=== PATIENT | male | born 1980 | race Caucasian/White ===

== ENCOUNTER 2022-10-26 16:12 | Emergency (ER) | payer OTHER, SELFPAY ==
[2022-10-26 17:49] VITALS: BP 190/107; PULSE 95; RESP 16; TEMP 36.4; O2SAT 94; BMI 23.1
--- NOTE | 2022-10-26 17:49 | ED.GENADULT ---
HPI - General Adult General Chief complaint: Skin/Abscess/Foreign Body Stated complaint: abdominal abscess infection spreading Time Seen by Provider: 10/27/22 00:51 Source: patient Mode of arrival: ambulatory Limitations: no limitations History of Present Illness HPI narrative: over the past few day patient developed an abscess in the right lower abdomen. It ruptured on its own and patient expressed the pus out but now has noticed redness to his abdomen. No fever no shaking chills Onset (ago): day(s) Location: abdomen Severity: mild Related Data Previous Rx's Medication Instructions Recorded cephalexin 500 mg capsule 500 mg PO Q6H 7 days #28 caps 10/27/22 Allergies Allergy/AdvReac Type Severity Reaction Status Date / Time No Known Allergies Allergy Unverified 10/26/22 17:49 [No Known Allergies*] Review of Systems Review of Systems: Yes all other systems are reviewed and are negative [facility] Social History Social History Advance Directives: No Advance Directives Information Provided: Yes Physical Exam ED Vital Signs: Vital Signs - 24 hr 10/26/22 17:49 10/26/22 21:35 Temperature 97.5 F 98.2 F Pulse Rate 95 74 Respiratory Rate 16 16 Blood Pressure 190/107 H 156/88 H Pulse Oximetry 94 98 Oxygen Delivery Method Room Air Room Air BMI result Body Mass Index 23.1 Const Other: morbidly obese no acute distress Nutritional Appearance: obese Orientation/consciousness: oriented to person and patient oriented x3 Limitations: no limitations HENMT Head: Yes normal to inspection Ears: external ears normal General nose exam: Normal external nose present Mouth: Normal oral and palatal mucosa present and oropharynx normal Throat: Yes posterior oropharynx normal Eyes General: appearance normal, both eyes and all related structures Neck Neck: Yes normal visual inspection Chest Chest palpation & inspection: normal inspection of the chest Resp Auscultation: clear to auscultation bilaterally Cardio Jugular venous distension: no JVD Rate: regular rate Rhythm: regular rhythm Heart sounds: S1 normal heart sound present and S2 normal heart sound present GI Inspection: Yes normal to inspection Palpation (GI): Soft to palpation, nontender and No hepatosplenomegaly present Auscultation: normal bowel sounds General: Yes no CVA tenderness Back/Spine/Pelvis Back: no CVA tenderness Skin Other: erythema around area of draining abscess, no pus coming out Neuro General: oriented to person and patient oriented x3 Cranial nerves: Yes CN's II-XII intact bilaterally Motor exam (neuro): 5/5 motor strength present throughout Extrem General: Yes normal to inspection Psych Appearance: grossly normal Course Course Course Narrative: This is an RME: Additional HPI, ROS, PE not included below will be deferred to primary provider. This is a [id number]-male, with a history of previous abd skin infections, here with abscess on abdomen x 5 days. Reports that he noticed it on , October 22, and the area burst on wednesday and got bigger yesterday. Right abdomen with extensive erythema and warmth to the right abdominal with central ulceration noted, active drainage noted. No fevers or chills. Plan: Labs ordered Reevaluation(s) Reevaluation #1: abscess was packed, keflex was started Time: 01:25 Medications Administered Discontinued Medications Generic Name Dose Route Start Last Admin Trade Name Freq PRN Reason Stop Dose Admin Cephalexin HCl 500 mg 10/27/22 01:02 10/27/22 01:10 Cephalexin 500 Mg Capsule PO 10/27/22 01:03 500 mg ONCE ONE Administration Lidocaine/Epinephrine 10 ml 10/27/22 01:02 10/27/22 01:13 Lidocaine Hcl 1%/Epi 1:100,000 10 Ml Vial SUBCUT 10/27/22 01:03 10 ml ONCE ONE Administration Procedures Procedure Narrative Procedure Narrative: Patient prepped and draped in sterile fashion. !% epi with lidocaine used for anesthesia. Curved hemostat used to open up the existing pocket and packing placed. Patient tolerated procedure well Medical Decision Making Differential Diagnosis Differential Diagnoses: The differential diagnosis associated with the presentation includes (abscess, cellulitis, paniculitis were all considered) Admission/Observation Consideration of admission/observation: Escalation of care including admission/observation considered (in this obese male with draining abscess and cellulitis admission was considered) Lab Data MDM Lab Attestation statement: I reviewed the patient's lab results. (no elevated WBC, no elevated glucose, bicarbonate normal) 10/26/22 18:51 10/26/22 18:51 Labs: Lab Results 10/26/22 10/26/22 10/26/22 Range/Units 18:51 18:51 18:51 WBC 9.5 (4.8-10.8) X10*3/uL RBC 4.44 L (4.60-5.80) X10*6/uL Hgb 14.2 (14.0-18.0) g/dl Hct 42.1 (42.0-52.0) % MCV 94.8 (80.0-98.0) fL MCH 32.0 (27.0-33.0) pg MCHC 33.7 (31.0-36.0) g/dl RDW 12.3 (11.0-16.0) % Plt Count 288 (160-400) X10*3/uL MPV 10.4 (9.4-12.4) fL Immature Gran % (Auto) 1.2 H (0.0-0.4) % Neut % (Auto) 55.1 (45-73) % Lymph % (Auto) 33.4 (20-40) % [place] % (Auto) 7.7 (2-11) % Eos % (Auto) 2.0 (0-4) % Baso % (Auto) 0.6 (0-2) % Lymph # (Auto) 3.2 (1.2-4.9) X10*3/uL [place] # (Auto) 0.7 (0.1-1.2) X10*3/uL Eos # (Auto) 0.2 (0.0-0.4) X10*3/uL Baso # (Auto) 0.1 (0.0-0.2) X10*3/uL Abs Immat Gran (auto) 0.11 H (0.00-0.03) X10*3/uL Absolute Neuts (auto) 5.2 (2.0-8.3) x10*3/uL Absolute Nucleated RBC 0.000 (0.0-0.012) X10*3/uL Nucleated RBC % (auto) 0.0 (0.0-0.2) /100WBC Sodium 140 (135-145) mmol/L Potassium 3.5 (3.3-5.1) mmol/L Chloride 103 (96-108) mmol/L Carbon Dioxide 27 (22-29) mmol/L Anion Gap 14 (12-20) BUN 13 (9-16) mg/dL Creatinine 0.80 (0.5-1.4) mg/dL Estim Creat Clear Calc 128.5 Estimated GFR > 60 Random Glucose 104 (60-115) mg/dL Lactic Acid 2.1 H* (0.5-2.0) mmol/L Lactic Acid F/U @ 2Hr (0.5-2.0) mmol/L Lactic Acid F/U @ 4Hr (0.5-2.0) mmol/L Calcium 9.3 (8.4-10.2) mg/dL Total Bilirubin 0.4 (0.0-1.0) mg/dL Direct Bilirubin 0.1 (0.0-0.5) mg/dL AST 20 (5-37) U/L ALT 37 (0-40) U/L Alkaline Phosphatase 97 (39-117) U/L Total Protein 7.4 (6.5-8.0) g/dL Albumin 3.9 (3.5-5.0) g/dL 10/26/22 10/27/22 Range/Units 21:56 00:27 WBC (4.8-10.8) X10*3/uL RBC (4.60-5.80) X10*6/uL Hgb (14.0-18.0) g/dl Hct (42.0-52.0) % MCV (80.0-98.0) fL MCH (27.0-33.0) pg MCHC (31.0-36.0) g/dl RDW (11.0-16.0) % Plt Count (160-400) X10*3/uL MPV (9.4-12.4) fL Immature Gran % (Auto) (0.0-0.4) % Neut % (Auto) (45-73) % Lymph % (Auto) (20-40) % [place] % (Auto) (2-11) % Eos % (Auto) (0-4) % Baso % (Auto) (0-2) % Lymph # (Auto) (1.2-4.9) X10*3/uL [place] # (Auto) (0.1-1.2) X10*3/uL Eos # (Auto) (0.0-0.4) X10*3/uL Baso # (Auto) (0.0-0.2) X10*3/uL Abs Immat Gran (auto) (0.00-0.03) X10*3/uL Absolute Neuts (auto) (2.0-8.3) x10*3/uL Absolute Nucleated RBC (0.0-0.012) X10*3/uL Nucleated RBC % (auto) (0.0-0.2) /100WBC Sodium (135-145) mmol/L Potassium (3.3-5.1) mmol/L Chloride (96-108) mmol/L Carbon Dioxide (22-29) mmol/L Anion Gap (12-20) BUN (9-16) mg/dL Creatinine (0.5-1.4) mg/dL Estim Creat Clear Calc Estimated GFR Random Glucose (60-115) mg/dL Lactic Acid (0.5-2.0) mmol/L Lactic Acid F/U @ 2Hr 2.2 H* (0.5-2.0) mmol/L Lactic Acid F/U @ 4Hr 2.0 (0.5-2.0) mmol/L Calcium (8.4-10.2) mg/dL Total Bilirubin (0.0-1.0) mg/dL Direct Bilirubin (0.0-0.5) mg/dL AST (5-37) U/L ALT (0-40) U/L Alkaline Phosphatase (39-117) U/L Total Protein (6.5-8.0) g/dL Albumin (3.5-5.0) g/dL Independent Interpretation I performed an independent interpretation of an: Ultrasound (bedside ultrasounds showed a small pocket of fluid) Tests considered The following testing was considered but not selected: I considered a CT of the abdomen but patient well appearing, no acute distress, normal labs Prescription Management I considered prescription management with: Pain Medication (narcotic pain medication was considered) Chronic Conditions Patient?s care impacted by: Other (obesity) Discharge Plan Discharge Clinical Impression: Cellulitis, Abscess of skin or subcutaneous tissue Patient Disposition: Home, Self-Care Instructions: Cellulitis (ED), Abscess (ED) Additional Instructions: packing removed in 48 hours Prescriptions: New cephalexin 500 mg capsule 500 mg PO Q6H 7 Days Qty: 28 0RF Referrals: Luis Garcias MD [Primary Care Provider] - 5 days
[2022-10-26 18:58] LABS: MANUAL DIFF FLAG NO
[2022-10-26 19:13] LABS: Alanine Aminotransferase 37 U/L (0-40); Albumin Level 3.9 g/dL (3.5-5.0); Alkaline Phosphatase 97 U/L (39-117); Anion Gap 14 (12-20); Aspartate Amino Transferase 20 U/L (5-37); Bilirubin Direct 0.1 mg/dL (0.0-0.5); Bilirubin Total 0.4 mg/dL (0.0-1.0); Blood Urea Nitrogen 13 mg/dL (9-16); Calcium 9.3 mg/dL (8.4-10.2); Carbon Dioxide 27 mmol/L (22-29); Chloride 103 mmol/L (96-108); Creatinine Clr Calc Pharmacy 128.5; Estimated Glomerular Filt Rate > 60; Glucose Random 104 mg/dL (60-115); Potassium 3.5 mmol/L (3.3-5.1); Sodium 140 mmol/L (135-145); Total Protein 7.4 g/dL (6.5-8.0)
[2022-10-26 19:14] LABS: Lactic Acid 2.1 mmol/L (0.5-2.0)
[2022-10-26 19:37] LABS: Basophils Absolute Auto 0.1 X10*3/uL (0.0-0.2); Basophils Percent Auto 0.6 % (0-2); Eosinophils Absolute Auto 0.2 X10*3/uL (0.0-0.4); Hematocrit 42.1 % (42.0-52.0); Hemoglobin 14.2 g/dl (14.0-18.0); Imm Gran Abs Auto 0.11 X10*3/uL (0.00-0.03); Imm Gran Pct Auto 1.2 % (0.0-0.4); Lymphocytes Absolute Auto 3.2 X10*3/uL (1.2-4.9); Lymphocytes Percent Auto 33.4 % (20-40); Mean Corpuscular HGB Conc 33.7 g/dl (31.0-36.0); Mean Corpuscular Volume 94.8 fL (80.0-98.0); Mean Platelet Volume 10.4 fL (9.4-12.4); Monocytes Absolute Auto 0.7 X10*3/uL (0.1-1.2); Monocytes Percent Auto 7.7 % (2-11); Neutrophils Absolute Auto 5.2 x10*3/uL (2.0-8.3); Neutrophils Percent Auto 55.1 % (45-73); Platelet Count 288 X10*3/uL (160-400); Red Blood Count 4.44 X10*6/uL (4.60-5.80); Red Cell Distribution Width 12.3 % (11.0-16.0); White Blood Count 9.5 X10*3/uL (4.8-10.8)
[2022-10-26 20:56] LABS: Reflex Lactate? Lactic Acid Added
[2022-10-26 21:35] VITALS: BP 156/88; PULSE 74; RESP 16; TEMP 36.8; O2SAT 98
--- NOTE | 2022-10-26 21:58 | MHC.EDTECH ---
PATIENT 2ND SET OF BLOOD CULTURE AND LACTIC ACID DRAWN AND SENT TO LAB ,VITALS SIGN TAKEN .
[2022-10-26 22:19] LABS: ~Lactic Acid-LAB USE ONLY 2.2 mmol/L (0.5-2.0)
[2022-10-27 00:05] LABS: Reflex Lactate? 2 Y
[2022-10-27] MEDS: cephALEXin 500 MG CAPSULE PO (01:10)
[2022-10-27] MEDS: Lidocaine HCl 1%/Epi 1:100,000 10 ML VIAL SUBCUT (01:13)
== END 2022-10-27 01:46 | disposition home or self-care (01) ==
PROVIDERS: Physician Assistant Medical; Emergency Provider Emergency Medicine; PCP Internal Medicine
DX: L02.211 Cutaneous abscess of abdominal wall (principal); L03.311 Cellulitis of abdominal wall
CPT/HCPCS: 10060; 36415; 80048; 80076; 83605; 85025; 87040; 99282; 99284

== ENCOUNTER 2022-12-17 11:12 | Outpatient (REF) | payer OTHER, SELFPAY ==
[2022-12-17 11:22] LABS: MANUAL DIFF FLAG NO
[2022-12-17 11:30] LABS: Basophils Absolute Auto 0.1 X10*3/uL (0.0-0.2); Basophils Percent Auto 0.9 % (0-2); Eosinophils Absolute Auto 0.2 X10*3/uL (0.0-0.4); Eosinophils Percent Auto 1.8 % (0-4); Hematocrit 42.7 % (42.0-52.0); Imm Gran Abs Auto 0.07 X10*3/uL (0.00-0.03); Imm Gran Pct Auto 0.7 % (0.0-0.4); Lymphocytes Absolute Auto 3.2 X10*3/uL (1.2-4.9); Lymphocytes Percent Auto 31.3 % (20-40); Mean Corpuscular HGB Conc 32.8 g/dl (31.0-36.0); Mean Corpuscular Hemoglobin 31.8 pg (27.0-33.0); Mean Platelet Volume 10.6 fL (9.4-12.4); Monocytes Absolute Auto 0.7 X10*3/uL (0.1-1.2); Monocytes Percent Auto 6.6 % (2-11); Neutrophils Absolute Auto 5.9 x10*3/uL (2.0-8.3); Neutrophils Percent Auto 58.7 % (45-73); Platelet Count 328 X10*3/uL (160-400); Red Cell Distribution Width 12.1 % (11.0-16.0); White Blood Count 10.1 X10*3/uL (4.8-10.8)
[2022-12-17 11:42] LABS: Alanine Aminotransferase 38 U/L (0-40); Albumin Level 4.1 g/dL (3.5-5.0); Alkaline Phosphatase 82 U/L (39-117); Anion Gap 14 (12-20); Aspartate Amino Transferase 23 U/L (5-37); Bilirubin Total 0.5 mg/dL (0.0-1.0); Blood Urea Nitrogen 17 mg/dL (9-16); Calcium 9.9 mg/dL (8.4-10.2); Carbon Dioxide 25 mmol/L (22-29); Chloride 104 mmol/L (96-108); Cholesterol 220 mg/dL (<200); Estimated Glomerular Filt Rate > 60; Glucose Fasting 140 mg/dL (60-99); HDL Cholesterol 48 mg/dL (>40); LDL Cholesterol Calculated 126 mg/dL (<100); Sodium 139 mmol/L (135-145); Total Protein 7.4 g/dL (6.5-8.0); Triglycerides 231 mg/dL (<150)
[2022-12-17 11:58] LABS: Estimated Average Glucose 126 mg/dL
[2022-12-17 12:02] LABS: Prostate Specific Antigen 0.69 ng/mL (<0.05-4.0)
== END 2022-12-17 11:13 | disposition home or self-care (01) ==
LOC: HO.LNP 11:12
PROVIDERS: Visit Provider Internal Medicine
DX: Z00.00 Encounter for general adult medical examination without abnormal findings (principal); D72.829 Elevated white blood cell count, unspecified; R73.03 Prediabetes; I10 Essential (primary) hypertension; Z12.5 Encounter for screening for malignant neoplasm of prostate
CPT/HCPCS: 80053; 80061; 83036; 84153; 85025

== ENCOUNTER 2022-12-25 13:39 | Outpatient (REF) | payer OTHER, SELFPAY ==
[2022-12-25 13:51] LABS: Appearance Urine Clear; Color Urine Yellow; Glucose Urine UA Negative (Negative); Leukocyte Esterase Urine Negative (Negative); Nitrite Urine Negative (Negative); PH 5.5 (5.0-9.0); Specific Gravity - Urine 1.015 (1.005-1.025); Urine Blood Negative (Negative); Urine Ketones Negative (Negative); Urine Protein Negative (Neg-Trace)
[2022-12-25 13:55] LABS: Bacteria Urine None Seen (None Seen); Hyaline Casts Urine 0-2 /LPF (0-2); RBC Urine 0-2 /HPF (0-2); Squamous Epithelial Cell Urine 0-2 /HPF (0-2); WBC Urine 0-5 /HPF (0-5)
== END 2022-12-25 13:40 | disposition home or self-care (01) ==
LOC: HO.LNP 13:39
PROVIDERS: Visit Provider Internal Medicine
DX: Z00.00 Encounter for general adult medical examination without abnormal findings (principal); R73.03 Prediabetes; I10 Essential (primary) hypertension
CPT/HCPCS: 81001

== ENCOUNTER 2023-07-23 08:58 | Day surgery (SDC) | payer OTHER, SELFPAY ==
[2023-07-21 10:21] VITALS: BMI 52.9
[2023-07-23 10:05] VITALS: BMI 51.8
[2023-07-23 10:32] VITALS: BP 148/89; PULSE 83; RESP 16; TEMP 36; O2SAT 96
[2023-07-23] MEDS: Lactated Ringers 1,000 ML 80 ML IVCONT (10:35)
--- NOTE | 2023-07-23 10:44 | HO.ANESPROP2 ---
HPI - Anesthesia Eval Consult details Narrative: 43yo male patient for Colonoscopy PMFSH Active Problems Active Problems: Morbid Obesity BMI 51.8 HTN Denies FELICITY Past Medical History Medical History HTN (hypertension) Family History Family history of problems with anesthesia: No Surgical History Surgical History Hx of excision of mass Hx of wisdom tooth extraction H/O colonoscopy History of Problems with Anesthesia: No Social History Social History Patient Tobacco Use Status: Never used Tobacco Use of substances other than those prescribed or required for medical reasons: No Are you DNR?: No Advance Directives: No Advance Directives Information Provided: Yes Meds Allergies Allergy/AdvReac Type Severity Reaction Status Date / Time No Known Allergies Allergy Verified 07/23/23 10:21 [No Known Allergies*] Active Medications: Current Medications Lactated Ringer's (Lr) 1,000 mls @ 80 mls/hr IVCONT .[id number] Last Admin: 07/23/23 10:35 Dose: 80 mls/hr Sodium Biphosphate/Sodium Phosphate (Sodium Phosphate,[place]-Dibasic 133 Ml Enema) 133 ml IA ONCE PRN PRN Reason: Poor Colonoscopy Prep Results Home Medications ?Medication ?Instructions ?Recorded ?Confirmed ?Last Taken ?Type amlodipine 10 mg tablet 10 mg PO DAILY 07/21/23 07/23/23 07/22/23 History lisinopril 20 1 tab PO DAILY 07/21/23 07/23/23 07/22/23 History mg-hydrochlorothiazide 12.5 mg tablet Exam Height,Weight and Vital Signs: Height 6 ft Weight 173.272 kg Last Vital Signs Temp 96.8 F 07/23/23 10:32 Pulse 83 07/23/23 10:32 Resp 16 07/23/23 10:32 BP 148/89 H 07/23/23 10:32 Pulse Ox 96 07/23/23 10:32 O2 Del Method Room Air 07/23/23 10:32 Airway Mallampati Class: III TM Dist: >3cm Neck ROM: Full Loose/Missing/Broken Teeth: No (Denies loose teeth. Broken tooth top right, missing tooth top right) Heart: RRR Lungs: CTAB Assessment and Plan Assessment Anesthesia Assessment: Anesthesia Plan Discussed and Chart Reviewed Final Anesthetic Review Family History of Problems with Anesthesia: No History of Problems with Anesthesia: No NPO: Yes ASA Class: III Final Preanesthetic Review: No Changes in Pt Med Stat, Meds/Allgs Chart Reviewed, Consent Obtained/Reviewed and Anes Risks/Benef Reviewed Patient Risk: Intermediate Procedure Risk: Low Assessment/Block/Sedation in SS: Assess/Block/Sedation-SS Anesthetic Plan Anesthetic Plan: MAC: and TIVA Disposition: Standard PACU
[2023-07-23 12:21] VITALS: BP 129/72; PULSE 88; RESP 16; TEMP 36.7; O2SAT 95
--- NOTE | 2023-07-23 12:23 | P.BOP_ITS ---
Brief Operative Note Date of Service: 07/23/23 Pre-op diagnosis: Screening Post-op diagnosis: other (Colon lesion) Procedure: Colonoscopy to the cecum with biopsies of appendiceal orifice, and hot snare polypectomy and biopsies of portions of colon lesion near hepatic flexure with submucosal ink marking Surgeon: Ramirez Pena MD Anesthesia: MAC Was an Inspector Poising used for this Procedure?: No Estimated blood loss (mL): 2.0 Pathology: other (A. Appendiceal orifice B. Lesion near hepatic flexure) Condition: stable Disposition: PACU
[2023-07-23 12:44] VITALS: BP 153/93; PULSE 81; RESP 18; TEMP 36.7; O2SAT 96
--- NOTE | 2023-07-24 04:10 | OP_ITS ---
DATE OF SERVICE: 07/23/2023 SURGEON: Ramirez Pena MD INDICATIONS: The patient presents for followup of personal history of colon polyps, family history of colon cancer, and colorectal cancer screening. Full consent was obtained from him for this, including risks of bleeding and perforation. PREOPERATIVE DIAGNOSIS: POSTOPERATIVE DIAGNOSIS: PROCEDURE PERFORMED: Colonoscopy to the cecum with biopsies, hot snare polypectomy, and placement of submucosal ink marking. ESTIMATED BLOOD LOSS: COMPLICATIONS: ANESTHESIA: Monitored anesthesia care. ASSISTANTS: SPECIMENS: PREOPERATIVE DIAGNOSES: Personal history of colon polyps, family history of colon cancer, colorectal cancer screening. POSTOPERATIVE DIAGNOSES: Personal history of colon polyps, family history of colon cancer, colorectal cancer screening, suspicious lesion noted in proximal transverse colon, rule out polyp in region of the appendiceal orifice, internal hemorrhoids. DESCRIPTION OF PROCEDURE: The patient was placed in the left lateral decubitus position. The digital rectal exam revealed no abnormalities. The Olympus video-pediatric colonoscope was entered into the rectum and advanced easily to the cecum. Once in the cecum, I did identify cecal pouch with appendiceal orifice and a normal-appearing ileocecal valve. The entire cecum was well visualized. The region immediately around the appendiceal orifice appeared to be somewhat erythematous, edematous, friable, and firm. There was no definitive associated mass. Biopsies were obtained from the tissue around the appendiceal orifice. The remainder of the cecum appeared normal. The scope was then slowly withdrawn assessing all mucosal surfaces carefully. Preparation was excellent. In the region of what appeared to be the proximal transverse colon, was a fairly large, somewhat ulcerated, and friable lesion. This was at least 3 cm x 1 cm. It was on a broad base. I initially removed portions of it with hot snare polypectomy and these were recovered by suction. The lesion itself was quite firm. At that point, I felt there was a high likelihood that this was a malignancy. Therefore, I opted to not remove any further large pieces and simply obtain biopsies. These were all placed in the same container. Given its suspicious appearance, I did place submucosal ink walters immediately proximal and immediately distal to the lesion. Again, the lesion was not removed in its entirety. I did not visualize any other polyps, colitis, nor angiodysplasia. The previously placed submucosal ink walters were noted in the sigmoid colon without any sign of residual polyp tissue in that area. In the rectum, the scope was retroflexed visualizing some small internal hemorrhoids, but no other pathology. The rectal mucosa appeared normal. The scope was straightened and withdrawn from the patient. He tolerated the procedure well and was returned to the recovery area in stable condition. IMPRESSION: 1. Suspicious colon lesion in region of proximal transverse colon. 2. Somewhat suspicious changes around the appendiceal orifice, status post biopsy. 3. Internal hemorrhoids. PLAN: The results of the pathology will be checked. He was advised not to use any aspirin or NSAIDs on a long-term basis for the time being. I advised him that I would be in touch with him by some time next week once I have the biopsy results and then make further plans accordingly. If indeed there is any malignancy he would need surgical referral. Future colonoscopy plans will be made depending upon the results of the biopsies. He was advised to contact me prior to that if he has any bleeding or other problems. This has been discussed with his brother. MD SERENA Salmeron/MOISES / [phone] MTDD
== END 2023-07-23 13:00 | disposition home or self-care (01) ==
PROVIDERS: PCP Internal Medicine; Visit Provider Internal Medicine
PROC: 0DJD8ZZ Inspection of Lower Intestinal Tract, Via Natural or Artificial Opening Endoscopic (ICD-10-PCS; CPT 45378; principal; 2023-07-23 10:30)
DX: Z12.11 Encounter for screening for malignant neoplasm of colon (principal); Z86.010 Personal history of colon polyps; Z80.0 Family history of malignant neoplasm of digestive organs; D12.3 Benign neoplasm of transverse colon; K63.9 Disease of intestine, unspecified; K64.8 Other hemorrhoids; K52.9 Noninfective gastroenteritis and colitis, unspecified; I10 Essential (primary) hypertension; Z79.899 Other long term (current) drug therapy; Z98.890 Other specified postprocedural states
CPT/HCPCS: 45385; 45380; 45381; 88304; 88305; J1596; J2250; J2704

== ENCOUNTER 2023-12-21 11:58 | Outpatient (REF) | payer OTHER, SELFPAY ==
[2023-12-21 12:08] LABS: MANUAL DIFF FLAG NO
[2023-12-21 12:25] LABS: Basophils Absolute Auto 0.1 X10*3/uL (0.0-0.2); Basophils Percent Auto 0.7 % (0-2); Eosinophils Absolute Auto 0.3 X10*3/uL (0.0-0.4); Eosinophils Percent Auto 2.2 % (0-4); Hematocrit 42.4 % (42.0-52.0); Hemoglobin 13.8 g/dl (14.0-18.0); Imm Gran Abs Auto 0.12 X10*3/uL (0.00-0.03); Imm Gran Pct Auto 1.1 % (0.0-0.4); Lymphocytes Absolute Auto 3.4 X10*3/uL (1.2-4.9); Lymphocytes Percent Auto 30.8 % (20-40); Mean Corpuscular HGB Conc 32.5 g/dl (31.0-36.0); Mean Corpuscular Hemoglobin 31.7 pg (27.0-33.0); Mean Corpuscular Volume 97.5 fL (80.0-98.0); Mean Platelet Volume 10.2 fL (9.4-12.4); Monocytes Absolute Auto 0.7 X10*3/uL (0.1-1.2); Monocytes Percent Auto 6.4 % (2-11); Neutrophils Absolute Auto 6.6 x10*3/uL (2.0-8.3); Neutrophils Percent Auto 58.8 % (45-73); Platelet Count 336 X10*3/uL (160-400); Red Blood Count 4.35 X10*6/uL (4.60-5.80); Red Cell Distribution Width 12.6 % (11.0-16.0); White Blood Count 11.2 X10*3/uL (4.8-10.8)
[2023-12-21 12:27] LABS: Appearance Urine Clear; Color Urine Yellow; Glucose Urine UA Negative (Negative); Leukocyte Esterase Urine Negative (Negative); Nitrite Urine Negative (Negative); PH 5.5 (5.0-9.0); Urine Blood Negative (Negative); Urine Ketones Negative (Negative); Urine Protein Negative (Neg-Trace)
[2023-12-21 12:37] LABS: Estimated Average Glucose 140 mg/dL; Hemoglobin A1c % 6.5 % (<6.0)
[2023-12-21 12:50] LABS: Alanine Aminotransferase 45 U/L (0-40); Albumin Level 4.1 g/dL (3.5-5.0); Alkaline Phosphatase 82 U/L (39-117); Anion Gap 15 (12-20); Aspartate Amino Transferase 25 U/L (5-37); Bilirubin Total 0.6 mg/dL (0.0-1.0); Blood Urea Nitrogen 15 mg/dL (9-16); Calcium 10.4 mg/dL (8.4-10.2); Carbon Dioxide 29 mmol/L (22-29); Chloride 101 mmol/L (96-108); Cholesterol 210 mg/dL (<200); Estimated Glomerular Filt Rate > 60; Glucose Fasting 129 mg/dL (60-99); HDL Cholesterol 41 mg/dL (>40); LDL Cholesterol Calculated 116 mg/dL (<100); Potassium 4.6 mmol/L (3.3-5.1); Sodium 140 mmol/L (135-145); Total Protein 7.6 g/dL (6.5-8.0); Triglycerides 265 mg/dL (<150)
[2023-12-21 13:11] LABS: Creatinine Urine 143.66 mg/dL; Microalbum/Creatinine Ratio Ur 5.5 ug/mg cr (<30)
== END 2023-12-21 11:59 | disposition home or self-care (01) ==
LOC: HO.LNP 11:58
PROVIDERS: Visit Provider Internal Medicine
DX: Z00.00 Encounter for general adult medical examination without abnormal findings (principal); I10 Essential (primary) hypertension; R73.03 Prediabetes; D72.829 Elevated white blood cell count, unspecified; Z12.5 Encounter for screening for malignant neoplasm of prostate
CPT/HCPCS: 80053; 80061; 81003; 82043; 82570; 83036; 84153; 85025

== ENCOUNTER 2023-12-30 09:23 | Outpatient (AMB) | payer OTHER, SELFPAY ==
--- NOTE | 2023-12-30 09:25 | MHC.OFFVIS ---
Vital Signs 12/30/23 09:30 Height 6 ft Weight 382 lb BMI 51.8 Intake Visit Reasons: Abscess of the groin Intake Note: This patient presents for abscess of groin, possible I&D. Pt c/o; reports recurrent abscess, reports it had burst but has recurred, reports no antibiotics. Solutions Architect Required: No Accompanied by: Self / Same As Patient Allergies No Known Allergies [No Known Allergies*] Allergy (Verified 12/30/23 09:29) Medication List - Last Reconciled 12/30/23 by Sacha Heaton MD amlodipine 10 mg PO DAILY lisinopril-hydrochlorothiazide 20-12.5 mg 1 tab PO DAILY HPI HPI Abscess of the groin: Details: 43-year-old male referred for recurrent area of swelling and drainage near the anus. He says that he has had this on and off for about over a month now. He describes some swelling on the area and spontaneous drainage. He describes tenderness when this happens. He was seen by his primary care physician yesterday and he was referred to me He says that he was just diagnosed to have diabetes yesterday as well and will be started on Ozempic He is morbidly obese. [facility] Medical History (Updated 12/30/23 @ 09:47 by Sacha Heaton MD) Perianal abscess Diabetes mellitus Morbid obesity HTN (hypertension) Surgical History Hx of excision of mass Hx of wisdom tooth extraction H/O colonoscopy Social History Patient Tobacco Use Status: Never used Tobacco Review of Systems Const Denies chills and Denies fever(s) Card Denies chest pain, Denies dyspnea and Reports dyspnea on exertion Resp Denies cough, Denies dyspnea and Reports dyspnea on exertion GI Denies hematochezia and Denies change in bowel habits Denies hematuria and Denies difficulty urinating Musc Denies back pain and Denies limited range of motion Neuro Denies focal weakness and Denies convulsions Psych Denies depression and Denies mood swings Physical Exam Vital Signs: BMI result Body Mass Index 51.8 Const Other: Morbidly obese General: comfortable and no acute distress Orientation/consciousness: patient oriented x3 Neck Neck: Yes no lymphadenopathy Resp Auscultation: clear to auscultation bilaterally Cardio Rhythm: regular rhythm GI Other: Perianal area anteriorly and towards the left about 5 cm from the verge - small induration with superficial fluctuance, about 2.5 cm with scanty drainage Palpation (GI): Soft to palpation, nontender and no guarding Neuro General: patient oriented x3 Office Procedures I&D Drain Details: He was in prone position. The area of the fluctuance the perineum was prepped and draped. Lidocaine 1% was used for local anesthesia. I used a blade 15 to incise the skin overlying this fluctuance. Small amounts of pus was drained. I bluntly debrided the cavity with Q-tip multiple times. Procedure was then completed. He tolerated procedure well. There were no immediate complications. He was advised on good wound care. 99188-Cwnabxbh of Skin Abscess, complex All charges added?: Procedure code (CPT) selection complete Assessment & Plan Assessment & Plan (1) Perianal abscess: Code(s): K61.0 - Anal abscess Category: Medical Plan: He has this area of induration with fluctuance consistent with an abscess. This appears to be superficial. There is no obvious fistulous tract leading into the anus. I explained to him it may be best to proceed with the I&D. He understood the technique of the planned procedure as well as the risks, benefits, and alternatives I and D and debridement of the cavity was done as described in the procedure note. He tolerated procedure well. I emphasized to him the need for good perianal care. I also advised him to come back to the office if he has persistent issues down the line I had a long discussion with the about the benefits of weight loss in view of his morbid obesity. Coding Level of Care Code New Pt Level 3 (53503) Diagnoses Perianal abscess K61.0 CPT Codes I&D Drain - Drain 2: 13199-Fmkpyaxg of Skin Abscess, complex ([id number])
[2023-12-30 09:30] VITALS: BMI 51.8
== END 2023-12-30 09:45 | disposition home or self-care (01) ==
PROVIDERS: PCP Internal Medicine; Visit Provider Surgery
DX: K61.0 Anal abscess (principal)
CPT/HCPCS: 46050; 99203

== ENCOUNTER → 2023-12-30 09:23 | Outpatient (BNVA) | payer OTHER, SELFPAY | PROVIDERS: PCP Internal Medicine; Visit Provider Surgery | DX: K61.0 Anal abscess (principal) | CPT/HCPCS: 46050 ==

== ENCOUNTER 2023-12-31 11:57 | Day surgery (SDC) | payer OTHER, SELFPAY ==
[2023-12-29 14:11] VITALS: BMI 51.4
[2023-12-31 12:12] VITALS: BMI 52.1
[2023-12-31 12:25] VITALS: BP 144/90; PULSE 65; RESP 18; TEMP 37; O2SAT 95
[2023-12-31] MEDS: Lactated Ringers 1,000 ML 80 ML IVCONT (12:28)
[2023-12-31 14:50] VITALS: BP 114/55; PULSE 103; RESP 16; TEMP 36.6; O2SAT 92
--- NOTE | 2023-12-31 14:52 | PM.OP ---
Brief Operative Note Date of Service: 12/31/23 Pre-op diagnosis: Personal history of polyps and Family history of colon cancer Post-op diagnosis: other (Polypoid lesion at Hepatic flexure) Procedure: Colonoscopy to the ascending colon with piecemeal hot snare polypectomy at the Hepatic Flexure Surgeon: Ramirez Pena MD Anesthesia: MAC Was an Oil Heat Technician used for this Procedure?: No Estimated blood loss (mL): 2.0 Pathology: other (A. Hepatic flexure polypoid lesion) Condition: stable Disposition: PACU
[2023-12-31 15:05] VITALS: BP 138/81; PULSE 92; RESP 16; O2SAT 95
[2023-12-31 15:19] VITALS: BP 134/80; PULSE 87; RESP 16; TEMP 36.4; O2SAT 97
--- NOTE | 2023-12-31 21:27 | OP_ITS ---
DATE OF SERVICE: 12/31/2023 SURGEON: Ramirez Pena MD INDICATIONS: The patient presents for evaluation of a known personal history of colon polyps and family history of colon cancer. Full consent has been obtained from him for this, including risks of bleeding and perforation. PREOPERATIVE DIAGNOSIS: POSTOPERATIVE DIAGNOSIS: PROCEDURE PERFORMED: Colonoscopy to the ascending colon with hot snare polypectomy. ESTIMATED BLOOD LOSS: COMPLICATIONS: ANESTHESIA: Monitored anesthesia care. ASSISTANTS: SPECIMENS: PREOPERATIVE DIAGNOSES: Personal history of colon polyps and family history of colon cancer. POSTOPERATIVE DIAGNOSES: Personal history of colon polyps and family history of colon cancer, polypoid lesion at area of hepatic flexure. DESCRIPTION OF PROCEDURE: The patient was placed in the left lateral decubitus position. The digital rectal exam revealed no abnormalities other than a small healing incision from his perianal I & D earlier this week with Dr. Heaton. There was no sign of any drainage nor fluctuance. The [employer] video pediatric colonoscope was entered into the rectum and advanced to the level of the distal ascending colon. The colon proximal to this and distal to this had a relatively poor prep with a lot of solid stool. I therefore did not attempt to reach the cecum as his colonoscopy in July visualized that when there was a much better prep, I did not visualize any significant pathology in the cecum or ascending colon at that time. The scope was slowly withdrawn to the region of the hepatic flexure. At this level was the previously seen polypoid lesion. I also visualized the 2 previously placed submucosal ink walters. Between the ink walters was the relatively large and somewhat ulcerated, friable lesion. This was at least 3 cm x 1 cm. It appeared to be flat but somewhat polypoid as well. Multiple portions were removed by hot snare polypectomy with pieces recovered either by suction or with the retrieval net twice and having to pull the scope out of the patient each time. The scope was advanced back to the polypectomy site after the final retrieval net removal. There was still some residual polypoid tissue remaining. There was no bleeding. At that point, even though the pathology from July did not show any carcinoma, I was still concerned that this may be something harboring a neoplasm given its gross appearance and his family history. As such, I opted not to remove any further tissue. The area was further irrigated, and there was no sign of bleeding. At that point, the scope was withdrawn from the patient. Visualization was quite limited throughout the remainder of the colon due to the poor prep. The patient tolerated the procedure well and was returned to the recovery area in stable condition. IMPRESSION: Polypoid lesion area of hepatic flexure, status post partial piecemeal hot snare polypectomy. PLAN: The results of the pathology will be checked. As I advised him and his brother today, I do feel this will need surgical resection at this point given its gross appearance and family history, as well as what appears to be a relatively difficult process in removing it. I feel that all those factors plus his young age would favor a surgical resection. I told him I would await the results of the pathology, but even if there is not carcinoma I would still recommend surgical resection for definitive removal of this lesion and prevention of colon cancer. He was advised not to use any aspirin and NSAIDs for at least 2 weeks. I did advise him to certainly call me or go to the ER if he develops any significant rectal bleeding between now and when I call him next week with the biopsy results. This has been discussed with the patient and his brother in detail. MD SERENA Salmeron/MOISES / [phone] MTDD
== END 2023-12-31 15:28 | disposition home or self-care (01) ==
PROVIDERS: PCP Internal Medicine; Visit Provider Internal Medicine
PROC: 0DJD8ZZ Inspection of Lower Intestinal Tract, Via Natural or Artificial Opening Endoscopic (ICD-10-PCS; CPT 45378; principal; 2023-12-31 13:10)
DX: Z12.11 Encounter for screening for malignant neoplasm of colon (principal); Z80.0 Family history of malignant neoplasm of digestive organs; Z86.010 Personal history of colon polyps; D12.3 Benign neoplasm of transverse colon; I10 Essential (primary) hypertension; Z79.899 Other long term (current) drug therapy; Z98.890 Other specified postprocedural states
CPT/HCPCS: 45385; 88305; J2704

== ENCOUNTER 2024-01-27 08:53 | Outpatient (AMB) | payer OTHER, SELFPAY ==
--- NOTE | 2024-01-27 08:56 | MHC.OFFVIS ---
Vital Signs 01/27/24 09:04 Height 6 ft Weight 378 lb BMI 51.3 Intake Visit Reasons: Colonic Mass Intake Note: This patient was referred by Dr. Pena for colonic mass. Pt c/o; reports no rectal bleeding, pain or pressure. 12/31/2023: Colonoscopy (Dr. Pena). Machinist Instructor Required: No Accompanied by: Self / Same As Patient Allergies No Known Allergies [No Known Allergies*] Allergy (Verified 03/08/24 09:56) HPI HPI Colonic Mass: Details: 44-year-old male referred for a colon. He has a known personal history of a large colon polyp at the area of the hepatic flexure in the transverse colon, and had colonoscopy last April, to remove this. This showed a tubulovillous adenoma. This was repeated last December, and again, a large ulcerating mass was noted at the same area. Multiple biopsies of this showed a tubulovillous adenoma. He was therefore referred to me. He does have a family history of colon cancer. He says his father of colon cancer at age of 46. He says that he has 2 other paternal uncles with history of colon cancer. He otherwise denies GI complaints. He denies any rectal bleeding. He has good bowel movements. He is morbidly obese with a BMI of 51. He has been recently started on Ozempic. [facility] Medical History Family history of colon cancer Tubulovillous adenoma Perianal abscess Diabetes mellitus Morbid obesity HTN (hypertension) Surgical History Hx of excision of mass Hx of wisdom tooth extraction H/O colonoscopy Family History Father Colon cancer, Onset Age: 46 Brother Colon polyps Social History Household Members Other:: mother lives with him Are you a primary animal care supervisor to a significant other at home: Yes Do you presently have visiting nurse or other home services: No Patient Tobacco Use Status: Never used Tobacco Review of Systems Const Denies chills and Denies fever(s) Card Denies chest pain, Denies dyspnea and Reports dyspnea on exertion Resp Denies cough, Denies dyspnea and Reports dyspnea on exertion GI Denies hematochezia and Denies change in bowel habits Denies hematuria and Denies difficulty urinating Musc Denies back pain and Denies limited range of motion Neuro Denies focal weakness and Denies convulsions Psych Denies depression and Denies mood swings Physical Exam Vital Signs: BMI result Body Mass Index 51.3 Const Other: Morbidly obese General: comfortable and no acute distress Orientation/consciousness: patient oriented x3 Neck Neck: Yes no lymphadenopathy Resp Auscultation: clear to auscultation bilaterally Cardio Rhythm: regular rhythm GI Palpation (GI): Soft to palpation, nontender and no guarding Neuro General: patient oriented x3 Assessment & Plan Assessment & Plan (1) Tubulovillous adenoma: Code(s): D36.9 - Benign neoplasm, unspecified site Category: Medical Plan: He has a large polyp in the proximal transverse colon near the hepatic flexure could not be safely endoscopically removed. I explained to him the technique of hand assisted laparoscopic right colon resection with possible conversion to open. I reviewed the risks including but not limited to bleeding, infections, staple line leak, injury to other organs, blood clots, pneumonia, postop ileus, as well as the benefits and alternatives. I also explained to him what to expect postoperatively. I am going to also order for a CAT scan of the abdomen and pelvis to rule out any suggestion of metastatic disease or other intra-abdominal pathology. He is super morbidly obese with a BMI of 51. He understands that he presents with significant perioperative risks because of this. Going to discuss his case with the anesthesiologist as well. I will see him in the office after his CAT scan. (2) Family history of colon cancer: Code(s): Z80.0 - Family history of malignant neoplasm of digestive organs Category: Medical Plan: He states that his father of colon cancer at age of 46. He says multiple paternal uncles also have colon cancer. I explained to him the option of proceeding with genetic counseling and genetic testing. He says he is interested in this. He understands the implications of this test. Orders: Orders CT abdomen pelvis w IV con 01/27/24 D36.9 - Benign neoplasm, unspecified site Blood Urea Nitrogen 01/27/24 D36.9 - Benign neoplasm, unspecified site Creatinine 01/27/24 D36.9 - Benign neoplasm, unspecified site Coding Level of Care Code Est Pt Level 4 (42613) Diagnoses Tubulovillous adenoma D36.9 Family history of colon cancer Z80.0
[2024-01-27 09:04] VITALS: BMI 51.3
== END 2024-01-27 09:37 | disposition home or self-care (01) ==
PROVIDERS: PCP Internal Medicine; Visit Provider Surgery
DX: D36.9 Benign neoplasm, unspecified site (principal); Z80.0 Family history of malignant neoplasm of digestive organs
CPT/HCPCS: 99214

== ENCOUNTER → 2024-01-27 08:53 | Outpatient (BNVA) | payer OTHER, SELFPAY | PROVIDERS: PCP Internal Medicine; Visit Provider Surgery ==

== ENCOUNTER 2024-02-28 13:49 | Outpatient (REF) | payer OTHER, SELFPAY ==
--- NOTE | ~2024-02-28 | CT_ITS ---
EXAMINATION: CT ABDOMEN AND PELVIS WITH CONTRAST CLINICAL INFORMATION: History of colon cancer COMPARISON: None available. TECHNIQUE: Multidetector volumetric images were obtained from the superior aspect of the liver through the pubic symphysis following administration 85 mL of Omnipaque 350 intravenous contrast. Sagittal and coronal reformatted images were obtained on the technologist's workstation. Oral contrast: Yes This CT examination was performed using dose optimization techniques as appropriate, variously including the following: *Automated exposure control *Adjustment of mA and/or kV according to patient size (this includes techniques or standardized protocols for targeted exams where dose is matched to indication/reason for exam; i.e. extremities or head) *Use of iterative reconstruction technique DLP: 1261 mGy-cm FINDINGS: LUNG BASES: The visualized lung bases are unremarkable. LIVER, GALLBLADDER, AND BILIARY TREE: The liver is normal in size, shape, and attenuation. No focal hepatic lesion or biliary ductal dilatation is present. The gallbladder is unremarkable with no evidence of radiopaque gallstones, gallbladder wall thickening, or obvious pericholecystic inflammatory changes. PANCREAS: Unremarkable. SPLEEN: Unremarkable. ADRENAL GLANDS: Unremarkable. KIDNEYS AND URETERS: The kidneys are normal in size, shape, and attenuation. No hydronephrosis, hydroureter, or calculi seen. No perinephric stranding. BLADDER: Unremarkable. GASTROINTESTINAL TRACT: The small and large bowel are unremarkable. The appendix is unremarkable. ABDOMINAL WALL: Small fat-containing umbilical hernia. LYMPH NODES: Normal. VASCULAR: Unremarkable. PELVIC VISCERA: Unremarkable. OSSEOUS STRUCTURES: Degenerative spondylosis spine. CT/CT abdomen pelvis w IV con IMPRESSION: No acute abnormality CT scan abdomen pelvis. Fleischner guidelines were followed. Electronically signed by: Harrison Redmond MD 03/14/2024 03:31 PM EST
[2024-02-28] MEDS: iohexoL 350 MG/ML 75 ML INFUS..BTL 100 ML IV (16:27)
[2024-02-28] MEDS: Barium Sulfate Oral (Mocha) 450 ML ORAL.SUSP 900 ML PO (16:28)
== END 2024-02-28 13:50 | disposition home or self-care (01) ==
LOC: HO.CT 13:49
PROVIDERS: Absent Provider Surgery; PCP Internal Medicine; Visit Provider Internal Medicine
DX: D36.9 Benign neoplasm, unspecified site (principal); K63.9 Disease of intestine, unspecified; Z80.0 Family history of malignant neoplasm of digestive organs
CPT/HCPCS: 74177; Q9967

== ENCOUNTER 2024-03-08 09:49 | Outpatient (AMB) | payer OTHER, SELFPAY ==
--- NOTE | 2024-03-08 09:53 | A.OFFVIS_ITS ---
Vital Signs 03/08/24 09:56 Height 6 ft Weight 378 lb 0.003 oz BMI 51.3 Intake Visit Reasons: genetic test results Intake Note: This patient presents for genetic test results. Pt c/o; reports no complaints. Wound Care Technician Required: No Accompanied by: Self / Same As Patient Allergies No Known Allergies [No Known Allergies*] Allergy (Verified 03/08/24 09:56) HPI HPI genetic test results: Details: 44-year-old male referred for a colon. He has a known personal history of a large colon polyp at the area of the hepatic flexure in the transverse colon, and had colonoscopy last April, to remove this. This showed a tubulovillous adenoma. This was repeated last December, and again, a large ulcerating mass was noted at the same area. Multiple biopsies of this showed a tubulovillous adenoma. He was therefore referred to me. He does have a family history of colon cancer. He says his father of colon cancer at age of 46. He says that he has 2 other paternal uncles with history of colon cancer. He otherwise denies GI complaints. He denies any rectal bleeding. He has good bowel movements. He is morbidly obese with a BMI of 51. He has been recently started on Ozempic. In view of family history, I had sent him for genetic testing with [employer] and he is here to discuss this. [facility] Medical History Hinson syndrome Family history of colon cancer Tubulovillous adenoma Perianal abscess Diabetes mellitus Morbid obesity HTN (hypertension) Surgical History Hx of excision of mass Hx of wisdom tooth extraction H/O colonoscopy Family History Father Colon cancer, Onset Age: 46 Brother Colon polyps Social History Household Members Other:: mother lives with him Are you a primary behavioral health care coordinator to a significant other at home: Yes Do you presently have visiting nurse or other home services: No Patient Tobacco Use Status: Never used Tobacco Review of Systems Const Denies chills and Denies fever(s) Card Denies chest pain, Denies dyspnea and Denies dyspnea on exertion Resp Denies cough, Denies dyspnea and Denies dyspnea on exertion GI Denies hematochezia and Denies change in bowel habits Denies hematuria and Denies difficulty urinating Musc Denies back pain and Denies limited range of motion Neuro Denies focal weakness and Denies convulsions Psych Denies depression and Denies mood swings Physical Exam Vital Signs: BMI result Body Mass Index 51.3 Const Other: Super morbidly obese General: comfortable and no acute distress Orientation/consciousness: patient oriented x3 Neck Neck: Yes no lymphadenopathy Resp Auscultation: clear to auscultation bilaterally Cardio Rhythm: regular rhythm GI Palpation (GI): Soft to palpation, nontender and no guarding Neuro General: patient oriented x3 Assessment & Plan Assessment & Plan (1) Tubulovillous adenoma: Code(s): D36.9 - Benign neoplasm, unspecified site Category: Medical Plan: He has a large polyp in the proximal transverse colon near the hepatic flexure could not be safely endoscopically removed. This was a tubulovillous adenoma on biopsy. I explained to him the technique of hand assisted laparoscopic right colon resection with possible conversion to open. I reviewed the risks including but not limited to bleeding, infections, staple line leak, injury to other organs, blood clots, pneumonia, postop ileus, as well as the benefits and alternatives. I also explained to him what to expect postoperatively. 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 He is therefore at elevated risk for metachronous cancer in the rest of the colon. I therefore explained to him the option of proceeding with total colectomy with an ileorectal anastomosis. I explained to him the technique of this procedure. He understands this is a much bigger procedure compared to a right colon resection. He states that he would like to stay with just a right colon resection for now. He understands that he will require yearly colonoscopies for his the rest of his colon was of the risk of metachronous cancers. He says he understands this I also explained to him that he is at elevated risk for small bowel cancer and gastric cancer. He understands that he will need to have her GI endoscopy every 2-4 years. He should also have MRI of the abdomen every year because of the risk of pancreatic cancer. I had a long discussion with him about the importance of weight loss as part of risk management for his elevated cancer risks. I told him that his gene mutation affects his family members as well so he needs to have the rest of his family members tested. He said his brother had been tested already in the past. I will send him for a preadmission testing because of his morbid obesity. I have reviewed his CAT scan and there is no obvious mass in the area of the hepatic flexure. There were no liver lesions seen. (2) Hinson syndrome: Code(s): Z15.09 - Genetic susceptibility to other malignant neoplasm Category: Medical Plan: He tested positive for MSH2 genetic mutation. This is consistent with a little syndrome. He understands his elevated risk for multiple other cancers including metachronous cancers the rest of the colon. He understands the option of proceeding with total colectomy because of this elevated risk. He said he wants to proceed with only a right colon resection for now. He will need to undergo yearly colonoscopies for the rest of his colon. Coding Level of Care Code Est Pt Level 4 (60586) Diagnoses Tubulovillous adenoma D36.9 Hinson syndrome Z15.09
[2024-03-08 09:56] VITALS: BMI 51.3
== END 2024-03-08 10:05 | disposition home or self-care (01) ==
PROVIDERS: PCP Internal Medicine; Visit Provider Surgery
DX: D36.9 Benign neoplasm, unspecified site (principal); Z15.09 Genetic susceptibility to other malignant neoplasm
CPT/HCPCS: 99214

== ENCOUNTER → 2024-04-06 13:15 | Outpatient (BNV) | payer OTHER, SELFPAY | PROVIDERS: Admitting Provider Surgery; PCP Internal Medicine; Visit Provider Internal Medicine Cardiovascular Disease | DX: Z01.810 Encounter for preprocedural cardiovascular examination (principal); D36.9 Benign neoplasm, unspecified site | CPT/HCPCS: 93010 ==

== ENCOUNTER 2024-04-18 07:16 | Inpatient (IN) | payer OTHER, SELFPAY ==
--- NOTE | 2024-04-06 | ECG_ITS ---
Test Reason : PREOP Blood Pressure : / mmHG Vent. Rate : 084 BPM Atrial Rate : 084 BPM P-R Int : 180 ms QRS Dur : 102 ms QT Int : 392 ms P-R-T Axes : 019 -07 014 degrees QTc Int : 463 ms Normal sinus rhythm Normal ECG No previous ECGs available Referred By: Pamella Cerrato Electronically Signed By:NOREEN MERCHANT MD
[2024-04-06 12:17] VITALS: BP 137/70; PULSE 85; RESP 18; O2SAT 97; BMI 49.1
--- NOTE | 2024-04-06 12:26 | HO.ANESPROP2 ---
Documented by User: Pamella Cerrato NP 04/11/24 10:54 HPI - Anesthesia Eval Consult details Narrative: 44yo M for Right Colon Resection Laparoscopic Assist, poss open, 04/18/24 No recent illness No CP/SOB with twice daily flat walks BMI 49 + Hinson syndrome by genetic testing: large colon polyp at the area of the hepatic flexure in the transverse colon, and had colonoscopy last April, to remove this. This showed a tubulovillous adenoma. This was repeated last December, and again, a large ulcerating mass was noted at the same area. Multiple biopsies of this showed a tubulovillous adenoma. DM2: Diet control, was taking brothers ozempic. Does not check home POC PMFSH Active Problems Active Problems: All Active Problems Hinson syndrome (Acute) Family history of colon cancer (Acute) Tubulovillous adenoma (Acute) Perianal abscess (Acute) Diabetes mellitus (Acute) Morbid obesity (Acute) Past Medical History Medical History Staph infection Muscle spasm of back Hinson syndrome Family history of colon cancer Tubulovillous adenoma Perianal abscess Diabetes mellitus Morbid obesity HTN (hypertension) Family History Family History Father Colon cancer, Onset Age: 46 Brother Colon polyps Family history of problems with anesthesia: No Surgical History Surgical History Hx of excision of mass Hx of wisdom tooth extraction H/O colonoscopy History of Problems with Anesthesia: No Social History Social History Household Members Other:: mother & roomate live w/patient Are you a primary home health care worker to a significant other at home: No Do you presently have visiting nurse or other home services: No Patient Tobacco Use Status: Never used Tobacco Use of substances other than those prescribed or required for medical reasons: No Have you been hit, kicked, punched, or otherwise hurt by someone within the past year? If so, by whom?: No Spiritual Healthcare Practices: none Pentecostal Healthcare Practices: Anabaptism Cultural Healthcare Practices: none Are you DNR?: No Advance Directives: No (brother is primary contact) Advance Directives Information Provided: Yes (brochure given) Advance Directives on File: No Recently lost weight without trying: No Eating poorly because of decreased appetite: No Nutrition Risks: No Nutritional Risk Poor oral hygiene: No (some extracted teeth) Meds Allergies Allergy/AdvReac Type Severity Reaction Status Date / Time No Known Allergies Allergy Verified 03/08/24 09:56 [No Known Allergies*] Home Medications ?Medication ?Instructions ?Recorded ?Confirmed ?Last Taken ?Type amlodipine 10 mg tablet 10 mg PO QAM 07/21/23 04/18/24 04/17/24 History lisinopril 20 1 tab PO QAM 07/21/23 04/18/24 04/17/24 History mg-hydrochlorothiazide 12.5 mg tablet multivitamin 1 tab PO QAM 04/06/24 04/18/24 04/17/24 History omega 7-tqk-ccg-fish oil 300 1 cap PO QAM 04/06/24 04/18/24 04/17/24 History mg-1,000 mg capsule (Fish Oil) vitamin D3 125 mcg (5,000 1 cap PO DAILY 04/06/24 04/18/24 04/17/24 History unit)-vitamin K2 100 mcg capsule Exam Height,Weight and Vital Signs: Height 6 ft Weight 164.2 kg Last Vital Signs Pulse 85 04/06/24 12:17 Resp 18 04/06/24 12:17 BP 137/70 04/06/24 12:17 Pulse Ox 97 04/06/24 12:17 O2 Del Method Room Air 04/06/24 12:17 Pertinent Lab Results Pertinent Lab Results: Lab Results 04/06/24 04/06/24 Range/Units 13:05 13:09 WBC 10.0 (4.8-10.8) X10*3/uL RBC 4.54 L (4.60-5.80) X10*6/uL Hgb 14.2 (14.0-18.0) g/dl Hct 42.1 (42.0-52.0) % MCV 92.7 (80.0-98.0) fL MCH 31.3 (27.0-33.0) pg MCHC 33.7 (31.0-36.0) g/dl RDW 12.6 (11.0-16.0) % Plt Count 360 (160-400) X10*3/uL MPV 10.1 (9.4-12.4) fL Absolute Nucleated RBC 0.000 (0.0-0.012) X10*3/uL Nucleated RBC % (auto) 0.0 (0.0-0.2) /100WBC Sodium 138 (135-145) mmol/L Potassium 3.9 (3.3-5.1) mmol/L Chloride 101 (96-108) mmol/L Carbon Dioxide 30 H (22-29) mmol/L Anion Gap 11 L (12-20) BUN 16 (9-16) mg/dL Creatinine 0.82 (0.5-1.4) mg/dL Estim Creat Clear Calc 178.7 Estimated GFR > 60 Random Glucose 103 (60-115) mg/dL Estimat Average Glucose 123 mg/dL Hemoglobin A1c % 5.9 (<6.0) % Calcium 9.7 D (8.4-10.2) mg/dL Blood Type O Positive Antibody Screen NEGATIVE Narrative Narrative: EKG 03/2024 Vent. Rate : 084 BPM Atrial Rate : 084 BPM P-R Int : 180 ms QRS Dur : 102 ms QT Int : 392 ms P-R-T Axes : 019 -07 014 degrees QTc Int : 463 ms Normal sinus rhythm Normal ECG No previous ECGs available Airway Mallampati Class: III TM Dist: >3cm Neck ROM: Full Loose/Missing/Broken Teeth: Yes (right molar extracted) Heart: RRR Lungs: CTAB Assessment and Plan Assessment Anesthesia Assessment: Anesthesia Plan Discussed and PAT Visit Final Anesthetic Review Family History of Problems with Anesthesia: No History of Problems with Anesthesia: No Documented by User: Uriel Roy MD 04/18/24 10:55 HPI - Anesthesia Eval Anesthesia Pre-Procedure Meds Is the patient on any of the following meds?: GLP1/DPP4 (Last dose mid-Mar) [facility] Past Medical History Medical History Staph infection Muscle spasm of back Hinson syndrome Family history of colon cancer Tubulovillous adenoma Perianal abscess Diabetes mellitus Morbid obesity HTN (hypertension) Family History Family History Father Colon cancer, Onset Age: 46 Brother Colon polyps Surgical History Surgical History Hx of excision of mass Hx of wisdom tooth extraction H/O colonoscopy Social History Social History Household Members Other:: mother & roomate live w/patient Are you a primary home health care worker to a significant other at home: No Do you presently have visiting nurse or other home services: No Patient Tobacco Use Status: Never used Tobacco Use of substances other than those prescribed or required for medical reasons: No Have you been hit, kicked, punched, or otherwise hurt by someone within the past year? If so, by whom?: No Spiritual Healthcare Practices: none Pentecostal Healthcare Practices: Anabaptism Cultural Healthcare Practices: none Are you DNR?: No Advance Directives: No (brother is primary contact) Advance Directives Information Provided: Yes (brochure given) Advance Directives on File: No Recently lost weight without trying: No Eating poorly because of decreased appetite: No Nutrition Risks: No Nutritional Risk Poor oral hygiene: No (some extracted teeth) Meds Allergies Allergy/AdvReac Type Severity Reaction Status Date / Time No Known Allergies Allergy Verified 03/08/24 09:56 [No Known Allergies*] Home Medications ?Medication ?Instructions ?Recorded ?Confirmed ?Last Taken ?Type amlodipine 10 mg tablet 10 mg PO QAM 07/21/23 04/18/24 04/17/24 History lisinopril 20 1 tab PO QAM 07/21/23 04/18/24 04/17/24 History mg-hydrochlorothiazide 12.5 mg tablet multivitamin 1 tab PO QAM 04/06/24 04/18/24 04/17/24 History omega 3-ovq-jir-fish oil 300 1 cap PO QAM 04/06/24 04/18/24 04/17/24 History mg-1,000 mg capsule (Fish Oil) vitamin D3 125 mcg (5,000 1 cap PO DAILY 04/06/24 04/18/24 04/17/24 History unit)-vitamin K2 100 mcg capsule Assessment and Plan Final Anesthetic Review NPO: Yes ASA Class: III Final Preanesthetic Review: No Changes in Pt Med Stat, Meds/Allgs Chart Reviewed, Consent Obtained/Reviewed and Anes Risks/Benef Reviewed Patient Risk: High Procedure Risk: Intermediate Anesthetic Plan Anesthetic Plan: GA and Regional Block Disposition: Standard PACU
[2024-04-06 13:49] LABS: Hematocrit 42.1 % (42.0-52.0); Hemoglobin 14.2 g/dl (14.0-18.0); Mean Corpuscular HGB Conc 33.7 g/dl (31.0-36.0); Mean Corpuscular Hemoglobin 31.3 pg (27.0-33.0); Mean Corpuscular Volume 92.7 fL (80.0-98.0); Mean Platelet Volume 10.1 fL (9.4-12.4); Platelet Count 360 X10*3/uL (160-400); Red Blood Count 4.54 X10*6/uL (4.60-5.80); Red Cell Distribution Width 12.6 % (11.0-16.0)
[2024-04-06 14:09] LABS: Anion Gap 11 (12-20); Blood Urea Nitrogen 16 mg/dL (9-16); Calcium 9.7 mg/dL (8.4-10.2); Carbon Dioxide 30 mmol/L (22-29); Chloride 101 mmol/L (96-108); Creatinine Clr Calc Pharmacy 178.7; Estimated Glomerular Filt Rate > 60; Glucose Random 103 mg/dL (60-115); Potassium 3.9 mmol/L (3.3-5.1); Sodium 138 mmol/L (135-145)
[2024-04-06 14:15] LABS: Estimated Average Glucose 123 mg/dL; Hemoglobin A1C 152.1528 umol/L; Hemoglobin A1c % 5.9 % (<6.0); Total Hemoglobin (HGBA1C) 3672.5508 umol/L
[2024-04-18] VITALS (20 sets, daily range): BP systolic 113–149; BP diastolic 58–81; PULSE 66–89; RESP 16–22; TEMP 36.1–37; O2SAT 92–100
--- NOTE | ~2024-04-18 | XR_ITS ---
EXAMINATION: XR CHEST CLINICAL INFORMATION: F U Hypoxia COMPARISON: X-ray dated August 03, 2012 TECHNIQUE: Frontal view of the chest was obtained. FINDINGS: Poor inspiratory film. Prominent and indistinct margins in the perihilar region. No gross pneumothorax. Cardia mediastinal silhouette overlaps the left lower hemithorax. Inadequate evaluation of the axial skeleton due to patient's body habitus and underpenetrated technique. XR/XR chest 1V IMPRESSION: Poor inspiration suggesting mild interstitial lung edema versus acute inflammatory or an or infectious small airway disease. Electronically signed by: Teo Mckeon MD 04/19/2024 03:34 PM [place]
[2024-04-18] MEDS: Lactated Ringers 1,000 ML 100 ML IVCONT (06:38)
--- NOTE | 2024-04-18 07:19 | MHC.SHP ---
Pre-Procedural Eval Section A - 24 Hr Update-Section A only Date of Service: 04/18/24 Section B - Complete if H&P > 30 days Chief Complaint: right colon polyp Details of Present Illness: colonoscopy inSept 2023 showed a large polyp in the hepatic flexure, could not be completely removed; also has MSH2 mutation Relevant Family History (Specify if Yes): Yes Relevant Social History: None Present Medications: see Short Stay Collaborative assessment Medical History: Significant History (morbid obesity, DM, FH of colon cancer) Allergies: Allergies Allergy/AdvReac Type Severity Reaction Status Date / Time No Known Allergies Allergy Verified 03/08/24 09:56 [No Known Allergies*] Review of Systems Sugical H&P ROS: Negative: Constitution, Respiratory, Gastrointestinal and Genitourinary Exam Surgical H&P Exam: Normal: Heart, Normal: Lungs and Normal: Abdomen Plan Diagnosis/Plan: Unchanged I have reviewed the history and physical and performed a pertinent physical examination on my patient. No changes have occurred unless specified. Time Spent With Patient Time: Total time managing care of this patient today ____ minutes.
--- OUTSIDE RECORDS SUMMARY | 2024-04-18 07:21 | XMS_ITS ---
Author Organization [facility] Address [address] [place] [address] Care Team Providers Care Tying In Machine Operator Name Role Phone Katerine CHUNG, Luis Primary Care Provider Ramirez Allen Unavailable [phone] REASON FOR VISIT screening, hx polyps, fam hx colon ca Encounters Encounter Location Date Provider Diagnosis [facility] Outpatient [address] [place] [phone] 12/31/2023 Ramirez Pena Colon cancer scree daryl Z12.11 ; Colon polyps K63.5 and Family history of colon cancer Z80.0 ASSESSMENTS Encounter Date Diagnosis Assessment Notes Treatment Notes Treatment Clinical Notes 12/31/2023 Colon cancer screening (ICD-10 - Z12.11) 12/31/2023 Colon polyps (ICD-10 - K63.5) 12/31/2023 Family history of colon cancer (ICD-10 - Z80.0) PLAN OF TREATMENT No Information
--- OUTSIDE RECORDS SUMMARY | 2024-04-18 07:21 | XMS_ITS ---
Author Organization [facility] Address [address] [place] [phone] Care Team Providers Care Single Wire Saw Operator Name Role Phone Katerine CHUNG, Luis Primary Care Provider Ramirez Allen [phone] REASON FOR VISIT Needs CT scan and labs, and appt with Dr. Heaton PROBLEMS Problem Type ICD Code Onset Dates Problem Status W/U Status Risk SNOMED Code Notes Problem 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 Mass of hepatic flexure of colon (230529559189 107) Encounters Encounter Location Date Provider Diagnosis [facility] [address] [place] [phone] 01/06/2024 Ramirez Pena Mass of hepatic flexure of colon K63.9 and Family history of colon cancer Z80.0 ASSESSMENTS Encounter Date Diagnosis Assessment Notes Treatment Notes Treatment Clinical Notes 01/06/2024 Mass of hepatic flexure of colon (ICD-10 - K63.9) 01/06/2024 Family history of colon cancer (ICD-10 - Z80.0) PLAN OF TREATMENT Pending Test Test Name Order Date CHEM 7 PROFILE 01/06/2024 LIVER PROFILE 01/06/2024 CEA 01/06/2024 CBC w DIFF 01/06/2024 CT ABD & PELVIS WITH CONTRAST 01/06/2024
--- OUTSIDE RECORDS SUMMARY | 2024-04-18 07:22 | XMS_ITS ---
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 Role Phone Luis Garcias Primary Care Provider [phone] ALLERGIES No Known Allergies RESULTS Component Value Reference Range Notes Glucose, finger stick Reviewed date:02/11/2024 10:00:54 AM Interpretation: Performing Lab: Notes/Report: Value 111 REASON FOR VISIT high blood pressure MEDICATIONS Medication SIG (Take, Route, Frequency, Duration) Notes [...] a day for 30 day(s) 04/29/2018 Not-Taking VITAL SIGNS BMI 50.88 kg/m2 02/11/2024 Blood pressure systolic 136 mm Hg 02/11/20 24 Blood pressure diastolic 90 mm Hg 024 Height 71.5 in 02/11/2024 Weight 370 lbs 02/11/2024 weight is down 10 pounds sin ce 9-17-24 Encounters Encounter Location Date Provider Diagnosis Luis Garcias MD [address] [place] [address] [address] [place], [place] [phone] 02/11/2024 Luis Garcias Prediabetes R73.03 ; Essential hypertension with goal blood pressure less than 140\/90 I10 and Morbid obesity due to excess calories E66.01 ASSESSMENTS Encounter Date Diagnosis Assessment Notes Treatment Notes Treatment Clinical Notes 02/11/2024 Prediabetes (ICD-10 - R73.03) sugar is better, will continue to monitor 02/11/2024 Essential hypertension with goal blood pressure less than 140\/90 (ICD-10 - I10) doing well on meds, will colanceue current regiment andwiama continue to monitor 02/11/2024 Morbid obesity due to excess calories (ICD-10 - E66.01) is doing intermittant fasting. also taking his brother's ozempic PLAN OF TREATMENT Medication Medication Name Sig Start Date Stop [...] than 140\/90 doing well on meds, will collin goodee nt regimenvinayak andlinda continue to monitor Morbid obesity due to excess calories is doing intermittant fasting. also taking his brother's ozempic Next Appt Details Follow Up: 3 Months, Reason: Provider Name:Luis zaragoza, 05/15/2024 10:00:00 AM, [address] [place] [address], [address] [place] [address], [phone], Provider Name:Luis zaragoza, 12/22/2024 07:15:00 AM, [address] [place] [address], Suite [facility], [place], [place], [phone], Provider Name:Luis zaragoza, 12/29/2024 09:30:00 AM, [address] [place] [address], [place] [address], [place], [place], [phone], Progress Notes * Examination Category Sub-Category Detail Notes General Examination GENERAL APPEARANCE: well dev eloped, well nourished obese male HEAD: normocephalic HEART: no murmurs, rubs, ga llops , regular rate and rhythm LUNGS: no wheezes, rales, r honchi , good air movement , clear to auscultation bilaterally SKIN: good turgor
--- OUTSIDE RECORDS SUMMARY | 2024-04-18 07:22 | XMS_ITS | Patient Health Record ---
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 Role Phone Luis Garcias MD Primary Care Provider Ramirez Allen [phone] ALLERGIES No Known Allergies RESULTS Component Value Reference Range Notes Pathology Reviewed date:07/30/2023 06:24:29 PM Interpretation: Performing Lab:[facility], [address] [place] [phone] Notes/Report: Pathology Reviewed date:03/18/2024 11:02:29 AM Interpretation: Performing Lab:[facility], [address] [place] [phone] Notes/Report: REASON FOR REFERRAL No Information MEDICATIONS Medication SIG (Take, Route, Frequency, Duration) Notes Start Date End Date Status amLODIPine Besylate 10 MG TAKE 1 TABLET BY MOUTH EVERY DAY Oral for 90 Active Lisinopril-hydroCHLOROthia zide 20-12.5 MG 1 tablet Orally Once a day Active IMMUNIZATIONS Vaccine Route Administration Date Status Comme nts Influenza Unknown 04/21/2023 Refused SOCIAL HISTORY Sex Assigned At : Social History Observation Description Sex Assigned At Unknown PROBLEMS Problem Type ICD Code Onset Dates Problem Status W/U Status Risk SNOMED Code Notes Problem Encounter for screening for malignant neoplasm of colon (Z12.11) Active confirmed 763994216 Problem History of adenomatous polyp of colon (Z86.010) Active confirmed 386171279 Problem Encounter for screening for malignant neoplasm of rectum (Z12.12) Active confirmed Screening for malignant neoplasm of rectum (133504378) Problem Preprocedural examination (Z01.818) Active confirmed 50054836 Problem Family history of colon cancer (Z80.0) Active confirmed 207312785 Problem 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 Mass of hepatic flexure of colon (875178391828 107) VITAL SIGNS Temperature 98.7 degrees Fahrenheit 04/21/2023 Blood pressure diastolic 00 mm Hg 10/21/2023 Height 71.5 in 10/21/2023 Blood pressure systolic 00 mm Hg 10/21/2023 Weight 374 lbs 10/21/2023 BMI 51.43 kg/m2 10/21/2023 Encounters Encounter Location Date Provider Diagnosis [facility] [place] [address] [place] [phone] 07/23/2023 Ramirez Pena Encounter for screening colonoscopy Z12.11 ; Colon polyps K63.5 ; Family history of colon cancer Z80.0 ; Other specified diseases of intestine K63.89 and Other hemorrhoids K64.8 [facility] Out[facility] [address] [place] [phone] 12/31/2023 Ramirez Pena Colon cancer screeni ng Z12.11 ; Colon polyps K63.5 and Family history of colon cancer Z80.0 [facility] [address] [place] [phone] 04/21/2023 Ramirez Pena Encounter for screening for malignant neoplasm of colon Z12.11 ; Preprocedural examination Z01.818 ; History of adenomatous polyp of colon Z86.010 and Family history of colon cancer Z80.0 [facility] [address] [place] [phone] 10/21/2023 Ramirez Pena Encounter for screening for malignant neoplasm of colon Z12.11 ; Preprocedural examination Z01.818 ; History of adenomatous polyp of colon Z86.010 and Family history of colon cancer Z80.0 [facility] [address] [place] [phone] 07/29/2023 Ramirez Pena [facility] [address] [place] [phone] 01/06/2024 Ramirez Pena Mass of hepatic flexure of colon K63.9 and Family history of colon cancer Z80.0 [facility] [address] [place] [address] 03/10/2024 Ramirez Pena ASSESSMENTS Encounter Date Diagnosis Assessment Notes Treatment Notes Treatment Clinical Notes 07/23/2023 Encounter for screening colonoscopy (ICD-10 - Z12.11) 07/23/2023 Colon polyps (ICD-10 - K63.5) 12/31/2023 Colon cancer screening (ICD-10 - Z12.11) 12/31/2023 Colon polyps (ICD-10 - K63.5) 04/21/2023 Encounter for screening for malignant neoplasm of colon (ICD-10 - Z12.11) 04/21/2023 Preprocedural examination (ICD-10 - Z01.818) 10/21/2023 Encounter for screening for malignant neoplasm of colon (ICD-10 - Z12.11) 10/21/2023 Preprocedural examination (ICD-10 - Z01.818) 01/06/2024 Family history of colon cancer (ICD-10 - Z80.0) 01/06/2024 Mass of hepatic flexure of colon (ICD-10 - K63.9) 07/23/2023 Family history of colon cancer (ICD-10 - Z80.0) 12/31/2023 Family history of colon cancer (ICD-10 - Z80.0) 04/21/2023 History of adenomatous polyp of colon (ICD-10 - Z86.010) 10/21/2023 History of adenomatous polyp of colon (ICD-10 - Z86.010) 07/23/2023 Other specified diseases of intestine (ICD-10 - K63.89) 04/21/2023 Family history of colon cancer (ICD-10 - Z80.0) 10/21/2023 Family history of colon cancer (ICD-10 - Z80.0) 07/23/2023 Other hemorrhoids (ICD-10 - K64.8) PLAN OF TREATMENT Pending Test Test Name Order Date CHEM 7 PROFILE 01/06/2024 LIVER PROFILE 01/06/2024 CEA 01/06/2024 CBC w DIFF 01/06/2024 CT ABD & PELVIS WITH CONTRAST 01/06/2024 Future Test Test Name Order Date COLONOSCOPY 12/19/2015 COLONOSCOPY 04/21/2023 COLONOSCOPY 10/21/2023 Insurance Providers Payer Name Payer Address Payer Phone Subscriber Number Group Number Insured Name Patient Relationship to Insured Coverage Start Date Coverage End Date [facility] [address] [place] [phone] [id number] ANTHONYEDIN MARYSE Self - patient is the insured MEDICAL (GENERAL) HISTORY Medical History History ICD Code Denies VA,DM,CVA,Lung disease,renal dise ase HTN Colonoscopy 04/2006 - hyperplastic polyp removed Colonoscopy in 04/2013--tubul ar adenomas removed--1 was flat and > 1cm at the rectosigmoid area and the site was marked with submucosal ink Colonoscopy 02/2016 was negative Colonoscopy 07/2023 was notab le for a sizable flat polypoid lesion in the area of the proximal transverse colon. Portions of it were removed. I did not remove the entire lesion as I was suspicious that there might be a malignancy within it, the pathology came back as just adenomatous tissue and without any dysplasia or carcinoma. The site was marked with submucosal ink. The site of his previous polypectomy in 2013 was free of any residual polyp tissue. There was some inflammation in the cecum near the appendiceal orifice but those biopsies just came back as some nonspecific inflammation. Surgical History Surgery Date(Month/Year) [place] teeth extraction Fatty tumor removed from scalp 2016
--- OUTSIDE RECORDS SUMMARY | 2024-04-18 07:22 | XMS_ITS ---
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 Name Role Phone Luis Garcias Primary Care Provider REASON FOR VISIT High BP Encounters Encounter Location Date Provider Diagnosis Luis Garcias MD [address] [facility] [address] [place] [phone] 01/18/2024 Luis Garcias PLAN OF TREATMENT Next Appt Details Provider Name:Luis zaragoza, 05/15/2024 10:00:00 AM, [address] [place] [address], Suite [facility], [place], [place], [phone], Provider Name:Luis zaragoza, 12/22/2024 07:15:00 AM, [address] [place] [address], [address], [phone], Provider Name:Luis zaragoza, 12/29/2024 09:30:00 AM, [address] [place] [address], [address], [phone],
--- OUTSIDE RECORDS SUMMARY | 2024-04-18 07:22 | XMS_ITS ---
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 Name Role Phone Luis Garcias Primary Care Provider [phone] Encounters Encounter Location Date Provider Diagnosis Luis Garcias MD [address] [place] [address] [place] [phone] 03/13/2024 Luis Garcias PLAN OF TREATMENT Next Appt Details Provider Name:Luis zaragoza, 05/15/2024 10:00:00 AM, [address] [place] [address], Suite [facility], [place], [place], [phone], Provider Name:Luis zaragoza, 12/22/2024 07:15:00 AM, [address] [place] [address], [address], [phone], Provider Name:Luis zaragoza, 12/29/2024 09:30:00 AM, [address] [place] [address], [address] [place] [address], [phone],
--- OUTSIDE RECORDS SUMMARY | 2024-04-18 07:22 | XMS_ITS | Patient Health Record ---
Author Organization Luis Garcias MD Address [address] [place], [place] [id number] Care Team Providers Care Manager Bank Name Role Phone Luis Garcias Primary Care Provider ALLERGIES No Known Allergies RESULTS Component Value Reference Range Notes Hemoglobin A1c Reviewed date:10/01/2023 03:07:41 PM Interpretation: Performing Lab: Notes/Report: Value Hemoglobin A1c 6.4 Pathology Reviewed date:07/29/2023 12:59:36 PM Interpretation: Performing Lab:[facility], [address] [place] [phone] Notes/Report: Glucose, finger stick Reviewed date:10/01/2023 03:06:18 PM Interpretation: Performing Lab: Notes/Report: Value 142 UA CC w/rflx Micro + Cult Reviewed date:12/22/2023 08:46:10 AM Interpretation: Performing Lab:[facility], [address] [place] [phone] Notes/Report: Urine, Clean Catch Color Urine Yellow Appearance Urine Clear PH 5.5 5.0-9.0 Glucose Urine UA Negative Negative mg/dL Urine Blood Negative Negative Specific [place] - Urine 1.020 1.005-1.025 Urine Protein Negative Neg-Trace mg/dL Urine Ketones Negative Negative mg/dL Nitrite Urine Negative Negative Leukocyte Esterase Urine Negative Negative Complete Blood Count Auto Di ff Reviewed date:12/22/2023 08:45:53 AM Interpretation: Performing Lab:[facility], [address] [place] [phone] Notes/Report: White Blood Count 11.2 4.8-10.8 X10*3/uL Red Blood Count 4.35 4.60-5.80 X10*6/uL Hemoglobin 13.8 14.0-18.0 g/dl Hematocrit 42.4 42.0-52.0 % Mean Corpuscular Volume 97.5 80.0-98.0 fL Mean Corpuscular Hemoglobin 31.7 27.0-33.0 pg Mean Corpuscular HGB Conc 32.5 31.0-36.0 g/dl Red Cell Distribution Width 12.6 11.0-16.0 % Platelet Count 336 160-400 X10*3/uL Mean Platelet Volume 10.2 9.4-12.4 fL Neutrophils Percent Auto 58.8 45-73 % Imm Gran Pct Auto 1.1 0.0-0.4 % Lymphocytes Percent Auto 30.8 20-40 % Monocytes Percent Auto 6.4 2-11 % Eosinophils Percent Auto 2.2 0-4 % Basophils Percent Auto 0.7 0-2 % NRBC Pct Auto 0.0 0.0-0.2 /100WBC Neutrophils Absolute Auto 6.6 2.0-8.3 x10*3/u L Imm Gran Abs Auto 0.12 0.00-0.03 X10*3/uL Lymphocytes Absolute Auto 3.4 1.2-4.9 X10*3/u L Monocytes Absolute Auto 0.7 0.1-1.2 X10*3/uL Eosinophils Absolute Auto 0.3 0.0-0.4 X10*3/u L Basophils Absolute Auto 0.1 0.0-0.2 X10*3/uL NRBC Abs Auto 0.000 0.0-0.012 X10*3/uL Comprehensive [place]. Panel Fa st Reviewed date:12/22/2023 08:41:44 AM Interpretation: Performing Lab:[facility], [address] [place] [phone] Notes/Report: Sodium 140 135-145 mmol/L Potassium 4.6 3.3-5.1 mmol/L Chloride 101 96-108 mmol/L Carbon Dioxide 29 22-29 mmol/L Anion Gap 15 12-20 Blood Urea Nitrogen 15 9-16 mg/dL Creatinine 0.83 0.5-1.4 mg/dL Estimated Glomerular Filt Rate > 60 NOTE: For -[place] individuals, multiply the result by 1.210. Chronic Kidney Disease: Estimated GFR < 60 mL/min/1.73m2 Severe Kidney Disease: Estimated GFR < 15 mL/min/1.73m2 Glucose Fasting 129 60-99 mg/dL A fasting glucose of 126 mg/dl or greater on more than one occasion is considered diagnostic of diabetes. Calcium 10.4 8.4-10.2 mg/dL Bilirubin Total 0.6 0.0-1.0 mg/dL Aspartate Amino Transferase 25 5-37 U/L Alanine Aminotransferase 45 0-40 U/L Total Protein 7.6 6.5-8.0 g/dL Albumin Level 4.1 3.5-5.0 g/dL Alkaline Phosphatase 82 39-117 U/L Lipid Panel Reviewed date:12/21/2023 05:57:40 PM Interpretation: Performing Lab:[address] [phone] Notes/Report: Triglycerides 265 <150 mg/dL Desirable Triglyceride: less than 150 mg/dL Borderline High Triglyceride 150-199 mg/dL High Triglyceride: 200-499 mg/dL Very High Triglyceride: greater than or equal to 5OO mg/dL Cholesterol 210 <200 mg/dL Desirable Cholesterol: less than 200 mg/dL Borderline High Cholesterol: 200-239 mg/dL High Cholesterol: greater than 239 mg/dL LDL Cholesterol Calculated 116 <100 mg/dL Desirable LDL: less than 100 mg/dL Near Optimal/Above Optimal LDL: 110-129 mg/dL Borderline High LDL: 130-159 mg/dL High LDL: 160-189 mg/dL Very High LDL: greater than or equal to 190 mg/dL HDL Cholesterol 41 >40 mg/dL Desirable HDL: greater than 40 mg/dL Note: This HDL assay may give artificially low results in patients with liver disease. PSA,Total (Free>4and<10) Reviewed date:12/21/2023 05:58:44 PM Interpretation: Performing Lab:[address] [phone] Notes/Report: PSA,Total (Free>4and<10) 1.70 0.00-4.00 ng/mL A Free PSA was not performed: The percentage of Free PSA can be used to enhance the differentiation of prostate cancer from benign prostatic disease in subjects whose PSA levels are between 4.0 and 10.0 ng/mL. For subjects whose PSA levels are below 4.0 or above 10.0 ng/mL, the risk of prostate cancer is determined on the basis of the PSA alone. Therefore the % Free PSA is recommended only for those subjects whose PSA levels are between 4.0 and 10.0 ng/mL. PSA methodology: Ly Alinity i Chemiluminescent Microparticle Immunoassay (CMIA) Microalbumin, Random Reviewed date:12/22/2023 08:43:56 AM Interpretation: Performing Lab:[address] [phone] Notes/Report: Creatinine Urine 143.66 Microalbumin Urine 8.0 Microalbum/Creatinine Ratio Ur 5.5 <30 ug/mg cr Albumin/Creatinine Ratio Reference Ranges: Normal: < 30 ug/mg creatinine Microalbuminuria: 30 - 300 ug/mg creatinine Clinical Albuminuria: > 300 ug/mg creatinine Hemoglobin A1c Reviewed date:12/21/2023 12:42:30 PM Interpretation: Performing Lab:[address] [phone] Notes/Report: Hemoglobin A1c % 6.5 <6.0 % Hemoglobin A1C Reference Range Adults: 4.8 - 6.0 % Non diabetic: < 6.0 % Goal: < 7.0 % Additional Action Suggested: > 8.0 % Note: Hemoglobin A1c results are invalid for patients with abnormal amounts of HbF. Blood transfusions may impact the HbA1c concentration in the patient sample. Estimated Average Glucose 140 eAG = Estimated average glucose which is %A1C expressed as average glucose, using the formula of the C9I-Wkvmhsn Average Glucose study (ADAG), Diabetes Care, Vol.31,#8, Nov. 2007 Pathology Reviewed date:01/04/2024 10:55:57 AM Interpretation: Performing Lab:[address] [phone] Notes/Report: Glucose, finger stick Reviewed date:02/11/2024 10:00:54 AM Interpretation: Performing Lab: Notes/Report: Value 111 CT abdomen pelvis w con Reviewed date:03/14/2024 05:08:21 PM Interpretation: Performing Lab: Notes/Report: [address] [place] [address] CT Scan Report Signed Patient: Dakota Gore MR#: [id number] [birth year] : 1980 Acct:[id number] Age/Sex: 44 / M ADM Date: 02/28/24 Loc: HO.CT Attending Dr: Ramirez Pena MD Ordering Physician: Sacha Heaton MD Date of Service: 02/28/24 Procedure(s): CT abdomen pelvis w IV con Accession Number(s): [id number] cc: Luis Garcias MD; Sacha Heaton MD EXAMINATION: CT ABDOMEN AND PELVIS WITH CONTRAST CLINICAL INFORMATION: History of colon cancer COMPARISON: None available. TECHNIQUE: Multidetector volumetric images were obtained from the superior aspect of the liver through the pubic symphysis following administration 85 mL of Omnipaque 350 intravenous contrast. Sagittal and coronal reformatted images were obtained on the technologist's workstation. Oral contrast: Yes This CT examination was performed using dose optimization techniques as appropriate, variously including the following: *Automated exposure control *Adjustment of mA and/or kV according to patient size (this includes techniques or standardized protocols for targeted exams where dose is matched to indication/reason for exam; i.e. extremities or head) *Use of iterative reconstruction technique DLP: 1261 mGy-cm FINDINGS: LUNG BASES: The visualized lung bases are unremarkable. LIVER, GALLBLADDER, AND BILIARY TREE: The liver is normal in size, shape, and attenuation. No focal hepatic lesion or biliary ductal dilatation is present. The gallbladder is unremarkable with no evidence of radiopaque gallstones, gallbladder wall thickening, or obvious pericholecystic inflammatory changes. PANCREAS: Unremarkable. SPLEEN: Unremarkable. ADRENAL GLANDS: Unremarkable. KIDNEYS AND URETERS: The kidneys are normal in size, shape, and attenuation. No hydronephrosis, hydroureter, or calculi seen. No perinephric stranding. BLADDER: Unremarkable. GASTROINTESTINAL TRACT: The small and large bowel are unremarkable. The appendix is unremarkable. ABDOMINAL WALL: Small fat-containing umbilical hernia. LYMPH NODES: Normal. VASCULAR: Unremarkable. PELVIC VISCERA: Unremarkable. OSSEOUS STRUCTURES: Degenerative spondylosis spine. CT/CT abdomen pelvis w IV con IMPRESSION: No acute abnormality CT scan abdomen pelvis. Fleischner guidelines were followed. Electronically signed by: Harrison Redmond MD 03/14/2024 03:31 PM [facility] Dictated By: Harrison Redmond MD Signed By: <Electronically signed by Harrison Redmond MD in OV> 03/14/24 1531 DD/ 1616 TD/TT: 02/28/24 1628 E Commerce Specialist: RACHEL Complete Blood Count no Diff Reviewed date:04/06/2024 04:50:01 PM Interpretation: Performing Lab:[facility], [address] [place] [phone] Notes/Report: White Blood Count 10.0 4.8-10.8 X10*3/uL Red Blood Count 4.54 4.60-5.80 X10*6/uL Hemoglobin 14.2 14.0-18.0 g/dl Hematocrit 42.1 42.0-52.0 % Mean Corpuscular Volume 92.7 80.0-98.0 fL Mean Corpuscular Hemoglobin 31.3 27.0-33.0 pg Mean Corpuscular HGB Conc 33.7 31.0-36.0 g/dl Red Cell Distribution Width 12.6 11.0-16.0 % Platelet Count 360 160-400 X10*3/uL Mean Platelet Volume 10.1 9.4-12.4 fL NRBC Pct Auto 0.0 0.0-0.2 /100WBC NRBC Abs Auto 0.000 0.0-0.012 X10*3/uL Basic Metabolic Panel Reviewed date:04/06/2024 04:49:27 PM Interpretation: Performing Lab:[facility], [address] [place] [phone] Notes/Report: Sodium 138 135-145 mmol/L Potassium 3.9 3.3-5.1 mmol/L Chloride 101 96-108 mmol/L Carbon Dioxide 30 22-29 mmol/L Anion Gap 11 12-20 Blood Urea Nitrogen 16 9-16 mg/dL Creatinine 0.82 0.5-1.4 mg/dL Creatinine Clr Calc Pharmacy 178.7 eGFR (calculated from the MDRD study equation) and eCrCl (calculated from the Cockcroft-Gault equation) are based on different parameters and may not yield comparable results. If eCrCl result is absurd, please check patient's height/weight. Estimated Glomerular Filt Rate > 60 Chronic Kidney Disease: Estimated GFR < 60 mL/min/1.73m2 Severe Kidney Disease: Estimated GFR < 15 mL/min/1.73m2 Glucose Random 103 60-115 mg/dL Calcium 9.7 8.4-10.2 mg/dL Hemoglobin A1c Reviewed date:04/06/2024 04:48:55 PM Interpretation: Performing Lab:[facility], [address] [place] [phone] Notes/Report: Hemoglobin A1c % 5.9 <6.0 % Hemoglobin A1C Reference Range Adults: 4.8 - 6.0 % Non diabetic: < 6.0 % Goal: < 7.0 % Additional Action Suggested: > 8.0 % Note: Hemoglobin A1c results are invalid for patients with abnormal amounts of HbF. Blood transfusions may impact the HbA1c concentration in the patient sample. Estimated Average Glucose 123 eAG = Estimated average glucose which is %A1C expressed as average glucose, using the formula of the Z3S-Yrikzyt Average Glucose study (ADAG), Diabetes Care, Vol.31,#8, Nov. 2007 Type and Screen Reviewed date:04/06/2024 04:49:37 PM Interpretation: Performing Lab:[facility], [address] [place] [phone] Notes/Report: Spec expiration changed by SHIKHA on 04/06/24 Reason: PAT NURSING: Call Blood Bank (ext. [phone]) to band patient on admission. Type and Screen in effect until 2300 on 04/18/2024. Witnessed by MURCA Blood Type OP Antibody Screen NEGATIVE REASON FOR REFERRAL Reason abscess groin area Diagnosis 1 Abscess (L02.91) Referral Organization Luis Garcias MD Referring Provider First Name Luis Referring Provider Last Name Katerine Referring Provider Speciality Internal edicine Referred Provider Sacha Heaton Referred Provider Specialty Surgery General Notes Sarah Dee 09:53:26 AM EDT > patient aware of appt Referral Priority Routine Referral Appointment Date 12/30/2023 Reason morbid obesit due to excess calories Diagnosis 1 Morbid obesity due t o excess calories (E66.01) Referral Organization Luis Garcias MD Referring Provider First Name Luis Referring Provider Last Name Katerine Referring Provider Speciality Internal edicine Referred Provider Markos Arellano Referred Provider Specialty Bariatric [facility] General Notes Sarah Dee 10:07:11 AM EDT > patient will b calling to set this up. He will need to watch a video Referral Priority Routine MEDICATIONS Medication SIG (Take, Route, Frequency, Duration) Notes Start Date End Date Status Lisinopril-hydroCHLOROth iazide 20-25 MG 1 tablet Orally Once a day 10/01/2023 Active amLODIPine Besylate 10 MG TAKE 1 TABLET BY MOUTH EVERY DAY for 90 Active Ozempic (0.25 or 0.5 MG/DOSE) 2 MG/3ML as directed Subcutaneous 0.25 mg weekly 12/28/2023 Active Ventolin HFA 108 (90 Base) MCG/ACT 2 puffs as needed Inhalation every 4 hrs for 30 days 09/27/2018 Not-Taking Flonase 50 MCG/ACT 1 spray in each nost ril Nasally Once a day for 30 day(s) 04/29/2018 Not-Taking SUMAtriptan Succinate 50 MG 1 tablet as needed Orally as need for migraine Not-Taking IMMUNIZATIONS Vaccine Route Administration Date Status Comme nts Fluarix Quadrivalent - 150 IM Intramuscular 12/21/2023 Adm inistered Flu Vaccine Unknown 06/25/2015 Refused Fluarix Quadrivalent Unknown 04/18/2018 Refused SOCIAL HISTORY Tobacco Use: Social History Observation Description Date Details (start date - stop date) Never Smoker NA - NA Sex Assigned At : Social History Observation Description Sex Assigned At Unknown Tobacco Use/Smoking Question Answer Notes Patient is a nonsmoker Additional Findings: Tobacco Non-User Cu rrent non-smoker, currently using no form of tobacco Alcohol Screen Question Answer Notes Did you have a drink contain ing alcohol in the past year? Yes How often did you have a dri nk containing alcohol in the past year? Monthly or less (1 point) How many drinks did you have on a typical day when you were drinking in the past year? 1 or 2 drinks (0 point) How often did you have 6 or more drinks on one occasion in the past year? Never (0 point) Points 1 Interpretation Negative PROBLEMS Problem Type ICD Code Onset Dates Problem Status W/U Status Risk SNOMED Code Notes Problem Morbid obesity due to excess calories (E66.01) Active confirmed 912076777 Problem Intrinsic eczema (L20.84) Active confirmed 02887047 Problem Leukocytosis, unspecified type (D72.829) Active confirmed 610802804 Problem Essential hypertension with goal blood pressure less than 140\/90 (I10) Active confirmed 15662296 Problem Prediabetes (R73.03) Active confirmed 997678027 Problem Body mass index (BMI) of 45.0-49.9 in adult (Z68.42) Active confirmed 572405307 Problem Mild intermittent asthmatic bronchitis with acute exacerbation (J45.21) Active confirmed 514513142 Problem History of colon polyps (Z86.010) Active confirmed 603522766 Problem Type 2 diabetes mellitus treated without insulin (E11.9) Active confirmed 79147028 VITAL SIGNS Blood pressure diastolic 90 mm Hg 02/11/2024 arcenio ght is down 10 pounds since 12-28-23 Height 71.5 in 02/11/2024 weight is down 10 pounds since 12-28-23 Blood pressure systolic 136 mm Hg 02/11/2024 weig ht is down 10 pounds since 12-28-23 Weight 370 lbs 02/11/2024 weight is down 10 pounds since 12-28-23 BMI 50.88 kg/m2 02/11/2024 weight is down 10 pounds since 12-28-23 PROCEDURES Procedure Date Ordered Date Performed Result Body Sit e Colonoscopy, Screening 07/23/2023 07/23/2023 Pending path Colonoscopy, Screening 01/04/2024 01/04/2024 Surgi veronica resection recommended Encounters Encounter Location Date Provider Diagnosis Luis Garcias MD [address] [place] [address] Drive [address] [place] [id number] 12/28/2023 Luis Garcias Abscess L02.91 ; Encounter for general adult medical examination without abnormal findings Z00.00 ; Type 2 diabetes mellitus treated without insulin E11.9 ; History of colon polyps Z86.010 ; Essential hypertension with goal blood pressure less than 140\/90 I10 and Morbid obesity due to excess calories E66.01 Luis Garcias MD [address] [place] [id number] 02/11/2024 Luis Garcias Prediabetes R73.03 ; Essential hypertension with goal blood pressure less than 140\/90 I10 and Morbid obesity due to excess calories E66.01 Luis aGrcias MD [address] [place] [id number] 12/21/2023 Luis Garcias Annual physical exam Z00.00 ; Encounter for immunization Z23 ; Essential hypertension with goal blood pressure less than 140\/90 I10 ; Prediabetes R73.03 and Leukocytosis, unspecified type D72.829 Luis Garcias MD [address] [place] [address] [address] [place] [id number] 06/28/2023 Luis Garcias Morbid obesity due t o excess calories E66.01 Luis Garcias MD [address] [place] [address] [address] [place] [id number] 10/01/2023 Luis Garcias Prediabetes R73.03 ; Edema leg R60.0 and History of colon polyps Z86.010 Luis Garcias MD [address] [place] [address] [id number] 01/18/2024 Luis Garcias MD [address] [place] [id number] 03/13/2024 Luis Garcias ASSESSMENTS Encounter Date Diagnosis Assessment Notes Treatment Notes Treatment Clinical Notes 12/28/2023 Encounter for general adult medical examination without abnormal findings (ICD-10 - Z00.00) Labs reviewed and discussed with patient 12/28/2023 Abscess (ICD-10 - L02.91) referral to surgeon 02/11/2024 Essential hypertension with goal blood pressure less than 140\/90 (ICD-10 - I10) doing well on meds, will coontinue current regiment andwill continue to monitor 02/11/2024 Prediabetes (ICD-10 - R73.03) sugar is better, will continue to monitor 12/21/2023 Annual physical exam (ICD-10 - Z00.00) 12/21/2023 Encounter for immunization (ICD-10 - Z23) 06/28/2023 Morbid obesity due to excess calories (ICD-10 - E66.01) discussed diet and need to weigh himself, will cntinue to monitor 10/01/2023 Prediabetes (ICD-10 - R73.03) stable, no need for medication at ths time, will continue to monitor 10/01/2023 Edema leg (ICD-10 - R60.0) is related to the amlodipine, patient verbalized undrstanding of instructins regarding change in medications and directions for use 12/28/2023 Type 2 diabetes mellitus treated without insulin (ICD-10 - E11.9) 02/11/2024 Morbid obesity due to excess calories (ICD-10 - E66.01) is doing intermittant fasting. also taking his brother's ozempic 12/21/2023 Essential hypertension with goal blood pressure less than 140\/90 (ICD-10 - I10) 10/01/2023 History of colon polyps (ICD-10 - Z86.010) 12/28/2023 History of colon polyps (ICD-10 - Z86.010) getting colonoscopy next week 12/21/2023 Prediabetes (ICD-10 - R73.03) 12/28/2023 Essential hypertension with goal blood pressure less than 140\/90 (ICD-10 - I10) well controlled 12/21/2023 Leukocytosis, unspecified type (ICD-10 - D72.829) 12/28/2023 Morbid obesity due to excess calories (ICD-10 - E66.01) referral to weight loss clinic/ patient will be calling their office to set up appointment PLAN OF TREATMENT Pending Test Test Name Order Date Hemoglobin A1c 02/23/2017 Glucose, finger stick 02/23/2017 PROFILE, FASTING 10/17/2019 LIPOPROTEIN FRACTIONATION (LIPID PANEL) 10/17/2019 PSA, TOTAL SCREEN 10/17/2019 CBC w DIFF 10/17/2019 URINALYSIS (UA) 10/17/2019 Next Appt Details Provider Name:Luis zaragoza, 05/15/2024 10:00:00 AM, [address] [place] [address], [address], [phone], Provider Name:Luis zaragoza, 12/22/2024 07:15:00 AM, [address] [place] [address], [address], [phone], Provider Name:Luis zaragoza, 12/29/2024 09:30:00 AM, [address] [place] [address], [address], [phone], Insurance Providers Payer Name Payer Address Payer Phone Subscriber Number Group Number Insured Name Patient Relationship to Insured Coverage Start Date Coverage End Date [address] [place] [phone] [id number] Dakota Gore Self - patient is the insured MEDICAL (GENERAL) HISTORY Medical History History ICD Code father colon cancer age 40; he gets colonoscopy every 2 years. Colonoscopy 02/24/[address] Pena - repeat 3 .07/23/23 colonoscopy pending path-12/31/23 repeat colonoscopy performed Becky, advised surgical resection
--- NOTE | 2024-04-18 07:28 | PHA.MEDREC ---
Pharmacy Consult ? Medication Reconciliation Pharmacy has reviewed the medication reconciliation completed by nursing.
[2024-04-18 09:05] LABS: Glucose, Whole Blood 141 mg/dL (60-115)
--- NOTE | 2024-04-18 09:54 | P.OP_ITS ---
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 This was incompletely removed and was deemed suspicious for a high-grade lesion because of the presence of ulceration. 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 The area of the large polyp had been previously marked with endo ink. The previous procedures have been discussed with the colonoscopist. The patient did not want a subtotal colectomy for Hinson syndrome and wanted only a right colon resection for his presumed lesion in the hepatic flexure. He understood the technique of hand assisted right colon resection as well as the risks, benefits, and alternatives He was brought to the operating room. He was placed supine under general anesthesia via endotracheal tube. A Emery catheter was inserted. The abdomen was prepped and draped in the usual sterile fashion. A surgical time-out was done. The patient received Cefotan 2 g IV preoperatively. I made a short midline incision using blade 15. The patient had a reducible umbilical hernia so this was incorporated with the incision I carried down the incision through the full-thickness of the skin and subcutaneous fat with electrocautery. The patient was morbidly obese we had to go through a lot of subcutaneous fat until we were able to expose the fascia. The fascia was incised. The peritoneum was entered. Through this incision the Chester wound retractor was positioned. We attached the GelPort along with the insufflating port. We insufflated to a pressure of 15 mm Hg. We used a 10 mm 30 degree scope and using this for laparoscopic visualization, I inserted a 5/12 mm port in the epigastric area below the subcostal margin. A 5 mm ports introduced through a small incision in the left upper quadrant as well. We removed the insufflating port and positioned the laparoscope into the epigastric port We examined laparoscopically. The patient was placed in a head up any [id number] position. I inserted my hand through the GelPort and proceeded to retract all small bowel loops away from the right side. This allowed me to visualize the cecum in the right colon. I examined the cecum and the right col on and palpated as we continued to examined this distally. The hepatic flexure was visualized. There was no tattoo markings visible at this area. There was note of omentum adherent to the gallbladder covering the rest of the proximal transverse colon so this was taken down using LigaSure. This allowed me to have adequate visualization of the transverse colon. We followed the transverse colon all the way to the he had again, we could not see any tattoo markings at all. Furthermore , I could not feel any polyp or lesion. We continued to examine the splenic flexure, going distally the left colon and sigmoid. We good not identify any tattoo markings We proceeded to examine endoscopic really multiple times to identify any tattoo markings. Despite multiple visual examination and palpation, we could not see any tattoo markings nor feel any mass throughout the entire right colon, hepatic flexure, transverse colon and the left colon At this point I decided to attempt a colonoscopy even if the patient did not undergo any bowel prep. We frog-legged the patient and inserted the endoscope with the anal orifice. I gently insufflated and advance the scope carefully. We encountered heavy amounts of stool immediately in the rectum and this persistent through the sigmoid. At this point, I decided to withdraw the scope as it would be impossible to see any of the lumen adequately to identify any lesion or see the tattoo markings. I proceeded to re-scrub and repeated laparoscopic examination of the cecum, right colon, transverse colon all the way to the left colon. Again, despite multiple passes, we were unable to visualize any hint of any tattoo marking nor palpate any obvious lesion In view of the uncertainty as to of the location of the polyp, I therefore felt that it would be inappropriate to resect at this time. We decided to abort the procedure We made sure that there was good hemostasis. There was no evidence of any bowel injury We desufflated. We removed the Chester wound retractor and closed the fascia with a running Maxon 1 stitch. We examined this fascial closure laparoscopically from the epigastric port. There was no bowel caught by the sutures I removed all ports. Skin closure was achieved with cuticular Polysorb 4-0 sutures Dressings were applied and the procedure was completed The patient tolerated procedure well. There were no immediate complications . The patient did have problems with low O2 sat requiring higher FiO2 during the entire procedure deemed to be secondary to his morbid obesity. The plan is to repeat the colonoscopy with bowel prep and confirmed location of the previous polypectomy site.
--- NOTE | 2024-04-18 13:03 | PC.RT ---
seen pt in PACU on Cpap 10 and 40% fi02. pt wide awake and a;ert and confused why surgery wasnt done. pt weaned to 2 l n/c and placed on etc02 monitor. Sats 98% and etc02 38. pt in no resp distress, howeveer when pt falls asleep his sats dropped to 88%. pt will require a sleep study tonight. and also will need cpap nocturnal as well .
--- NOTE | 2024-04-18 14:36 | PM.EVENT ---
Event Note Date of Service: 04/18/24 Event Note: seen postop on afternoon rounds Seems to have adequate pain control In IMC because of some low O2 sats requiring BiPAP in PACU I had a long discussion with him about the procedure I explained to him that we could see tattoo markings nor feel any mass in the right colon, transverse colon and the left colon We therefore had to abort the resection I explained to him that the plan is to repeat his colonoscopy in confirm location of the residual polyp He understands Pain management for now I gave him an incentive spirometer with instructions on use Hopefully we are able to advance his diet tomorrow Time Spent With Patient Time: Total time managing care of this patient today ____ minutes.
[2024-04-18] MEDS: amLODIPine Besylate 10 MG TABLET PO (15:09)
[2024-04-18] MEDS: 0.9 % Sodium Chloride Flush 3 ML SYRINGE IVFLUSH (15:14)
[2024-04-18] MEDS: Acetaminophen 1,000 MG/100 ML PIGGYBACK 400 MG IV ×2 (15:16→21:00)
[2024-04-18] MEDS: Lactated Ringers 1,000 ML 80 ML IVCONT (15:43)
[2024-04-18 16:12] LABS: Glucose, Whole Blood 147 mg/dL (60-115)
--- NOTE | 2024-04-18 16:55 | PM.IMCN ---
History of Present Illness Data of Consult Service Date: 04/19/24 Primary Care Provider: Luis Garcias MD HPI Reason for consult: medical consult A 44 years old morbedly obese male with PMH of DM, Hinson syndrom presenting for elective surgical intervention for large colon polyp. 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 admitted to the hospital for surgical intervention. Had some difficulties breathing after the procedure and placed on BiPaP on PACU. now on O2 supplement in IMC. hospitalist team asked to follow for medical problems. Review of Systems Review of Systems: No fever, chills or weakness No chest pain, palpitation No shortness of breath or coughing No abdominal pain, nausea or vomiting No urinary symptoms No any rash or wounds PMFSH Medical History (Updated 04/19/24 @ 13:26 by Patricio Encarnacion MD) Staph infection Muscle spasm of back Hinson syndrome Family history of colon cancer Tubulovillous adenoma Perianal abscess Diabetes mellitus Morbid obesity HTN (hypertension) Family History Father Colon cancer, Onset Age: 46 Brother Colon polyps Surgical History Hx of excision of mass Hx of wisdom tooth extraction H/O colonoscopy Social History Household Members: Family and Friend(s) Household Members Other:: mother & roomate live w/patient Housing: House Are you a primary progressive care manager to a significant other at home: No Do you presently have visiting nurse or other home services: No Patient Tobacco Use Status: Never used Tobacco Use of substances other than those prescribed or required for medical reasons: No Currently Displaying Signs/Symptoms of Drug Intoxication Withdrawal: No Have you been hit, kicked, punched, or otherwise hurt by someone within the past year? If so, by whom?: No Spiritual Healthcare Practices: none Mormonism Healthcare Practices: Jewish Cultural Healthcare Practices: none Are you DNR?: No Advance Directives: No (brother is primary contact) Advance Directives Information Provided: Yes (brochure given) Advance Directives on File: No Recently lost weight without trying: No Eating poorly because of decreased appetite: No Nutrition Risks: No Nutritional Risk Poor oral hygiene: No (some extracted teeth) Meds Allergies Allergy/AdvReac Type Severity Reaction Status Date / Time No Known Allergies Allergy Verified 03/08/24 09:56 [No Known Allergies*] Active Medications: Current Medications Amlodipine Besylate (Amlodipine Besylate 10 Mg Tablet) 10 mg PO DAILY [facility]; Protocol Last Admin: 04/18/24 15:09 Dose: 10 mg Calcium Carbonate (Calcium Carbonate 750 Mg Tab.Chew) 750 mg PO Q4H PRN PRN Reason: Heartburn Glucose (Glucose Gel 15 Gm Gel..Gram.) 15 gm PO Q15M PRN; Protocol PRN Reason: per Hypoglycemia Standing Ord. Heparin Sodium (Porcine) (Heparin Sodium,Porcine 5,000 Unit/Ml Vial) 5,000 unit SUBCUT Q8H EZRA Hydromorphone HCl (Hydromorphone Hcl 1 Mg/Ml Syringe) 1 mg IVPUSH Q4H PRN; Protocol PRN Reason: Pain, Severe (Pain Scale 7-10) Acetaminophen (Ofirmev) 1,000 mg in 100 mls @ 400 mls/hr IV Q6H [facility] Last Infusion: 04/18/24 15:43 Dose: Infused Dextrose (D10) 250 mls @ 750 mls/hr IV Q15M PRN; Protocol PRN Reason: per Hypoglycemia Standing Ord. Lactated Ringer's (Lr) 1,000 mls @ 80 mls/hr IVCONT .[id number] [facility] Last Admin: 04/18/24 15:43 Dose: 80 mls/hr Insulin Human Lispro (Insulin Lispro 100 Unit/Ml 3 Ml Vial) 0 unit SUBCUT QIDACHS [facility]; Protocol Last Admin: 04/18/24 15:16 Dose: Not Given Ketorolac Tromethamine (Ketorolac Tromethamine 30 Mg/Ml Vial) 30 mg IVPUSH Q6H PRN PRN Reason: Pain, Mild (Pain Scale 1-3) Magnesium Hydroxide (Milk Of Magnesia 30 Ml Oral.Susp) 30 ml PO DAILY PRN PRN Reason: Constipation Melatonin (Melatonin 3 Mg Tablet) 6 mg PO BEDTIME PRN PRN Reason: Insomnia Oxycodone HCl (Oxycodone Hcl Immed Release 5 Mg Tablet) 10 mg PO Q4H PRN PRN Reason: Pain, Moderate(Pain Scale 4-6) Sodium Chloride (0.9 % Sodium Chloride Flush 3 Ml Syringe) [facility] Last Admin: 04/18/24 15:14 Dose: 3 ml Home Medications ?Medication ?Instructions ?Recorded ?Confirmed ?Last Taken ?Type amlodipine 10 mg tablet 10 mg PO QAM 07/21/23 04/18/24 04/17/24 History lisinopril 20 1 tab PO QAM 07/21/23 04/18/24 04/17/24 History mg-hydrochlorothiazide 12.5 mg tablet multivitamin 1 tab PO QAM 04/06/24 04/18/24 04/17/24 History omega 0-pws-tkx-fish oil 300 1 cap PO QAM 04/06/24 04/18/24 04/17/24 History mg-1,000 mg capsule (Fish Oil) vitamin D3 125 mcg (5,000 1 cap PO DAILY 04/06/24 04/18/24 04/17/24 History unit)-vitamin K2 100 mcg capsule Physical Exam Vital Signs and Narrative: Vital Signs: Last Vital Signs Temp 98.6 F 04/18/24 15:08 Pulse 89 04/18/24 15:08 Resp 22 H 04/18/24 15:08 BP 121/63 04/18/24 15:08 Pulse Ox 92 04/18/24 15:08 O2 Del Method Nasal Cannula 04/18/24 15:08 O2 Flow Rate 3 04/18/24 15:08 FiO2 40 04/18/24 13:15 BMI result Body Mass Index 49.1 Const: Other: Constitutional : interactive, not in distress Cardiovascular : no JVP, no lower extremity edema Respiratory : bilateral chest movement, not in resp distress Gastrointestinal: soft, lax, Non tender Skin : Warm, Dry Neurological : Alert & oriented , No focal deficit Results Labs 04/06/24 13:09 04/19/24 06:37 Labs: Laboratory Results - last 24 hr 04/18/24 04/18/24 06:27 16:00 POC Glucose 141 H 147 H Assessment and Plan (1) HTN (hypertension): Status: Acute (2) Respiratory distress: Status: Acute Plan A 44 years old morbedly obese male with PMH of HTN, Hinson syndrom presenting for elective surgical intervention for large colon polyp. Hinson disease with large adenoma surgery following will need a repeat Colonoscopy to determine the polyp location again post extubation respiratory distress and hypoxia likely related to his body habitus and anesthesia weaned off BiPaP check XR as baseline wean O2 down as tolerated Incentive spirometry HTN restart medications as tolerated, Amlodipine for now Thank you for the consult will follow as needed
[2024-04-18 20:32] LABS: Glucose, Whole Blood 137 mg/dL (60-115)
[2024-04-19] VITALS (7 sets, daily range): BP systolic 117–146; BP diastolic 58–79; PULSE 84–105; RESP 18–20; TEMP 36.5–37.4; O2SAT 90–96
[2024-04-19] MEDS: Lactated Ringers 1,000 ML 80 ML IVCONT (03:51)
[2024-04-19] MEDS: Acetaminophen 1,000 MG/100 ML PIGGYBACK 400 MG IV ×4 (03:52→21:10)
[2024-04-19 06:56] LABS: Glucose, Whole Blood 122 mg/dL (60-115)
--- NOTE | 2024-04-19 08:01 | PM.PNGS ---
Subjective Subjective Date of Service: 04/19/24 Interval history: Patient reports feeling well. His pain is a 4/10 well-controlled on IV APAP. He is tolerating clear liquid diet with frequernt hydration; he endorses belching, but has not had a bowel movement yet. Patient has engaged in incentive spirometry. He reports mild discomfort when turning in bed, but is ready to start ambulating. Physical Exam Vital Signs: Vital Signs: Last Vital Signs Temp 98.0 F 04/19/24 06:55 Pulse 89 04/19/24 06:55 Resp 20 04/19/24 06:55 BP 122/66 04/19/24 06:55 Pulse Ox 92 04/19/24 06:55 O2 Del Method Nasal Cannula 04/19/24 06:55 O2 Flow Rate 3 04/19/24 06:55 FiO2 40 04/18/24 13:15 BMI result Body Mass Index 49.1 Const: Other: Alert and oriented x4, laying comfortably in hospital bed. Resp: Other: Normal work of breathing. Lungs clear to auscultation bilaterally. No wheezes, rales or rhonchi. Cardio: Other: RRR. No murmurs, rubs or gallops. GI: Other: No erythema, discharge or odor around wound sites. Active bowel sounds throughout. Normal abdominal tenderness around surgical site. No guarding or rebound. Extrem: Other: Mild leg swelling unchanged from baseline. Normal PT pulses. Objective Data Active Medications Amlodipine Besylate (Amlodipine Besylate 10 Mg Tablet) 10 mg PO DAILY EZRA; Protocol Last Admin: 04/18/24 15:09 Dose: 10 mg Documented By: SOURAV Calcium Carbonate (Calcium Carbonate 750 Mg Tab.Chew) 750 mg PO Q4H PRN PRN Reason: Heartburn Glucose (Glucose Gel 15 Gm Gel..Gram.) 15 gm PO Q15M PRN; Protocol PRN Reason: per Hypoglycemia Standing Ord. Heparin Sodium (Porcine) (Heparin Sodium,Porcine 5,000 Unit/Ml Vial) 5,000 unit SUBCUT Q8H EZRA Hydromorphone HCl (Hydromorphone Hcl 1 Mg/Ml Syringe) 1 mg IVPUSH Q4H PRN; Protocol PRN Reason: Pain, Severe (Pain Scale 7-10) Acetaminophen (Ofirmev) 1,000 mg in 100 mls @ 400 mls/hr IV Q6H EZRA Last Infusion: 04/19/24 04:18 Dose: Infused Documented By: MCKAY Dextrose (D10) 250 mls @ 750 mls/hr IV Q15M PRN; Protocol PRN Reason: per Hypoglycemia Standing Ord. Lactated Ringer's (Lr) 1,000 mls @ 80 mls/hr IVCONT .[id number] [facility] Last Admin: 04/19/24 03:51 Dose: 80 mls/hr Documented By: MCKAY Insulin Human Lispro (Insulin Lispro 100 Unit/Ml 3 Ml Vial) 0 unit SUBCUT QIDACHS [facility]; Protocol Last Admin: 04/18/24 20:53 Dose: Not Given Documented By: MARIELA Non-Admin Reason: No Insulin Coverage Ketorolac Tromethamine (Ketorolac Tromethamine 30 Mg/Ml Vial) 30 mg IVPUSH Q6H PRN PRN Reason: Pain, Mild (Pain Scale 1-3) Magnesium Hydroxide (Milk Of Magnesia 30 Ml Oral.Susp) 30 ml PO DAILY PRN PRN Reason: Constipation Melatonin (Melatonin 3 Mg Tablet) 6 mg PO BEDTIME PRN PRN Reason: Insomnia Oxycodone HCl (Oxycodone Hcl Immed Release 5 Mg Tablet) 10 mg PO Q4H PRN PRN Reason: Pain, Moderate(Pain Scale 4-6) Sodium Chloride (0.9 % Sodium Chloride Flush 3 Ml Syringe) 3 ml IVFLUSH QSHIFT [facility] Last Admin: 04/18/24 23:00 Dose: Not Given Documented By: MARIELA Non-Admin Reason: IV Running Labs 04/06/24 13:09 04/06/24 13:09 Labs: Laboratory Results - last 24 hr 04/18/24 04/18/24 04/18/24 06:27 16:00 20:26 Hold Purple Top POC Glucose 141 H 147 H 137 H 04/19/24 04/19/24 06:37 06:53 Hold Purple Top SEE NOTE POC Glucose 122 H Procedures Date of Service Date of Service: 04/19/24 Progress Note: A&P Assessment and plan Plan 1. Advance diet -- patient tolerating clear liquids well 2. Encourage OOB as tolerated 3. Pain control -- patient well controlled on IV APAP 4. Diabetes -- patient BG well controlled (POC glucose 137) on hospital diet 5. Respiratory function -- patient saturating at 90-94% on 2L NC with normal respiratory rate and work of breathing. Continue on 3L NC. Time Spent With Patient Time: Total time managing care of this patient today ____ minutes. Quality VTE VTE Risk Level:: Medical - moderate - high VTE Device Contraindication: N/A - Device Ordered VTE Drug Contraindication: N/A - Med Ordered
--- NOTE | 2024-04-19 08:11 | P.PNGS_ITS ---
Subjective Subjective Date of Service: 04/19/24 Interval history: States he has good pain control Slept well Tolerating clear liquids Denies nausea or vomiting Voiding freely Physical Exam 2 Vital Signs: Vital Signs: Last Vital Signs Temp 98.0 F 04/19/24 06:55 Pulse 89 04/19/24 06:55 Resp 20 04/19/24 06:55 BP 122/66 04/19/24 06:55 Pulse Ox 92 04/19/24 06:55 O2 Del Method Nasal Cannula 04/19/24 06:55 O2 Flow Rate 3 04/19/24 06:55 FiO2 40 04/18/24 13:15 BMI result Body Mass Index 49.1 Const: General: comfortable and no acute distress Nutritional Appearance: o bese Resp: Effort & Inspection: normal respiratory effort Cardio: Rate: regular rate GI: Other: Dressings dry Palpation (GI): Soft to palpation, not firm and no guarding Objective Data Active Medications Amlodipine Besylate (Amlodipine Besylate 10 Mg Tablet) 10 mg PO DAILY [facility]; Protocol Last Admin: 04/18/24 15:09 Dose: 10 mg Documented By: SOURAV Calcium Carbonate (Calcium Carbonate 750 Mg Tab.Chew) 750 mg PO Q4H PRN PRN Reason: Heartburn Glucose (Glucose Gel 15 Gm Gel..Gram.) 15 gm PO Q15M PRN; Protocol PRN Reason: per Hypoglycemia Standing Ord. Heparin Sodium (Porcine) (Heparin Sodium,Porcine 5,000 Unit/Ml Vial) 5,000 unit SUBCUT Q8H [facility] Hydromorphone HCl (Hydromorphone Hcl 1 Mg/Ml Syringe) 1 mg IVPUSH Q4H PRN; Protocol PRN Reason: Pain, Severe (Pain Scale 7-10) Acetaminophen (Ofirmev) 1,000 mg in 100 mls @ 400 mls/hr IV Q6H [facility] Last Infusion: 04/19/24 04:18 Dose: Infused Documented By: MCKAY Dextrose (D10) 250 mls @ 750 mls/hr IV Q15M PRN; Protocol PRN Reason: per Hypoglycemia Standing Ord. Lactated Ringer's (Lr) 1,000 mls @ 80 mls/hr IVCONT .[id number] [facility] Last Admin: 04/19/24 03:51 Dose: 80 mls/hr Documented By: MCKAY Insulin Human Lispro (Insulin Lispro 100 Unit/Ml 3 Ml Vial) 0 unit SUBCUT QIDAADRIEL [facility]; Protocol Last Admin: 04/18/24 20:53 Dose: Not Given Documented By: MARIELA Non-Admin Reason: No Insulin Coverage Ketorolac Tromethamine (Ketorolac Tromethamine 30 Mg/Ml Vial) 30 mg IVPUSH Q6H PRN PRN Reason: Pain, Mild (Pain Scale 1-3) Magnesium Hydroxide (Milk Of Magnesia 30 Ml Oral.Susp) 30 ml PO DAILY PRN PRN Reason: Constipation Melatonin (Melatonin 3 Mg Tablet) 6 mg PO BEDTIME PRN PRN Reason: Insomnia Oxycodone HCl (Oxycodone Hcl Immed Release 5 Mg Tablet) 10 mg PO Q4H PRN PRN Reason: Pain, Moderate(Pain Scale 4-6) Sodium Chloride (0.9 % Sodium Chloride Flush 3 Ml Syringe) 3 ml [facility]FLUSH [facility] Last Admin: 04/18/24 23:00 Dose: Not Given Documented By: MARIELA Non-Admin Reason: IV Running Labs 04/06/24 13:09 04/06/24 13:09 Labs: Laboratory Results - last 24 hr 04/18/24 04/18/24 04/18/24 06:27 16:00 20:26 Hold Purple Top POC Glucose 141 H 147 H 137 H 04/19/24 04/19/24 06:37 06:53 Hold Purple Top SEE NOTE POC Glucose 122 H Procedures Date of Service Date of Service: 04/19/24 Progress Note: A&P Assessment and plan (1) Tubulovillous adenoma: Status: Acute Assessment and Plan: Status post exploratory laparoscopy, hand assisted - unable to visualize any tattoo markings or palpate mass Clinically looks well Continue pain management Encouraged to get out of bed and ambulate Advance diet Incentive spirometry Plan is to eventually repeat his colonoscopy Appreciate hospitalist input Time Spent With Patient Time: Total time managing care of this patient today ____ minutes. Quality Stroke Does the patient have a stroke diagnosis?: No VTE Prior VTE?: No VTE Risk Level:: Medical - moderate - high VTE Device Contraindication: N/A - Device Ordered VTE Drug Contraindication: N/A - Med Ordered
[2024-04-19 08:52] LABS: Anion Gap 12 (12-20); Blood Urea Nitrogen 10 mg/dL (9-16); Calcium 8.2 mg/dL (8.4-10.2); Carbon Dioxide 28 mmol/L (22-29); Chloride 106 mmol/L (96-108); Creatinine Clr Calc Pharmacy 187.8; Estimated Glomerular Filt Rate > 60; Glucose Fasting 141 mg/dL (60-99); Potassium 4.1 mmol/L (3.3-5.1); Sodium 142 mmol/L (135-145)
--- NOTE | 2024-04-19 09:14 | MHC.CM.PN ---
Pt lives with his mother, PCP confirmed: Luis Jaramillo, HCP discussed, pt will complete form here and it will be added to chart. Pt is independent, no home health services or DME. He is able to arrange transport home at [place]. DCP: home, self care. CM to follow and assist with DC plan.
[2024-04-19] MEDS: amLODIPine Besylate 10 MG TABLET PO (09:15)
--- NOTE | 2024-04-19 10:21 | HO.POSTANES ---
Post Anesthesia Evaluation Post Anesthesia Evaluation Date of Service: 04/19/24 Vital Signs: Vital Signs Temp Pulse Resp BP Pulse Ox O2 Del Method O2 Flow Rate 04/19/24 06:55 98.0 F 89 20 122/66 92 Nasal Cannula 3 04/19/24 03:25 99.4 F 97 20 146/79 H 90 L Nasal Cannula 3 04/19/24 00:00 98.9 F 105 H 20 119/58 L 90 L Nasal Cannula 3 Anesthesia: General Endotracheal-GETA Mental Status: Awake Pain Control: Satisfactory Nausea/Vomiting: None Hydration: Adequate Anesthesia-Related Issues: No Anes. Related Issues
[2024-04-19 10:58] LABS: Glucose, Whole Blood 158 mg/dL (60-115)
[2024-04-19] MEDS: Heparin Sodium,Porcine 5,000 UNIT/ML VIAL 5000 UNIT SUBCUT ×2 (11:17→19:03)
--- NOTE | 2024-04-19 15:10 | PM.EVENT ---
Event Note Date of Service: 04/19/24 Event Note: Seen earlier on afternoon rounds He is off oxygen supplementation Says he feels well Tolerated regular diet Abdomen is soft Stable vital signs He says he has ambulated Continue pain management We will see how is doing tomorrow Time Spent With Patient Time: Total time managing care of this patient today ____ minutes.
[2024-04-19 15:33] LABS: Glucose, Whole Blood 130 mg/dL (60-115)
[2024-04-19] MEDS: 0.9 % Sodium Chloride Flush 3 ML SYRINGE IVFLUSH ×2 (16:58→23:29)
[2024-04-19 21:03] LABS: Glucose, Whole Blood 122 mg/dL (60-115)
[2024-04-20] VITALS: BP 103/72; PULSE 88; RESP 16; TEMP 36.6; O2SAT 92
--- NOTE | 2024-04-20 00:06 | PC.RT ---
started pt sleep study at 0000 on RA. RN aware
[2024-04-20] MEDS: Heparin Sodium,Porcine 5,000 UNIT/ML VIAL 5000 UNIT SUBCUT ×2 (02:05→08:25)
[2024-04-20] MEDS: Acetaminophen 1,000 MG/100 ML PIGGYBACK 400 MG IV ×2 (03:33→08:25)
[2024-04-20 04:00] VITALS: BP 161/88; PULSE 90; RESP 16; TEMP 36.7; O2SAT 91
--- NOTE | 2024-04-20 07:09 | PM.PNGS ---
Subjective Subjective Date of Service: 04/20/24 <Lionel Crowe - Last Filed: 04/20/24 07:45> 05/01/24 <Lory Bae PA-C - Last Filed: 05/01/24 08:35> Interval history: Patient on post-op day 2; he reports that he is recovering well. His pain is a 3/10 on APAP. He is ambulating well out of bed. He has not yet had a bowel movement or flatus despite having three meals and water. He endorses mild bloating. but denies any nausea, vomiting, anorexia. Patient weaned off of supplemental O2 and is saturating well on RA without increased WOB. He denies any previous breathing difficulty or apneic episodes, but was ordered a sleep study per nursing staff. In addition CXR was ordered which had poor respiratory effort. <Lionel Crowe Last Filed: 04/20/24 07:45> Physical Exam Vital Signs: Vital Signs: Last Vital Signs Temp 98.1 F 04/20/24 04:00 Pulse 90 04/20/24 04:00 Resp 16 04/20/24 04:00 BP 161/88 H 04/20/24 04:00 Pulse Ox 91 L 04/20/24 04:00 O2 Del Method Room Air 04/20/24 04:00 O2 Flow Rate 2 04/20/24 04:00 FiO2 40 04/18/24 13:15 BMI result Body Mass Index 49.1 <Lionel Crowe - Last Filed: 04/20/24 07:45> Const: General: comfortable and no acute distress <Lionel Crowe Last Filed: 04/20/24 07:45> Nutritional Appearance: obese <Lionel Crowe Last Filed: 04/20/24 07:45> Resp: Other: Normal work of breathing, no accessory muscle use. Somewhat restricted inspiratory breathing. Lungs clear to auscultation b/l, no wheezes, rales of rhonchi. <Lionel Crowe - Last Filed: 04/20/24 07:45> Cardio: Rate: regular rate <Lionel Crowe - Last Filed: 04/20/24 07:45> Rhythm: regular rhythm <Lionel Crowe Last Filed: 04/20/24 07:45> Heart sounds: S1 normal heart sound present and S2 normal heart sound present <Lionel Crowe - Last Filed: 04/20/24 07:45> GI: Other: Normal surgical dressings without erythema or surrounding discharge. Abdomen obese. Active bowel sounds. No tenderness of guarding other than at surgical site. <Lioneldevon Crowe - Last Filed: 04/20/24 07:45> Neuro: Other: Alert and oriented x 4; moving all extremities spontaneously. <Lioneldevon Crowe - Last Filed: 04/20/24 07:45> Objective Data Active Medications Amlodipine Besylate (Amlodipine Besylate 10 Mg Tablet) [address] [facility]; Protocol Last Admin: 04/19/24 09:15 Dose: 10 mg Documented By: SOURAV Calcium Carbonate (Calcium Carbonate 750 Mg Tab.Chew) 750 mg PO Q4H PRN PRN Reason: Heartburn Glucose (Glucose Gel 15 Gm Gel..Gram.) 15 gm PO Q15M PRN; Protocol PRN Reason: per Hypoglycemia Standing Ord. Heparin Sodium (Porcine) (Heparin Sodium,Porcine 5,000 Unit/Ml Vial) 5,[address] [facility] Last Admin: 04/20/24 02:05 Dose: 5,000 unit Documented By: MCKAY Hydromorphone HCl (Hydromorphone Hcl 1 Mg/Ml Syringe) 1 mg IVPUSH Q4H PRN; Protocol PRN Reason: Pain, Severe (Pain Scale 7-10) Acetaminophen (Ofirmev) 1,000 mg in 100 mls @ 400 mls/hr IV Q6H [facility] Last Infusion: 04/20/24 04:16 Dose: Infused Documented By: MCKAY Dextrose (D10) 250 mls @ 750 mls/hr IV Q15M PRN; Protocol PRN Reason: per Hypoglycemia Standing Ord. Insulin Human Lispro (Insulin Lispro 100 Unit/Ml 3 Ml Vial) [address] [facility]; Protocol Last Admin: 04/19/24 21:17 Dose: Not Given Documented By: MCKAY Non-Admin Reason: No Insulin Coverage Ketorolac Tromethamine (Ketorolac Tromethamine 30 Mg/Ml Vial) 30 mg IVPUSH Q6H PRN PRN Reason: Pain, Mild (Pain Scale 1-3) Magnesium Hydroxide (Milk Of Magnesia 30 Ml Oral.Susp) 30 ml PO DAILY PRN PRN Reason: Constipation Melatonin (Melatonin 3 Mg Tablet) 6 mg PO BEDTIME PRN PRN Reason: Insomnia Oxycodone HCl (Oxycodone Hcl Immed Release 5 Mg Tablet) 10 mg PO Q4H PRN PRN Reason: Pain, Moderate(Pain Scale 4-6) Sodium Chloride (0.9 % Sodium Chloride Flush 3 Ml Syringe) 3 [facility] Last Admin: 04/19/24 23:29 Dose: 3 ml Documented By: MCKAY <Lionel Crowe - Last Filed: 04/20/24 07:45> Labs CBC & Chem 7: 04/06/24 13:09 04/19/24 06:37 <Lionel Crowe - Last Filed: 04/20/24 07:45> Labs: Laboratory Results - last 24 hr 04/19/24 04/19/24 04/19/24 06:37 10:53 15:27 Hold Purple Top SEE NOTE Anion Gap 12 Estim Creat Clear Calc 187.8 Estimated GFR > 60 POC Glucose 158 H 130 H Fasting Glucose 141 H Calcium 8.2 L D 04/19/24 21:00 Hold Purple Top Anion Gap Estim Creat Clear Calc Estimated GFR POC Glucose 122 H Fasting Glucose Calcium <Lionel Crowe - Last Filed: 04/20/24 07:45> Imaging Chest x-ray: Radiologist's impression: Impressions Chest X-Ray 04/19/24 14:20 IMPRESSION: Poor inspiration suggesting mild interstitial lung edema versus acute inflammatory or an or infectious small airway disease. Electronically signed by: Teo Mckeon MD 04/19/2024 03:34 PM [facility] [place]Lionel Crowe - Last Filed: 04/20/24 07:45> Procedures Date of Service Date of Service: 04/20/24 <Lionel Crowe - Last Filed: 04/20/24 07:45> 05/01/24 <Lory Bae PA-C - Last Filed: 05/01/24 08:35> Progress Note: A&P Assessment and plan Assessment and Plan: 1. Continue with current pain management 2. Contine incentive spirometry and OOB ambulation 3. Continue to encourage solid diet 4. Patient respiratory function stable on RA; CXR is questionable for mild intersitital edema vs small airway infection. Will continue to monitor for hypoxia or signs of atelectasis/PNA. <Lionel Crowe - Last Filed: 04/20/24 07:45> Time Spent With Patient Time: Total time managing care of this patient today ____ minutes. <Lionel Crowe - Last Filed: 04/20/24 07:45> Quality Stroke Does the patient have a stroke diagnosis?: No <Lionel Crowe Last Filed: 04/20/24 07:45> VTE Prior VTE?: No <Lionel Crowe Last Filed: 04/20/24 07:45> VTE Risk Level:: Medical - moderate - high <Lionel Crowe - Last Filed: 04/20/24 07:45> VTE Device Contraindication: N/A - Device Ordered <Lionel Crowe - Last Filed: 04/20/24 07:45> VTE Drug Contraindication: N/A - Med Ordered <Lionel Crowe - Last Filed: 04/20/24 07:45>
[2024-04-20 07:35] VITALS: BP 128/71; PULSE 87; RESP 16; TEMP 36.6; O2SAT 95
[2024-04-20 07:45] LABS: Glucose, Whole Blood 144 mg/dL (60-115)
--- NOTE | 2024-04-20 07:52 | PM.PNGS ---
Subjective Subjective Date of Service: 04/28/24 Interval history: Feels well Has been tolerating diet Ambulating Has passed flatus Denies nausea or vomiting Physical Exam Vital Signs: Vital Signs: Last Vital Signs Temp 97.8 F 04/20/24 07:35 Pulse 87 04/20/24 07:35 Resp 16 04/20/24 07:35 BP 128/71 04/20/24 07:35 Pulse Ox 95 04/20/24 07:35 O2 Del Method Room Air 04/20/24 07:35 O2 Flow Rate 2 04/20/24 04:00 FiO2 40 04/18/24 13:15 BMI result Body Mass Index 49.1 Const: Other: Sitting up on recliner General: comfortable and no acute distress Resp: Effort & Inspection: normal respiratory effort Cardio: Rate: regular rate GI: Other: All incisions clean and dry Palpation (GI): Soft to palpation, not firm, no guarding and not rigid Objective Data Active Medications Amlodipine Besylate (Amlodipine Besylate 10 Mg Tablet) 10 mg PO DAILY [facility]; Protocol Last Admin: 04/19/24 09:15 Dose: 10 mg Documented By: SOURAV Calcium Carbonate (Calcium Carbonate 750 Mg Tab.Chew) 750 mg PO Q4H PRN PRN Reason: Heartburn Docusate Sodium (Docusate Sodium 100 Mg Capsule) 100 mg PO BID [facility] Glucose (Glucose Gel 15 Gm Gel..Gram.) 15 gm PO Q15M PRN; Protocol PRN Reason: per Hypoglycemia Standing Ord. Heparin Sodium (Porcine) (Heparin Sodium,Porcine 5,000 Unit/Ml Vial) 5,000 unit SUBCUT Q8H [facility] Last Admin: 04/20/24 02:05 Dose: 5,000 unit Documented By: MCKAY Hydromorphone HCl (Hydromorphone Hcl 1 Mg/Ml Syringe) 1 mg IVPUSH Q4H PRN; Protocol PRN Reason: Pain, Severe (Pain Scale 7-10) Acetaminophen (Ofirmev) 1,000 mg in 100 mls @ 400 mls/hr IV Q6H [facility] Last Infusion: 04/20/24 04:16 Dose: Infused Documented By: MCKAY Dextrose (D10) 250 mls @ 750 mls/hr IV Q15M PRN; Protocol PRN Reason: per Hypoglycemia Standing Ord. Insulin Human Lispro (Insulin Lispro 100 Unit/Ml 3 Ml Vial) 0 unit SUBCUT QIDACHS [facility]; Protocol Last Admin: 04/19/24 21:17 Dose: Not Given Documented By: MCKAY Non-Admin Reason: No Insulin Coverage Ketorolac Tromethamine (Ketorolac Tromethamine 30 Mg/Ml Vial) 30 mg IVPUSH Q6H PRN PRN Reason: Pain, Mild (Pain Scale 1-3) Magnesium Hydroxide (Milk Of Magnesia 30 Ml Oral.Susp) 30 ml PO DAILY PRN PRN Reason: Constipation Melatonin (Melatonin 3 Mg Tablet) 6 mg PO BEDTIME PRN PRN Reason: Insomnia Oxycodone HCl (Oxycodone Hcl Immed Release 5 Mg Tablet) 10 mg PO Q4H PRN PRN Reason: Pain, Moderate(Pain Scale 4-6) Sodium Chloride (0.9 % Sodium Chloride Flush 3 Ml Syringe) 3 ml IVFLUSH [facility] Last Admin: 04/19/24 23:29 Dose: 3 ml Documented By: MCKAY Labs 04/06/24 13:09 04/19/24 06:37 Labs: Laboratory Results - last 24 hr 04/19/24 04/19/24 04/19/24 06:37 10:53 15:27 Anion Gap 12 Estim Creat Clear Calc 187.8 Estimated GFR > 60 POC Glucose 158 H 130 H Fasting Glucose 141 H Calcium 8.2 L D 04/19/24 04/20/24 21:00 07:42 Anion Gap Estim Creat Clear Calc Estimated GFR POC Glucose 122 H 144 H Fasting Glucose Calcium Procedures Date of Service Date of Service: 04/28/24 Progress Note: A&P Assessment and plan (1) Tubulovillous adenoma: Status: Acute Assessment and Plan: Status post exploratory laparoscopy, unable to locate tattoo markings for the polyp He looks well Off oxygen Good respiratory function He says that he had a sleep study last night He is tolerating diet Has been ambulating Discussed with hospitalist service - he should be able to be discharged today Time Spent With Patient Time: Total time managing care of this patient today ____ minutes. Quality Stroke Does the patient have a stroke diagnosis?: No VTE Prior VTE?: No VTE Risk Level:: Medical - moderate - high VTE Device Contraindication: N/A - Device Ordered VTE Drug Contraindication: N/A - Med Ordered
[2024-04-20] MEDS: Docusate Sodium 100 MG CAPSULE PO (08:25)
[2024-04-20 08:26] VITALS: BP 128/71
[2024-04-20] MEDS: 0.9 % Sodium Chloride Flush 3 ML SYRINGE IVFLUSH (08:26)
[2024-04-20] MEDS: amLODIPine Besylate 10 MG TABLET PO (08:26)
[2024-04-20 11:01] VITALS: BP 119/67; PULSE 84; RESP 16; TEMP 36.4; O2SAT 96
[2024-04-20 11:14] LABS: Glucose, Whole Blood 145 mg/dL (60-115)
--- NOTE | 2024-04-20 12:06 | P.PNIM_ITS ---
Subjective Subjective Date of Service: 04/20/24 Interval History: seen and evaluated feels better vida had sleep study overnight no other events Review of Systems Review of Systems: Yes all other systems are reviewed and are negative Physical Exam 2 Vital Signs: Vital Signs: Last Vital Signs Temp 97.6 F 04/20/24 11:01 Pulse 84 04/20/24 11:01 Resp 16 04/20/24 11:01 BP 119/67 04/20/24 11:01 Pulse Ox 96 04/20/24 11:01 O2 Del Method Room Air 04/20/24 11:01 O2 Flow Rate 2 04/20/24 04:00 FiO2 40 04/18/24 13:15 BMI result Body Mass Index 49.1 Const: Other: Constitutional : interactive, not in distress Cardiovascular : no JVP, no lower extremity edema Respiratory : bilateral chest movement, not in resp distress Gastrointestinal: soft, lax, Non tender Skin : Warm, Dry Neurological : Alert & oriented , No focal deficit Objective Data Active Medications Amlodipine Besylate (Amlodipine Besylate 10 Mg Tablet) 10 mg PO DAILY [facility]; Protocol Last Admin: 04/20/24 08:26 Dose: 10 mg Documented By: CORWIN Calcium Carbonate (Calcium Carbonate 750 Mg Tab.Chew) 750 mg PO Q4H PRN PRN Reason: Heartburn Docusate Sodium (Docusate Sodium 100 Mg Capsule) 100 mg PO BID [facility] Last Admin: 04/20/24 08:25 Dose: 100 mg Documented By: CORWIN Glucose (Glucose Gel 15 Gm Gel..Gram.) 15 gm PO Q15M PRN; Protocol PRN Reason: per Hypoglycemia Standing Ord. Heparin Sodium (Porcine) (Heparin Sodium,Porcine 5,000 Unit/Ml Vial) 5,000 unit SUBCUT Q8H [facility] Last Admin: 04/20/24 08:25 Dose: 5,000 unit Documented By: CORWIN Hydromorphone HCl (Hydromorphone Hcl 1 Mg/Ml Syringe) 1 mg IVPUSH Q4H PRN; Protocol PRN Reason: Pain, Severe (Pain Scale 7-10) Acetaminophen (Ofirmev) 1,000 mg in 100 mls @ 400 mls/hr IV Q6H [facility] Last Infusion: 04/20/24 08:50 Dose: Infused Documented By: HO.KINGKAI Dextrose (D10) 250 mls @ 750 mls/hr IV Q15M PRN; Protocol PRN Reason: per Hypoglycemia Standing Ord. Insulin Human Lispro (Insulin Lispro 100 Unit/Ml 3 Ml Vial) 0 unit SUBCUT QIDACHS [facility]; Protocol Last Admin: 04/20/24 11:18 Dose: Not Given Documented By: DOBROB Non-Admin Reason: No Insulin Coverage Ketorolac Tromethamine (Ketorolac Tromethamine 30 Mg/Ml Vial) 30 mg IVPUSH Q6H PRN PRN Reason: Pain, Mild (Pain Scale 1-3) Magnesium Hydroxide (Milk Of Magnesia 30 Ml Oral.Susp) 30 ml PO DAILY PRN PRN Reason: Constipation Melatonin (Melatonin 3 Mg Tablet) 6 mg PO BEDTIME PRN PRN Reason: Insomnia Oxycodone HCl (Oxycodone Hcl Immed Release 5 Mg Tablet) 10 mg PO Q4H PRN PRN Reason: Pain, Moderate(Pain Scale 4-6) Sodium Chloride (0.9 % Sodium Chloride Flush 3 Ml Syringe) 3 ml IVFLUSH [facility] Last Admin: 04/20/24 08:26 Dose: 3 ml Documented By: CORWIN Labs 04/06/24 13:09 04/19/24 06:37 Labs: Laboratory Results - last 24 hr 04/19/24 04/19/24 04/20/24 15:27 21:00 07:42 POC Glucose 130 H 122 H 144 H 04/20/24 11:10 POC Glucose 145 H Assessment and Plan (1) Respiratory distress: Status: Acute (2) FELICITY (obstructive sleep apnea): Status: Acute Plan A 44 years old morbedly obese male with PMH of HTN, Hinson syndrom presenting for elective surgical intervention for large colon polyp. Hinson disease with large adenoma surgery following will need a repeat Colonoscopy to determine the polyp location again post extubation respiratory distress and hypoxia likely related to his body habitus and anesthesia and underlying FELICITY weaned off BiPaP and O2 supplement, on RA now CXR showing mild congestion Incentive spirometry Sleep study was done as the patient exhibit signs and symptoms suggestive of FELICITY. test was positive overnight and will need a CPAP machine ordered on discharge. To follow with sleep lap as outpatient. HTN restart medications as tolerated, Amlodipine for now Thank you for the consult will follow as needed Quality Stroke Does the patient have a stroke diagnosis?: No VTE Prior VTE?: No VTE Risk Level:: Medical - moderate - high VTE Device Contraindication: N/A - Device Ordered VTE Drug Contraindication: N/A - Med Ordered
[2024-04-20] MEDS: Furosemide 20 MG TABLET PO (12:36)
--- NOTE | 2024-04-20 14:21 | PM.EVENT ---
Event Note Date of Service: 04/20/24 Event Note: Seen area for afternoon rounds He says he continues to feel well Tolerating diet Passing flatus Looks well Abdomen soft He feels ready to be discharged We will DC home with Colace and pain medications Follow up instructions given Time Spent With Patient Time: Total time managing care of this patient today ____ minutes.
--- NOTE | 2024-04-20 14:26 | P.CDIM_ITS ---
PROVIDER RESPONSE TEXT: To clarify, the appropriate diagnosis supported by the clinical indicators: Acute QUERY TEXT: PHYSICIAN'S DOCUMENTATION REQUEST Date of Query: 04/19/2024 10:26 AM EST Patient Name: Dakota Gore Admit Date: 04/18/2024 Dear Patricio Encarnacion MD, A review of the medical record indicates additional documentation may be needed. Please review below and update the documentation accordingly. Clinical Indicators: Progress note dated 04/18 within the written Plan: post extubation respiratory distress. Likely related to body habitus and anesthesia. weaned off BIPAP Had difficulty breathing after the procedure and placed on BIPAP on PACU, now on O2 supplement in IMC . Clarify which of the following accurately represents the acuity of the respiratory distress: Possible options might include: Acute Acute on chronic Chronic stable condition Other (explain) Clinically unable to determine (explain) Thank you, Anisa Frazier, CCS, CDIS Use of terms such as suspected, likely, concern for, or probable (associated with a specific diagnosi s that is being evaluated, monitored, or treated as if it exists) are acceptable and can be coded in the inpatient se tting, when documented at the time of discharge. Please use your independent medical judgment in providing your response. THIS QUERY IS PART OF THE PERMANENT MEDICAL RECORD
--- NOTE | 2024-04-20 15:16 | MHC.CM.PN ---
Pt has been medically cleared for DC, he will go home via private transport, plan is self care.
--- NOTE | 2024-04-20 15:48 | PM.DS ---
DS: Providers Provider Date of Service: 04/20/24 Date of admission: 04/18/24 07:16 Date of discharge: 04/20/24 Primary care physician: Luis Garcias MD Consults: 04/18/24 14:26 Consult to Hospitalist Routine Comment: Consulting Provider: [facility] Hospitalists Reason For Exam: morbid obesity, diet controlled DM, HTN DS: Diagnosis Discharge Diagnosis (1) Tubulovillous adenoma: Status: Acute DS: Summary Hospital Course Hospital Course: HPI AT ADMISSION: The patient is a 44-year-old male morbidly obese referred to me because of a tubulovillous adenoma in the proximal transverse colon. This was incompletely removed and was deemed suspicious for a high-grade lesion because of the presence of ulceration. The area of the large polyp had been previously marked with endo ink. The previous procedures have been discussed with the colonoscopist. 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 The patient did not want a subtotal colectomy for Hinson syndrome and wanted only a right colon resection for his presumed lesion in the hepatic flexure. He understood the technique of hand assisted right colon resection and presented for planned procedure. HOSPITAL COURSE: On 04/18/24, hand assisted exploratory laparoscopy, with flexible sigmoidoscopy was performed by Dr. Heaton without immediate complication. Unfortunately we were unable to visualize any tattoo markings in the proximal transverse colon and unable to palpate any polyp and therefore it was felt inappropriate to resect at this time given the uncertainty as to of the location of the polyp and the colon resection was therefore aborted. The patient tolerated the procedure well and was admitted for observation post operatively. He developed post extubation respiratory distress and hypoxia requiring BiPaP likely related to his body habitus and anesthesia. Hospitalist consult was obtained. Post op baseline CXR was obtained, he was weaned off BiPaP and his supplemental oxygen weaned off. Incentive spirometer encouraged. He had a sleep study performed while inpatient which exhibited signs and symptoms suggestive of FELICITY and therefore CPAP machine ordered for discharge with follow up outpatient with sleep lab. He did well from a surgical standpoint. He was tolerating clear liquids with evidence of GI function. His diet was advanced to solids. The following day, he was tolerating a solid diet without nausea or vomiting, was ambulating without difficulty and had god pain control. He was hemodynamically stable and stable from respiratory standpoint. His abdomen was benign with clean incisions. He felt ready for discharge. He was discharged to home on 04/20/24 in stable condition. He is to follow up in the office in 2 weeks for wound check, plan repeat colonoscopy. He is to follow up with his PCP and sleep lab for further management of his FELICITY/CPAP. Status at Discharge Overall status at discharge: patient is progressing back to baseline Time Attestation Discharge Coordination Time (in mins): 35 Quality: Safe Use of Opioids Does Pt have an Active Cancer Diagnosis on the Problem List?: No Quality: Stroke Does the patient have a stroke diagnosis?: No Physical Exam Vital Signs: Vital Signs: Last Vital Signs Temp 97.6 F 04/20/24 11:01 Pulse 84 04/20/24 11:01 Resp 16 04/20/24 11:01 BP 119/67 04/20/24 11:01 Pulse Ox 96 04/20/24 11:01 O2 Del Method Room Air 04/20/24 11:01 O2 Flow Rate 2 04/20/24 04:00 FiO2 40 04/18/24 13:15 BMI result Body Mass Index 49.1 Const: General: comfortable, no acute distress and alert Nutritional Appearance: obese Orientation/consciousness: patient oriented x3 Resp: Effort & Inspection: normal respiratory effort, able to speak in complete sentences, not labored, no respiratory distress, not tachypneic and no use of accessory muscles GI: Other: incisions clean abdomen soft Skin: General skin exam: no rashes or lesions noted Neuro: General: patient oriented x3 DS: Data Data Completed and Pending Completed studies during hospitalization [Text1]: Procedures Inspection of Lower Intestinal Tract, Open Approach (04/18/24) Introduction of Anesthetic Agent into Peripheral Nerves and Plexi, Percutaneous Approach (04/18/24) Discharge Plan Discharge Anticipated Discharge Date/Time: 04/20/24 07:44 Patient Disposition: Home, Self-Care Discharge Diagnosis: tubulovillous adenoma Referrals: Luis Garcias MD [Primary Care Provider] - 1 Week Sacha Heaton MD [Physician] - 2 Weeks Discharge Medications: New oxycodone 5 mg tablet 5 mg PO Q4H PRN (Reason: pain (scale score 7-10)) Qty: 24 0RF Rx Instructions: Partial Fill upon patient request. Continued lisinopril-hydrochlorothiazide 20-12.5 mg Tablet 1 tab PO QAM amlodipine 10 mg Tablet 10 mg PO QAM multivitamin Tablet 1 tab PO QAM omega 0-guv-lvx-fish oil [Fish Oil] 300-1,000 mg Capsule 1 cap PO QAM vitamin D3-vitamin K2 125 mcg (5,000 unit)-100 mcg Capsule 1 cap PO DAILY No Action Ozempic 0.25 mg or 0.5 mg (2 mg/3 mL) pen injector 0.25 mg subcut QWEEK Rx Instructions: for 4 weeks sodium,potassium,mag sulfates [Suprep Bowel Prep Kit] 17.5-3.13-1.6 gram recon soln See Rx Instructions PO .COMPLEX Qty: 354 0RF Rx Instructions: DILUTE; drink full amount early evening before AND next morning at least 2 hr before procedure; follow w 960 mL water PO Discharge Orders: Discharge Order (Routine); Ordered 04/20/24 Ordered By: Sacha Heaton Diet: Diabetic diet Activity on Discharge: No heavy lifting Stand Alone Forms: Patient Portal Discharge page Print Language: Honduran Activity Restrictions/Additional Instructions: If the incision area is tender, you may apply an ice pack for short intervals (No more than 20 minutes on, followed by at least 20 minutes off). Do not apply heat. Do not use creams, lotions, or topical antibiotics. Ok to shower. You have steri strips (small white cloth strips) covering your incision- these will fall off ~1 week. No heavy lifting (>10lbs) or strenuous activity! Take Tylenol Extra-strength 1-2 tabs every 6 hours for the first day, then as needed. Oxycodone every 6-8 hours as needed for pain. Colace 100 mg every day as needed for constipation. Follow up in office with Dr. Heaton in 2 weeks. ([phone]) Call Your Doctor If: -Your temperature exceeds 101.5? F -You experience excessive pain or swelling -You have an unexpected reaction to medication -You have excessive bleeding -You experience continued vomiting/nausea -Your incision begins to separate -Your incision shows signs of infection such as increased redness, swelling, excessive pain, drainage (light blood or clear fluid is normal) or heat Care Plan Goals: Return to baseline health and resume normal activities following recovery period. Use CPAP as prescribed Take Lasix for the next 7 days and monitor legs edema. Follow with PCP for further recommendations. Health Concerns: tubulovillous adenoma aborted colon resection Plan of Treatment: S/p LEANDRO exploratory laparoscopy aborted colon resection f/u in office for repeat colonoscopy down the line Assessment: Doing well post op. Discharge Date/Time: 04/20/24 16:48
== END 2024-04-20 16:48 | disposition home or self-care (01) | DRG 229 ==
LOC: HO.SSSA 07:19 → HO.S3 11:38 → HO.SSSA 12:48 → HO.IMC 12:54
PROVIDERS: Nurse Practitioner; Physician Assistant Surgical; Admitting Provider Surgery; PCP Internal Medicine; Visit Provider Surgery
PROC: 0DTE0ZZ Resection of Large Intestine, Open Approach (ICD-10-PCS; CPT 49320; principal; 2024-04-18 07:30)
DX: D12.3 Benign neoplasm of transverse colon (principal); E66.01 Morbid (severe) obesity due to excess calories; R06.03 Acute respiratory distress; G47.33 Obstructive sleep apnea (adult) (pediatric); T41.1X5A Adverse effect of intravenous anesthetics, initial encounter; T41.3X5A Adverse effect of local anesthetics, initial encounter; Y92.230 Patient room in hospital as the place of occurrence of the external cause; I10 Essential (primary) hypertension; G89.18 Other acute postprocedural pain; Z15.09 Genetic susceptibility to other malignant neoplasm; Z68.42 Body mass index [BMI] 45.0-49.9, adult; Z79.899 Other long term (current) drug therapy
CPT/HCPCS: 49320; 45330; 36415; 71045; 80048; 82947; 83036; 85027; 86850; 86900; 86901; 93005; 94660; 99222; J0131; J1171; J1644; J1720; J2003; J2704; J2795; J3010; J7120

== ENCOUNTER 2024-04-18 07:16 | Outpatient (BNV) | payer OTHER, SELFPAY | END 2024-04-19 14:20 | PROVIDERS: Admitting Provider Surgery; PCP Internal Medicine; Visit Provider Radiology Diagnostic Radiology | DX: J96.01 Acute respiratory failure with hypoxia (principal) | CPT/HCPCS: 71045 ==

== ENCOUNTER → 2024-04-18 07:16 | Outpatient (BNV) | payer OTHER, SELFPAY | PROVIDERS: Admitting Provider Surgery; PCP Internal Medicine; Visit Provider Student in an Organized Health Care Education/Training Program | DX: J96.01 Acute respiratory failure with hypoxia (principal); G47.33 Obstructive sleep apnea (adult) (pediatric) | CPT/HCPCS: 99221; 99231 ==

== ENCOUNTER → 2024-04-18 07:16 | Outpatient (BNV) | payer OTHER, SELFPAY | PROVIDERS: Admitting Provider Surgery; PCP Internal Medicine; Visit Provider Surgery | DX: D36.9 Benign neoplasm, unspecified site (principal) | CPT/HCPCS: 99024; 99499 ==

== ENCOUNTER 2024-05-01 10:50 | Outpatient (AMB) | payer OTHER, SELFPAY ==
[2024-05-01 10:52] VITALS: BP 135/76; PULSE 96; BMI 49.6
--- NOTE | 2024-05-01 10:52 | A.OFFVIS_ITS ---
Vital Signs 05/01/24 10:52 Height 6 ft Weight 365 lb 15.477 oz BMI 49.6 BP 135/76 Blood Pressure Location Rt brachial Position Sitting Pulse 96 Intake Visit Reasons: S/P colon resection Intake Note: Patient in follow up s/p colon resection. CC: Patient denies having any concerns or complaints today. Admissions Gate Attendant Required: No Accompanied by: Self / Same As Patient Allergies No Known Allergies [No Known Allergies*] Allergy (Verified 05/01/24 10:57) HPI HPI S/P colon resection: Details: 44-year-old male here for follow-up for a colon polyp. He has a known personal history of a large colon polyp at the area of the hepatic flexure in the transverse colon, and had colonoscopy last April, to remove this. This showed a tubulovillous adenoma. This was repeated last December, and again, a large ulcerating mass was noted at the same area. Multiple biopsies of this showed a tubulovillous adenoma. He does have a family history of colon cancer. He says his father of colon cancer at age of 46. He says that he has 2 other paternal uncles with history of colon cancer. He otherwise denies GI complaints. He denies any rectal bleeding. He has good bowel movements. He is morbidly obese with a BMI of 51. He has been recently started on Ozempic I had actually brought him to the OR last April 18, 2024 for hand assisted laparoscopic resection. However, at that time of surgery, we could not identify the segment involved as we could not visualize any inked markings. Furthermore, I could not feel any masses at that time. I therefore told him that we will schedule him for a repeat colonoscopy so we can be certain as to the exact segment of involvement. PFSH Medical History Staph infection Muscle spasm of back Hinson syndrome Family history of colon cancer Tubulovillous adenoma Perianal abscess Diabetes mellitus Morbid obesity HTN (hypertension) Surgical History History of colon resection (~04/18/24) Hx of excision of mass Hx of wisdom tooth extraction H/O colonoscopy Family History Father Colon cancer, Onset Age: 46 Brother Colon polyps Social History Household Members: Family and Friend(s) Household Members Other:: mother & roomate live w/patient Housing: House Are you a primary companion caregiver to a significant other at home: No Do you presently have visiting nurse or other home services: No Patient Tobacco Use Status: Never used Tobacco Review of Systems Const Denies chills and Denies fever(s) Card Denies chest pain, Denies dyspnea and Denies dyspnea on exertion Resp Denies cough, Denies dyspnea and Denies dyspnea on exertion GI Denies hematochezia and Denies change in bowel habits Denies hematuria and Denies difficulty urinating Musc Denies back pain and Denies limited range of motion Neuro Denies focal weakness and Denies convulsions Psych Denies depression and Denies mood swings Physical Exam Const Other: Very morbidly obese General: comfortable and no acute distress Orientation/consciousness: patient oriented x3 Neck Neck: Yes no lymphadenopathy Resp Auscultation: clear to auscultation bilaterally Cardio Rhythm: regular rhythm GI Other: Incisions clean and dry and well healed Palpation (GI): Soft to palpation, nontender and no guarding Neuro General: patient oriented x3 Assessment & Plan Assessment & Plan (1) Tubulovillous adenoma: Code(s): D36.9 - Benign neoplasm, unspecified site Category: Medical Plan: I will schedule him for a colonoscopy to identify the exact involved segment so we can resect this. I explained to him the technique of colonoscopy. I reviewed the risks including but not limited to bleeding, infections, perforation, as well as the benefits and alternatives He has given consent . His incisions from the laparoscopic procedure are all well healed. (2) Morbid obesity: Code(s): E66.01 - Morbid (severe) obesity due to excess calories Category: Medical Plan: I explained to him that the anesthesiologist had concerns during his surgery 2 weeks ago as his O2 sats were dropping during the procedure because of his morbid obesity with restrictive lung disease. I again emphasized to him the importance of weight loss. He says he weighs 355 lb now. He says that he is back on Ozempic. Coding Level of Care Code Global (28969) Diagnoses Tubulovillous adenoma D36.9 Morbid obesity E66.01
== END 2024-05-01 11:12 | disposition home or self-care (01) ==
PROVIDERS: PCP Internal Medicine; Visit Provider Surgery
DX: D36.9 Benign neoplasm, unspecified site (principal); E66.01 Morbid (severe) obesity due to excess calories
CPT/HCPCS: 99024

== ENCOUNTER → 2024-05-17 08:22 | Outpatient (BNVA) | payer OTHER, SELFPAY | PROVIDERS: PCP Internal Medicine; Visit Provider Surgery ==

== ENCOUNTER 2024-06-30 08:24 | Day surgery (SDC) | payer OTHER, SELFPAY ==
--- OUTSIDE RECORDS SUMMARY | 2024-06-14 18:34 | XMS_ITS | Patient Health Record ---
Author Organization [facility] Address [address] [place] [address] Care Team Providers Care Line Production Cook Name Role Phone Katerine CHUNG, Luis Primary Care Provider Ramirez Allen Unavailable [phone] Allergies No Known Allergies Results Component Value Reference Range Notes Pathology Reviewed date:07/30/2023 06:24:29 PM Interpretation: Performing Lab:[facility], [address] [place] [phone] Notes/Report: Name: Dakota Gore Age/Sex: 43/M : 1980 Unit#: [id number] Attend Dr: Ramirez Pena Re07/23/23 Status : [facility] Location: [facility] Disch: SPEC : [id number] RECD : 07/23/23 STATUS: SELINA ONEIL NUM: [id number] SAMUEL: 07/23/23-[address] [facility] [address]: Ramirez Pena ENTERED: 07/23/23-12 40 SP TYPE: Surgical OTHR DR: Luis Garcias MD ORDERED: HE Stain/6, Gross Micro L4/2 Diagnosis A. Appendiceal orifi ce, biopsy: Active colitis, with no evidence dysplasia (see comment). B. Colon, lesion at area of hepatic flexure, biopsy: Tubular adenoma, inflamed, with focal crypt abscesse s and surface erosion of non-adenomatous mucosa; negative for high- grade dysplasia and carcinoma (see comment). Comment: There is a basal lym phoplasmacytic infiltrate, but no significant regenerative changes and no granulomas. N SAID/drugs, infection, and inflammatory bowel disease cannot be excluded and clinica l correlation is necessary. Clinical History Pre-Op Dx: Screening Post-Op Dx: Colon lesion Microscopic Description Microscopic sections reviewed. Material Received A. Appendiceal orifice bx's B. Lesion at area of hepatic flexure Gross Description Received in 2 parts. A. Received in forma kristy labeled ?appendiceal orifice biopsy? are 3 fragments of pink white soft tissue ranging from 0.3-0.4 cm in greatest dimension which are wrapped in lens paper and entirely submitt ed for microscopic examination, 3 pieces in cassette A. B. Received in forma kristy labeled ?lesion at area of hepatic flexure? are 7 fragments of pink white soft tissue ra nging from 0.3-0.9 cm in greatest dimension which are wrapped in lens paper and entirely s ubmitted for microscopic examination, 7 pieces in cassette B. [facility] CONTINUED ON NEXT PAGE Name: Dakota Gore Age/Sex: 43/M : 1980 Unit#: [id number] Attend Dr: Ramirez Pena Re07/23/23 [place] : [facility] [place] Disch: SPEC : [id number] RECD : 07/23/23-1226 STATUS: SELINA THAD NUM: [id number] SAMUEL: 07/23/23-1132 [facility] [address]: Ramirez Pena ENTERED: 07/23/23- 40 SP TYPE: Surgical OTHR DR: Luis Garcias MD ORDERED: REGGIE Stain/6, Gross Micro L4/2 Copies To: Luis Garcias MD [address] [place] [address] [address] [address] [place] [address] Ramirez Pena [address] [place] [address] [address] [place] [address] Signed (si gnature on file) Radha Fonseca 07/29/23 0905 END OF REPORT Pathology Reviewed date:03/18/2024 11:02:29 AM Interpretation: Performing Lab:[facility], [address] [place] [address], [place] [address] Notes/Report: Name: Dakota Gore Age/Sex: 43/M : 1980 Unit#: [id number] Attend Dr: Ramirez Pena MD Re12/31/23 Status : [facility] Location: [facility] Disch: SPEC : [id number] RECD : 01/03/24 STATUS: SELINA NASSAR NUM: [id number] SAMUEL: 12/31/23-[address] [facility] [address]: Ramirez Pena MD ENTERED: 01/03/24- SP TYPE: Surgical OTHR DR: Luis Garcias MD ORDERED: HE Stain/3, Gross Micro L4 Diagnosis Colon, hepatic flexu re, polypectomy: Tubulovillous adenoma; negative for high-grade dysplasia. Clinical History Pre-Op Dx: Screening Post-Op Dx: Colon polyp Microscopic Description Microscopic sections reviewed. Material Received Polyp hepatic flexure Gross Description Received in formalin labeled ?hepatic flexure polyp? is a 1.1 x 1.1 x 0.8 cm velvety, hayes- brown polypoid porti on of tissue. The resected base is inked and the specimen is sectioned and entirely submitt ed in cassette A1. Also received is a 1.2 x 1.0 x 0.35 cm aggregate of multiple wilson-hayes ir regular and papular tissue fragments, mucus and debris, submitted in toto in cassette A2. CEDS Copies To: Luis Garcias MD [facility] [address] [place], [place] [phone] Ramirez Pena MD [facility] [address] [place] [address] CONTINUED ON NEXT PAGE Name: Dakota Gore Age/Sex: 43/M : 1980 Unit#: [id number] Attend Dr: Ramirez Pena MD Re12/31/23 Status : [facility] Location: [facility] Disch: SPEC : [id number] RECD : 01/03/24 STATUS: SELINA ONEIL NUM: [id number] SAMUEL: 12/31/23-[address] [facility] [address]: Ramirez Pena MD ENTERED: 01/03/24- SP TYPE: Surgical OTHR DR: Lusi Garcias MD ORDERED: REGGIE Stain/3, Gross Micro L4 Signed (si gnature on file) Kaylan Navarrete MD 01/04/24 1038 END OF REPORT Reason For Referral No Information Medications Medication SIG (Take, Route, Frequency, Duration) Notes Start Date End Date Status amLODIPine Besylate 10 MG TAKE 1 TABLET BY MOUTH EVERY DAY Oral for 90 Active Lisinopril-hydroCHLOROthia zide 20-12.5 MG 1 tablet Orally Once a day Active Immunizations Vaccine Route Administration Date Status Comme nts Influenza Unknown 04/21/2023 Refused Problems Problem Type SNOMED Code ICD Code Onset Dates Problem Status W/U Status Risk Notes Problem 874412716 Encounter for screening for malignant neoplasm of colon (Z12.11) Active confirmed Problem 779317095 History of adenomatous polyp of colon (Z86.010) Active confirmed Problem Screening for malignant neoplasm of rectum (551093284) Encounter for screening for malignant neoplasm of rectum (Z12.12) Active confirmed Problem 89165518 Preprocedural examination (Z01.818) Active confirmed Problem 931432865 Family history o f colon cancer (Z80.0) Active confirmed Problem Mass of hepatic flexure of colon (1228457647209 07) 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 Vital Signs Blood pressure diastolic 00 mm Hg 10/21/2023 Height 71.5 in 10/21/2023 Blood pressure systolic 00 mm Hg 10/21/2023 Weight 374 lbs 10/21/2023 BMI 51.43 kg/m2 10/21/2023 Encounters Encounter Location Date Provider Diagnosis [facility] Out[facility] [address] [place] [phone] 07/23/2023 Ramirez Pena Encounter for screening colonoscopy Z12.11 ; Colon polyps K63.5 ; Family history of colon cancer Z80.0 ; Other specified diseases of intestine K63.89 and Other hemorrhoids K64.8 [facility] Outpatient [address] [place], [place] [phone] 12/31/2023 Ramirez Pena Colon cancer screeni ng Z12.11 ; Colon polyps K63.5 and Family history of colon cancer Z80.0 [facility] [address] [place] [phone] 10/21/2023 Ramirez Pena Encounter for screening for malignant neoplasm of colon Z12.11 ; Preprocedural examination Z01.818 ; History of adenomatous polyp of colon Z86.010 and Family history of colon cancer Z80.0 [facility] [address] [place] [phone] 07/29/2023 Ramirez Pena [facility] [address] [phone] 01/06/2024 Ramirez Pena Mass of hepatic flexure of colon K63.9 and Family history of colon cancer Z80.0 [facility] [address] [place] [phone] 03/10/2024 Ramirez Pena Assessments Encounter Date Diagnosis (ICD Code) Assessment Notes Treatment Notes Treatment Clinical Notes Section Notes 07/23/2023 Encounter for screening colonoscopy (ICD-10 - Z12.11) 07/23/2023 Colon polyps (ICD-10 - K63.5) 12/31/2023 Colon cancer screening (ICD-10 - Z12.11) 12/31/2023 Colon polyps (ICD-10 - K63.5) 10/21/2023 Encounter for screening for malignant neoplasm of colon (ICD-10 - Z12.11) Overall, Dakota seems to be doing well from a GI standpoint. We did have a detailed discussion today regarding the findings on his most recent colonoscopy from July. I advised him of the need to go back and try to remove the remainder of the flat adenoma. I shall schedule him for a followup colonoscopy for later this year. Full consent was obtained for that, including risks of bleeding and perforation. The procedure will be done With monitored anesthesia care. We did review the rationale for this in regard to colon cancer prevention. I did advise him that we definitely will need to have him undergo colonoscopies at shorter intervals due to his own history of significant polyps and his family history of colon cancer in his father at an early age. Dakota was comfortable with this plan. Thank you again for allowing me to participate in Dakota's care. I shall continue to keep you advised of his progress. 10/21/2023 Preprocedural examination (ICD-10 - Z01.818) Overall, Dakota seems to be doing well from a GI standpoint. We did have a detailed discussion today regarding the findings on his most recent colonoscopy from July. I advised him of the need to go back and try to remove the remainder of the flat adenoma. I shall schedule him for a followup colonoscopy for later this year. Full consent was obtained for that, including risks of bleeding and perforation. The procedure will be done With monitored anesthesia care. We did review the rationale for this in regard to colon cancer prevention. I did advise him that we definitely will need to have him undergo colonoscopies at shorter intervals due to his own history of significant polyps and his family history of colon cancer in his father at an early age. Dakota was comfortable with this plan. Thank you again for allowing me to participate in Dakota's care. I shall continue to keep you advised of his progress. 01/06/2024 Family history of colon cancer (ICD-10 - Z80.0) 01/06/2024 Mass of hepatic flexure of colon (ICD-10 - K63.9) 07/23/2023 Family history of colon cancer (ICD-10 - Z80.0) 12/31/2023 Family history of colon cancer (ICD-10 - Z80.0) 10/21/2023 History of adenomatous polyp of colon (ICD-10 - Z86.010) Overall, Dakota seems to be doing well from a GI standpoint. We did have a detailed discussion today regarding the findings on his most recent colonoscopy from July. I advised him of the need to go back and try to remove the remainder of the flat adenoma. I shall schedule him for a followup colonoscopy for later this year. Full consent was obtained for that, including risks of bleeding and perforation. The procedure will be done With monitored anesthesia care. We did review the rationale for this in regard to colon cancer prevention. I did advise him that we definitely will need to have him undergo colonoscopies at shorter intervals due to his own history of significant polyps and his family history of colon cancer in his father at an early age. Dakota was comfortable with this plan. Thank you again for allowing me to participate in Dakota's care. I shall continue to keep you advised of his progress. 07/23/2023 Other specified diseases of intestine (ICD-10 - K63.89) 10/21/2023 Family history of colon cancer (ICD-10 - Z80.0) Overall, Dakota seems to be doing well from a GI standpoint. We did have a detailed discussion today regarding the findings on his most recent colonoscopy from July. I advised him of the need to go back and try to remove the remainder of the flat adenoma. I shall schedule him for a followup colonoscopy for later this year. Full consent was obtained for that, including risks of bleeding and perforation. The procedure will be done With monitored anesthesia care. We did review the rationale for this in regard to colon cancer prevention. I did advise him that we definitely will need to have him undergo colonoscopies at shorter intervals due to his own history of significant polyps and his family history of colon cancer in his father at an early age. Dakota was comfortable with this plan. Thank you again for allowing me to participate in Dakota's care. I shall continue to keep you advised of his progress. 07/23/2023 Other hemorrhoids (ICD-10 - K64.8) Plan Of Treatment Pending Test Test Name Order Date CHEM 7 PROFILE 01/06/2024 LIVER PROFILE 01/06/2024 CEA 01/06/2024 CBC w DIFF 01/06/2024 CT ABD & PELVIS WITH CONTRAST 01/06/2024 Future Test Test Name Order Date COLONOSCOPY 12/19/2015 COLONOSCOPY 04/21/2023 COLONOSCOPY 10/21/2023 Insurance Providers Payer Name Payer Address Payer Phone Subscriber Number Group Number Insured Name Patient Relationship to Insured Coverage Start Date Coverage End Date [facility] [address] [place] [phone] [id number] DAKOTA GORE Self - patient is the insured Medical (General) History Medical History History ICD Code Denies SC,DM,CVA,Lung disease,renal dise ase HTN Colonoscopy 04/2006 - [...] some nonspecific inflammation. Surgical History Surgery Date(Month/Year) [place] teeth extraction Fatty tumor removed from scalp 2016
--- OUTSIDE RECORDS SUMMARY | 2024-06-14 18:34 | XMS_ITS ---
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 Truck Mounted Name Role Phone Luis Garcias MD Primary Care Provider Ramirez Allen [facility] [phone] REASON FOR VISIT screening, hx polyps, fam hx colon ca Encounters Encounter Location Date Provider Diagnosis [facility] [place] [address] [place] [phone] 12/31/2023 Ramirez Pena Colon cancer scree dayrl Z12.11 ; Colon polyps K63.5 and Family history of colon cancer Z80.0 Assessments Encounter Date Diagnosis (ICD Code) Assessment Notes Treatment Notes Treatment Clinical Notes Section Notes 12/31/2023 Colon cancer screening (ICD-10 - Z12.11) 12/31/2023 Colon polyps (ICD-10 - K63.5) 12/31/2023 Family history of colon cancer (ICD-10 - Z80.0) Plan Of Treatment No Information Progress Notes * MARYSE GOREDOB: 8 (44 yo M)Acc No.[id number]:12/31/2023 COLON WITH MAC Patient:?MARYSE GORE Provider:?Ramirez Pena MD :1980???Age:43 Y???Sex:Male Alcides e:12/31/2023 Address:[address] [facility] Pcp:Luis Garcias MD Subjective: * Chief Complaints: * ???1. Screening, hx polyps, fam hx colon ca. * Medical History:? Objective: * Vitals:? Assessment: * Assessment: 1.?Colon cancer screening - Z12.11 (Primary)???2.?Colon polyps - K63.5???3.?Family history of colon cancer - Z80.0??? Plan: * Treatment: * Procedure Codes:?76973 LESIO N REMOVAL COLONOSCOPY, Modifiers: 53 * * The named appointment provid er may or may not be the originator of this progress note, and it is not deemed complete until electronically signed by the appointment provider. Sign off status: Pending * Provider:?Ramirez Pena MD Date:? 024 Generated for Jude carlisle/Migel/Emilyitting on:?06/14/2024 06:34 PM EST
--- OUTSIDE RECORDS SUMMARY | 2024-06-14 18:34 | XMS_ITS ---
Author Organization Luis Garcias MD Address [address] [place], [place] [phone] Care Team Providers Care Infection Prevention Practitioner Name Role Phone Luis Garcias Primary Care Provider [phone] Allergies No Known Allergies Results Component Value [...] Date Provider Diagnosis Luis Garcias MD [address] [place], [place] [phone] 02/11/2024 Luis Garcias Prediabetes R73.03 ; Essential [...] Up: 3 Months, Reason: Provider Name:Luis zaragoza, 12/22/2024 07:15:00 AM, [address] [place] [address], [address], [place], [phone], Provider Name:Luis zaragoza, 12/29/2024 09:30:00 AM, [address] [place] [address], [address], [place], [place], [phone], Progress Notes * Dakota GORE PDOB: [birth year] (44 yo M)Acc No.[id number]:02/11/2024 Patient:?Dakota Gore Provider:?Luis Garcias MD :1980???Age:44 Y???Sex:Male Alcides e:02/11/2024 Address:[address], [facility] Subjective: * Chief Complaints: * ???High blood pressure * HPI: ???Symptom(s):? [facility] 44 [facility], had colonoscopy/ had a lesion. that needs to be removed surgically. taking ozempic from brother. has lost weight possibly from the ozempic. * ROS:?General/Constitutional:?Denies?Chills.?Denies?Fatigue.?Denies?Fever.?Denies?Headache.?ENT:?Patient denies?decreased sense of smell , any loss of taste , sore throat.?Denies?Sore throat.?Respiratory:?Denies?Cough.?Denies?Shortness of breath at rest.?Denies?Shortness of breath with exertion.?Cardiovascular:?Denies?Chest pain at rest.?Denies?Chest pain with exertion.?Denies?Dizziness.?Denies?Palpitations.?Denies?Shortness of breath.?Gastrointestinal:?Denies?Diarrhea.?Denies?Nausea.?Musculoskeletal:?Patient denies?muscle aches.?Peripheral Vascular:?Patient denies?red and blue toes.? * Medical History:? * Surgical History:? * Hospitalization/Major Diagno stic Procedure:? * Medications:?TakingamLODIPin e Besylate 10 MG Tablet TAKE 1 TABLET [...] reviewed and reconciled with the patient * Allergies:?N.K.D.A.yes[Aller gies Verified] Objective: * Vitals:?Ht: 71.5, Wt:370, BM I:50.88, BP:136/90, Repeat BP:136/86 weight is down 10 pounds since 12-28-23. * Examination: ???General Examination: ?GENERAL APPEARANCE:?well developed, well nourished obese male.?HEAD:?normocephalic.?SKIN:?good turgor.?HEART:?no murmurs, rubs, gallops , regular rate and rhythm.?LUNGS:?no wheezes, rales, rhonchi , good air movement , clear to auscultation bilaterally.? Assessment: * Assessment: 1.?Essential hypertension wi th goal blood pressure less than 140\/90 - I10 (Primary)?2.?Prediabetes - R73.03?3.?Morbid obesity due to excess calories - E66.01? Plan: * Treatment: 2.?Prediabetes?LAB: Glucose, finger stick ? Value Reference Range ?Value 111 * Ana Pruitt 4 10:00:52 AM EDT > Notes: sugar is better, will continue to monitor??3.?Morbid obesity due to excess calories? Continue Ozempic (0.25 or 0.5 MG/DOSE) Solution Pen-injector, 2 MG/3ML, as directed, Subcutaneous, 0.25 mg weekly.?? Notes: is doing intermittant fasting. also taking his brother's ozempic?? * Procedure Codes:?75764 ASSAY , GLUCOSE, BLOOD QUANT, Modifiers: QW * Follow Up:?3 Months * * Sign off status: Completed true * Provider:?Luis Garcias MD Date:?1 04/12/2023 Generated for uJde carlisle/Migel/eTransmitting on:?06/14/2024 06:34 PM EST History and Physical Notes * HPI (History [...]
--- OUTSIDE RECORDS SUMMARY | 2024-06-14 18:34 | XMS_ITS ---
Author Organization [facility] Address [address] [place] [phone] Care Team Providers Care Votator Machine Operator Name Role Phone Katerine CHUNG, Luis Primary Care Provider Ramirez Allen [phone] Encounters Encounter Location Date Provider Diagnosis [facility] [address] [place] [phone] 03/10/2024 Ramirez Pena Plan Of Treatment No Information Progress Notes * MARYSE GOREDOB: 8 (44 yo M)Acc No.[id number]:03/10/2024 Patient:?MARYSE GORE :1980???Age:44 Y???Sex:Male Address:[address] [place] [address] * true * Date:? Generated for Jude carlisle/Migel/eTransmitting on:?06/14/2024 06:34 PM EST
--- OUTSIDE RECORDS SUMMARY | 2024-06-14 18:34 | XMS_ITS ---
Author Organization Luis Garcias MD Address [address] [place] [phone] Care Team Providers Care Electric Needle Specialist Name Role Phone Luis Garcias Primary Care Provider [phone] Encounters Encounter Location Date Provider Diagnosis Luis Garcias MD [address] [facility] [address] [place] [phone] 03/13/2024 Luis Garcias Plan Of Treatment Next Appt Details Provider Name:Luis Goodson ier, 12/22/2024 07:15:00 AM, [address] [place] [address], Suite [facility], [place], [place], [phone], Provider Name:Luis Goodson ier, 12/29/2024 09:30:00 AM, [address] [place] [address], Suite [facility], [place], [place], [phone], Progress Notes * Dakota GORE PDOB: [birth year] (44 yo M)Acc No.[id number]:03/13/2024 Patient:?Dakota Gore :1980???Age:44 Y???Sex:Male Address:[place], [address] * true * Date:? Generated for Printi ng/Faconradg/eTransmitting on:?06/14/2024 06:34 PM EST
--- OUTSIDE RECORDS SUMMARY | 2024-06-14 18:35 | XMS_ITS | Patient Health Record ---
Author Organization Luis Garcias MD Address [address] [place], [place] [id number] Care Team Providers Care Power Lineman Name Role Phone Luis Garcias Primary Care Provider Allergies No Known Allergies Results Component Value Reference Range Notes Hemoglobin A1c Reviewed date:10/01/2023 03:07:41 PM Interpretation: Performing Lab: Notes/Report: Hemoglobin A1c 6.4 Complete Blood Count Auto Di ff Reviewed date:12/22/2023 08:45:53 AM Interpretation: Performing Lab:[facility], [address] [place] [phone] Notes/Report: White Blood Count 11.2 4.8-10.8 X10*3/uL [...] 0.0-0.2 /100WBC Neutrophils Absolute Auto 6.6 2.0-8.3 x10*3/uL Imm Gran Abs Auto 0.12 0.00-0.03 X10*3/uL Lymphocytes Absolute Auto 3.4 1.2-4.9 X10*3/uL Monocytes Absolute Auto 0.7 0.1-1.2 X10*3/uL Eosinophils Absolute Auto 0.3 0.0-0.4 X10*3/uL Basophils Absolute Auto 0.1 0.0-0.2 X10*3/uL NRBC Abs Auto 0.000 0.0-0.012 X10*3/uL Comprehensive [place]. Panel Fa st Reviewed date:12/22/2023 08:41:44 AM Interpretation: Performing Lab:[facility], [address] [place] [phone] Notes/Report: Sodium 140 135-145 mmol/L Potassium 4.6 3.3-5.1 mmol/L Chloride 101 96-108 mmol/L Carbon Dioxide 29 22-29 mmol/L Anion Gap 15 12-20 Blood Urea Nitrogen 15 9-16 mg/dL Creatinine 0.83 0.5-1.4 mg/dL Estimated Glomerular Filt Rate > 60 NOTE: For -Emirati individuals, multiply the result by 1.210. Chronic [...] Panel Reviewed date:12/21/2023 05:57:40 PM Interpretation: Performing Lab:[facility], [address] [place] [phone] Notes/Report: Triglycerides 265 <150 mg/dL Desirable Triglyceride: [...] (Free>4and<10) Reviewed date:12/21/2023 05:58:44 PM Interpretation: Performing Lab:[facility], [address] [place] [phone] Notes/Report: PSA,Total (Free>4and<10) 1.70 0.00-4.00 ng/mL A [...] Random Reviewed date:12/22/2023 08:43:56 AM Interpretation: Performing Lab:[facility], [address] [place] [phone] Notes/Report: Creatinine Urine 143.66 Microalbumin Urine 8.0 Microalbum/Creatinine Ratio Ur 5.5 <30 ug/mg cr Albumin/Creatinine Ratio Reference Ranges: Normal: < 30 ug/mg creatinine Microalbuminuria: 30 - 300 ug/mg creatinine Clinical Albuminuria: > 300 ug/mg creatinine Hemoglobin A1c Reviewed date:12/21/2023 12:42:30 PM Interpretation: Performing Lab:[facility], [address] [place] [phone] Notes/Report: Hemoglobin A1c % 6.5 <6.0 % [...] average glucose, using the formula of the K4H-Ksbqrnc Average Glucose study (ADAG), Diabetes Care, Vol.31,#8, Nov. 2007 Glucose, finger stick Reviewed date:10/01/2023 03:06:18 PM Interpretation: Performing Lab: Notes/Report: Value 142 Glucose, finger stick Reviewed date:02/11/2024 10:00:54 AM Interpretation: Performing Lab: Notes/Report: Value 111 Glucose, finger stick Reviewed date:05/15/2024 09:57:52 AM Interpretation: Performing Lab: Notes/Report: Value 109 Pathology Reviewed date:07/29/2023 12:59:36 PM Interpretation: Performing Lab:[facility], [address] [place] [address] Notes/Report: ----- Name: Dakota Gore Age/Sex: 43/M : 1980 Unit#: [id number] Attend Dr: Ramirez Pena Re07/23/23 Status : [facility] Location: [facility] Disch: ----- SPEC : [id number] RECD : 07/23/23 STATUS: SELINA ONEIL NUM: [id number] SAMUEL: 07/23/[address] [facility] [address]: Ramirez Pena ENTERED: 07/23/23 40 SP TYPE: Surgical OTHR DR: Luis [...] (see comment). Comment: There is a basal lymphoplasmacytic infiltrate, but no significant regenerative changes and no granulomas. NSAID/drugs, infection, and inflammatory bowel disease cannot be excluded and clinica l correlation is necessary. Clinical History Pre-Op Dx: Screening Post-Op Dx: Colon lesion Microscopic Description Microscopic sections reviewed. Material Received A. Appendiceal orifi ce bx's B. Lesion at area of hepatic [...] are wrapped in lens paper and entirely submitted for microscopic examination, 7 pieces in cassette B. [facility] CONTINUED ON NEXT PAGE ----- Name: Dakota Gore Age/Sex: 43/M : 1980 Unit#: [id number] Attend Dr: Ramirez Pena Re07/23/23 [place] [facility] [place] [facility] Disch: ----- SPEC : [id number] RECD : 07/23/23-1227 STATUS: SELINA ONEIL NUM: [id number] SAMUEL: 07/23/23-[address] [facility] [address]: Ramirez Pena ENTERED: 07/23/23- 40 SP TYPE: Surgical OTHR DR: Luis Garcias MD ORDERED: REGGIE Stain/6, Arabella Martinez L4/2 Copies To: Luis Garcias MD [address] [place] [address] Drive [place] [address] [place], [place] [id number] Ramirez Pena [address] [place] [address] [id number] [place] [address] ----- Signed (signature on file) Radha Fonseca 07/29/23 0905 ----- END OF REPORT UA CC w/rflx Micro + Cult Reviewed date:12/22/2023 08:46:10 AM Interpretation: Performing Lab:[facility], [address] [place] [phone] Notes/Report: Urine, Clean Catch Color Urine Yellow Appearance Urine Clear PH 5.5 5.0-9.0 Glucose Urine UA Negative Negative mg/dL Urine Blood Negative Negative Specific Jasper - Urine 1.020 1.005-1.025 Urine Protein Negative Neg-Trace mg/dL Urine Ketones Negative Negative mg/dL Nitrite Urine Negative Negative Leukocyte Esterase Urine Negative Negative Pathology Reviewed date:01/04/2024 10:55:57 AM Interpretation: Performing Lab:[facility], [address] [place] [phone] Notes/Report: ----- Name: SofíaDakota Age/Sex: 43/M : 1980 Unit#: [id number] Attend Dr: Ramirez Pena MD Re12/31/23 [place] [facility] [place] [facility] Disch: ----- SPEC : [id number] RECD : 01/03/24 STATUS: SELINA ONEIL NUM: [id number] SAMUEL: 12/31/23-[address] [facility] [address]: Ramirez Pena MD ENTERED: 01/03/24- SP [...] x 0.35 cm aggregate of multiple wilson-hayes irregular and papular tissue fragments, mucus and debris, submitted in toto in cassette A2. CEDS Copies To: Luis Garcias MD [facility] [address] [facility] [address] [place] [address] Ramirez Pena MD [facility] [address] [place] [address] [address] [place] [address] CONTINUED ON NEXT PAGE ----- Name: Dakota Gore Age/Sex: 43/M : 1980 Unit#: [id number] Attend Dr: Ramirez Pena MD Re12/31/23 Status : [facility] Location: [facility] Disch: ----- SPEC : [id number] RECD : 01/03/24 STATUS: SELINA ONEIL NUM: [id number] SAMUEL: 12/31/23-[address] [facility] [address]: Ramirez Pena MD ENTERED: 01/03/24- SP TYPE: Surgical OTHR DR: Luis Garcias MD ORDERED: REGGIE Chacon/3Arabella L4 ----- Signed (signature on file) Kaylan Navarrete MD 01/04/24 1038 ----- END OF REPORT CT abdomen pelvis w con Reviewed date:03/14/2024 05:08:21 PM Interpretation: Performing Lab: Notes/Report: [address] [address] [address] Scan Report Signed Patient: Dakota Gore MR#: [id number] 71 : 1980 Acct:[id number] Age/Sex: 44 / M ADM Date: 02/28/24 Loc: HO.CT Attending Dr: Ramirez Pena MD Ordering Physician: Sacha Heaton MD Date of Service: 02/28/24 Procedure(s): CT abdomen pelvis w IV con Accession Number(s): [id number] cc: Luis Garcias MD; Sacha Heaton MD [...] by: Harrison Redmond MD 03/14/2024 03:31 PM [facility] Dictated By: Harrison Redmond MD Signed By: <Electronically signed by Harrison Redmond MD in OV> 03/14/24 1531 DD/ 1616 TD/TT: 02/28/24 1628 Clearance Diver: [place] [address] CT Scan Report Signed Patient: Dwight Gore MR#: [id number] 71 : 1980 Acct:[id number] Age/Sex: 44 / M ADM Date: 02/28/24 Loc: HO.CT Attending Dr: Ramirez Pena MD Ordering Physician: Sacha Heaton MD Date of Service: 02/28/24 Procedure(s): CT abd omen pelvis w IV con Accession Number(s): [id number] cc: Luis Garcias MD; Sacha Heaton MD EXAMINATION: CT ABDOMEN AND PELVI S WITH CONTRAST CLINICAL INFORMATION: History of colon cancer COMPARISON: None available. TECHNIQUE: Multidetector volume tric images were obtained from the superior aspect of the liver through the pubic symphysis following administration 85 mL of Omnipaque 350 intravenous contrast. Sagittal and coronal reformatted images were obtained on the technologist's workstation. Oral contrast: Yes This CT examination was performed using dose optimization techniques as appropriate, various ly including the following: *Automated exposure control *Adjustment of mA an d/or kV according to patient size (this includes techniques or standardized protocols for targeted exams where dose is matched to indication/reason for exam; i.e. extremities or head) *Use of iterative reconstruction technique DLP: 1261 mGy-cm FINDINGS: LUNG BASES: The visualized lung bases are unremarkable. LIVER, GALLBLADDER, AND BILIARY TREE: The liver is normal in size, shape, and attenuati on. No focal hepatic lesion or biliary ductal dilatation is presen t. The gallbladder is unremarkable with no evidence of radiopaque gallst ones, gallbladder wall thickening, or obvious pericholecystic inflammatory changes. PANCREAS: Unremarkable. SPLEEN: Unremarkable. ADRENAL GLANDS: Unremarkable. KIDNEYS AND URETERS: The kidneys are normal in size, shape, and attenuation. No hydronephrosis, hydroureter, or calculi seen. No perinephric stranding. BLADDER: Unremarkable. GASTROINTESTINAL TRA CT: The small and large bowel are unremarkable. The appendix is unremarkable. ABDOMINAL WALL: Smal l fat-containing umbilical hernia. LYMPH NODES: Normal. VASCULAR: Unremarkable. PELVIC VISCERA: Unremarkable. OSSEOUS STRUCTURES: Degenerative spondyl osis spine. C T/CT abdomen pelvis w IV con IMPRESSION: No acute abnormality CT scan abdomen pelvis. Fleischner guideline s were followed. Electronically polly d by: Harrison Redmond MD 03/14/2024 03:31 PM EST Dictated By: Jovani Redmond MD Signed By: <Electronically signed by Harrison Redmond MD in OV> 03/14/24 1531 DD/ 1616 TD/TT: 02/28/24 1628 Clearance Diver: RACHEL Complete Blood Count no Diff Reviewed date:04/06/2024 04:50:01 PM Interpretation: Performing Lab:[facility], [address] [place] [phone] Notes/Report: White Blood Count 10.0 4.8-10.8 X10*3/uL [...] Panel Reviewed date:04/06/2024 04:49:27 PM Interpretation: Performing Lab:[facility], [address] [place] [phone] Notes/Report: Sodium 138 135-145 mmol/L Potassium 3.9 [...] A1c Reviewed date:04/06/2024 04:48:55 PM Interpretation: Performing Lab:[facility], [address] [place] [phone] Notes/Report: Hemoglobin A1c % 5.9 <6.0 % [...] average glucose, using the formula of the H9R-Tkfoihl Average Glucose study (ADAG), Diabetes Care, Vol.31,#8, 2007 Type and Screen Reviewed date:04/06/2024 04:49:37 PM Interpretation: Performing Lab:[facility], [address] [place] [phone] Notes/Report: Spec expiration changed by SHIKHA on 04/06/24 Reason: PAT NURSING: Call Blood Bank (ext. [phone]) to band patient on admission. Type and Screen in effect until 2300 on 04/18/2024. Witnessed by MURCA Blood Type OP Antibody Screen NEGATIVE Glucose, Whole Blood Reviewed date:04/18/2024 12:44:11 PM Interpretation: Performing Lab:[facility], [address] [place] [phone] Notes/Report: Glucose, Whole Blood 141 60-115 mg/dL METER # : [id number] Glucose, Whole Blood Reviewed date:04/18/2024 04:23:16 PM Interpretation: Performing Lab:[facility], [address] [place] [phone] Notes/Report: Glucose, Whole Blood 147 60-115 mg/dL METER # : [id number] Glucose, Whole Blood Reviewed date:04/19/2024 03:27:25 PM Interpretation: Performing Lab:[facility], [address] [place] [phone] Notes/Report: Glucose, Whole Blood 137 60-115 mg/dL METER # : [id number] Hold Lav - Possible Hematolo gy Reviewed date:04/19/2024 03:27:11 PM Interpretation: Performing Lab:[facility], [address] [place] [phone] Notes/Report: Hold Lav - Possible Hematology SEE NOTE Specimen will be held untested for 8 hours. Call Hematology if testing is desired. Basic Metabolic Panel Fastin g Reviewed date:04/19/2024 03:27:37 PM Interpretation: Performing Lab:[facility], [address] [place] [phone] Notes/Report: Sodium 142 135-145 mmol/L Potassium 4.1 3.3-5.1 mmol/L Chloride 106 96-108 mmol/L Carbon Dioxide 28 22-29 mmol/L Anion Gap 12 12-20 Blood Urea Nitrogen 10 9-16 mg/dL Creatinine 0.78 0.5-1.4 mg/dL Creatinine Clr Calc Pharmacy 187.8 eGFR (calculated from the MDRD study equation) and eCrCl (calculated from the Cockcroft-Gault equation) are based on different parameters and may not yield comparable results. If eCrCl result is absurd, please check patient's height/weight. Estimated Glomerular Filt Rate > 60 Chronic Kidney Disease: Estimated GFR < 60 mL/min/1.73m2 Severe Kidney Disease: Estimated GFR < 15 mL/min/1.73m2 Glucose Fasting 141 60-99 mg/dL A fasting glucose of 126 mg/dl or greater on more than one occasion is considered diagnostic of diabetes. Calcium 8.2 8.4-10.2 mg/dL Glucose, Whole Blood Reviewed date:04/19/2024 03:28:03 PM Interpretation: Performing Lab:[facility], [address] [place] [phone] Notes/Report: Glucose, Whole Blood 122 60-115 mg/dL METER # : [id number] XR chest 1V Reviewed date:04/20/2024 12:42:31 PM Interpretation: Performing Lab: Notes/Report: [address] [place] [address] XRay Report Signed Patient: Dakota Gore MR#: [id number] 71 : 1980 Acct:[id number] Age/Sex: 44 / M ADM Date: 04/18/24 Loc: [facility] [address] Attending Dr: Sacha Heaton MD Ordering Physician: Patricio Encarnacion MD Date of Service: 04/19/24 Procedure(s): XR chest 1V Accession Number(s): [id number] cc: Patricio Encarnacion MD; Luis Garcias MD EXAMINATION: XR CHEST CLINICAL INFORMATION: F U Hypoxia COMPARISON: X-ray dated August 03, 2012 TECHNIQUE: Frontal view of the chest was obtained. FINDINGS: Poor inspiratory film. Prominent and indistinct margins in the perihilar region. No gross pneumothorax. Cardia mediastinal silhouette overlaps the left lower hemithorax. Inadequate evaluation of the axial skeleton due to patient's body habitus and underpenetrated technique. XR/XR chest 1V IMPRESSION: Poor inspiration suggesting mild interstitial lung edema versus acute inflammatory or an or infectious small airway disease. Electronically signed by: Teo Mckeon MD 04/19/2024 03:34 PM [facility] Dictated By: Teo Agustin MD Signed By: <Electronically signed by Teo El MD in OV> 04/19/24 1534 DD/ 1420 TD/TT: 04/19/24 1430 Clearance Diver: [address] [address] XRay Report Signed Patient: Dwight Gore MR#: [id number] 71 : 1980 Acct:[id number] Age/Sex: 44 / M ADM Date: 04/18/24 Loc: [facility] [address]: Lizzie Heaton MD Ordering Physician: Patricio Encarnacion MD Date of Service: 04/19/24 Procedure(s): XR chest 1V Accession Number(s): [id number] cc: Melanie Encarnacion MD; Luis Garcias MD EXAMINATION: XR CHEST CLINICAL INFORMATION: F U Hypoxia COMPARISON: X-ray dated July TECHNIQUE: Frontal view of the chest was obtained. FINDINGS: Poor inspiratory sharron m. Prominent and indistinct margins in the perihilar region. No gross pneumothorax. Cardia mediastinal silhouette overlaps the left lower hemithorax. Inadequate evaluatio n of the axial skeleton due to patient's body habitus and underpenetrated technique. X R/XR chest 1V IMPRESSION: Poor inspiration suggesting mild interstitial lung edema versus acute inflammatory or an o r infectious small airway disease. Electronically polly d by: Teo Mckeon MD 04/19/2024 03:34 PM EST Dictated By: Teo Raza MD Signed By: <Electronically signed by Teo El MD in OV> 04/19/24 1534 DD/ 1420 TD/TT: 04/19/24 1430 Clearance Diver: Glucose, Whole Blood Reviewed date:04/19/2024 03:25:17 PM Interpretation: Performing Lab:[facility], [address] [place] [phone] Notes/Report: Glucose, Whole Blood 158 60-115 mg/dL METER # : [id number] Glucose, Whole Blood Reviewed date:04/20/2024 06:07:40 PM Interpretation: Performing Lab:[facility], [address] [place] [phone] Notes/Report: Glucose, Whole Blood 130 60-115 mg/dL METER # : [id number] Glucose, Whole Blood Reviewed date:04/20/2024 12:41:44 PM Interpretation: Performing Lab:[facility], [address] [place] [phone] Notes/Report: Glucose, Whole Blood 122 60-115 mg/dL METER # : [id number] Glucose, Whole Blood Reviewed date:04/20/2024 12:24:18 PM Interpretation: Performing Lab:[facility], [address] [place] [phone] Notes/Report: Glucose, Whole Blood 144 60-115 mg/dL METER # : [id number] Glucose, Whole Blood Reviewed date:04/20/2024 12:21:43 PM Interpretation: Performing Lab:[facility], [address] [place] [phone] Notes/Report: Glucose, Whole Blood 145 60-115 mg/dL METER # : [id number] Reason For Referral Reason abscess groin area Diagnosis 1 Abscess [...] Markos Arellano Referred Provider Specialty Bariatric [facility] r[facility] General Notes Sarah Dee 10:07:11 AM EDT > patient will b calling to set this up. He will need to watch a video Referral Priority Routine Reason local infection of t he skin [...] Referral Priority Routine Referral Appointment Date 05/17/2024 Medications Medication SIG (Take, Route, Frequency, Duration) [...] tablet Orally Once a day 10/01/2023 Active Immunizations Vaccine Route Administration Date Status Comme nts Fluarix Quadrivalent - 150 IM Intramuscular 12/21/2023 Adm inistered Flu Vaccine Unknown 06/25/2015 Refused Fluarix Quadrivalent Unknown 04/18/2018 Refused Social History Tobacco Use: Social History Observation Description Date Details (start date - stop date) Never Smoker NA - NA Tobacco Use/Smoking Question Answer Notes Patient is [...] Never (0 point) Points 1 Interpretation Negative Problems Problem Type SNOMED Code ICD Code Onset Dates Problem Status W/U Status Risk Notes Problem 451135516 Morbid obesity due to excess calories (E66.01) Active confirmed Problem 13379500 Intrinsic eczema (L20.84) Active confirmed Problem 956539354 Leukocytosis, unspecified type (D72.829) Active confirmed Problem 73934834 Essential hypertension with goal blood pressure less than 140\/90 (I10) Active confirmed Problem 096099719 Prediabetes (R73.03) Active confirmed Problem 570923575 Body mass index (BMI) of 45.0-49.9 in adult (Z68.42) Active confirmed Problem 845143421 Mild intermitten t asthmatic bronchitis with acute exacerbation (J45.21) Active confirmed Problem 401437830 History of colon polyps (Z86.010) Active confirmed Problem 23620766 Type 2 diabetes mellitus treated without insulin (E11.9) Active confirmed Vital Signs Blood pressure diastolic 86 mm Hg 05/15/2024 Height 71.5 in 05/15/2024 Blood pressure systolic 152 mm Hg 05/15/2024 Weight 370 lbs 05/15/2024 BMI 50.88 kg/m2 05/15/2024 Procedures Procedure Date Ordered Date Performed Result Body Sit e Colonoscopy, Screening 07/23/2023 07/23/2023 Pending path Colonoscopy, Screening 01/04/2024 01/04/2024 Surgi veronica resection recommended Encounters Encounter Location Date Provider Diagnosis Luis Garcias MD [address] [facility] [place] [phone] 12/21/2023 Luis Garcias Annual physical exam Z00.00 ; Encounter for immunization Z23 ; Essential hypertension with goal blood pressure less than 140\/90 I10 ; Prediabetes R73.03 and Leukocytosis, unspecified type D72.829 Luis Garcias MD [address] [place] [address] [id number] 06/28/2023 Luis Garcias Morbid obesity due t o excess calories E66.01 Luis Garcias MD [address] [place] [id number] 10/01/2023 Luis Garcias Prediabetes R73.03 ; Edema leg R60.0 and History of colon polyps Z86.010 Luis Garcias MD [address] [place] [address] [id number] 12/28/2023 Luis Garcias Abscess L02.91 ; Encounter for general adult medical examination without abnormal findings Z00.00 ; Type 2 diabetes mellitus treated without insulin E11.9 ; History of colon polyps Z86.010 ; Essential hypertension with goal blood pressure less than 140\/90 I10 and Morbid obesity due to excess calories E66.01 Luis Garcias MD [address] [place] [address] [address] [place] [id number] 02/11/2024 Luis Garcias Prediabetes R73.03 ; Essential hypertension with goal blood pressure less than 140\/90 I10 and Morbid obesity due to excess calories E66.01 Luis Garcias MD [address] [place] [address] [id number] 05/15/2024 Luis Garcias Prediabetes R73.03 ; Other injury of unspecified body region, initial encounter T14.8XXA ; Local infection of the skin and subcutaneous tissue, unspecified L08.9 and Essential hypertension with goal blood pressure less than 140\/90 I10 Luis Garcias MD [address] [place] [id number] 01/18/2024 Luis Garcias MD [address] [facility] [place] [id number] 03/13/2024 Luis Garcias Assessments Encounter Date Diagnosis (ICD Code) Assessment Notes Treatment Notes Treatment Clinical Notes Section Notes 12/21/2023 Annual physical exam (ICD-10 - Z00.00) [...] in medications and directions for use 12/28/2023 Abscess (ICD-10 - L02.91) referral to surgeon 12/28/2023 Encounter for general adult medical examination without abnormal findings (ICD-10 - Z00.00) Labs reviewed and discussed with patient 02/11/2024 Prediabetes (ICD-10 - R73.03) sugar is better, will continue to monitor 02/11/2024 Essential hypertension with goal blood pressure less than 140\/90 (ICD-10 - I10) doing well on meds, will coontinue current regiment andwill continue to monitor 05/15/2024 Prediabetes (ICD-10 - R73.03) will continue current regiment 05/15/2024 Other injury of unspecified body region, initial encounter (ICD-10 - T14.8XXA) 12/21/2023 Essential hypertension with goal blood pressure less than 140\/90 (ICD-10 - I10) 10/01/2023 History of colon polyps (ICD-10 - Z86.010) 12/28/2023 Type 2 diabetes mellitus treated without insulin (ICD-10 - E11.9) 02/11/2024 Morbid obesity due to excess calories (ICD-10 - E66.01) is doing intermittant fasting. also taking his brother's ozempic 05/15/2024 Local infection of the skin and subcutaneous tissue, unspecified (ICD-10 - L08.9) referral back to dr heaton today 12/21/2023 Prediabetes (ICD-10 - R73.03) 12/28/2023 History of colon polyps (ICD-10 - Z86.010) getting colonoscopy next week 05/15/2024 Essential hypertension with goal blood pressure less than 140\/90 (ICD-10 - I10) stable, will cintinue current regiment 12/21/2023 Leukocytosis, unspecified type (ICD-10 - D72.829) 12/28/2023 Essential hypertension with goal blood pressure less than 140\/90 (ICD-10 - I10) well controlled 12/28/2023 Morbid obesity due to excess calories (ICD-10 - E66.01) referral to weight loss clinic/ patient will be calling their office to set up appointment Plan Of Treatment Next Appt Details Provider Name:Luis zaragoza, 12/22/2024 07:15:00 AM, [address] [place] [address], [address], [phone], Provider Name:Luis zaragoza, 12/29/2024 09:30:00 AM, [address] [place] [address], [address], [phone], Insurance Providers Payer Name Payer Address Payer Phone Subscriber Number Group Number Insured Name Patient Relationship to Insured Coverage Start Date Coverage End Date [address] [place] [address] [id number] Dakota Gore Self - patient is the insured Medical (General) History Medical History History ICD Code father colon cancer age 40; he gets colonoscopy every 2 years. Colonoscopy 02/24/[address] Pena - repeat 3 .07/23/23 colonoscopy pending path-12/31/23 repeat colonoscopy performed Becky, advised surgical resection
--- OUTSIDE RECORDS SUMMARY | 2024-06-14 18:35 | XMS_ITS ---
Author Organization Luis Garcias MD Address [address] [place], [place] [phone] Care Team Providers Care Truck Driver Teamster Name Role Phone Luis Garcias Primary Care [...] Date Provider Diagnosis Luis Garcias MD [address] [place], [place] [phone] 05/15/2024 Luis Garcias Prediabetes R73.03 ; Other [...] Almaguer Next Appt Details Provider Name:Luis zaragoza, 12/22/2024 07:15:00 AM, [address], [address], [place], [place], [phone], Provider Name:Luis Goodson ier, 12/29/2024 09:30:00 AM, [address], [address], [place], [phone], Progress Notes * MEGANDakota MILLER PDOB: [birth year] (44 yo M)Acc No.[id number]:05/15/2024 Progress Notes Patient:?Dakota GORE Provider:?Luis Garcias MD :1980???Age:44 Y???Sex:Male Alcides e:05/15/2024 Address: [address] [facility] Subjective: * Chief Complaints: * ???3 month * HPI: ???Symptom(s):?patient is a 44 yo male here for 3 month follow up visit,? has had surgery. had laparocopic surgery and then open surgery.. is back on ozempic. going to have colonoscopy. * ROS:?General/Constitutional:?Denies?Chills.?Denies?Fatigue.?Denies?Fever.?Denies?Headache.?ENT:?Patient denies?decreased sense of smell, any loss of taste, sore throat.?Denies?Sore throat.?Endocrine:?Denies?Difficulty sleeping.?Denies?Dizziness.?Denies?Excessive sweating.?Denies?Excessive thirst.?Denies?Frequent urination.?Respiratory:?Denies?Cough.?Denies?Shortness of breath at rest.?Denies?Shortness of breath with exertion.?Cardiovascular:?Denies?Chest pain at rest.?Denies?Chest pain with exertion.?Denies?Dizziness.?Denies?Palpitations.?Denies?Shortness of breath.?Gastrointestinal:?Denies?Diarrhea.?Denies?Nausea.?Musculoskeletal:?Patient denies?muscle aches.?Peripheral Vascular:?Patient denies?red and blue toes.? * Medical History:? * Surgical History:? * Hospitalization/Major Diagno stic Procedure:? * Medications:?TakingLisinopri l-hydroCHLOROthiazide 20-25 MG Tablet 1 tablet Orally Once [...] Allergies:?N.K.D.A.yes[Aller gies Verified] Objective: * Vitals:?Ht: 71.5, Wt: 370, B OR:50.88, BP:152/86, Repeat BP:145/82, Wt-k.83. * Examination: ???General Examination: ?GENERAL APPEARANCE:?alert, well hydrated, in no distress, male.?HEAD:?normocephalic.?SKIN:?abnormal with a stitch in his umbilicus and with an area that appears infected in surgical scar.?HEART:?no murmurs, rubs, gallops, regular rate and rhythm.?LUNGS:?no wheezes, rales, rhonchi, good air movement, clear to auscultation bilaterally.? Assessment: * Assessment: 1.?Prediabetes - R73.03 (Katelin michelle)???2.?Other injury of unspecified body region, initial encounter - T14.8XXA???3.?Local infection of the skin and subcutaneous tissue, unspecified - L08.9???4.?Essential hypertension with goal blood pressure less than 140\/90 - I10??? Plan: * Treatment: ? Value Reference Range ?Value 109 Notes: will continue current regiment??2.?Local infection [...] stable, will cintinue current regiment?? * Procedure Codes:?13941 ASSAY , GLUCOSE, BLOOD QUANT, Modifiers: QW * * Sign off status: Completed true * Provider:?Luis Garcias MD Date:?0 05/15/2024 Generated for Jude carlisle/Migel/Emilyitting on:?06/14/2024 06:35 PM EST History and Physical Notes * [...]
--- OUTSIDE RECORDS SUMMARY | 2024-06-14 18:35 | XMS_ITS ---
Author Organization [facility] Address [address] [place] [id number] Care Team Providers Care Manager Property Name Role Phone Katerine CHUNG, Luis Primary Care Provider Ramirez Allen [phone] REASON FOR VISIT Needs CT scan and labs, and appt with Dr. Heaton Problems Problem Type SNOMED Code ICD Code Onset Dates Problem Status W/U Status Risk Notes Problem Mass of hepatic flexure of colon (199058881778 107) 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 Encounters Encounter Location Date Provider Diagnosis [facility] [address] [place] [phone] 01/06/2024 Ramirez Pena Mass of hepatic flexure of colon K63.9 and Family history of colon cancer Z80.0 Assessments Encounter Date Diagnosis (ICD Code) Assessment Notes Treatment Notes Treatment Clinical Notes Section Notes 01/06/2024 Mass of hepatic flexure of colon (ICD-10 - K63.9) 01/06/2024 Family history of colon cancer (ICD-10 - Z80.0) Plan Of Treatment Pending Test Test Name Order Date CHEM 7 PROFILE 01/06/2024 LIVER PROFILE 01/06/2024 CEA 01/06/2024 CBC w DIFF 01/06/2024 CT ABD & PELVIS WITH CONTRAST 01/06/2024 Progress Notes * MARYSE GOREDOB: 8 (44 yo M)Acc No.[id number]:01/06/2024 Patient:?MARYSE GORE :1980???Age:43 Y???Sex:Male Address:[place] [address] Subjective: * Chief Complaints: * ???Needs CT scan and labs , and appt with Dr. Heaton * Medical History:? * Surgical History:? * Hospitalization/Major Diagno stic Procedure:? * Medications:? Objective: Assessment: * Assessment: 1.?Mass of hepatic flexure o f colon - K63.9 (Primary)?2.?Family history of colon cancer - Z80.0? Plan: * Treatment: * 2.?Family history of colon cancer?LAB: CHEM 7 PROFILE ?LAB: LIVER PROFILE ?LAB: CEA ?LAB: CBC w DIFF ?Imaging: CT ABD & PELVIS WITH CONTRAST* Samanta Ashton 01/10/2024 0 8:05:01 AM EDT > For CPT code -03528, I called [facility] they said that I need to send over clinical's to try to get this Ct scan approved to fax [phone] for , I spoke Emmanuel.Samanta Ashton 01/14/2024 08:01:19 AM EDT > This Ct scan was Approved Auth approval number is [id number] effective from 01/10/24-03/10/24. I faxed this over to central booking to get scheduled for pt and I called & I spoke Rodney and she said that this has to get approved by Radiology before this can be scheduled. ThanksSamanta Ashton 01/14/2024 02:57:50 PM EDT > I called back to [facility] central booking and I spoke Nery and she gave me the date of Wednesday02/28/24 at 4pm, and pt is to arrive at 2pm to start the drink, and pt is to fast for [address] scan. She said that she did put the pt on a cancel list as well, and said that they have nothing sooner that they are very backed up. Thanks * * Procedure Codes:? * true * Date:? Generated for Jude carlisle/Migel/Maria Del Carmen on:?06/14/2024 06:34 PM EST
[2024-06-28 14:56] VITALS: BMI 49.6
[2024-06-30 08:52] VITALS: BMI 48.6
[2024-06-30 09:00] VITALS: BP 129/89; PULSE 89; RESP 16; TEMP 37.1; O2SAT 96
--- NOTE | 2024-06-30 09:03 | HO.ANESPROP2 ---
Documented by User: Pamella Cerrato NP 06/29/24 09:08 HPI - Anesthesia Eval Consult details Narrative: 44yo M for Colonoscopy, possible polypectomy Anesthesia Pre-Procedure Meds Is the patient on any of the following meds?: GLP1/DPP4 PMFSH Active Problems Active Problems: All Active Problems FELICITY (obstructive sleep apnea) (Acute) HTN (hypertension) (Acute) Hinson syndrome (Acute) Family history of colon cancer (Acute) Tubulovillous adenoma (Acute) Diabetes mellitus (Acute) Morbid obesity (Acute) Past Medical History Medical History Staph infection Muscle spasm of back Hinson syndrome Family history of colon cancer Tubulovillous adenoma Perianal abscess Diabetes mellitus Morbid obesity HTN (hypertension) Family History Family History Father Colon cancer, Onset Age: 46 Brother Colon polyps Family history of problems with anesthesia: No Surgical History Surgical History History of colon resection (~04/18/24) Hx of excision of mass Hx of wisdom tooth extraction H/O colonoscopy History of Problems with Anesthesia: No Social History Social History Household Members: Family and Friend(s) Household Members Other:: mother & roomate live w/patient Housing: House Are you a primary healthcare administrative assistant to a significant other at home: No Do you presently have visiting nurse or other home services: No Patient Tobacco Use Status: Never used Tobacco Use of substances other than those prescribed or required for medical reasons: No Are you DNR?: No Advance Directives: No Advance Directives Information Provided: Yes Recently lost weight without trying: No Nutrition Risks: No Nutritional Risk Poor oral hygiene: No Meds Allergies Allergy/AdvReac Type Severity Reaction Status Date / Time No Known Allergies Allergy Verified 05/17/24 08:28 [No Known Allergies*] Home Medications ?Medication ?Instructions ?Recorded ?Confirmed ?Last Taken ?Type amlodipine 10 mg tablet 10 mg PO QAM 07/21/23 06/30/24 06/30/24 History lisinopril 20 1 tab PO QAM 07/21/23 04/18/24 04/17/24 History mg-hydrochlorothiazide 12.5 mg tablet multivitamin 1 tab PO QAM 04/06/24 04/18/24 04/17/24 History omega 7-pfv-ewb-fish oil 300 1 cap PO QAM 04/06/24 04/18/24 04/17/24 History mg-1,000 mg capsule (Fish Oil) vitamin D3 125 mcg (5,000 1 cap PO DAILY 04/06/24 04/18/24 04/17/24 History unit)-vitamin K2 100 mcg capsule semaglutide 0.25 mg or 0.5 mg (2 0.25 mg subcut QWEEK 05/01/24 Unknown History mg/3 mL) subcutaneous pen injector (Ozempic) Exam Height,Weight and Vital Signs: Height 6 ft Weight 165.986 kg Assessment and Plan Assessment Anesthesia Assessment: Chart Reviewed Final Anesthetic Review Family History of Problems with Anesthesia: No History of Problems with Anesthesia: No Documented by User: Angy King DO 06/30/24 09:05 HPI - Anesthesia Eval Anesthesia Pre-Procedure Meds Is the patient on any of the following meds?: GLP1/DPP4 PMFSH Past Medical History Medical History Staph infection Muscle spasm of back Hinson syndrome Family history of colon cancer Tubulovillous adenoma Perianal abscess Diabetes mellitus Morbid obesity HTN (hypertension) Family History Family History Father Colon cancer, Onset Age: 46 Brother Colon polyps Family history of problems with anesthesia: No Surgical History Surgical History History of colon resection (~04/18/24) Hx of excision of mass Hx of wisdom tooth extraction H/O colonoscopy History of Problems with Anesthesia: No Social History Social History Household Members: Family and Friend(s) Household Members Other:: mother & roomate live w/patient Housing: House Are you a primary healthcare administrative assistant to a significant other at home: No Do you presently have visiting nurse or other home services: No Patient Tobacco Use Status: Never used Tobacco Use of substances other than those prescribed or required for medical reasons: No Are you DNR?: No Advance Directives: No Advance Directives Information Provided: Yes Recently lost weight without trying: No Nutrition Risks: No Nutritional Risk Poor oral hygiene: No Meds Allergies Allergy/AdvReac Type Severity Reaction Status Date / Time No Known Allergies Allergy Verified 05/17/24 08:28 [No Known Allergies*] Home Medications ?Medication ?Instructions ?Recorded ?Confirmed ?Last Taken ?Type amlodipine 10 mg tablet 10 mg PO QAM 07/21/23 06/30/24 06/30/24 History lisinopril 20 1 tab PO QAM 07/21/23 04/18/24 04/17/24 History mg-hydrochlorothiazide 12.5 mg tablet multivitamin 1 tab PO QAM 04/06/24 04/18/24 04/17/24 History omega 8-xva-bom-fish oil 300 1 cap PO QAM 04/06/24 04/18/24 04/17/24 History mg-1,000 mg capsule (Fish Oil) vitamin D3 125 mcg (5,000 1 cap PO DAILY 04/06/24 04/18/24 04/17/24 History unit)-vitamin K2 100 mcg capsule semaglutide 0.25 mg or 0.5 mg (2 0.25 mg subcut QWEEK 05/01/24 Unknown History mg/3 mL) subcutaneous pen injector (Ozempic) Exam Exam Date and Time: 06/30/24 0900 Height,Weight and Vital Signs: Height 6 ft Weight 165.986 kg Vital Signs Temperature 98.8 F 06/30/24 09:00 Pulse Rate 89 06/30/24 09:00 Respiratory Rate 16 06/30/24 09:00 Blood Pressure 129/89 06/30/24 09:00 Pulse Oximetry 96 06/30/24 09:00 Oxygen Delivery Method Room Air 06/30/24 09:00 Temperature 98.8 F 06/30/24 09:00 Pulse Rate 89 06/30/24 09:00 Respiratory Rate 16 06/30/24 09:00 Blood Pressure 129/89 06/30/24 09:00 Pulse Oximetry 96 06/30/24 09:00 Oxygen Delivery Method Room Air 06/30/24 09:00 Airway Mallampati Class: IV TM Dist: >3cm Neck ROM: Full Loose/Missing/Broken Teeth: No (patient denies any loose or broken teeth) Heart: S1S2 Lungs: CTAB Assessment and Plan Assessment Anesthesia Assessment: Anesthesia Plan Discussed and Chart Reviewed Final Anesthetic Review Family History of Problems with Anesthesia: No History of Problems with Anesthesia: No NPO: Yes ASA Class: III Final Preanesthetic Review: No Changes in Pt Med Stat, Meds/Allgs Chart Reviewed, Consent Obtained/Reviewed and Anes Risks/Benef Reviewed Patient Risk: Intermediate Procedure Risk: Low Anesthetic Plan Anesthetic Plan: MAC: and Agree w/ Assess. and Plan Disposition: Standard PACU
[2024-06-30 09:11] LABS: Glucose, Whole Blood 105 mg/dL (60-115)
[2024-06-30] MEDS: Lactated Ringers 1,000 ML 100 ML IVCONT (09:12)
--- NOTE | 2024-06-30 09:15 | MHC.SHP ---
Pre-Procedural Eval Section A - 24 Hr Update-Section A only Date of Service: 06/30/24 Section B - Complete if H&P > 30 days Chief Complaint: Benign neoplasm, unspecified site Details of Present Illness: Has an adenoma in the hepatic flexure, for colonoscopy today to confirm location and marked with ink Relevant Social History: None Present Medications: see Short Stay Collaborative assessment Medical History: Significant History (Morbid obesity, diabetes) History of Previous Operations: Relevant previous surgery/procedure and date(s) (Hand assisted exploratory laparoscopy in April -unable to locate the polyp) Allergies: Allergies Allergy/AdvReac Type Severity Reaction Status Date / Time No Known Allergies Allergy Verified 05/17/24 08:28 [No Known Allergies*] Review of Systems Sugical H&P ROS: Negative: Constitution, Cardiovascular and Respiratory Exam Surgical H&P Exam: Normal: Heart, Normal: Lungs and Normal: Abdomen Plan Diagnosis/Plan: Unchanged I have reviewed the history and physical and performed a pertinent physical examination on my patient. No changes have occurred unless specified. Time Spent With Patient Time: Total time managing care of this patient today ____ minutes.
--- NOTE | 2024-06-30 09:40 | W.PM.OPN ---
Operative Note Operative Note Date of Service: 06/30/24 Narrative: Preop diagnosis: Tubulovillous adenoma near the hepatic flexure Postop diagnosis: The same, large polyps seen in the transverse colon just past the hepatic flexure Procedure: Colonoscopy with tattoo marking using endo ink Surgeon: Sacha Heaton MD The patient is a 41-year-old male who had been scheduled for colon resection last April, 4 tubular adenoma in the transverse colon. However I was unable locate the lesion or the tattoo markings with hand assisted laparoscopy at that time so I procedure was aborted. I had scheduled him repeat colonoscopy to david the area and confirm location. He understands the planned procedure as was the risks, benefits, and alternatives The patient was brought to the operating room and placed in left lateral decubitus position under monitored anesthesia care. A surgical time-out was done. A full digital rectal exam was done and this did not reveal any significant anal lesions. The tip of the Olympus colonoscope was gently introduced through the anal orifice advanced with insufflation all the way to the cecum. The cecum was intubated. The cecum was identified by visualization of the ileocecal valve as well as the appendiceal orifice. The cecal mucosa was unremarkable. The scope was gradually withdrawn with careful examination of the entire colonic mucosa being done with scope withdrawal. The large polyp probably about 3 cm was seen in the transverse colon just past the hepatic flexure. Repeat tatoo markings were done immediately distal to this. The patient had adequate bowel prep so it was unlikely that any other lesion may have been missed. The rectum was reached and there were no lesions seen. The anal canal was unremarkable. The scope was then withdrawn completely with desufflation The patient tolerated procedure well. There were no immediate complications. I will see him in the office to discuss findings and plan resection.
[2024-06-30 09:41] VITALS: BP 114/62; PULSE 90; RESP 12; TEMP 36.1; O2SAT 97
[2024-06-30 09:55] VITALS: BP 118/55; PULSE 86; RESP 16; TEMP 36.1; O2SAT 97
== END 2024-06-30 12:18 | disposition home or self-care (01) ==
PROVIDERS: PCP Internal Medicine; Visit Provider Surgery
PROC: 0DJD8ZZ Inspection of Lower Intestinal Tract, Via Natural or Artificial Opening Endoscopic (ICD-10-PCS; CPT 45378; principal; 2024-06-30 10:10)
DX: D12.6 Benign neoplasm of colon, unspecified (principal); E11.9 Type 2 diabetes mellitus without complications; I10 Essential (primary) hypertension; E66.9 Obesity, unspecified; Z68.42 Body mass index [BMI] 45.0-49.9, adult; G47.33 Obstructive sleep apnea (adult) (pediatric); Z15.09 Genetic susceptibility to other malignant neoplasm
CPT/HCPCS: 45381; 82947; J2003; J2704

== ENCOUNTER → 2024-06-30 08:24 | Outpatient (BNV) | payer OTHER, SELFPAY | PROVIDERS: PCP Internal Medicine; Visit Provider Surgery | DX: D37.4 Neoplasm of uncertain behavior of colon (principal) | CPT/HCPCS: 45381 ==

== ENCOUNTER 2024-07-19 11:07 | Outpatient (AMB) | payer OTHER, SELFPAY ==
--- NOTE | 2024-07-19 11:07 | A.OFFVIS_ITS ---
Vital Signs 07/19/24 11:10 Height 6 ft Weight 372 lb 9.299 oz BMI 50.5 Respiration 16 Pulse 82 Intake Visit Reasons: s/p colonoscopy Intake Note: Patient is seen in office for post op assessment post colonoscopy. 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 Required: No Accompanied by: Self / Same As Patient Allergies No Known Allergies [No Known Allergies*] Allergy (Verified 07/19/24 11:10) Medication List - Last Reconciled 07/20/24 by Sacha Heaton MD amlodipine 10 mg PO QAM lisinopril-hydrochlorothiazide 20-12.5 mg 1 tab PO QAM multivitamin 1 tab PO QAM omega 7-ges-qpz-fish oil 300-1,000 mg (Fish Oil) 1 cap PO QAM oxycodone 5 mg PO Q4H PRN semaglutide (Ozempic) 0.25 mg subcut QWEEK sodium,potassium,mag sulfates 17.5-3.13-1.6 gram (Suprep Bowel Prep Kit) DILUTE; drink full amount early evening before AND next morning at least 2 hr before procedure; follow w 960 mL water PO vitamin D3-vitamin K2 125 mcg (5,000 unit)-100 mcg 1 cap PO DAILY HPI HPI s/p colonoscopy: Details: 44-year-old male here for a follow-up for his colon adenoma. He has a history of a flat polyp in the colon and I had actually schedule him for resection last April,. However, at that time, we could not visualize the inked area of the colon. I could not feel any polyp or any lesion as well during laparoscopy. He also had been having problems with oxygenation in view of his body habitus during anesthesia at that time. We therefore proceeded to terminate the procedure. I scheduled him for a repeat colonoscopy to confirm the location of the polyp. He had undergone this 2 weeks ago and the flat polyp was seen at the area of the proximal transverse colon very near the hepatic flexure. I therefore marked this again with Endo inked. He currently denies any significant complaints. He does have morbid obesity. Unfortunately, he has not really lost significant weight and he remains morbidly obese with a body mass index of 50 and a weight of 379 lb. He does admit to some shortness of breath with exertion. 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 He has significant family history of colon cancer. PFSH Medical History Staph infection Muscle spasm of back Hinson syndrome Family history of colon cancer Tubulovillous adenoma Perianal abscess Diabetes mellitus Morbid obesity HTN (hypertension) Surgical History History of colon resection (~04/18/24) Hx of excision of mass Hx of wisdom tooth extraction H/O colonoscopy Family History Father Colon cancer, Onset Age: 46 Brother Colon polyps Social History Household Members: Family and Friend(s) Household Members Other:: mother & roomate live w/patient Housing: House Are you a primary sub acute care nurse to a significant other at home: No Do you presently have visiting nurse or other home services: No Patient Tobacco Use Status: Never used Tobacco Review of Systems Const Denies chills and Denies fever(s) Card Denies chest pain, Denies dyspnea and Reports dyspnea on exertion Resp Denies cough, Denies dyspnea and Reports dyspnea on exertion GI Denies hematochezia and Denies change in bowel habits Denies hematuria and Denies difficulty urinating Musc Denies back pain and Denies limited range of motion Neuro Denies focal weakness and Denies convulsions Psych Denies depression and Denies mood swings Physical Exam Vital Signs: Last Vital Signs Pulse 82 07/19/24 11:10 Resp 16 07/19/24 11:10 BMI result Body Mass Index 50.5 Const Other: Morbidly obese General: comfortable and no acute distress Resp Effort & Inspection: normal respiratory effort Cardio Rate: regular rate GI Palpation (GI): Soft to palpation, not firm and nontender Assessment & Plan Assessment & Plan (1) Tubulovillous adenoma: Code(s): D36.9 - Benign neoplasm, unspecified site Category: Medical Plan: He has a flat tubulovillous adenoma in the proximal transverse colon near the hepatic flexure. We had attempted to do colon resection last April but we could not locate nor identify the area of the polyp and I had to repeat the colonoscopy last month. I reviewed with him the colonoscopy findings. I told that they he we will benefit from resection. I had reviewed with him the technique of total colectomy before in view of his genetic mutation but he is opting to have a right colon resection. He did have significant problems with anesthesia intraoperatively on his laparoscopy last April,. The anesthesiologist had difficulty with maintaining oxygenation in view of his morbid obesity. They feel that he is at higher perioperative risks so they had expressed concerns that he should be in a tertiary center. I explained this to the patient. I will assist him in trying to have him seen by a colorectal specialist a tertiary center. He says he understands the plan. Coding Level of Care Code Est Pt Level 3 (99405) Diagnoses Tubulovillous adenoma D36.9
[2024-07-19 11:10] VITALS: PULSE 82; RESP 16; BMI 50.5
--- OUTSIDE RECORDS SUMMARY | 2024-07-19 13:09 | XMS_ITS ---
Author Organization Luis Garcias MD Address [address] [place], [place] [phone] Care Team Providers Care Air Conditioning Manager Name Role Phone Luis Garcias Primary [...] [address] [place], [place] [phone] 02/11/2024 Luis Garcias Prediabetes R73.03 ; Essential [...] Reason: Provider Name:Luis zaragoza, 12/22/2024 07:15:00 AM, [address] [place] [address], [address], [place], [phone], Provider Name:Luis zaragoza, 12/29/2024 09:30:00 AM, [address] [place] [address], [address], [place], [place], [phone], Progress Notes * Dakota GORE PDOB: [birth year] (44 yo M)Acc No.[id number]:02/11/2024 Patient:?Dakota Gore Provider:?Luis Garcias MD :1980???Age:44 Y???Sex:Male Alcides e:02/11/2024 Address:[address], [facility] Subjective: * Chief Complaints: * ???High blood pressure * HPI: ???Symptom(s):? [facility] a 44 [facility], had colonoscopy/ had a [...] Reference Range ?Value 111 * Ana Pruitt 10:00:52 AM EDT > Notes: sugar is better, will continue to monitor??3.?Morbid obesity due to excess calories? Continue Ozempic (0.25 or 0.5 MG/DOSE) Solution Pen-injector, 2 MG/3ML, as directed, Subcutaneous, 0.25 mg weekly.?? Notes: is doing intermittant fasting. also taking his brother's ozempic?? * Procedure Codes:?89004 ASSAY , GLUCOSE, BLOOD QUANT, Modifiers: QW * Follow Up:?3 Months * * Sign off status: Completed true * Provider:?Luis Garcias MD Date:?1 04/12/2023 Generated for Jude carlisle/Migel/eTransmitting on:?07/19/2024 01:09 PM EDT History and Physical Notes * HPI (History of Present Illness) Category Sub-Category Detail Notes Category Not es Symptom(s) patient is a 44 yo [facility], had colonoscopy/ had a [...]
--- OUTSIDE RECORDS SUMMARY | 2024-07-19 13:09 | XMS_ITS ---
Author Organization [facility] Address [address] [place] [phone] Care Team Providers Care Band Booker Name Role Phone Katerine CHUNG, Luis Primary Care Provider Ramirez [facility] [phone] REASON FOR VISIT screening, hx polyps, fam hx colon ca Encounters Encounter Location Date Provider Diagnosis [facility] Outpatient [address] [place] [phone] 12/31/2023 Ramirez Pena Colon cancer scree daryl [...] * MARYSE GOREDOB: 8 (44 yo M)Acc No.[id number]:12/31/2023 COLON WITH MAC Patient:?MARYSE GORE Provider:?Ramirez Pena MD :1980???Age:43 Y???Sex:Male Alcides e:12/31/2023 [address] [facility] Pcp:Luis Garcias MD Subjective: * Chief Complaints: * ???1. Screening, hx polyps, fam hx colon ca. * Medical History:? Objective: * Vitals:? Assessment: * Assessment: 1.?Colon cancer screening - Z12.11 (Primary)???2.?Colon polyps - K63.5???3.?Family history of colon cancer - Z80.0??? Plan: * Treatment: * Procedure Codes:?50517 LESIO N REMOVAL COLONOSCOPY, Modifiers: 53 * * The named appointment provid er may or may not be the originator of this progress note, and it is not deemed complete until electronically signed by the appointment provider. Sign off status: Pending * Provider:?Ramirez Pena MD Date:? 024 Generated for Jude carlisle/Migel/Emilyitting on:?07/19/2024 01:09 PM EDT
--- OUTSIDE RECORDS SUMMARY | 2024-07-19 13:09 | XMS_ITS ---
Author Organization [facility] Address [address] [place] [address] Care Team Providers Care Weigher Packing Name Role Phone Katerine CHUNG, Luis Primary Care Provider Ramirez Allen [phone] Encounters Encounter Location Date Provider Diagnosis [facility] [address] [place] [phone] 03/10/2024 Ramirez Pena Plan Of Treatment No Information Progress Notes * MARYSE GOREDOB: 8 (44 yo M)Acc No.[id number]:03/10/2024 Patient:?MARYSE GORE :1980???Age:44 Y???Sex:Male Address:[address] [place] [address] * true * Date:? Generated for Cassandrai maylin/Migel/eTransmitting on:?07/19/2024 01:09 PM EDT
--- OUTSIDE RECORDS SUMMARY | 2024-07-19 13:09 | XMS_ITS | Patient Health Record ---
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 Disch: SPEC : [id number] RECD : 07/23/23 STATUS: SELINA ONEIL NUM: [id number] SAMUEL: 07/23/23-1133 [facility] DR: Ramirez Pena ENTERED: 07/23/23-12 40 SP [...] microscopic examination, 7 pieces in cassette [facility]. [facility] CONTINUED ON NEXT PAGE Name: Dakota Gore Age/Sex: 43/M : 1980 Unit#: [id number] Attend Dr: Ramirez Pena Re07/23/23 Status : [facility] Location: [place] Disch: SPEC : [id number] RECD : 07/23/23-1226 STATUS: SELINA THAD NUM: [id number] SAMUEL: 07/23/23-1132 [facility] DR: Ramirez Pena ENTERED: 07/23/23- 40 SP TYPE: Surgical OTHR DR: Luis Garcias MD ORDERED: REGGIE Stain/6, Gross Micro L4/2 Copies To: Luis Garcias MD [address] [place] [address] [address] [place] [address] [place] [address] Ramirez Pena [address] [place] [address] [address] [place] [address] Signed (si gnature on file) Radha Fonseca 07/29/23 0905 END OF REPORT Pathology Reviewed date:03/18/2024 11:02:29 AM Interpretation: Performing Lab:[facility], [address] [place] [address], [place] [address] Notes/Report: Name: Dakota Gore Age/Sex: 43/M : 1980 Unit#: [id number] Attend Dr: Ramirez Pena MD Re12/31/23 Status : [facility] Location: [facility] Disch: SPEC : [id number] RECD : 01/03/24 STATUS: SELINA NASSAR NUM: [id number] SAMUEL: 12/31/23-1440 [facility] DR: Ramirez Pena MD ENTERED: 01/03/24- SP [...] [facility] [address] [place], [place] [phone] Ramirez Pena MD [facility] [address] [place] [address] CONTINUED ON NEXT PAGE Name: Dakota Gore Age/Sex: 43/M : 1980 Unit#: [id number] Attend Dr: Ramirez Pena MD Re12/31/23 Status : [facility] Location: [facility] Disch: SPEC : [id number] RECD : 01/03/24 STATUS: SELINA ONEIL NUM: [id number] SAMUEL: 12/31/23-1439 [facility] DR: Ramirez Pena MD ENTERED: 01/03/24- SP TYPE: Surgical OTHR DR: Luis Garcias MD ORDERED: REGGIE Stain/3, Gross Micro [...] Problem Status W/U Status Risk Notes Problem 625536929 Encounter for screening for malignant neoplasm of colon (Z12.11) Active confirmed Problem 101495522 History of adenomatous polyp of colon (Z86.010) Active confirmed Problem Screening for malignant neoplasm of rectum (506699718) Encounter for screening for malignant neoplasm of rectum (Z12.12) Active confirmed Problem 35130752 Preprocedural examination (Z01.818) Active confirmed Problem 210361494 Family history o f colon cancer (Z80.0) Active confirmed Problem Mass of hepatic flexure of colon (9936607484554 07) 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 Vital Signs Blood pressure diastolic 00 mm Hg 10/21/2023 Height 71.5 in 10/21/2023 Blood pressure systolic 00 mm Hg 10/21/2023 Weight 374 lbs 10/21/2023 BMI 51.43 kg/m2 10/21/2023 Encounters Encounter Location Date Provider Diagnosis [facility] Outpatient [address] [place] [phone] 07/23/2023 Ramirez Pena Encounter for screening colonoscopy Z12.11 ; Colon polyps K63.5 ; Family history of colon cancer Z80.0 ; Other specified diseases of intestine K63.89 and Other hemorrhoids K64.8 [facility] Outpatient [address] [place], [place] [phone] 12/31/2023 Ramirez Pena Colon cancer screeni ng Z12.11 ; Colon polyps K63.5 and Family history of colon cancer Z80.0 [facility] [address] [place] [phone] 10/21/2023 Ramirez Pena Encounter for screening for malignant neoplasm of colon Z12.11 ; Preprocedural examination Z01.818 ; History of adenomatous polyp of colon Z86.010 and Family history of colon cancer Z80.0 [facility] [address] [place] [phone] 07/29/2023 Ramirez Pena [facility] [address] [address] 01/06/2024 Ramirez Pena Mass of hepatic flexure of colon K63.9 and Family history of colon cancer Z80.0 [facility] [address] [place] [phone] 03/10/2024 Ramirez Pena Assessments Encounter Date Diagnosis [...] Insured Coverage Start Date Coverage End Date [facility] [address] [place] [phone] [id number] DAKOTA GORE Self - patient is the insured Medical (General) History Medical History History ICD Code Denies [place],DM,CVA,Lung disease,renal dise ase HTN Colonoscopy 04/2006 - [...] some nonspecific inflammation. Surgical History Surgery Date(Month/Year) [place] teeth extraction Fatty tumor removed from scalp 2016
--- OUTSIDE RECORDS SUMMARY | 2024-07-19 13:09 | XMS_ITS ---
Author Organization [facility] Address [address] [place] [phone] Care Team Providers Care Health Coach Name Role Phone Katerine CHUNG, Luis Primary Care Provider Ramirez Allen [phone] REASON FOR VISIT Needs CT scan and labs, and appt with Dr. 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 Encounters Encounter Location Date Provider [facility] [address] [place] [phone] 01/06/2024 Ramirez Pena Mass of hepatic flexure [...] * MARYSE GOREDOB: 8 (44 yo M)Acc No.[id number]:01/06/2024 Patient:?MARYSE GORE :1980???Age:43 Y???Sex:Male Address:[place] [address] Subjective: * Chief Complaints: * ???Needs CT [...] 8:05:01 AM EDT > For CPT code -82991, I called Qing they said that I need to send over clinical's to try to get this Ct scan approved to fax [phone] for , I spoke Emmanuel.Samanta Ashton 01/14/2024 08:01:19 AM EDT > This Ct scan was Approved Auth approval number is [id number] effective from 01/10/24-03/10/24. I faxed this over to central booking to get scheduled for pt and I called & I spoke Rodney and she said that this has to get approved by Radiology before this can be scheduled. ThanksSamanta Ashton 01/14/2024 02:57:50 PM EDT > I called back to [facility] central booking and I spoke Nery and [...] Date:? Generated for Jude carlisle/Migel/Maria Del Carmen on:?07/19/2024 01:09 PM EDT
--- OUTSIDE RECORDS SUMMARY | 2024-07-19 13:09 | XMS_ITS ---
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 Up Machine Operator Name Role Phone Luis Garcias Primary Care Provider [phone] Encounters Encounter Location Date Provider Diagnosis Luis Garcias MD [facility] [address] [place] [phone] 03/13/2024 Luis Garcias Plan Of Treatment Next Appt Details Provider Name:Luis Goodson ier, 12/22/2024 07:15:00 AM, [address] [place] [address], Suite [facility] [place], [place], [phone], Provider Name:Luis Goodson ier, 12/29/2024 09:30:00 AM, [address] [place] [address], Suite [facility] [place], [place], [phone], Progress Notes * Dakota GORE PDOB: [birth year] (44 yo M)Acc No.[id number]:03/13/2024 Patient:?Dakota Gore :1980???Age:44 Y???Sex:Male Address:[place], [address] * true * Date:? Generated for Printi ng/Faconradg/eTransmitting on:?07/19/2024 01:09 PM EDT
--- OUTSIDE RECORDS SUMMARY | 2024-07-19 13:10 | XMS_ITS ---
Author Organization Luis Garcias MD Address [address] [place], [place] [phone] Care Team Providers Care Hair Colorist Name Role Phone Luis Garcias Primary Care [...] Date Provider Diagnosis Luis Garcias MD [address] [place], [place] [phone] 05/15/2024 Luis Garcias Prediabetes R73.03 ; Other [...] Provider Name:Luis zaragoza, 12/22/2024 07:15:00 AM, [address], [address], [place], [place], [phone], Provider Name:Luis Goodson ier, 12/29/2024 09:30:00 AM, [address], [address], [place], [phone], Progress Notes * MEGANDakota MILLER PDOB: [birth year] (44 yo M)Acc No.[id number]:05/15/2024 Progress Notes Patient:?Dakota GORE Provider:?Luis Garcias MD :1980???Age:44 Y???Sex:Male Alcides e:05/15/2024 Address: [address] [facility] Subjective: * Chief Complaints: * ???3 month [...] Objective: * Vitals:?Ht: 71.5, Wt: 370, B ND:50.88, BP:152/86, Repeat BP:145/82, Wt-k.83. * Examination: ???General [...] stable, will cintinue current regiment?? * Procedure Codes:?34383 ASSAY , GLUCOSE, BLOOD QUANT, Modifiers: QW * * Sign off status: Completed true * Provider:?Luis Garcias MD Date:?0 05/15/2024 Generated for Jude carlisle/Migel/Emilyitting on:?07/19/2024 01:10 PM EDT History and Physical Notes * [...]
--- OUTSIDE RECORDS SUMMARY | 2024-07-19 13:10 | XMS_ITS | Patient Health Record ---
Author Organization Luis Garcias MD Address [address] [place], [place] [id number] Care Team Providers Care Client Services Assistant Name Role Phone Luis Garcias Primary Care Provider Allergies No Known Allergies Results Component Value Reference Range Notes Hemoglobin A1c Reviewed date:10/01/2023 03:07:41 PM Interpretation: Performing Lab: Notes/Report: Hemoglobin A1c 6.4 Complete Blood Count Auto Di ff Reviewed date:12/22/2023 08:45:53 AM Interpretation: Performing Lab:[facility], [address] [place] [phone] Notes/Report: White Blood Count 11.2 4.8-10.8 X10*3/uL [...] NRBC Abs Auto 0.000 0.0-0.012 X10*3/uL Comprehensive Ledger. Panel Fa st Reviewed date:12/22/2023 08:41:44 AM Interpretation: Performing Lab:[facility], [address] [place] [phone] Notes/Report: Sodium 140 135-145 mmol/L Potassium 4.6 3.3-5.1 mmol/L Chloride 101 96-108 mmol/L Carbon Dioxide 29 22-29 mmol/L Anion Gap 15 12-20 Blood Urea Nitrogen 15 9-16 mg/dL Creatinine 0.83 0.5-1.4 mg/dL Estimated Glomerular Filt Rate > 60 NOTE: For -Northern Irish individuals, multiply the result by 1.210. Chronic [...] Panel Reviewed date:12/21/2023 05:57:40 PM Interpretation: Performing Lab:[facility], [address] [place] [phone] Notes/Report: Triglycerides 265 <150 mg/dL Desirable Triglyceride: [...] (Free>4and<10) Reviewed date:12/21/2023 05:58:44 PM Interpretation: Performing Lab:[facility], [address] [place] [phone] Notes/Report: PSA,Total (Free>4and<10) 1.70 0.00-4.00 ng/mL A [...] Random Reviewed date:12/22/2023 08:43:56 AM Interpretation: Performing Lab:[facility], [address] [place] [phone] Notes/Report: Creatinine Urine 143.66 Microalbumin Urine 8.0 Microalbum/Creatinine Ratio Ur 5.5 <30 ug/mg cr Albumin/Creatinine Ratio Reference Ranges: Normal: < 30 ug/mg creatinine Microalbuminuria: 30 - 300 ug/mg creatinine Clinical Albuminuria: > 300 ug/mg creatinine Hemoglobin A1c Reviewed date:12/21/2023 12:42:30 PM Interpretation: Performing Lab:[facility], [address] [place] [phone] Notes/Report: Hemoglobin A1c % 6.5 <6.0 % [...] average glucose, using the formula of the B3Q-Nrqmlsy Average Glucose study (ADAG), Diabetes Care, Vol.31,#8, Nov. 2007 Glucose, finger stick Reviewed date:10/01/2023 03:06:18 PM Interpretation: Performing Lab: Notes/Report: Value 142 Glucose, finger stick Reviewed date:02/11/2024 10:00:54 AM Interpretation: Performing Lab: Notes/Report: Value 111 Glucose, finger stick Reviewed date:05/15/2024 09:57:52 AM Interpretation: Performing Lab: Notes/Report: Value 109 Pathology Reviewed date:07/29/2023 12:59:36 PM Interpretation: Performing Lab:[facility], [address] [place] [address] Notes/Report: ----- Name: Dakota Gore Age/Sex: 43/M : 1980 Unit#: [id number] Attend Dr: Ramirez Pena Re07/23/23 Status : [facility] Location: [facility] Disch: ----- SPEC : [id number] RECD : 07/23/23 STATUS: SELINA ONEIL NUM: [id number] SAMUEL: 07/23/[address] [facility] [address]: Ramirez Pena ENTERED: 07/23/23 40 SP [...] microscopic examination, 7 pieces in cassette [facility] CONTINUED ON NEXT PAGE ----- Name: Dakota Gore Age/Sex: 43/M : 1980 Unit#: [id number] Attend Dr: Ramirez Pena Re07/23/23 [place] : [facility] [place]: [facility] Disch: ----- SPEC : [id number] RECD : 07/23/23-1227 STATUS: SELINA ONEIL NUM: [id number] SAMUEL: 07/23/23-[address] [facility] [address]: Ramirez Pena ENTERED: 07/23/23- 40 SP TYPE: Surgical OTHR DR: Luis Garcias MD ORDERED: REGGIE Stain/6, Arabella Martinez L4/2 Copies To: Luis Garcias MD [address] [place] [address] Drive [place] [address] [place], [place] [id number] Ramirez Pena [address] [place] [address] [id number] [place] [address] ----- Signed (signature on file) Radha Fonseca 07/29/23 0905 ----- END OF REPORT UA CC w/rflx Micro + Cult Reviewed date:12/22/2023 08:46:10 AM Interpretation: Performing Lab:[facility], [address] [place] [phone] Notes/Report: Urine, Clean Catch Color Urine Yellow Appearance Urine Clear PH 5.5 5.0-9.0 Glucose Urine UA Negative Negative mg/dL Urine Blood Negative Negative Specific Coleman - Urine 1.020 1.005-1.025 Urine Protein Negative Neg-Trace mg/dL Urine Ketones Negative Negative mg/dL Nitrite Urine Negative Negative Leukocyte Esterase Urine Negative Negative Pathology Reviewed date:01/04/2024 10:55:57 AM Interpretation: Performing Lab:[facility], [address] [place] [phone] Notes/Report: ----- Name: SofíaDakota Age/Sex: 43/M : 1980 Unit#: [id number] Attend Dr: Ramirez Pena MD Re12/31/23 [place] : [facility] Location: [facility] Disch: ----- SPEC : [id number] RECD : 01/03/24 STATUS: SELINA ONEIL NUM: [id number] SAMUEL: 12/31/23-[address] [facility] [address]: Ramirez Pena MD ENTERED: 01/03/24- [...] Luis Garcias MD [facility] [address] [place] [address] Ramirez Pena MD [facility] [address] [place] [address] [address] [place] [address] CONTINUED ON NEXT PAGE ----- Name: Dakota Gore Age/Sex: 43/M : 1980 Unit#: [id number] Attend Dr: Ramirez Pena MD Re12/31/23 Status : [facility] Location: [facility] Disch: ----- SPEC : [id number] RECD : 01/03/24 STATUS: SELINA ONEIL NUM: [id number] SAMUEL: 12/31/23-[address] [facility] [address]: Ramirez Pena MD ENTERED: 01/03/24- SP TYPE: Surgical OTHR DR: Luis Garcias MD ORDERED: REGGIE Chacon/3Arabella L4 ----- Signed (signature on file) Kaylan Navarrete MD 01/04/24 1038 ----- END OF REPORT CT abdomen pelvis w con Reviewed date:03/14/2024 05:08:21 PM Interpretation: Performing Lab: Notes/Report: [address] [address] [address] Scan Report Signed Patient: Dakota Gore MR#: [id number] 71 : 1980 Acct:[id number] Age/Sex: 44 / M ADM Date: 02/28/24 Loc: HO.CT Attending Dr: Ramirez Pena MD Ordering Physician: Sacha Heaton MD Date of Service: 02/28/24 Procedure(s): CT abdomen pelvis w IV con Accession Number(s): [id number] cc: Luis Garcias MD; Sacha Heaton MD [...] by: Harrison Redmond MD 03/14/2024 03:31 PM [facility] Dictated By: Harrison Redmond MD Signed By: <Electronically signed by Harrison Redmond MD in OV> 03/14/24 1531 DD/ 1616 TD/TT: 02/28/24 1628 Museum Security Chief: [place] [address] [address] Scan Report Signed Patient: Dwight Gore MR#: [id number] 71 : 1980 Acct:[id number] Age/Sex: 44 / M ADM Date: 02/28/24 Loc: HO.CT Attending Dr: Ramirez Pena MD Ordering Physician: Sacha Heaton MD Date of Service: 02/28/24 Procedure(s): CT abd omen pelvis w IV con Accession Number(s): [id number] cc: Luis Garcias MD; Sacha Heaton MD [...] 03/14/24 1531 DD/ 1616 TD/TT: 02/28/24 1628 Museum Security Chief: RACHEL Complete Blood Count no Diff Reviewed date:04/06/2024 04:50:01 PM Interpretation: Performing Lab:[facility], [address] [place] [phone] Notes/Report: White Blood Count 10.0 4.8-10.8 X10*3/uL [...] Panel Reviewed date:04/06/2024 04:49:27 PM Interpretation: Performing Lab:[facility], [address] [place] [phone] Notes/Report: Sodium 138 135-145 mmol/L Potassium 3.9 [...] A1c Reviewed date:04/06/2024 04:48:55 PM Interpretation: Performing Lab:[facility], [address] [place] [phone] Notes/Report: Hemoglobin A1c % 5.9 <6.0 % [...] average glucose, using the formula of the K0Y-Wyrsxje Average Glucose study (ADAG), Diabetes Care, Vol.31,#8, 2007 Type and Screen Reviewed date:04/06/2024 04:49:37 PM Interpretation: Performing Lab:[facility], [address] [place] [phone] Notes/Report: Spec expiration changed by SHIKHA on 04/06/24 Reason: PAT NURSING: Call Blood Bank (ext. [phone]) to band patient on admission. Type and Screen in effect until 2300 on 04/18/2024. Witnessed by MURCA Blood Type OP Antibody Screen NEGATIVE Glucose, Whole Blood Reviewed date:04/18/2024 12:44:11 PM Interpretation: Performing Lab:[facility], [address] [place] [phone] Notes/Report: Glucose, Whole Blood 141 60-115 mg/dL METER # : [id number] Glucose, Whole Blood Reviewed date:04/18/2024 04:23:16 PM Interpretation: Performing Lab:[facility], [address] [place] [phone] Notes/Report: Glucose, Whole Blood 147 60-115 mg/dL METER # : [id number] Glucose, Whole Blood Reviewed date:04/19/2024 03:27:25 PM Interpretation: Performing Lab:[facility], [address] [place] [phone] Notes/Report: Glucose, Whole Blood 137 60-115 mg/dL METER # : [id number] Hold Lav - Possible Hematolo gy Reviewed date:04/19/2024 03:27:11 PM Interpretation: Performing Lab:[facility], [address] [place] [phone] Notes/Report: Hold Lav - Possible Hematology SEE NOTE Specimen will be held untested for 8 hours. Call Hematology if testing is desired. Basic Metabolic Panel Fastin g Reviewed date:04/19/2024 03:27:37 PM Interpretation: Performing Lab:[facility], [address] [place] [phone] Notes/Report: Sodium 142 135-145 mmol/L Potassium 4.1 [...] Blood Reviewed date:04/19/2024 03:28:03 PM Interpretation: Performing Lab:[facility], [address] [place] [phone] Notes/Report: Glucose, Whole Blood 122 60-115 mg/dL METER # : [id number] XR chest 1V Reviewed date:04/20/2024 12:42:31 PM Interpretation: Performing Lab: Notes/Report: [address] [place] [address] XRay Report Signed Patient: Dakota Gore MR#: [id number] 71 : 1980 Acct:[id number] Age/Sex: 44 / M ADM Date: 04/18/24 Loc: [facility] [id number] Attending Dr: Sacha Heaton MD Ordering Physician: Patricio Encarnacion MD Date of Service: 04/19/24 Procedure(s): XR chest 1V Accession Number(s): [id number] cc: Patricio Encarnacion MD; Luis Garcias MD [...] by: Teo Mckeon MD 04/19/2024 03:34 PM [facility] Dictated By: Teo Agustin MD Signed By: <Electronically signed by Teo El MD in OV> 04/19/24 1534 DD/ 1420 TD/TT: 04/19/24 1430 Museum Security Chief: [address] [address] XRay Report Signed Patient: Dwight Gore MR#: [id number] 71 : 1980 Acct:[id number] Age/Sex: 44 / M ADM Date: 04/18/24 Loc: [facility] [address]: Lizzie Heaton MD Ordering Physician: Patricio Encarnacion MD Date of Service: 04/19/24 Procedure(s): XR chest 1V Accession Number(s): [id number] cc: Melanie Encarnacion MD; Luis Garcias MD [...] 04/19/24 1534 DD/ 1420 TD/TT: 04/19/24 1430 Museum Security Chief: Glucose, Whole Blood Reviewed date:04/19/2024 03:25:17 PM Interpretation: Performing Lab:[facility], [address] [place] [phone] Notes/Report: Glucose, Whole Blood 158 60-115 mg/dL METER # : [id number] Glucose, Whole Blood Reviewed date:04/20/2024 06:07:40 PM Interpretation: Performing Lab:[facility], [address] [place] [phone] Notes/Report: Glucose, Whole Blood 130 60-115 mg/dL METER # : [id number] Glucose, Whole Blood Reviewed date:04/20/2024 12:41:44 PM Interpretation: Performing Lab:[facility], [address] [place] [phone] Notes/Report: Glucose, Whole Blood 122 60-115 mg/dL METER # : [id number] Glucose, Whole Blood Reviewed date:04/20/2024 12:24:18 PM Interpretation: Performing Lab:[facility], [address] [place] [phone] Notes/Report: Glucose, Whole Blood 144 60-115 mg/dL METER # : [id number] Glucose, Whole Blood Reviewed date:04/20/2024 12:21:43 PM Interpretation: Performing Lab:[facility], [address] [place] [phone] Notes/Report: Glucose, Whole Blood 145 60-115 mg/dL METER # : [id number] Glucose, Whole Blood Reviewed date:06/30/2024 09:48:17 AM Interpretation: Performing Lab:[facility], [address] [place] [phone] Notes/Report: Glucose, Whole Blood 105 60-115 mg/dL METER # : [id number] Reason For Referral Reason abscess groin area [...] Problem Status W/U Status Risk Notes Problem 047916593 Morbid obesity due to excess calories (E66.01) Active confirmed Problem 01815084 Intrinsic eczema (L20.84) Active confirmed Problem 222835090 Leukocytosis, unspecified type (D72.829) Active confirmed Problem 29819804 Essential hypertension with goal blood pressure less than 140\/90 (I10) Active confirmed Problem 834004086 Prediabetes (R73.03) Active confirmed Problem 395725432 Body mass index (BMI) of 45.0-49.9 in adult (Z68.42) Active confirmed Problem 452817236 Mild intermitten t asthmatic bronchitis with acute exacerbation (J45.21) Active confirmed Problem 741338287 History of colon polyps (Z86.010) Active confirmed Problem 39667157 Type 2 diabetes mellitus treated without insulin [...] Location Date Provider Diagnosis Luis Garcias MD [address] [place] [address] [address] [place] [id number] 12/21/2023 Luis Garcias Annual physical exam Z00.00 ; Encounter for immunization Z23 ; Essential hypertension with goal blood pressure less than 140\/90 I10 ; Prediabetes R73.03 and Leukocytosis, unspecified type D72.829 Luis Garcias MD [address] [place] [address] [address] [place] [id number] 10/01/2023 Luis Garcias Prediabetes R73.03 ; Edema leg R60.0 and History of colon polyps Z86.010 Luis Garcias MD [address] [place] [address] [address] [place] [id number] 12/28/2023 Luis Garcias Abscess L02.91 ; Encounter for general adult medical examination without abnormal findings Z00.00 ; Type 2 diabetes mellitus treated without insulin E11.9 ; History of colon polyps Z86.010 ; Essential hypertension with goal blood pressure less than 140\/90 I10 and Morbid obesity due to excess calories E66.01 Luis Garcias MD [address] [place] [id number] 02/11/2024 Luis Garcias Prediabetes R73.03 ; Essential hypertension with goal blood pressure less than 140\/90 I10 and Morbid obesity due to excess calories E66.01 Luis Garcias MD [address] [place] [address] [address] [place] [id number] 05/15/2024 Luis Garcias Prediabetes R73.03 ; Other injury of unspecified body region, initial encounter T14.8XXA ; Local infection of the skin and subcutaneous tissue, unspecified L08.9 and Essential hypertension with goal blood pressure less than 140\/90 I10 Luis Garcias MD [address] [place] [id number] 01/18/2024 Luis Garcias MD [address] [facility] [place] [id number] 03/13/2024 Luis Garcias Assessments Encounter Date Diagnosis (ICD Code) Assessment Notes Treatment Notes Treatment Clinical Notes Section Notes 12/21/2023 Annual physical exam (ICD-10 - Z00.00) 12/21/2023 Encounter for immunization (ICD-10 - Z23) 10/01/2023 Prediabetes (ICD-10 - R73.03) stable, no [...] Details Provider Name:Luis zaragoza, 12/22/2024 07:15:00 AM, [address] [place] [address], [address], [phone], Provider Name:Luis Goodson ier, 12/29/2024 09:30:00 AM, [address] [place] [address], [place] [address], [place], [place], [phone], Insurance Providers Payer Name Payer Address Payer Phone Subscriber Number Group Number Insured Name Patient Relationship to Insured Coverage Start Date Coverage End Date [address] [place] [address] [id number] Dakota Gore Self - patient is the insured Medical (General) History Medical History History ICD Code father colon cancer age 40; he gets colonoscopy every 2 years. Colonoscopy 02/24/[address] Pena - repeat 3 .07/23/23 colonoscopy pending path-12/31/23 repeat colonoscopy performed Becky, advised surgical resection
== END 2024-07-19 11:30 | disposition home or self-care (01) ==
LOC: HO.HGS 11:07
PROVIDERS: PCP Internal Medicine; Visit Provider Surgery
DX: D36.9 Benign neoplasm, unspecified site (principal)
CPT/HCPCS: 99213

== ENCOUNTER → 2024-07-19 11:07 | Outpatient (BNVA) | payer OTHER, SELFPAY | PROVIDERS: PCP Internal Medicine; Visit Provider Surgery ==

== ENCOUNTER 2024-12-22 11:13 | Outpatient (REF) | payer OTHER, SELFPAY ==
--- OUTSIDE RECORDS SUMMARY | 2023-07-23 06:30 | XMS_ITS ---
Author Organization [facility] Address [address] [place] [phone] Care Team Providers Care Car Restorer Name Role Phone Katerine CHUNG, Luis Primary Care Provider Ramirez Allen [phone] REASON FOR VISIT screening,hx polyps,fam hx colon ca Encounters Encounter Location Date Provider [place] [facility] [place] [address] [place] [phone] 07/23/2023 Ramirez Pena Encounter for scre ening [...] * MARYSE GOREDOB: 8 (44 yo M)Acc No.[id number]:07/23/2023 COLON WITH MAC Patient: MARYSE SIMMONS Provider: Guru Pena MD :1980 A ge:43 Y S ex:Male Date:07/23/2023 Address:[address], [facility] Pcp:Luis Garcias MD Subjective: * Chief Complaints: [...] 5385 LESION REMOVAL COLONOSCOPY, Modifiers: 33 , 18646 COLONOSCOPY AND BIOPSY, Modifiers: 59 , 33 * * The named appointment provid er may or may not be the originator of this progress note, and it is not deemed complete until electronically signed by the appointment provider. Sign off status: Pending * Provider: Guru Pena MD Date: 0 07/23/2023 Generated for Jude carlisle/Migel/Emilyitting on: 0 12/22/2024 01:16 PM EDT
--- OUTSIDE RECORDS SUMMARY | 2023-12-31 09:10 | XMS_ITS ---
Author Organization [facility] Address [address] [place] [phone] Care Team Providers Care Adzing And Boring Machine Operator Name Role Phone Luis Garcias MD Primary Care Provider Ramirez Allen [phone] REASON FOR VISIT screening, hx polyps, fam hx colon ca Encounters Encounter Location Date Provider Diagnosis [facility] [place] Outpatient [address] [place] [phone] 12/31/2023 Ramirez Pena Colon cancer scree daryl [...] * MARYSE GOREDOB: 8 (44 yo M)Acc No.[id number]:12/31/2023 COLON WITH MAC Patient: CHELSAE SIMMONSIG Provider: Guru Pena MD :1980 A ge:43 Y S ex:Male Date:12/31/2023 Address:[address] [facility] Pcp:Luis Garcias MD Subjective: * Chief Complaints: [...] 0 12/31/2023 Generated for Jude carlisle/Migel/Emilyitting on: 12/22/2024 01:17 PM EDT
--- OUTSIDE RECORDS SUMMARY | 2024-03-13 05:43 | XMS_ITS ---
Author Organization Luis Garcias MD Address [address] [place], [place] [phone] Care Team Providers Care Boiler Repairman Name Role Phone Luis Garcias Primary Care Provider Encounters Encounter Location Date Provider Diagnosis Luis Garcias MD [address] [place] [phone] 03/13/2024 Luis Garcias Plan Of Treatment Next Appt Details Provider Name:Luis Goodson ier, 12/29/2024 09:30:00 AM, [address], [address], [place], [place], [phone], Progress Notes * Dakota GORE PDOB: [birth year] (44 yo M)Acc No.[id number]:03/13/2024 Patient: Santiago Dakota armenta :1980 A ge:44 Y S ex:Male Address[address] [place], [address] * true * Date: Generated for Printi ng/Faxing/eTransmitting on: 0 12/22/2024 01:17 PM EDT
--- OUTSIDE RECORDS SUMMARY | 2024-05-15 06:00 | XMS_ITS ---
Author Organization Luis Gacrias MD Address [address] [place], [place] [id number] Care Team Providers Care Measurement Supervisor Name Role Phone Luis Garcias Primary Care Provider [phone] Allergies No Known Allergies Results Component Value Reference Range Notes Glucose, finger stick Reviewed date:05/15/2024 09:57:52 AM Interpretation: Performing Lab: Notes/Report: Value 109 Reason For Referral Reason local infection of t he skin Diagnosis 1 Local infection of t he skin and subcutaneous tissue, unspecified (L08.9) Referral Organization Luis Garcias MD Referring Provider First Name Luis Referring Provider Last Name Katerine Referring Provider Speciality Internal M edicine Referred Provider Sacha Almaguer Referred Provider Specialty Surgery General Notes Sarah Dee 0 05/15/2024 10:22:31 AM > patient is aware of his appt Referral Priority Routine Referral Appointment Date 05/17/2024 REASON FOR VISIT 3 month Medications Medication SIG (Take, Route, Frequency, Duration) Notes Start Date End Date Status SUMAtriptan Succinate 50 MG 1 tablet as needed Orally as need for migraine Not-Taking Ventolin HFA 108 (90 Base) MCG/ACT 2 puffs as needed Inhalation every 4 hrs for 30 days 09/27/2018 Not-Taking Flonase 50 MCG/ACT 1 spray in each nost ril Nasally Once a day for 30 day(s) 04/29/2018 Not-Taking Ozempic (0.25 or 0.5 MG/DOSE) 2 MG/3ML as directed Subcutaneous 0.5 mg weekly for 30 days 12/28/2023 Active amLODIPine Besylate 10 MG TAKE 1 TABLET BY MOUTH EVERY DAY for 90 Active Lisinopril-hydroCHLOROth iazide 20-25 MG 1 tablet Orally Once a day 10/01/2023 Active Vital Signs Blood pressure systolic 152 mm Hg 05/15/19 25 Blood pressure diastolic 86 mm Hg 025 Height 71.5 in 05/15/2024 Weight 370 lbs 05/15/2024 BMI 50.88 kg/m2 05/15/2024 Encounters Encounter Location Date Provider Diagnosis Luis Garcias MD [address] [place] [address] Drive [address] [place], [place] [phone] 05/15/2024 Luis Garcias Prediabetes R73.03 ; Other injury of unspecified body region, initial encounter T14.8XXA ; Local infection of the skin and subcutaneous tissue, unspecified L08.9 and Essential hypertension with goal blood pressure less than 140\/90 I10 Assessments Encounter Date Diagnosis (ICD Code) Assessment Notes Treatment Notes Treatment Clinical Notes Section Notes 05/15/2024 Prediabetes (ICD-10 - R73.03) will continue current regiment 05/15/2024 Other injury of unspecified body region, initial encounter (ICD-10 - T14.8XXA) 05/15/2024 Local infection of the skin and subcutaneous tissue, unspecified (ICD-10 - L08.9) referral back to dr almaguer today 05/15/2024 Essential hypertension with goal blood pressure less than 140\/90 (ICD-10 - I10) stable, will cintinue current regiment Plan Of Treatment Medication Medication Name Sig Start Date Stop Date Notes Ozempic (0.25 or 0.5 MG/DOSE) 2 MG/3ML as directed Subcutaneous 0.5 mg weekly for 30 days 12/28/2023 Treatment Notes Assessment Notes Prediabetes will continue curren t regiment Local infection of the skin and subcutaneous tissue, unspecified referral back to dr almaguer today Essential hypertension with goal blood pressure less than 140\/90 stable, will cintinue current regiment Referrals Referral Date Details 05/15/2024 05/15/2024, local in fection of the skin, Sacha Almaguer Next Appt Details Provider Name:Luis zaragoza, 12/29/2024 09:30:00 AM, [address], [address], [place], [place], [id number], Progress Notes * Dakota GORE PDOB: [birth year] (44 yo M)Acc No.[id number]:05/15/2024 Progress Notes Patient: Dakota SIMMONS Provider: Winnie Garcias MD :1980 A ge:44 Y S ex:Male Date:05/15/2024 Address:[address], [id number] Subjective: * Chief Complaints: * 3 month * HPI: S ymptom(s): patient is a 44 yo male here for 3 month follow up visit, has had surgery. had laparocopic surgery and then open surgery.. is back on ozempic. going to have colonoscopy. * ROS: G eneral/Constitutional: Denies C hills. D enies F atigue. D enies F ever. D enies H eadache. E NT: Patient denies d ecreased sense of smell, any loss of taste, sore throat. D enies S ore throat. E ndocrine: Denies D ifficulty sleeping. D enies D izziness.?Denies E xcessive sweating. D enies E xcessive thirst. D enies F requent urination. R espiratory: Denies C ough. D enies [...] Hospitalization/Major Diagno stic Procedure: * Medications: T akingLisinopril-hydroCHLOROthiazide 20-25 MG Tablet 1 tablet Orally Once a day Ozempic (0.25 or 0.5 MG/DOSE) 2 MG/3ML Solution Pen-injector as directed Subcutaneous 0.25 mg weekly amLODIPine Besylate 10 MG Tablet TAKE 1 TABLET BY MOUTH EVERY DAY Taking Lisinopril-hydroCHLOROthiazide 20-25 MG Tablet 1 tablet Orally Once a day Taking Ozempic (0.25 or 0.5 MG/DOSE) 2 MG/3ML Solution Pen-injector as directed Subcutaneous 0.25 mg weekly Taking amLODIPine Besylate 10 MG Tablet TAKE 1 TABLET BY MOUTH EVERY DAY Not-Taking/PRNVentolin HFA 108 (90 Base) MCG/ACT Aerosol Solution 2 puffs as needed Inhalation every 4 hrs Flonase 50 MCG/ACT Suspension 1 spray in each nostril Nasally Once a day SUMAtriptan Succinate 50 MG Tablet 1 tablet as needed Orally as need for migraine Medication List reviewed and reconciled with the patientNot-Taking/PRN Ventolin HFA 108 (90 Base) MCG/ACT Aerosol Solution 2 puffs as needed Inhalation every 4 hrs Not-Taking/PRN Flonase 50 MCG/ACT Suspension 1 spray in each nostril Nasally Once a day Not-Taking/PRN SUMAtriptan Succinate 50 MG Tablet 1 tablet as needed Orally as need for migraine Medication List reviewed and reconciled with the patient * Allergies: N .K.D.A.yes[Allergies Verified] Objective: * Vitals: H t: 71.5, Wt: 370, BMI:50.88, BP:152/86, Repeat BP:145/82, Wt-k.83. * Examination: G eneral Examination: GENERAL APPEARANCE: a lert, well hydrated, in no distress, male. HEAD: n ormocephalic. SKIN: a bnormal with a stitch in his umbilicus and with an area that appears infected in surgical scar. HEART: n o murmurs, rubs, gallops, regular rate and rhythm.? LUNGS: n o wheezes, rales, rhonchi, good air movement, clear to auscultation bilaterally. Assessment: * Assessment: 1. P rediabetes - R73.03 (Primary) 2 . O ther injury of unspecified body region, initial encounter - T14.8XXA 3 . L ocal infection of the skin and subcutaneous tissue, unspecified - L08.9 4 . E ssential hypertension with goal blood pressure less than 140\/90 - I10 Plan: * Treatment: Value Reference Range V alue 109 Notes: will continue current regiment??2.?Local infection of the skin and subcutaneous tissue, unspecified? Continue Ozempic (0.25 or 0.5 MG/DOSE) Solution Pen-injector, 2 MG/3ML, as directed, Subcutaneous, 0.5 mg weekly, 30 days, 1, Refills 11.?? Notes: referral back to dr almaguer today? Referral To:Sacha Almaguer??Surgery ?Reason:local infection of the skin 3.?Essential hypertension with goal blood pressure less than 140\/90? Notes: stable, will cintinue current regiment?? * Procedure Codes: 8 2947 ASSAY, GLUCOSE, BLOOD QUANT, Modifiers: QW * * Sign off status: Completed true * Provider: Winnie Garcias MD Date: 0 05/15/2024 Generated for Jude carlisle/Migel/eTransmitting on: 0 12/22/2024 01:17 PM EDT History and Physical Notes * HPI (History of Present Illness) Category Sub-Category Detail Notes Category Not es Symptom(s) patient is a 44 yo male here for 3 month follow up visit, has had surgery. had laparocopic surgery and then open surgery.. is back on ozempic. going to have colonoscopy Examination Category Sub-Category Detail Notes Category Not es General Examination GENERAL APPEARANCE: alert, w ell hydrated, in no distress, male HEAD: normocephalic HEART: no murmurs, rubs, ga llops, regular rate and rhythm LUNGS: no wheezes, rales, r honchi, good air movement, clear to auscultation bilaterally SKIN: abnormal with a stit ch in his umbilicus and with an area that appears infected in surgical scar Consultation Request Notes Referral Date Referring Provider Referred Provider Not es 05/15/2024 Luis Garcias Francis local infection of the skin
--- OUTSIDE RECORDS SUMMARY | 2024-08-23 07:20 | XMS_ITS ---
Author Organization Luis Garcias MD Address [address] [place] [phone] Care Team Providers Care Radiation Safety Officer Name Role Phone Luis Garcias Primary Care Provider REASON FOR VISIT HCC Risk Codes Encounters Encounter Location Date Provider Diagnosis Luis Garcias MD [address] [place] [id number] 08/23/2024 Luis Garcias Plan Of Treatment Next Appt Details Provider Name:Luis Goodson ier, 12/29/2024 09:30:00 AM, [address], [address], [place], [place], [phone], Progress Notes * Dakota GORE PDOB: [birth year] (44 yo M)Acc No.[id number]:08/23/2024 Patient: Dakota SMIMONS :1980 A ge:44 Y S ex:Male Address[address] [place], [address] * true * Date: Generated for Printi ng/Faxing/eTransmitting on: 0 12/22/2024 01:17 PM EDT
--- OUTSIDE RECORDS SUMMARY | 2024-11-27 05:40 | XMS_ITS ---
Author Organization Luis Garcias MD Address [address] [place] [phone] Care Team Providers Care Bottling Line Operator Name Role Phone Luis Garcias Primary Care Provider [phone] REASON FOR VISIT refill lisinopril Medications Medication SIG (Take, Route, Frequency, Duration) Notes Start Date End Date Status Lisinopril-hydroCHLOROthia zide 20-25 MG TAKE 1 TABLET BY MOUTH DAILY Orally Once a day for 90 days Active Encounters Encounter Location Date Provider Diagnosis Luis Garcias MD [address] [facility] [address] [place] [phone] 11/27/2024 Luis Garcias Essential hypertension with goal [...] 90 days Next Appt Details Provider Name:Luis prestonr, 12/29/2024 09:30:00 AM, 10 [facility], Suite [facility], [place], [place], [phone], Progress Notes * Dakota GORE PDOB: [birth year] (44 yo M)Acc No.[id number]:11/27/2024 Patient: Santiago Dakota HARVEY :1980 A ge:44 Y S ex:Male Address: [address], [place], [address] * Refills Refill Lisinopril-hydroCHLOROthiazide Tablet, 20-25 MG, Orally, 90, TAKE 1 TABLET BY MOUTH DAILY, Once a day, 90 days, Refills=3 * true * Date: Generated for Jude carlisle/Migel/Maria Del Carmen on: 0 12/22/2024 01:16 PM EDT
--- OUTSIDE RECORDS SUMMARY | 2024-12-22 03:30 | XMS_ITS ---
Author Organization Luis Garcias MD Address [address] [place], [place] [phone] Care Team Providers Care Candy Depositing Machine Operator Name Role Phone Luis Garcias Primary Care Provider [phone] Results Component Value Reference Range Notes Complete Blood Count Auto Di ff (Not yet reviewed by provider) Interpretation: Performing Lab:[facility], [address] [place] [phone] Notes/Report: White Blood Count 7.6 4.8-10.8 X10*3/uL [...] NRBC Abs Auto 0.000 0.0-0.012 X10*3/uL Comprehensive [place]. Panel Fa (Not yet reviewed by provider) Interpretation: Performing Lab:[facility], [address] [place] [phone] Notes/Report: Sodium 141 135-145 mmol/L Potassium 4.1 [...] Panel Reviewed date:12/22/2024 12:33:41 PM Interpretation: Performing Lab:[facility], [address] [place] [phone] Notes/Report: Triglycerides 210 <150 mg/dL Desirable Triglyceride: [...] (Free>4and<10) Reviewed date:12/22/2024 12:50:11 PM Interpretation: Performing Lab:[address] [phone] Notes/Report: PSA,Total (Free>4and<10) 1.21 0.00-4.00 ng/mL A [...] A1c Reviewed date:12/22/2024 12:30:10 PM Interpretation: Performing Lab:[facility], [address] [place] [phone] Notes/Report: Hemoglobin A1c % 6.2 <6.0 % [...] average glucose, using the formula of the P7E-Byqzhgd Average Glucose study (ADAG), Diabetes Care, Vol.31,#8, 2007 REASON FOR VISIT yearly fasting labs Immunizations Vaccine Route Administration Date Status Comme nts Fluarix Quadrivalent - 150 IM Intramuscular 12/22/2024 Adm inistered Encounters Encounter Location Date Provider Diagnosis Luis Garcias MD [address] [place] [address] [place] [phone] 12/22/2024 Luis Garcias Blood tests for routine general physical examination Z00.00 ; Essential hypertension with goal blood pressure less than 140\/90 I10 ; Type 2 diabetes mellitus treated without insulin E11.9 ; Leukocytosis, unspecified type D72.829 and Encounter for administration of vaccine Z23 Assessments Encounter Date Diagnosis (ICD Code) Assessment Notes Treatment Notes Treatment Clinical Notes Section Notes 12/22/2024 Blood tests for routine general physical examination (ICD-10 - Z00.00) 12/22/2024 Essential hypertension with goal blood pressure less than 140\/90 (ICD-10 - I10) 12/22/2024 Type 2 diabetes mellitus treated without insulin (ICD-10 - E11.9) 12/22/2024 Leukocytosis, unspecified type (ICD-10 - D72.829) 12/22/2024 Encounter for administration of vaccine (ICD-10 - Z23) Plan Of Treatment Pending Test Test Name Order Date Complete Blood Count Auto Diff 5 Urinalysis and Microscopic 12/22/2024 Comprehensive [place]. Panel Fast 5 Microalbumin, Random 12/22/2024 Next Appt Details Provider Name:Luis zaragoza, 12/29/2024 09:30:00 AM, [address] [place] [address], Suite [facility], [place], [place], [phone], Progress Notes * Dakota GORE PDOB: [birth year] (44 yo M)Acc No.[id number]:12/22/2024 Progress Note Patient: Santiago Dakota HARVEY Provider: Winnie Garcias MD :1980 A ge:44 Y S ex:Male Date:12/22/2024 Address:[address] [place], [place] [phone] Subjective: * Chief Complaints: * 1 . Yearly fasting labs. * Medical History: Objective: * Vitals: Assessment: * Assessment: 1. B lood tests for routine general physical examination - Z00.00 (Primary) 2 .?Essential hypertension with goal blood pressure less than 140\/90 - I10 3 .?Type 2 diabetes mellitus treated without insulin - E11.9 4 . L eukocytosis, unspecified type - D72.829 5 . E ncounter for administration of vaccine - Z23? Plan: * Treatment: 2. E ssential hypertension with goal blood pressure less than 140\/90 L AB: Complete Blood Count Auto Diff (Collection Date & Time - 12/22/2024 07:15 AM) L AB: Urinalysis and Microscopic L AB: Comprehensive [place]. Panel Fast (Collection Date & Time - 12/22/2024 07:15 AM) L AB: Microalbumin, Random L AB: Lipid Panel (Collection Date & Time - 12/22/2024 07:15 AM) L AB: PSA,Total (Free>4and<10) (Collection Date & Time - 12/22/2024 07:15 AM) L AB: Hemoglobin A1c (Collection Date & Time - 12/22/2024 07:15 AM) 3. T ype 2 diabetes mellitus treated without insulin L AB: Complete Blood Count Auto Diff (Collection Date & Time - 12/22/2024 07:15 AM) L AB: Urinalysis and Microscopic L AB: Comprehensive [place]. Panel Fast (Collection Date & Time - 12/22/2024 07:15 AM) L AB: Microalbumin, Random L AB: Lipid Panel (Collection Date & Time - 12/22/2024 07:15 AM) L AB: PSA,Total (Free>4and<10) (Collection Date & Time - 12/22/2024 07:15 AM) L AB: Hemoglobin A1c (Collection Date & Time - 12/22/2024 07:15 AM) 4. L eukocytosis, unspecified type L AB: Complete Blood Count Auto Diff (Collection Date & Time - 12/22/2024 07:15 AM) L AB: Urinalysis and Microscopic L AB: Comprehensive [place]. Panel Fast (Collection Date & Time - 12/22/2024 07:15 AM) L AB: Microalbumin, Random L AB: Lipid Panel (Collection Date & [...] * Procedure Codes: 3 6415 VENIPUNCT, ROUTINE*, 80188 FLU VACCINE NO PRESERV 3 & >, 95[address] IMMUNIZATION ADMIN * * The named appointment provid er may or may not be the originator of this progress note, and it is not deemed complete until electronically signed by the appointment provider. Sign off status: Pending * Provider: Winnie Garcias MD Date: 0 12/22/2024 Generated for Jude carlisle/Migel/Emilyitting on: 12/22/2024 01:16 PM EDT
[2024-12-22 11:17] LABS: MANUAL DIFF FLAG NO
[2024-12-22 11:39] LABS: Hematocrit 38.2 % (42.0-52.0); Hemoglobin 12.9 g/dl (14.0-18.0); Imm Gran Abs Auto 0.05 X10*3/uL (0.00-0.03); Imm Gran Pct Auto 0.7 % (0.0-0.4); Lymphocytes Absolute Auto 2.4 X10*3/uL (1.2-4.9); Mean Corpuscular HGB Conc 33.8 g/dl (31.0-36.0); Mean Corpuscular Hemoglobin 31.4 pg (27.0-33.0); Mean Corpuscular Volume 92.9 fL (80.0-98.0); NRBC Abs Auto 0.000 X10*3/uL (0.0-0.012); NRBC Pct Auto 0.0 /100WBC (0.0-0.2); Platelet Count 288 X10*3/uL (160-400); Red Blood Count 4.11 X10*6/uL (4.60-5.80); White Blood Count 7.6 X10*3/uL (4.8-10.8)
[2024-12-22 11:55] LABS: Hemoglobin A1C 143.9425 umol/L; Total Hemoglobin (HGBA1C) 3292.9786 umol/L
[2024-12-22 12:13] LABS: Alanine Aminotransferase 24 U/L (0-40); Albumin Level 4.0 g/dL (3.5-5.0); Alkaline Phosphatase 78 U/L (39-117); Anion Gap 12 (12-20); Aspartate Amino Transferase 28 U/L (5-37); Blood Urea Nitrogen 13 mg/dL (9-16); Calcium 8.9 mg/dL (8.4-10.2); Carbon Dioxide 29 mmol/L (22-29); Chloride 104 mmol/L (96-108); Cholesterol 171 mg/dL (<200); Estimated Glomerular Filt Rate > 60; HDL Cholesterol 32 mg/dL (>40); Potassium 4.1 mmol/L (3.3-5.1); Sodium 141 mmol/L (135-145); Total Protein 7.2 g/dL (6.5-8.0); Triglycerides 210 mg/dL (<150)
[2024-12-22 12:44] LABS: PSA,Total (Free>4and<10) 1.21 ng/mL (0.00-4.00)
--- OUTSIDE RECORDS SUMMARY | 2024-12-22 13:16 | XMS_ITS | Patient Health Record ---
Author Organization [facility] Address [address] [place] [address] Care Team Providers Care Digital Sales Executive Name Role Phone Luis Garcias MD Primary Care Provider Ramirez Allen [phone] Allergies No Known Allergies Results Component Value Reference Range Notes Pathology Reviewed date:03/18/2024 11:02:29 AM Interpretation: Performing Lab:[facility], [address] [place] [phone] Notes/Report: Reason For Referral No Information Medications Medication [...] Problem Status W/U Status Risk Notes Problem 795973402 Encounter for screening for malignant neoplasm of colon (Z12.11) Active confirmed Problem 360812232 History of adenomatous polyp of colon (Z86.010) Active confirmed Problem Screening for malignant neoplasm of rectum (046798409) Encounter for screening for malignant neoplasm of rectum (Z12.12) Active confirmed Problem 89013244 Preprocedural examination (Z01.818) Active confirmed Problem 410388115 Family history o f colon cancer (Z80.0) Active confirmed Problem Mass of hepatic flexure of colon (3629281909768 07) 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 Encounters Encounter Location Date Provider Diagnosis [facility] [address] [place], [place] [phone] 12/31/2023 Ramirez Pena Colon cancer screening Z12.11 ; Colon polyps K63.5 and Family history of colon cancer Z80.0 [facility] [address] [place] [phone] 10/31/2024 Ramirez Pena [facility] [address] [place] [phone] 01/06/2024 Ramirez Pena Mass of hepatic flexure of colon K63.9 and Family history of colon cancer Z80.0 [facility] [address] [place] [phone] 03/10/2024 Ramirez Pena Assessments Encounter Date Diagnosis (ICD Code) Assessment Notes Treatment Notes Treatment Clinical Notes Section Notes 12/31/2023 Colon cancer screening (ICD-10 - Z12.11) 12/31/2023 Colon polyps (ICD-10 - K63.5) 01/06/2024 Family history of colon cancer (ICD-10 - Z80.0) 01/06/2024 Mass of hepatic flexure of colon (ICD-10 - K63.9) 12/31/2023 Family history of colon cancer (ICD-10 [...] Insured Coverage Start Date Coverage End Date [employer] [address] [place] [address] [phone] [id number] MARYSE GORE Self - patient is the insured Medical (General) History Medical History History ICD Code Denies [place],DM,CVA,Lung disease,renal dise ase HTN Colonoscopy 04/2006 - [...] some nonspecific inflammation. Surgical History Surgery Date(Month/Year) [place] teeth extraction Fatty tumor removed from scalp 2016
--- OUTSIDE RECORDS SUMMARY | 2024-12-22 13:16 | XMS_ITS | Clinical Summary ---
Author Organization [facility] Address [address] [place] [address] Phone Care Team Providers Care Tenant Relations Coordinator Name Role Phone Arnoldo Gore MD Primary Care Provider [phone] Allergies No known active allergies Medications No known medications Social History Tobacco Use Types Packs/Day Years Used Date Smoking Tobacco: Never Smokeless Tobacco: Never Alcohol Use Standard Drinks/Week Comments Not Currently 0 (1 standard drink = 0.6 oz pur e alcohol) socially Education Answer Date Recorded Are you interested in more education? Not on sharron e 08/07/2022 Are you concerned about learning? Not on file 08/07/2022 No 08/07/2022 No 08/07/2022 Digital Access Answer Date Recorded No 09/07/2022 No 09/07/2022 Reliable internet access at home? Not on file 09/07/2022 Device with a working camera? Not on file Intimate Partner Violence Answer Date R ecorded Are you denied basic needs s uch as food, clothing, or medical care? No 07/11/2022 In the past 12 months have y ou been in a relationship with a person who hurts, threatens, or tries to control you? No 07/11/2022 Are you denied basic needs s uch as food, clothing, or medical care? No 07/11/2022 In the past 12 months have y ou been in a relationship with a person who hurts, threatens, or tries to control you? No 07/11/2022 Sex and Gender Information Value Date Recorded Sex Assigned at Male 07/11/2022 1:21 PM EDT Legal Sex Male 2:56 PM EDT Gender Identity Male 07/11/2022 1:21 PM EDT Sexual Orientation Straight 07/11/2022 1: 21 PM EDT Last Filed Vital Signs Vital Sign Reading Time Taken Comments Blood Pressure 140/78 07/11/2022 2:46 PM EDT Pulse 94 07/11/2022 2:46 PM EDT Temperature 36.9 C (98.4 F) 07/11/2022 1:22 PM EDT Respiratory Rate 16 07/11/2022 2:46 PM EDT Oxygen Saturation 95% 07/11/2022 2:46 PM EDT Inhaled Oxygen Concentration - - Weight 165.6 kg (365 lb) 07/11/2022 1:22 PM EDT Height 182.9 cm (6') 07/11/2022 1:22 PM EDT Body Mass Index 49.5 07/11/2022 1:22 PM EDT Plan of Treatment Health Maintenance Due Date Last Done Comments LIPID PANEL 1978 DEPRESSION SCREENING 1990 HEPATITIS C SCREENING 01/23/1996 HIV ONE-TIME SCREENING (18-6 5 YEARS) 01/23/1996 COLOGUARD 2023 COLONOSCOPY 2023 COLORECTAL CANCER SCREENING 2023 FIT TEST 2023 FOBT 2023 SIGMOIDOSCOPY 2023 VIRTUAL COLONOSCOPY 2023 COVID-19 VACCINE (3 - 2023-2 5 season) 2023 08/27/2020, 08/06/2020 INFLUENZA VACCINE (#1) 2024 SCREENING FOR DIABETES 07/11/2025 07/11/2022 Adult Td,Tdap Booster 12/19/2028 12/19/2018 SMOKING STATUS SCREENING (On ce After 26 Yrs) Completed 07/11/2022 HEPATITIS A VACCINES Aged Out No long er eligible based on patient's age to complete this topic HIB VACCINES Aged Out No longer eligi ble based on patient's age to complete this topic MENINGOCOCCAL VACCINES (ACWY) Aged Out No longer eligible based on patient's age to complete this topic MENINGOCOCCAL VACCINES (B) Aged Out N o longer eligible based on patient's age to complete this topic PNEUMOCOCCAL VACCINES (0-49 years) Aged Out No longer eligible b ased on patient's age to complete this topic Medical Devices Not on file Insurance [facility] Care Teams Tenant Relations Coordinator Relationship Specialty Start Date End Date Arnoldo Gore MD [address] [place] [address] PCP - [facility] Surgery 07/05/15 Additional Source Comments The information contained in this document represents components of the legal health record. It is not the complete legal health record.[facility]
--- OUTSIDE RECORDS SUMMARY | 2024-12-22 13:17 | XMS_ITS | Patient Health Record ---
Author Organization Luis Garcias MD Address [address] [place], [place] [id number] Care Team Providers Care [employer] Name Role Phone Luis Garcias Primary Care Provider [phone] Allergies No Known Allergies Results Component Value Reference Range Notes Complete Blood Count Auto Di ff (Not yet reviewed by provider) Interpretation: Performing Lab:[facility], [address] [place] [phone] Notes/Report: White Blood Count 7.6 4.8-10.8 X10*3/uL [...] 0.0-0.2 /100WBC Neutrophils Absolute Auto 4.2 2.0-8.3 x10*3/uL Imm Gran Abs Auto 0.05 0.00-0.03 X10*3/uL Lymphocytes Absolute Auto 2.4 1.2-4.9 X10*3/uL Monocytes Absolute Auto 0.6 0.1-1.2 X10*3/uL Eosinophils Absolute Auto 0.2 0.0-0.4 X10*3/uL Basophils Absolute Auto 0.0 0.0-0.2 X10*3/uL NRBC Abs Auto 0.000 0.0-0.012 X10*3/uL Comprehensive [place]. Panel Fa (Not yet reviewed by provider) Interpretation: Performing Lab:[facility], [address] [place] [phone] Notes/Report: Sodium 141 135-145 mmol/L Potassium 4.1 [...] Panel Reviewed date:12/22/2024 12:33:41 PM Interpretation: Performing Lab:[facility], [address] [place] [phone] Notes/Report: Triglycerides 210 <150 mg/dL Desirable Triglyceride: [...] Reviewed date:12/22/2024 12:50:11 PM Interpretation: Performing Lab:[address] [address] Notes/Report: PSA,Total (Free>4and<10) 1.21 0.00-4.00 ng/mL A [...] Reviewed date:12/22/2024 12:30:10 PM Interpretation: Performing Lab:[address] [address] Notes/Report: Hemoglobin A1c % 6.2 <6.0 % [...] average glucose, using the formula of the N7I-Cphmgkx Average Glucose study (ADAG), Diabetes Care, Vol.31,#8, Nov. 2007 Glucose, finger stick Reviewed date:02/11/2024 10:00:54 AM Interpretation: Performing Lab: Notes/Report: Value 111 Glucose, finger stick Reviewed date:05/15/2024 09:57:52 AM Interpretation: Performing Lab: Notes/Report: Value 109 Pathology Reviewed date:01/04/2024 10:55:57 AM Interpretation: Performing Lab:[facility], [address] [place] [phone] Notes/Report: ---- Name: Dakota Gore Age/Sex: 43/M : 1980 Unit#: [id number] Attend Dr: Ramirez Pena MD Re12/31/23 Status : [facility] Location: [facility] Disch: ---- SPEC : [id number] RECD : 01/03/24 STATUS: SELINA ONEIL NUM: [id number] SAMUEL: 12/31/23-[address] [facility] [address]: Ramirez Pena MD ENTERED: 01/03/24- 31 SP TYPE: Surgical OTHR DR: Luis Garcias [...] MD [facility] [address] [place], [place] [phone] Ramirez Pena MD [facility] [address] [place] [address] CONTINUED ON NEXT PAGE ---- Name: Dakota Gore Age/Sex: 43/M : 1980 Unit#: [id number] Attend Dr: Ramirez Pena MD Re12/31/23 Status : [facility] Location: [facility] Disch: ---- SPEC : [id number] RECD : 01/03/24 STATUS: SELINA ONEIL NUM: [id number] SAMUEL: 12/31/23-[address] [facility] [address]: Ramirez Pena MD ENTERED: 01/03/24- SP TYPE: Surgical OTHR DR: Luis Garcias MD ORDERED: HE Stain/3, Gross Micro L4 ---- Signed (signature on file) Kaylan Navarrete MD 01/04/24 1038 ---- END OF REPORT CT abdomen pelvis w con Reviewed date:03/14/2024 05:08:21 PM Interpretation: Performing Lab: Notes/Report: [address] [address] [address] Scan Report Signed Patient: Dakota Gore MR#: [id number] 71 : 1980 Acct:[id number] Age/Sex: 44 / M ADM Date: 02/28/24 [facility] Dr: Ramirez Pena MD Ordering Physician: Sacha Heaton MD Date of Service: 02/28/24 Procedure(s): CT abdomen pelvis w IV con Accession Number(s): [id number] cc: Luis Garcias MD; Sacha Heaton MD [...] by: Harrison Redmond MD 03/14/2024 03:31 PM [facility] Dictated By: Harrison Redmond MD Signed By: <Electronically signed by Harrison Redmond MD in OV> 03/14/24 1531 DD/ 1616 TD/TT: 02/28/24 1628 Library Cataloging Technician: [place] [address] CT Scan Report Signed Patient: Dwight Gore MR#: [id number] 71 : 1980 Acct:[id number] Age/Sex: 44 / M ADM Date: 02/28/24 Loc: [facility] Attending Dr: Ramirez Pena MD Ordering Physician: Sacha Heaton MD Date of Service: 02/28/24 Procedure(s): CT abd omen pelvis w IV con Accession Number(s): [id number] cc: Luis Garcias MD; Sacha Heaton MD [...] 03/14/24 1531 DD/ 1616 TD/TT: 02/28/24 1628 Library Cataloging Technician: RACHEL Complete Blood Count no Diff Reviewed date:04/06/2024 04:50:01 PM Interpretation: Performing Lab:[facility], [address] [place] [phone] Notes/Report: White Blood Count 10.0 4.8-10.8 X10*3/uL [...] Panel Reviewed date:04/06/2024 04:49:27 PM Interpretation: Performing Lab:[address] [address] Notes/Report: Sodium 138 135-145 mmol/L Potassium 3.9 [...] A1c Reviewed date:04/06/2024 04:48:55 PM Interpretation: Performing Lab:[address] [address] Notes/Report: Hemoglobin A1c % 5.9 <6.0 % [...] average glucose, using the formula of the X6F-Zxfcbue Average Glucose study (ADAG), Diabetes Care, Vol.31,#8, 2007 Type and Screen Reviewed date:04/06/2024 04:49:37 PM Interpretation: Performing Lab:[facility], [address] [place] [phone] Notes/Report: Spec expiration changed by SHIKHA on 04/06/24 Reason: PAT NURSING: Call Blood Bank (ext. [phone]) to band patient on admission. Type and Screen in effect until 2300 on 04/18/2024. Witnessed by MURCA Blood Type OP Antibody Screen NEGATIVE Glucose, Whole Blood Reviewed date:04/18/2024 12:44:11 PM Interpretation: Performing Lab:[facility], [address] [place] [phone] Notes/Report: Glucose, Whole Blood 141 60-115 mg/dL METER # : [id number] Glucose, Whole Blood Reviewed date:04/18/2024 04:23:16 PM Interpretation: Performing Lab:[facility], [address] [place] [phone] Notes/Report: Glucose, Whole Blood 147 60-115 mg/dL METER # : [id number] Glucose, Whole Blood Reviewed date:04/19/2024 03:27:25 PM Interpretation: Performing Lab:[facility], [address] [place] [phone] Notes/Report: Glucose, Whole Blood 137 60-115 mg/dL METER # : [id number] Hold Lav - Possible Hematolo gy Reviewed date:04/19/2024 03:27:11 PM Interpretation: Performing Lab:[facility], [address] [place] [phone] Notes/Report: Hold Lav - Possible Hematology SEE NOTE Specimen will be held untested for 8 hours. Call Hematology if testing is desired. Basic Metabolic Panel Fastin g Reviewed date:04/19/2024 03:27:37 PM Interpretation: Performing Lab:[facility], [address] [place] [phone] Notes/Report: Sodium 142 135-145 mmol/L Potassium 4.1 [...] Blood Reviewed date:04/19/2024 03:28:03 PM Interpretation: Performing Lab:[facility], [address] [place] [phone] Notes/Report: Glucose, Whole Blood 122 60-115 mg/dL METER # : [id number] XR chest 1V Reviewed date:04/20/2024 12:42:31 PM Interpretation: Performing Lab: Notes/Report: [address] [address] XRay Report Signed Patient: Dakota Gore MR#: [id number] 69 : 1980 Acct:[id number] Age/Sex: 44 / M ADM Date: 04/18/24 Loc: [facility] [address]: Sacha Heaton MD Ordering Physician: Patricio Encarnacion MD Date of Service: 04/19/24 Procedure(s): XR chest 1V Accession Number(s): [id number] cc: Patricio Encarnacion MD; Luis Garcias MD [...] by: Teo Mckeon MD 04/19/2024 03:34 PM [facility] Dictated By: Teo Agustin MD Signed By: <Electronically signed by Teo El MD in OV> 04/19/24 1534 DD/ 1420 TD/TT: 04/19/24 1430 Library Cataloging Technician: [address] [address] XRay Report Signed Patient: Dwight Gore MR#: [id number] [birth year] : 1980 Acct:[id number] Age/Sex: 44 / M ADM Date: 04/18/24 Loc: [facility] 483-[address]: Lizzie Heaton MD Ordering Physician: Patricio Encarnacion MD Date of Service: 04/19/24 Procedure(s): XR priya st 1V Accession Number(s): [id number] cc: Melanie Encarnacion MD; Luis Garcias MD [...] 04/19/2024 03:34 PM EST Dictated By: Teo Hutchins MD Signed By: <Electronically signed by Teo El MD in OV> 04/19/24 1534 DD/ 1420 TD/TT: 04/19/24 1430 Library Cataloging Technician: Glucose, Whole Blood Reviewed date:04/19/2024 03:25:17 PM Interpretation: Performing Lab:[facility], [address] [place] [phone] Notes/Report: Glucose, Whole Blood 158 60-115 mg/dL METER # : [id number] Glucose, Whole Blood Reviewed date:04/20/2024 06:07:40 PM Interpretation: Performing Lab:[facility], [address] [place] [phone] Notes/Report: Glucose, Whole Blood 130 60-115 mg/dL METER # : [id number] Glucose, Whole Blood Reviewed date:04/20/2024 12:41:44 PM Interpretation: Performing Lab:[facility], [address] [place] [phone] Notes/Report: Glucose, Whole Blood 122 60-115 mg/dL METER # : [id number] Glucose, Whole Blood Reviewed date:04/20/2024 12:24:18 PM Interpretation: Performing Lab:[facility], [address] [place] [phone] Notes/Report: Glucose, Whole Blood 144 60-115 mg/dL METER # : [id number] Glucose, Whole Blood Reviewed date:04/20/2024 12:21:43 PM Interpretation: Performing Lab:[facility], [address] [place] [phone] Notes/Report: Glucose, Whole Blood 145 60-115 mg/dL METER # : [id number] Glucose, Whole Blood Reviewed date:06/30/2024 09:48:17 AM Interpretation: Performing Lab:[facility], [address] [place] [phone] Notes/Report: Glucose, Whole Blood 105 60-115 mg/dL METER # : [id number] Reason For Referral Reason abscess groin area [...] for 90 Active Lisinopril-hydroCHLOROth iazide 20-25 MG TAKE 1 TABLET BY MOUTH DAILY Orally Once a day for 90 days Active Immunizations Vaccine Route Administration Date Status Comme nts Fluarix Quadrivalent - 150 IM Intramuscular 12/21/2023 Adm inistered Fluarix Quadrivalent - 150 IM Intramuscular 12/22/2024 Adm inistered Flu Vaccine Unknown 06/25/2015 Refused [...] Problem Status W/U Status Risk Notes Problem 084804495 Morbid obesity due to excess calories (E66.01) Active confirmed Problem 32994229 Intrinsic eczema (L20.84) Active confirmed Problem 862958227 Leukocytosis, unspecified type (D72.829) Active confirmed Problem 84053839 Essential hypertension with goal blood pressure less than 140\/90 (I10) Active confirmed Problem 128974265 Prediabetes (R73.03) Active confirmed Problem 387463228 Body mass index (BMI) of 45.0-49.9 in adult (Z68.42) Active confirmed Problem 249401843 Mild intermitten t asthmatic bronchitis with acute exacerbation (J45.21) Active confirmed Problem 738798342 History of colon polyps (Z86.010) Active confirmed Problem 60668019 Type 2 diabetes mellitus treated without insulin (E11.9) Active confirmed Vital Signs Blood pressure diastolic 86 mm Hg 05/15/2024 Height 71.5 in 05/15/2024 Blood pressure systolic 152 mm Hg 05/15/2024 Weight 370 lbs 05/15/2024 BMI 50.88 kg/m2 05/15/2024 Procedures Procedure Date Ordered Date Performed Result Body Sit e Colonoscopy, Screening 01/04/2024 01/04/2024 Surgi veronica resection recommended Encounters Encounter Location Date Provider Diagnosis Luis Garcias MD [address] [place] [id number] 12/22/2024 Luis Garcias Blood tests for routine general physical examination Z00.00 ; Essential hypertension with goal blood pressure less than 140\/90 I10 ; Type 2 diabetes mellitus treated without insulin E11.9 ; Leukocytosis, unspecified type D72.829 and Encounter for administration of vaccine Z23 Luis Garcias MD [address] [place] [id number] 12/28/2023 Luis Garcias Abscess L02.91 ; Encounter for general adult medical examination without abnormal findings Z00.00 ; Type 2 diabetes mellitus treated without insulin E11.9 ; History of colon polyps Z86.010 ; Essential hypertension with goal blood pressure less than 140\/90 I10 and Morbid obesity due to excess calories E66.01 Luis Garcias MD [address] [place] [id number] 02/11/2024 Luis Garcias Prediabetes R73.03 ; Essential hypertension with goal blood pressure less than 140\/90 I10 and Morbid obesity due to excess calories E66.01 Luis Garcias MD [address] [place] [id number] 05/15/2024 Luis Garcias Prediabetes R73.03 ; Other injury of unspecified body region, initial encounter T14.8XXA ; Local infection of the skin and subcutaneous tissue, unspecified L08.9 and Essential hypertension with goal blood pressure less than 140\/90 I10 Luis Garcias MD [address] [place] [id number] 01/18/2024 Luis Garcias MD [address] [place] [id number] 03/13/2024 Luis Garcias MD [address] [id number] 08/23/2024 Luis Garcias MD [address] [place] [id number] 11/27/2024 Luis Garcias Essential hypertensi on with goal blood pressure less than 140\/90 I10 Assessments Encounter Date Diagnosis (ICD Code) Assessment Notes Treatment Notes Treatment Clinical Notes Section Notes 12/22/2024 Blood tests for routine general physical examination (ICD-10 - Z00.00) 12/22/2024 Essential hypertension with goal blood pressure less than 140\/90 (ICD-10 - I10) 12/28/2023 Abscess (ICD-10 - L02.91) referral to surgeon 12/28/2023 Encounter for general adult medical examination without abnormal findings (ICD-10 - Z00.00) Labs reviewed and discussed with patient 02/11/2024 Prediabetes (ICD-10 - R73.03) sugar is better, will continue to monitor 02/11/2024 Essential hypertension with goal blood pressure less than 140\/90 (ICD-10 - I10) doing well on meds, will coontinue current regiment andlinda continue to monitor 05/15/2024 Prediabetes (ICD-10 - R73.03) will continue current regiment 05/15/2024 Other injury of unspecified body region, initial encounter (ICD-10 - T14.8XXA) 11/27/2024 Essential hypertension with goal blood pressure less than 140\/90 (ICD-10 - I10) 12/22/2024 Type 2 diabetes mellitus treated without insulin (ICD-10 - E11.9) 12/28/2023 Type 2 diabetes mellitus treated without insulin (ICD-10 - E11.9) 02/11/2024 Morbid obesity due to excess calories (ICD-10 - E66.01) is doing intermittant fasting. also taking his brother's ozempic 05/15/2024 Local infection of the skin and subcutaneous tissue, unspecified (ICD-10 - L08.9) referral back to dr heaton today 12/22/2024 Leukocytosis, unspecified type (ICD-10 - D72.829) 12/28/2023 History of colon polyps (ICD-10 - Z86.010) getting colonoscopy next week 05/15/2024 Essential hypertension with goal blood pressure less than 140\/90 (ICD-10 - I10) stable, will cintinue current regiment 12/22/2024 Encounter for administration of vaccine (ICD-10 - Z23) 12/28/2023 Essential hypertension with goal blood pressure less than 140\/90 (ICD-10 - I10) well controlled 12/28/2023 Morbid obesity due to excess calories (ICD-10 - E66.01) referral to weight loss clinic/ patient will be calling their office to set up appointment Plan Of Treatment Pending Test Test Name Order Date Complete Blood Count Auto Diff 5 Urinalysis and Microscopic 12/22/2024 Comprehensive [place]. Panel Fast 5 Microalbumin, Random 12/22/2024 Next Appt Details Provider Name:Luis Goodson ier, 12/29/2024 09:30:00 AM, [address] [place] [address], [address], [place], [place], [id number], Insurance Providers Payer Name Payer Address Payer Phone Subscriber Number Group Number Insured Name Patient Relationship to Insured Coverage Start Date Coverage End Date [address] [place] [phone] [id number] Dakota Gore Self - patient is the insured Medical (General) History Medical History History ICD Code father colon cancer age 40; he gets colonoscopy every 2 years. Colonoscopy 02/24/[address] Pena - repeat 3 .07/23/23 colonoscopy pending path-12/31/23 repeat colonoscopy performed Becky, advised surgical resection
== END 2024-12-22 11:14 | disposition home or self-care (01) ==
LOC: HO.LNP 11:13
PROVIDERS: Visit Provider Internal Medicine
DX: Z00.00 Encounter for general adult medical examination without abnormal findings (principal); Z12.5 Encounter for screening for malignant neoplasm of prostate; I10 Essential (primary) hypertension; E11.9 Type 2 diabetes mellitus without complications; D72.829 Elevated white blood cell count, unspecified
CPT/HCPCS: 80053; 80061; 83036; 84153; 85025

== ENCOUNTER 2024-12-29 09:30 | Outpatient (REF) | payer OTHER, SELFPAY ==
--- OUTSIDE RECORDS SUMMARY | 2023-07-23 06:30 | XMS_ITS ---
Author Organization [facility] Address [address] [place] [id number] Care Team Providers Care Duplex Trimmer Name Role Phone Katerine CHUNG, Luis Primary Care Provider Ramirez Allen [phone] REASON FOR VISIT screening,hx polyps,fam hx colon ca Encounters Encounter Location Date Provider Diagnosis [facility] [place] [address] [place] [phone] 07/23/2023 Ramirez Pena Encounter for scre ening colonoscopy Z12.11 ; Colon polyps K63.5 ; Family history of colon cancer Z80.0 ; Other specified diseases of intestine K63.89 and Other hemorrhoids K64.8 Assessments Encounter Date Diagnosis (ICD Code) Assessment Notes Treatment Notes Treatment Clinical Notes Section Notes 07/23/2023 Encounter for screening colonoscopy (ICD-10 - Z12.11) 07/23/2023 Colon polyps (ICD-10 - K63.5) 07/23/2023 Family history of colon cancer (ICD-10 - Z80.0) 07/23/2023 Other specified diseases of intestine (ICD-10 - K63.89) 07/23/2023 Other hemorrhoids (ICD-10 - K64.8) Plan Of Treatment No Information Progress Notes * MARYSE GOREDOB: 8 (44 yo M)Acc No.[id number]:07/23/2023 COLON WITH MAC Patient: MARYSE SIMMONS Provider: Guru Pena MD :1980 A ge:43 Y S ex:Male Date:07/23/2023 Address:[address], [facility] Pcp:Luis Garcias MD Subjective: * Chief Complaints: * 1 . Screening,hx polyps,fam hx colon ca. * Medical History: Objective: * Vitals: Assessment: * Assessment: 1. E ncounter for screening colonoscopy - Z12.11 (Primary) 2 . C olon polyps - K63.5 3 . F amily history of colon cancer - Z80.0 4 . O ther specified diseases of intestine - K63.89 5 . O ther hemorrhoids - K64.8? Plan: * Treatment: * Procedure Codes: 4 5385 LESION REMOVAL COLONOSCOPY, Modifiers: 33 , 91553 COLONOSCOPY AND BIOPSY, Modifiers: 59 , 33 * * The named appointment provid er may or may not be the originator of this progress note, and it is not deemed complete until electronically signed by the appointment provider. Sign off status: Pending * Provider: Guru Pena MD Date: 0 07/23/2023 Generated for Jude carlisle/Migel/Emilyitting on: 0 12/29/2024 12:06 PM EDT
--- OUTSIDE RECORDS SUMMARY | 2023-12-31 09:10 | XMS_ITS ---
Author Organization [facility] Address [address] [place] [phone] Care Team Providers Care Community Service Officer Name Role Phone Luis Garcias MD Primary Care Provider Ramirez Allen [phone] REASON FOR VISIT screening, hx polyps, fam hx colon ca Encounters Encounter Location Date Provider Diagnosis [facility] [place] [address] [place] [phone] 12/31/2023 Ramirez Pena Colon cancer scree daryl [...] * MARYSE GOREDOB: 8 (44 yo M)Acc No.[id number]:12/31/2023 COLON WITH MAC Patient: CHELSEA SIMMONSIG Provider: Guru Pena MD :1980 A ge:43 Y S ex:Male Date:12/31/2023 Address:[address] [facility] Pcp:Luis Garcias MD Subjective: * Chief Complaints: [...] 0 12/31/2023 Generated for Jude carlisle/Migel/Emilyitting on: 0 12/29/2024 12:06 PM EDT
--- OUTSIDE RECORDS SUMMARY | 2024-05-15 06:00 | XMS_ITS ---
Author Organization Luis Garcias MD Address [address] [place], [place] [phone] Care Team Providers Care Spanisher Name Role Phone Luis Garcias Primary Care [...] Date Provider Diagnosis Luis Garcias MD [address] [place], [place] [phone] 05/15/2024 Luis Garcias Prediabetes R73.03 ; Other [...] Almaguer Next Appt Details Provider Name:Luis zaragoza, 01/30/2025 10:15:00 AM, [address], [address], [place], [place], [phone], Provider Name:Luis Goodson ier, 12/25/2025 08:15:00 AM, [address], [address], [place], [phone], Provider Name:Luis Goodson ier, 01/01/2026 10:30:00 AM, [address], [address], [place], [place], [phone], Progress Notes * Dakota GORE PDOB: [birth year] (44 yo M)Acc No.[id number]:05/15/2024 Progress Notes Patient: Dakota SIMMONS Provider: Winnie Garcias MD :1980 A ge:44 Y S ex:Male Date:05/15/2024 Address:[address] [place] [address] [facility] Subjective: * Chief Complaints: * 3 month [...] 05/15/2024 Generated for Jude carlisle/Migel/eTransmitting on: 0 12/29/2024 12:07 PM EDT History and Physical Notes * [...]
--- OUTSIDE RECORDS SUMMARY | 2024-08-23 07:20 | XMS_ITS ---
Author Organization Luis Garcias MD Address 10 [facility] [address] [place] [phone] Care Team Providers Care Delivery Table Feeder Name Role Phone Luis Garcias Primary Care Provider [phone] REASON FOR VISIT HCC Risk Codes Encounters Encounter Location Date Provider Diagnosis Luis Garcias MD [address] [place] [address] [place] [id number] 08/23/2024 Luis Garcias Plan Of Treatment Next Appt Details Provider Name:Luis Goodson ier, 01/30/2025 10:15:00 AM, [address] [place] [address], [address], [phone], Provider Name:Luis Goodson ier, 12/25/2025 08:15:00 AM, [address] [place] [address], [address], [phone], Provider Name:Luis Goodson ier, 01/01/2026 10:30:00 AM, [address] [place] [address], [address], [phone], Progress Notes * Dakota GORE PDOB: [birth year] (44 yo M)Acc No.[id number]:08/23/2024 Patient: Santiago Dakota HARVEY :1980 A ge:44 Y S ex:Male Address:[address] [place], [address] * true * Date: Generated for Printi ng/Migel/Maria Del Carmen on: 0 12/29/2024 12:06 PM EDT
--- OUTSIDE RECORDS SUMMARY | 2024-11-27 05:40 | XMS_ITS ---
Author Organization Luis Garcias MD Address [address] [place] [phone] Care Team Providers Care Professor Of Management Name Role Phone Luis Garcias Primary Care Provider REASON FOR VISIT refill lisinopril Medications Medication SIG (Take, Route, Frequency, Duration) Notes Start Date End Date Status Lisinopril-hydroCHLOROthia zide 20-25 MG TAKE 1 TABLET BY MOUTH DAILY Orally Once a day for 90 days Active Encounters Encounter Location Date Provider Diagnosis Luis Garcias MD [address] [place] [address] [place] [phone] 11/27/2024 Luis Garcias Essential hypertension with goal blood pressure less than 140\/90 I10 Assessments Encounter Date Diagnosis (ICD Code) Assessment Notes Treatment Notes Treatment Clinical Notes Section Notes 11/27/2024 Essential hypertension with goal blood pressure less than 140\/90 (ICD-10 - I10) Plan Of Treatment Medication Medication Name Sig Start Date Stop Date Notes Lisinopril-hydroCHLOROthiazi de 20-25 MG TAKE 1 TABLET BY MOUTH DAILY Orally Once a day for 90 days Next Appt Details Provider Name:Luis zaragoza, 01/30/2025 10:15:00 AM, [address] [place] [address], [address], [phone], Provider Name:Luis zaragoza, 12/25/2025 08:15:00 AM, [address] [place] [address], [address], [phone], Provider Name:Luis zaragoza, 01/01/2026 10:30:00 AM, [facility], [address], [place], [place], [phone], Progress Notes * Dakota GORE PDOB: [birth year] (44 yo M)Acc No.[id number]:11/27/2024 Patient: Santiago ALEXANDROLAZARUSDakota BULLOCK :1980 A ge:44 Y S ex:Male Address: [place], [address] * Refills Refill Lisinopril-hydroCHLOROthiazide Tablet, 20-25 MG, Orally, 90, TAKE 1 TABLET BY MOUTH DAILY, Once a day, 90 days, Refills=3 * true * Date: Generated for Jude carlisle/Migel/Emilyitting on: 0 12/29/2024 12:06 PM EDT
--- OUTSIDE RECORDS SUMMARY | 2024-12-22 03:30 | XMS_ITS ---
Author Organization Luis Garcias MD Address [address] [place], [place] [phone] Care Team Providers Care Drupal Developer Name Role Phone Luis Garcias Primary Care Provider Results Component Value Reference Range Notes Complete Blood Count Auto Di ff Reviewed date:12/25/2024 11:39:17 AM Interpretation: Performing Lab:[facility], [address] [place] [phone] Notes/Report: White Blood Count 7.6 4.8-10.8 X10*3/uL [...] NRBC Abs Auto 0.000 0.0-0.012 X10*3/uL Comprehensive [place]. Panel Fa st Reviewed date:12/24/2024 05:38:21 PM Interpretation: Performing Lab:[address] [phone] Notes/Report: Sodium 141 135-145 mmol/L Potassium 4.1 [...] Panel Reviewed date:12/22/2024 12:33:41 PM Interpretation: Performing Lab:[address] [phone] Notes/Report: Triglycerides 210 <150 mg/dL Desirable Triglyceride: [...] (Free>4and<10) Reviewed date:12/22/2024 12:50:11 PM Interpretation: Performing Lab:[address] [phone] Notes/Report: PSA,Total (Free>4and<10) 1.21 0.00-4.00 ng/mL A [...] A1c Reviewed date:12/22/2024 12:30:10 PM Interpretation: Performing Lab:[address] [phone] Notes/Report: Hemoglobin A1c % 6.2 <6.0 % [...] average glucose, using the formula of the S5V-Obktiiz Average Glucose study (ADAG), Diabetes Care, Vol.31,#8, Nov. 2007 REASON FOR VISIT yearly fasting labs Immunizations Vaccine Route Administration Date Status Comme nts Fluarix Quadrivalent - 150 IM Intramuscular 12/22/2024 Adm inistered Encounters Encounter Location Date Provider Diagnosis Luis Garcias MD [address] [place] [phone] 12/22/2024 Luis Garcias Blood tests for routine [...] Details Provider Name:Luis zaragoza, 01/30/2025 10:15:00 AM, [address] [place] [address], [address], [phone], Provider Name:Luis zaragoza, 12/25/2025 08:15:00 AM, [address] [place] [address], [address], [phone], Provider Name:Luis zaragoza, 01/01/2026 10:30:00 AM, [address] [place] [address], [address], [phone], Progress Notes * Dakota GORE PDOB: [birth year] (44 yo M)Acc No.[id number]:12/22/2024 Progress Note Patient: Dakota SIMMONS Provider: Winnie Garcias MD :1980 A ge:44 Y S ex:Male Date:12/22/2024 Address:[address] [facility] Subjective: * Chief Complaints: * 1 . [...] - 12/22/2024 07:15 AM) L AB: Comprehensive [place]. Panel Fast (Collection Date & Time - [...] - 12/22/2024 07:15 AM) L AB: Comprehensive [place]. Panel Fast (Collection Date & Time - [...] - 12/22/2024 07:15 AM) L AB: Comprehensive [place]. Panel Fast (Collection Date & Time - [...] * Procedure Codes: 3 6415 VENIPUNCT, ROUTINE*, 94245 FLU VACCINE NO PRESERV 3 & >, [address] IMMUNIZATION ADMIN * * The named appointment provid er may or may not be the originator of this progress note, and it is not deemed complete until electronically signed by the appointment provider. Sign off status: Pending * Provider: Winnie Garcias MD Date: 0 12/22/2024 Generated for Jude carlisle/Migel/Emilyitting on: 0 12/29/2024 12:06 PM EDT
--- OUTSIDE RECORDS SUMMARY | 2024-12-29 05:30 | XMS_ITS ---
Author Organization Luis Garcias MD Address [address] [place], [place] [id number] Care Team Providers Care Embossing Unit Operator Name Role Phone Luis Garcias Primary Care Provider [phone] Allergies No Known Allergies Results Component Value Reference Range Notes UA ClnCatch+Micro w/rflx Cul t (Not yet reviewed by provider) Interpretation: Performing Lab:[facility], [address] [place] [phone] Notes/Report: Urine, Clean Catch Color Urine Yellow Appearance Urine Clear PH 6.0 5.0-9.0 Glucose Urine UA Negative Negative mg/dL Urine Blood Negative Negative Specific [place] - Urine 1.025 1.005-1.025 Urine Protein Negative [...] Provider Speciality Internal M edicine Referred Provider Ramirez Ansari Referred Provider Specialty Endocrinolog y General Notes Sarah Dee 0 12/29/2024 10:26:33 AM >referral info faxed Referral Priority Routine Reason Colon polyps Diagnosis 1 Colon polyps (K63.5) Referral Organization Luis Garcias MD Referring Provider First Name Luis Referring Provider Last Name Katerine Referring Provider Speciality Internal M edicine Referred Provider Sacha Heaton Referred Provider Specialty Surgery General Notes Sarah Dee 0 12/29/2024 10:27:22 AM >referral info faxed Referral Priority Routine Reason skin lesion Diagnosis 1 Skin lesion (L98.9) Referral Organization Luis Garcias MD Referring Provider First Name Luis Referring Provider Last Name Katerine Referring Provider Speciality Internal M edicine Referred Provider Sacha Heaton Referred Provider [...] W/U Status Risk Notes Problem Low testosterone (108607738) Low testosterone (E29.1) Active confirmed Problem Obstructive sleep apnea syndrome (22514709) FELICITY on CPAP (G47.33) Active confirmed Vital Signs Blood pressure systolic 154 mm Hg 12/30/19 25 Blood pressure diastolic 90 mm Hg 025 Height 71.5 in 12/29/2024 Weight 360 lbs 12/29/2024 BMI 49.5 kg/m2 12/29/2024 weight is down 10 pounds sin ce 05-15-24 Encounters Encounter Location Date Provider Diagnosis Luis Garcias MD [address] [place] [address] [address] [place], [place] [phone] 12/29/2024 Luis Garcias Annual physical exam Z00.00 [...] lesion (ICD-10 - L98.9) referral to dr heaton 12/29/2024 Other Plan Of Treatment Medication Medication [...] Skin lesion referral to dr jared paul Pending Test Test Name Order Date Microalbumin, Random 12/29/2024 UA ClnCatch+Micro w/rflx Cult 12/29/2024 Referrals Referral Date Details 12/29/2024 12/29/2024, low test joselynronRamirez soria 12/29/2024 12/29/2024, Colon po ras, Sacha Heaton 12/29/2024 12/29/2024, skin les ion, Sacha Heaton Next Appt Details Follow Up: 4 Weeks, Reason: Provider Name:Luis zaragoza, 01/30/2025 10:15:00 AM, [address] [place] [address], [address], [phone], Provider Name:Luis zaragoza, 12/25/2025 08:15:00 AM, [address] [place] [address], [address], [phone], Provider Name:Luis zaragoza, 01/01/2026 10:30:00 AM, [address] [place] [address], [address], [phone], Progress Notes * Dakota GORE PDOB: [birth year] (44 yo M)Acc No.[id number]:12/29/2024 Progress Notes Patient: Santiago Dakota HARVEY Provider: Winnie Garcias MD :1980 A ge:44 Y S ex:Male Date:12/29/2024 Address: [id number] Subjective: * Chief Complaints: * 1 . Annual visit. 2. HCC Risk Codesneeded: E11.9 DM without complications. * HPI: D epression Screening: PHQ-9 L [...] d enies. H eadache?denies. * Medical History: norman swain colon cancer age 38; he gets colonoscopy every 2 years. Colonoscopy 02/24/[address] Pena - repeat 3 .07/23/23 colonoscopy pending path-12/31/23 repeat colonoscopy performed Becky, advised surgical resection. * Family History: F ather: 40 yrs, [...] Pets: none, 1 dog. * Medications: T aking amLODIPine Besylate 10 MG Tablet TAKE 1 TABLET BY MOUTH EVERY DAY , Taking Ozempic (0.25 or 0.5 MG/DOSE) 2 MG/3ML Solution Pen-injector as directed Subcutaneous 0.5 mg weekly , Taking Lisinopril-hydroCHLOROthiazide 20-25 MG Tablet TAKE 1 TABLET BY MOUTH DAILY Orally Once a day , Not-Taking/PRN Ventolin HFA 108 (90 Base) MCG/ACT Aerosol Solution 2 puffs as needed Inhalation every 4 hrs , Not-Taking/PRN Flonase 50 MCG/ACT Suspension 1 spray in each nostril Nasally Once a day , Not-Taking/PRN SUMAtriptan Succinate 50 MG Tablet 1 tablet as needed Orally as need for migraine , Medication List reviewed and reconciled with the patient * Allergies: N .K.D.A. Objective: * Vitals: H t: 71.5, Wt: [...] Average Glucose 131 - mg/dL L ab:Comprehensive [place]. Panel Fast (Order Date - 12/22/2024) (Collection [...] a day. ? L AB: Microalbumin, Random L AB: UA ClnCatch+Micro w/rflx Cult (Collection [...] referral back to dr agarwal Referral To:Sacha Heaton Surgery Reason:Colon polyps 7. S kin lesion Notes: referral to dr heaton Referral To:Sacha Heaton Surgery Reason:skin lesion * Preventive Medicine: Diabetes Care Plan: P atient Lifestyle Goals N eeds to maintain diet control.?Treatment Goals A 1C< 7. B arriers N o specific barriers, doing well. E xpected Outcome m aintaining stable blood sugar levels within a target range. * Follow Up: 4 Weeks * * The named appointment provid er may or may not be the originator of this progress note, and it is not deemed complete until electronically signed by the appointment provider. Sign off status: Pending * Provider: Winnie Garcias MD Date: 12/29/2024 Generated for Jude carlisle/Migel/Maria Del Carmen on: 12/29/2024 12:05 PM EDT History and Physical Notes * [...] Francis Colon polyps 12/29/[address] [facility]
[2024-12-29 11:47] LABS: Appearance Urine Clear; Glucose Urine UA Negative (Negative); PH 6.0 (5.0-9.0); Specific Gravity - Urine 1.025 (1.005-1.025)
--- OUTSIDE RECORDS SUMMARY | 2024-12-29 12:06 | XMS_ITS | Patient Health Record ---
Author Organization [facility] Address [address] [place] [address] Care Team Providers Care Life Consultant Name Role Phone Luis Garcias MD Primary Care Provider Ramirez Allen [phone] Allergies No Known Allergies Results Component Value Reference Range Notes Pathology Reviewed date:03/18/2024 11:02:29 AM Interpretation: Performing Lab:[facility], [address] [place] [phone] Notes/Report: Reason For Referral No Information Medications [...] Problem Status W/U Status Risk Notes Problem [id number] Encounter for screening for malignant neoplasm of colon (Z12.11) Active confirmed Problem 548435996 History of adenomatous polyp of colon (Z86.010) Active confirmed Problem Screening for malignant neoplasm of rectum (108508902) Encounter for screening for malignant neoplasm of rectum (Z12.12) Active confirmed Problem 87612003 Preprocedural examination (Z01.818) Active confirmed Problem 007423646 Family history o f colon cancer (Z80.0) Active confirmed Problem Mass of hepatic flexure of colon (5961252027769 07) 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 Encounters Encounter Location Date Provider Diagnosis [facility] Outpatient [address] [place], [place] [phone] 12/31/2023 Ramirez Pena Colon cancer screening Z12.11 ; Colon polyps K63.5 and Family history of colon cancer Z80.0 [facility] [address] [place] [phone] 10/31/2024 Ramirez Pena [facility] [address] [place] [phone] 01/06/2024 Ramirez Pena Mass of hepatic flexure of colon K63.9 and Family history of colon cancer Z80.0 [facility] [address] [place] [phone] 03/10/2024 Ramirez Pena Assessments Encounter Date Diagnosis [...] Insured Coverage Start Date Coverage End Date [facility] [address] [place] [address] [id number] MARYSE GORE Self - patient is the insured Medical (General) History Medical History History ICD Code Denies CA,DM,CVA,Lung disease,renal dise ase HTN Colonoscopy 04/2006 - [...] some nonspecific inflammation. Surgical History Surgery Date(Month/Year) [place] teeth extraction Fatty tumor removed from scalp 2016
--- OUTSIDE RECORDS SUMMARY | 2024-12-29 12:06 | XMS_ITS | Clinical Summary ---
Author Organization [facility] Address [address] [place] [address] Phone Care Team Providers Care Tube Roller Name Role Phone Arnoldo Gore MD Primary Care Provider [phone] Allergies No known active allergies Medications No [...] Medical Devices Not on file Insurance [facility] Care Teams Tube Roller Relationship Specialty Start Date End Date Arnoldo Gore MD [address] [place] [address] PCP - [facility] 07/05/15 Additional Source Comments The information contained in this document represents components of the legal health record. It is not the complete legal health record.[facility]
--- OUTSIDE RECORDS SUMMARY | 2024-12-29 12:07 | XMS_ITS | Patient Health Record ---
Author Organization Luis Garcias MD Address [address] [place], [place] [id number] Care Team Providers Care Audio Visual Technician Name Role Phone Luis Garcias Primary Care Provider [phone] Allergies No Known Allergies Results Component Value Reference Range Notes Complete Blood Count Auto Di ff Reviewed date:12/25/2024 11:39:17 AM Interpretation: Performing Lab:[facility], [address] [place] [phone] Notes/Report: White Blood Count 7.6 4.8-10.8 X10*3/uL [...] NRBC Abs Auto 0.000 0.0-0.012 X10*3/uL Comprehensive [place]co. Panel Fa st Reviewed date:12/24/2024 05:38:21 PM Interpretation: Performing Lab:[address] [address] Notes/Report: Sodium 141 135-145 mmol/L Potassium 4.1 [...] Panel Reviewed date:12/22/2024 12:33:41 PM Interpretation: Performing Lab:[facility], [address] [place] [phone] Notes/Report: Triglycerides 210 <150 mg/dL Desirable Triglyceride: [...] (Free>4and<10) Reviewed date:12/22/2024 12:50:11 PM Interpretation: Performing Lab:[address] [address] Notes/Report: PSA,Total (Free>4and<10) 1.21 0.00-4.00 ng/mL A [...] A1c Reviewed date:12/22/2024 12:30:10 PM Interpretation: Performing Lab:[address] [address] Notes/Report: Hemoglobin A1c % 6.2 <6.0 % [...] average glucose, using the formula of the C1X-Wjjewwg Average Glucose study (ADAG), Diabetes Care, Vol.31,#8, 2007 UA ClnCatch+Micro w/rflx Cul t (Not yet reviewed by provider) Interpretation: Performing Lab:[facility], [address] [place] [phone] Notes/Report: Urine, Clean Catch Color Urine Yellow Appearance Urine Clear PH 6.0 5.0-9.0 Glucose Urine UA Negative Negative mg/dL Urine Blood Negative Negative Specific [place] - Urine 1.025 1.005-1.025 Urine Protein Negative Neg-Trace mg/dL Urine Ketones Negative Negative mg/dL Nitrite Urine Negative Negative Leukocyte Esterase Urine Negative Negative RBC Urine 0-2 0-2 /HPF WBC Urine 0-5 0-5 /HPF Squamous Epithelial Cell Urine 0-2 0-2 /HPF Bacteria Urine None Seen None Seen Hyaline Casts Urine 0-2 0-2 /LPF Glucose, finger stick Reviewed date:02/11/2024 10:00:54 AM Interpretation: Performing Lab: Notes/Report: Value 111 Glucose, finger stick Reviewed date:05/15/2024 09:57:52 AM Interpretation: Performing Lab: Notes/Report: Value 109 Pathology Reviewed date:01/04/2024 10:55:57 AM Interpretation: Performing Lab:[facility], [address] [place] [phone] Notes/Report: ---- Name: Dakota Gore Age/Sex: 43/M : 1980 Unit#: [id number] Attend Dr: Ramirez Pena MD Re12/31/23 Status : [facility] Location: [facility] Disch: ---- SPEC : [id number] RECD : 01/03/24 STATUS: SELINA ONEIL NUM: [id number] SAMUEL: 12/31/23-[address] [facility] [address]: Ramirez Pena MD ENTERED: 01/03/24-0 631 SP TYPE: Surgical OTHR DR: Luis Garcias [...] To: Luis Garcias MD [facility] [address] [place] [address] [address] [place] [address] Ramirez Pena MD [facility] [address] [place] [address] [address] [place] [address] CONTINUED ON NEXT PAGE ---- Name: Dakota Gore Age/Sex: 43/M : 1980 Unit#: [id number] Attend Dr: Ramirez Pena MD Re12/31/23 Status : [facility] Location: [facility] Disch: ---- SPEC : [id number] RECD : 01/03/24 STATUS: SELINA ONEIL NUM: [id number] SAMUEL: 12/31/23-[address] [facility] [address]: Ramirez Pena MD ENTERED: 01/03/24- SP TYPE: Surgical OTHR DR: Luis Garcias MD ORDERED: REGGIE Chacon/3, Gross Micro L4 ---- Signed (signature on file) Kaylan Navarrete MD 01/04/24 1038 ---- END OF REPORT CT abdomen pelvis w con Reviewed date:03/14/2024 05:08:21 PM Interpretation: Performing Lab: Notes/Report: [address] [address] [address] Scan Report Signed Patient: Dakota Gore MR#: [id number] 71 : 1980 Acct:[id number] Age/Sex: 44 / M ADM Date: 02/28/24 Loc: HO.CT Attending Dr: Ramirez Pena MD Ordering Physician: Sacha Heaton MD Date of Service: 02/28/24 Procedure(s): CT abdomen pelvis w IV con Accession Number(s): [id number] cc: Luis Garcias MD; Sacha Heaton MD [...] by: Harrison Redmond MD 03/14/2024 03:31 PM [facility] Dictated By: Harrison Redmond MD Signed By: <Electronically signed by Harrison Redmond MD in OV> 03/14/24 1531 DD/ 1616 TD/TT: 02/28/24 1628 [employer]immer: [place] [address] CT Scan Report Signed Patient: Dwight Gore MR#: [id number] 71 : 1980 Acct:[id number] Age/Sex: 44 / M ADM Date: 02/28/24 Loc: HO.CT Attending Dr: Ramirez Pena MD Ordering Physician: Sacha Heaton MD Date of Service: 02/28/24 Procedure(s): CT abd omen pelvis w IV con Accession Number(s): [id number] cc: Luis Garcias MD; Sacha Heaton MD [...] by: Harrison Redmond MD 03/14/2024 03:31 PM [facility] Dictated By: Jovani Redmond MD Signed By: <Electronically signed by Harrison Redmond MD in OV> 03/14/24 1531 DD/ 1616 TD/TT: 02/28/24 1628 [employer]immer: RACHEL Complete Blood Count no Diff Reviewed date:04/06/2024 04:50:01 PM Interpretation: Performing Lab:[facility], [address] [place] [phone] Notes/Report: White Blood Count 10.0 4.8-10.8 X10*3/uL [...] Panel Reviewed date:04/06/2024 04:49:27 PM Interpretation: Performing Lab:[address] [address] Notes/Report: Sodium 138 135-145 mmol/L Potassium 3.9 [...] A1c Reviewed date:04/06/2024 04:48:55 PM Interpretation: Performing Lab:[facility], [address] [place] [phone] Notes/Report: Hemoglobin A1c % 5.9 <6.0 % [...] average glucose, using the formula of the I1Z-Kzcrtcu Average Glucose study (ADAG), Diabetes Care, Vol.31,#8, Nov. 2007 Type and Screen Reviewed date:04/06/2024 04:49:37 PM Interpretation: Performing Lab:[facility], [address] [place] [phone] Notes/Report: Spec expiration changed by SHIKHA on 04/06/24 Reason: PAT NURSING: Call Blood Bank (ext. [phone]) to band patient on admission. Type and Screen in effect until 2300 on 04/18/2024. Witnessed by MURCA Blood Type OP Antibody Screen NEGATIVE Glucose, Whole Blood Reviewed date:04/18/2024 12:44:11 PM Interpretation: Performing Lab:[facility], [address] [place] [phone] Notes/Report: Glucose, Whole Blood 141 60-115 mg/dL METER # : [id number] Glucose, Whole Blood Reviewed date:04/18/2024 04:23:16 PM Interpretation: Performing Lab:[facility], [address] [place] [phone] Notes/Report: Glucose, Whole Blood 147 60-115 mg/dL METER # : [id number] Glucose, Whole Blood Reviewed date:04/19/2024 03:27:25 PM Interpretation: Performing Lab:[facility], [address] [place] [phone] Notes/Report: Glucose, Whole Blood 137 60-115 mg/dL METER # : [id number] Hold Lav - Possible Hematolo gy Reviewed date:04/19/2024 03:27:11 PM Interpretation: Performing Lab:[facility], [address] [place] [phone] Notes/Report: Hold Lav - Possible Hematology SEE NOTE Specimen will be held untested for 8 hours. Call Hematology if testing is desired. Basic Metabolic Panel Fastin g Reviewed date:04/19/2024 03:27:37 PM Interpretation: Performing Lab:[facility], [address] [place] [phone] Notes/Report: Sodium 142 135-145 mmol/L Potassium 4.1 [...] Blood Reviewed date:04/19/2024 03:28:03 PM Interpretation: Performing Lab:[facility], [address] [place] [phone] Notes/Report: Glucose, Whole Blood 122 60-115 mg/dL METER # : [id number] XR chest 1V Reviewed date:04/20/2024 12:42:31 PM Interpretation: Performing Lab: Notes/Report: [address] [address] XRay Report Signed Patient: Dakota Gore MR#: [id number] 71 : 1980 Acct:[id number] Age/Sex: 44 / M ADM Date: 04/18/24 Loc: [facility] 483-[address]: Sacha Heaton MD Ordering Physician: Patricio Encarnacion MD Date of Service: 04/19/24 Procedure(s): XR chest 1V Accession Number(s): [id number] cc: Patricio Encarnacion MD; Luis Garcias MD [...] by: Teo Mckeon MD 04/19/2024 03:34 PM [facility] Dictated By: Teo Agustin MD Signed By: <Electronically signed by Teo El MD in OV> 04/19/24 1534 DD/ 1420 TD/TT: 04/19/24 1430 [employer]immer: [address] [address] XRay Report Signed Patient: Dwight Gore MR#: [id number] 71 : 1980 Acct:[id number] Age/Sex: 44 / M ADM Date: 04/18/24 Loc: [facility] 483-[address]: Lizzie Heaton MD Ordering Physician: Patricio Encarnacion MD Date of Service: 04/19/24 Procedure(s): XR priya st 1V Accession Number(s): [id number] cc: Melanie Encarnacion MD; Luis Garcias MD [...] by: Teo Mckeon MD 04/19/2024 03:34 PM [facility] Dictated By: Teo Hutchins MD Signed By: <Electronically signed by Teo El MD in OV> 04/19/24 1534 DD/ 1420 TD/TT: 04/19/24 1430 [employer] Trimmer: Glucose, Whole Blood Reviewed date:04/19/2024 03:25:17 PM Interpretation: Performing Lab:[facility], [address] [place] [phone] Notes/Report: Glucose, Whole Blood 158 60-115 mg/dL METER # : [id number] Glucose, Whole Blood Reviewed date:04/20/2024 06:07:40 PM Interpretation: Performing Lab:[facility], [address] [place] [phone] Notes/Report: Glucose, Whole Blood 130 60-115 mg/dL METER # : [id number] Glucose, Whole Blood Reviewed date:04/20/2024 12:41:44 PM Interpretation: Performing Lab:[facility], [address] [place] [phone] Notes/Report: Glucose, Whole Blood 122 60-115 mg/dL METER # : [id number] Glucose, Whole Blood Reviewed date:04/20/2024 12:24:18 PM Interpretation: Performing Lab:[facility], [address] [place] [phone] Notes/Report: Glucose, Whole Blood 144 60-115 mg/dL METER # : [id number] Glucose, Whole Blood Reviewed date:04/20/2024 12:21:43 PM Interpretation: Performing Lab:[facility], [address] [place] [phone] Notes/Report: Glucose, Whole Blood 145 60-115 mg/dL METER # : [id number] Glucose, Whole Blood Reviewed date:06/30/2024 09:48:17 AM Interpretation: Performing Lab:[facility], [address] [place] [phone] Notes/Report: Glucose, Whole Blood 105 60-115 mg/dL METER # : [id number] Reason For Referral Reason local infection of t he skin Diagnosis 1 Local infection of t he skin and subcutaneous tissue, unspecified (L08.9) Referral Organization Luis Garcias MD Referring Provider First Name Luis Referring Provider Last Name Katerine Referring Provider [facility] edicine Referred Provider Sacha Heaton Referred Provider Specialty Surgery General Notes Sarah Dee 0 05/15/2024 10:22:31 AM > patient is aware of his appt Referral Priority Routine Referral Appointment Date 05/17/2024 Reason low testosterone Diagnosis 1 Low testosterone (E2 9.1) Referral Organization Luis Garcias MD Referring Provider First Name Luis Referring Provider Last Name Katerine Referring Provider [facility] Internal edicine Referred Provider Ramirez Ansari Referred Provider Specialty Endocrinolog y General Notes Sarah Dee 0 12/29/2024 10:26:33 AM >referral info faxed Referral Priority Routine Reason Colon polyps Diagnosis 1 Colon polyps (K63.5) Referral Organization Luis Garcias MD Referring Provider First Name Luis Referring Provider Last Name Katerine Referring Provider [facility] Internal edicine Referred Provider Sacha Heaotn Referred Provider Specialty Surgery General Notes Sarah [...] AM >referral info faxed Referral Priority Routine Medications Medication SIG (Take, Route, Frequency, Duration) Notes Start Date End Date Status amLODIPine Besylate 10 MG TAKE 1 TABLET BY MOUTH EVERY DAY Active Lisinopril-hydroCHLOROth iazide 20-25 MG TAKE 1 TABLET BY MOUTH DAILY Orally Once a day Active Ozempic (0.25 or 0.5 MG/DOSE) 2 MG/3ML as directed Subcutaneous 0.5 mg weekly for 30 days 12/28/2023 Active SUMAtriptan Succinate 50 MG 1 tablet as needed Orally as need for migraine Not-Taking Ozempic (1 MG/DOSE) 4 MG/3ML 1 mg Subcutaneous weekly for 90 days 12/29/2024 Active Ventolin HFA 108 (90 Base) MCG/ACT 2 puffs as needed Inhalation every 4 hrs for 30 days 09/27/2018 Not-Taking Flonase 50 MCG/ACT 1 spray in each nost ril Nasally Once a day for 30 day(s) 04/29/2018 Not-Taking Immunizations Vaccine Route Administration Date Status Comme [...] W/U Status Risk Notes Problem Low testosterone (057545676) Low testosterone (E29.1) Active confirmed Problem 378371663 Morbid obesity due to excess calories (E66.01) Active confirmed Problem 01173839 Intrinsic eczema (L20.84) Active confirmed Problem 671552203 Leukocytosis, unspecified type (D72.829) Active confirmed Problem 49027366 Essential hypertension with goal blood pressure less than 140\/90 (I10) Active confirmed Problem 832292144 Prediabetes (R73.03) Active confirmed Problem 825926696 Body mass index (BMI) of 45.0-49.9 in adult (Z68.42) Active confirmed Problem 643259503 Mild intermittent asthmatic bronchitis with acute exacerbation (J45.21) Active confirmed Problem 874349167 History of colon polyps (Z86.010) Active confirmed Problem Obstructive sleep apnea syndrome (57613457) FELICITY on CPAP (G47.33) Active confirmed Problem 53339940 Type 2 diabetes mellitus treated without insulin (E11.9) Active confirmed Vital Signs Blood pressure diastolic 90 mm Hg 12/29/2024 arcenio ght is down 10 pounds since -07-04 Height 71.5 in 12/29/2024 weight is down 10 pounds since 2-07-04 Blood pressure systolic 154 mm Hg 12/29/2024 weig ht is down 10 pounds since 2-07-04 Weight 360 lbs 12/29/2024 weight is down 10 pounds since 2-07-04 BMI 49.5 kg/m2 12/29/2024 weight is down 10 pounds since 2-25 Procedures Procedure Date Ordered Date Performed Result Body Sit e Colonoscopy, Screening 01/04/2024 01/04/2024 Surgi veronica resection recommended Encounters Encounter Location Date Provider Diagnosis Luis Garcias MD [address] [place] [id number] 12/22/2024 Luis Garcias Blood tests for routine general physical examination Z00.00 ; Encounter for administration of vaccine Z23 ; Essential hypertension with goal blood pressure less than 140\/90 I10 ; Type 2 diabetes mellitus treated without insulin E11.9 and Leukocytosis, unspecified type D72.829 Luis Garcias MD [address] [place] [id number] 12/29/2024 Luis Garcias Annual physical exam Z00.00 ; Essential hypertension with goal blood pressure less than 140\/90 I10 ; Low testosterone E29.1 ; Morbid obesity due to excess calories E66.01 ; Type 2 diabetes mellitus treated without insulin E11.9 ; FELICITY on CPAP G47.33 ; Colon polyps K63.5 and Skin lesion L98.9 Luis Garcias MD [address] [place] [id number] 02/11/2024 Luis Garcias Prediabetes R73.03 ; Essential hypertension with goal blood pressure less than 140\/90 I10 and Morbid obesity due to excess calories E66.01 Luis Garcias MD [address] [place] [id number] 05/15/2024 Luis Garcias Prediabetes R73.03 ; Other injury of unspecified body region, initial encounter T14.8XXA ; Local infection of the skin and subcutaneous tissue, unspecified L08.9 and Essential hypertension with goal blood pressure less than 140\/90 I10 Luis Garcias MD [address] [place] [id number] 01/18/2024 Luis Garcias MD [address] [place] [id number] 03/13/2024 Luis Garcias MD [address] [place] [address] [id number] 08/23/2024 Luis Garcias MD [address] [place] [id number] 11/27/2024 Luis Garcias Essential hypertensi on with goal blood pressure less than 140\/90 I10 Assessments Encounter Date Diagnosis (ICD Code) Assessment Notes Treatment Notes Treatment Clinical Notes Section Notes 12/22/2024 Blood tests for routine general physical examination (ICD-10 - Z00.00) 12/22/2024 Encounter for administration of vaccine (ICD-10 - Z23) 12/29/2024 Annual physical exam (ICD-10 - Z00.00) labs reviewed and discussed with patient 12/29/2024 Essential hypertension with goal blood pressure less than 140\/90 (ICD-10 - I10) will continue to monitor 02/11/2024 Prediabetes (ICD-10 - [...] less than 140\/90 (ICD-10 - I10) 12/22/2024 Essential hypertension with goal blood pressure less than 140\/90 (ICD-10 - I10) 12/29/2024 Low testosterone (ICD-10 - E29.1) refer to endocrine 02/11/2024 Morbid obesity due to excess calories (ICD-10 - E66.01) is doing intermittant fasting. also taking his brother's ozempic 05/15/2024 Local infection of the skin and subcutaneous tissue, unspecified (ICD-10 - L08.9) referral back to dr heaton today 12/22/2024 Type 2 diabetes mellitus treated without insulin (ICD-10 - E11.9) 12/29/2024 Morbid obesity due to excess calories (ICD-10 - E66.01) 05/15/2024 Essential hypertension with goal blood pressure less than 140\/90 (ICD-10 - I10) stable, will cintinue current regiment 12/22/2024 Leukocytosis, unspecified type (ICD-10 - D72.829) 12/29/2024 Type 2 diabetes mellitus treated without insulin (ICD-10 - E11.9) patient verbalized undestanding of medication and directions for use 12/29/2024 FELICITY on CPAP (ICD-10 - G47.33) 12/29/2024 Colon polyps (ICD-10 - K63.5) referral back to dr agarwal 12/29/2024 Skin lesion (ICD-10 - L98.9) referral to dr heaton 12/29/2024 Other Plan Of Treatment Pending Test Test Name Order Date Urinalysis and Microscopic 12/22/2024 Microalbumin, Random 12/22/2024 Microalbumin, Random 12/29/2024 UA ClnCatch+Micro w/rflx Cult 12/29/2024 Next Appt Details Provider Name:Luis Goodson ier, 01/30/2025 10:15:00 AM, [address] [place] [address], [address], [place], [place], [phone], Provider Name:Luis Goodson ier, 12/25/2025 08:15:00 AM, [address] [place] [address], [address], [place], [place], [phone], Provider Name:Luis Goodson ier, 01/01/2026 10:30:00 AM, [address] [place] [address], Suite [facility], [place], [place], [phone], Insurance Providers Payer Name Payer Address Payer Phone Subscriber Number Group Number Insured Name Patient Relationship to Insured Coverage Start Date Coverage End Date [address] [place] [address] [id number] Dakota Gore Self - patient is the insured Medical (General) History Medical History History ICD Code father colon cancer age 40; he gets colonoscopy every 2 years. Colonoscopy 02/24/[address] Pena - repeat 3 .07/23/23 colonoscopy pending path-12/31/23 repeat colonoscopy performed Becky, advised surgical resection
== END 2024-12-29 09:31 | disposition home or self-care (01) ==
LOC: HO.LNP 09:30
PROVIDERS: Visit Provider Internal Medicine
DX: Z00.00 Encounter for general adult medical examination without abnormal findings (principal); R73.03 Prediabetes; I10 Essential (primary) hypertension
CPT/HCPCS: 81001; 82043; 82570

== ENCOUNTER 2025-01-12 10:18 | Outpatient (REF) | payer OTHER, SELFPAY ==
--- OUTSIDE RECORDS SUMMARY | 2023-07-23 06:30 | XMS_ITS ---
Author Organization [facility] Address [address] [place] [phone] Care Team Providers Care Traditional Chinese Herbalist Name Role Phone Katerine CHUNG, Luis Primary Care Provider Ramirez Allen [phone] REASON FOR VISIT screening,hx polyps,fam hx colon ca Encounters Encounter Location Date Provider Diagnosis [facility] [place] [address] [place] [phone] 07/23/2023 Ramirez Pena Encounter for scre ening [...] * MARYSE GOREDOB: 8 (44 yo M)Acc No.[id number]:07/23/2023 COLON WITH MAC Patient: MARYSE SIMMONS Provider: Guru Pena MD :1980 A ge:43 Y S ex:Male Date:07/23/2023 Address:[address], [facility] Pcp:Luis Garcias MD Subjective: * Chief Complaints: [...] 5385 LESION REMOVAL COLONOSCOPY, Modifiers: 33 , 21078 COLONOSCOPY AND BIOPSY, Modifiers: 59 , 33 * * The named appointment provid er may or may not be the originator of this progress note, and it is not deemed complete until electronically signed by the appointment provider. Sign off status: Pending * Provider: Guru Pena MD Date: 0 07/23/2023 Generated for Jude carlisle/Migel/Timsmitting on: 1 11:10 AM EDT
--- OUTSIDE RECORDS SUMMARY | 2023-12-31 09:10 | XMS_ITS ---
Author Organization [facility] Address [address] [place] [phone] Care Team Providers Care Technical Engineer Name Role Phone Luis Garcias MD Primary Care Provider Ramirez Allen [phone] REASON FOR VISIT screening, hx polyps, fam hx colon ca Encounters Encounter Location Date Provider Diagnosis [facility] [place] Outpatient [address] [place] [phone] 12/31/2023 Ramirez Pena Colon cancer scree daryl [...] Of Treatment No Information Progress Notes * AMRYSE GOREDOB: 8 (44 yo M)Acc No.[id number]:12/31/2023 COLON WITH MAC Patient: CHELSEA SIMMONSIG Provider: Guru Pena MD :1980 A ge:43 Y S ex:Male Date:12/31/2023 Address:[address] [facility] Pcp:Luis Garcias MD Subjective: * Chief Complaints: [...] 0 12/31/2023 Generated for Jude carlisle/Migel/Emilyitting on: 1 11:11 AM EDT
--- OUTSIDE RECORDS SUMMARY | 2024-11-27 05:40 | XMS_ITS ---
Author Organization Luis Garcias MD Address [address] [place] [phone] Care Team Providers Care Metal Sorter Name Role Phone Luis Garcias Primary Care Provider [phone] REASON FOR VISIT refill lisinopril Medications Medication SIG (Take, Route, Frequency, Duration) Notes Start Date End Date Status Lisinopril-hydroCHLOROthia zide 20-25 MG TAKE 1 TABLET BY MOUTH DAILY Orally Once a day for 90 days Active Encounters Encounter Location Date Provider Diagnosis Luis Garcias MD [address] [place] [address] [place] [phone] 11/27/2024 Luis Garcias Essential hypertension with goal [...] Details Provider Name:Luis zaragoza, 01/30/2025 10:15:00 AM, [address] [place] [address], [address], [phone], Provider Name:Luis zaragoza, 12/25/2025 08:15:00 AM, [address] [place] [address], [address], [phone], Provider Name:Luis zaragoza, 01/01/2026 10:30:00 AM, 10 [facility], [address], [place], [place], [phone], Progress Notes * Dakota GORE PDOB: [birth year] (44 yo M)Acc No.[id number]:11/27/2024 Patient: Santiago ALEXANDROSHELBIEDakota JESUS :1980 A ge:44 Y S ex:Male Address: [place], [address] * Refills Refill Lisinopril-hydroCHLOROthiazide Tablet, 20-25 MG, Orally, 90, TAKE 1 TABLET BY MOUTH DAILY, Once a day, 90 days, Refills=3 * true * Date: Generated for Jude carlisel/Migel/Emilyitting on: 11:11 AM EDT
--- OUTSIDE RECORDS SUMMARY | 2024-12-22 03:30 | XMS_ITS ---
Author Organization Luis Garcias MD Address [address] [place], [place] [id number] Care Team Providers Care Clay Processing Factory Worker Name Role Phone Luis Garcias Primary Care Provider [phone] Results Component Value Reference Range Notes Complete Blood Count Auto Di ff Reviewed date:12/25/2024 11:39:17 AM Interpretation: Performing Lab:[facility], [address] [place] [phone] Notes/Report: White Blood Count 7.6 4.8-10.8 X10*3/uL [...] NRBC Abs Auto 0.000 0.0-0.012 X10*3/uL Comprehensive [place]. Panel Fa st Reviewed date:12/24/2024 05:38:21 PM Interpretation: Performing Lab:[address] [address] Notes/Report: Sodium 141 135-145 mmol/L Potassium 4.1 [...] Panel Reviewed date:12/22/2024 12:33:41 PM Interpretation: Performing Lab:[address] [phone] Notes/Report: Triglycerides 210 <150 mg/dL Desirable Triglyceride: [...] (Free>4and<10) Reviewed date:12/22/2024 12:50:11 PM Interpretation: Performing Lab:[address] [phone] Notes/Report: PSA,Total (Free>4and<10) 1.21 0.00-4.00 ng/mL A [...] A1c Reviewed date:12/22/2024 12:30:10 PM Interpretation: Performing Lab:[address] [phone] Notes/Report: Hemoglobin A1c % 6.2 <6.0 % [...] average glucose, using the formula of the B4M-Efcgfyn Average Glucose study (ADAG), Diabetes Care, Vol.31,#8, Nov. 2007 REASON FOR VISIT yearly fasting labs Immunizations Vaccine Route Administration Date Status Comme nts Fluarix Quadrivalent - 150 IM Intramuscular 12/22/2024 Adm inistered Encounters Encounter Location Date Provider Diagnosis Luis Garcias MD [address] [place] [phone] 12/22/2024 Luis Garcias Blood tests for routine [...] 12/22/2024 Next Appt Details Provider Name:Luis zaragoza, 01/30/2025 10:15:00 AM, [address] [place] [address], [address], [phone], Provider Name:Luis zaragoza, 12/25/2025 08:15:00 AM, [address] [place] [address], [address], [phone], Provider Name:Luis zaragoza, 01/01/2026 10:30:00 AM, [address] [place] [address], [address], [phone], Progress Notes * Dakota GORE PDOB: [birth year] (44 yo M)Acc No.[id number]:12/22/2024 Progress Note Patient: aDkota SIMMONS Provider: Winnie Garcias MD :1980 A ge:44 Y S ex:Male Date:12/22/2024 Address:[address] [facility] Subjective: * Chief Complaints: * 1 . [...] - 12/22/2024 07:15 AM) L AB: Comprehensive [place]. Panel Fast (Collection Date & Time - [...] - 12/22/2024 07:15 AM) L AB: Comprehensive [place]. Panel Fast (Collection Date & Time - [...] - 12/22/2024 07:15 AM) L AB: Comprehensive [place]. Panel Fast (Collection Date & Time - [...] * Procedure Codes: 3 6415 VENIPUNCT, ROUTINE*, 81667 FLU VACCINE NO PRESERV 3 & >, 18486 IMMUNIZATION ADMIN * * The named appointment provid er may or may not be the originator of this progress note, and it is not deemed complete until electronically signed by the appointment provider. Sign off status: Pending * Provider: Winnie Garcias MD Date: 0 12/22/2024 Generated for Jude carlisle/Migel/Emilyitting on: 1 11:11 AM EDT
--- OUTSIDE RECORDS SUMMARY | 2024-12-29 05:30 | XMS_ITS ---
Author Organization Luis Garcias MD Address [address] [place], [place] [id number] Care Team Providers Care Computing Consultant Name Role Phone Luis Garcias Primary Care Provider [phone] Allergies No Known Allergies Results Component Value Reference Range Notes Microalbumin, Random Reviewed date:12/31/2024 02:43:48 PM Interpretation: Performing Lab:[facility], [address] [place] [phone] Notes/Report: Creatinine Urine 131.45 Microalbumin Urine < 5.0 Microalbum/Creatinine Ratio Ur TNP <30 ug/mg cr Unable to calculate albumin/creatinine ratio due to low microalbumin or creatinine result. UA ClnCatch+Micro w/rflx Cul t Reviewed date:12/29/2024 12:54:22 PM Interpretation: Performing Lab:[facility], [address] [place] [phone] Notes/Report: Urine, Clean Catch Color Urine Yellow Appearance Urine Clear PH 6.0 5.0-9.0 Glucose Urine UA Negative Negative mg/dL Urine Blood Negative Negative Specific [place] - Urine 1.025 1.005-1.025 Urine Protein Negative [...] some lab work done. message sent to PCP Referral Priority Routine Reason Colon polyps Diagnosis 1 Colon polyps (K63.5) Referral Organization Luis Garcias MD Referring Provider First Name Luis Referring Provider Last Name Katerine Referring Provider Speciality Internal edicine Referred Provider Sacha Almaguer Referred Provider Specialty Surgery General Notes Sarah Dee 0 12/29/2024 10:27:22 AM >referral info faxed Referral Priority Routine Reason skin lesion Diagnosis 1 Skin lesion (L98.9) Referral Organization Luis Garcias MD Referring Provider First Name Luis Referring Provider Last Name Katerine Referring Provider Speciality Internal edicine Referred Provider Sacha Almaguer Referred Provider Specialty Surgery General Notes Sarah Dee 0 12/29/2024 10:27:37 AM >referral info faxed Referral Priority Routine REASON FOR VISIT annual visit, HCC Risk [...] W/U Status Risk Notes Problem Low testosterone (543453816) Low testosterone (E29.1) Active confirmed Problem Obstructive sleep apnea syndrome (97495543) FELICITY on CPAP (G47.33) Active confirmed Vital Signs Blood pressure systolic 154 mm Hg 12/30/19 25 Blood pressure diastolic 90 mm Hg 025 Height 71.5 in 12/29/2024 Weight 360 lbs 12/29/2024 BMI 49.5 kg/m2 12/29/2024 weight is down 10 pounds sin ce 2-3-25 Encounters Encounter Location Date Provider Diagnosis Luis Garcias MD [address] [place] [id number] 12/29/2024 Luis Garcias Annual physical exam Z00.00 [...] Follow Up: 4 Weeks, Reason: Provider Name:Luis zargaoza, 01/30/2025 10:15:00 AM, [address] [place] [address], [address] [place] [address], [phone], Provider Name:Luis zaragoza, 12/25/2025 08:15:00 AM, [address] [place] [address], Suite [facility], [place], [place], [phone], Provider Name:Luis zaragoza, 01/01/2026 10:30:00 AM, [address] [place] [address], [address] [place] [address], [phone], Progress Notes * Dakota GORE PDOB: [birth year] (44 yo M)Acc No.[id number]:12/29/2024 Progress Notes Patient: Dakota SIMMONS Provider: Winnie Garcias MD :1980 A ge:44 Y S ex:Male Date:12/29/2024 Address[place] [address] Subjective: * Chief Complaints: * A nnual visitHCC Risk Codesneeded: E11.9 DM without complications * [...] Average Glucose 131 - mg/dL L ab:Comprehensive [place]. Panel Fast (Order Date - 12/22/2024) (Collection [...] MD Date: 0 12/29/2024 Generated for Jude carlisle/Migel/Emilyitting on: 1 11:10 AM EDT History and Physical Notes * [...] Total Score: 0 Interpretation and Intervention Depression Yared brito Findings: Negative Follow-Up for Depression: : review [...] Francis Colon polyps 12/29/2024 Luis Garcias Francis skin l esion
--- OUTSIDE RECORDS SUMMARY | 2025-01-04 08:37 | XMS_ITS ---
Author Organization Luis Garcias MD Address [address] [place] [phone] Care Team Providers Care Profiler Hand Name Role Phone Luis Garcias Primary Care Provider [phone] REASON FOR VISIT referral Problems Problem Type SNOMED Code ICD Code Onset Dates Problem Status W/U Status Risk Notes Problem Androgen deficiency (31843222) Testosterone deficiency (E29.1) Active confirmed Encounters Encounter Location Date Provider Diagnosis Luis Garcias MD [address] [facility] [address] [place] [phone] 01/04/2025 Luis Garcias Testosterone deficiency E29.1 Assessments Encounter Date Diagnosis (ICD Code) Assessment Notes Treatment Notes Treatment Clinical Notes Section Notes 01/04/2025 Testosterone deficiency (ICD-10 - E29.1) Plan Of Treatment Pending Test Test Name Order Date Testosterone, Free/Total 01/04/2025 Next Appt Details Provider Name:Luis zaragoza, 01/30/2025 10:15:00 AM, [address] [place] [address], [address], [phone], Provider Name:Luis zaragoza, 12/25/2025 08:15:00 AM, [address] [place] [address], [phone], Provider Name:Luis zaragoza, 01/01/2026 10:30:00 AM, [address] [place] [address], [phone], Progress Notes * Dakota GORE PDOB: [birth year] (44 yo M)Acc No.[id number]:01/04/2025 Patient: Dakota SIMMONS :1980 A ge:44 Y S ex:Male Address:[address] [place] [address], [place] [address] Subjective: * Chief Complaints: * R eferral * Medical History: * Surgical History: * Hospitalization/Major Diagno stic Procedure: * Medications: Objective: * Vitals: * Physical Examination: Assessment: * Assessment: 1. T estosterone deficiency - E29.1 (Primary) Plan: * Treatment: * Procedure Codes: * true * Date: Generated for Jude carlisle/Migel/Maria Del Carmen on: 11:10 AM EDT
--- OUTSIDE RECORDS SUMMARY | 2025-01-12 04:15 | XMS_ITS ---
Author Organization Luis Garcias MD Address [address] [place] [phone] Care Team Providers Care Mechanical Detailer Name Role Phone Luis Garcias Primary Care Provider [phone] REASON FOR VISIT testosterone free/ total Encounters Encounter Location Date Provider Diagnosis Luis Garcias MD 10 [facility] [address] [place] [phone] 01/12/2025 Luis Garcias Testosterone deficiency E29.1 Assessments Encounter Date Diagnosis (ICD Code) Assessment Notes Treatment Notes Treatment Clinical Notes Section Notes 01/12/2025 Testosterone deficiency (ICD-10 - E29.1) Plan Of Treatment Pending Test Test Name Order Date Testosterone, Free/Total 01/12/2025 Next Appt Details Provider Name:Luis zaragoza, 01/30/2025 10:15:00 AM, [address] [place] [address], [address], [phone], Provider Name:Luis zaragoza, 12/25/2025 08:15:00 AM, [address] [place] [address], [address], [phone], Provider Name:Luis zaragoza, 01/01/2026 10:30:00 AM, [address] [place] [address], [address], [phone], Progress Notes * Dakota GORE PDOB: [birth year] (44 yo M)Acc No.[id number]:01/12/2025 Progress Note Patient: Dakota SIMMONS Provider: Winnie Garcias MD :1980 A ge:44 Y S ex:Male Date:01/12/2025 [facility] Subjective: * Chief Complaints: * 1 . [...] Pending * Provider: Winnie Garcias MD Date: Generated for Jude carlisle/Migel/Emilyitting on: 11:10 AM EDT
--- OUTSIDE RECORDS SUMMARY | 2025-01-12 11:10 | XMS_ITS | Patient Health Record ---
Author Organization [facility] Address [address] [place] [address] Care Team Providers Care Locomotive Observer Name Role Phone Luis Garcias MD Primary Care Provider Ramirez Allen [phone] Allergies No Known Allergies Reason For Referral No Information Medications Medication [...] Problem Status W/U Status Risk Notes Problem [id number] Encounter for screening for malignant neoplasm of colon (Z12.11) Active confirmed Problem 453514351 History of adenomatous polyp of colon (Z86.010) Active confirmed Problem Screening for malignant neoplasm of rectum (784014603) Encounter for screening for malignant neoplasm of rectum (Z12.12) Active confirmed Problem 79596850 Preprocedural examination (Z01.818) Active confirmed Problem 295901369 Family history o f colon cancer (Z80.0) Active confirmed Problem Mass of hepatic flexure of colon (9591279410169 07) 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 Encounters Encounter Location Date Provider Diagnosis [facility] [address] [place] [address] 10/31/2024 Ramirez Pena [facility] [address] [place] [phone] 03/10/2024 Ramirez Pena Plan Of Treatment Pending Test Test Name [...] Insured Coverage Start Date Coverage End Date [facility] [address] [place] [address] [id number] MARYSE GORE Self - patient is the insured Medical (General) History Medical History History ICD Code Denies CO,DM,CVA,Lung disease,renal dise ase HTN Colonoscopy 04/2006 - [...] some nonspecific inflammation. Surgical History Surgery Date(Month/Year) [place] teeth extraction Fatty tumor removed from scalp 2015
--- OUTSIDE RECORDS SUMMARY | 2025-01-12 11:11 | XMS_ITS | Clinical Summary ---
Author Organization [facility] Address [address] [place] [phone] Phone Care Team Providers Care Corner Brace Block Machine Operator Name Role Phone Arnoldo Gore MD Primary Care Provider [phone] Allergies No known active allergies Medications No [...] FOBT 2023 SIGMOIDOSCOPY 2023 VIRTUAL COLONOSCOPY 2023 INFLUENZA VACCINE (#1) 2024 COVID-19 VACCINE (3 - 2024-2 6 season) 2024 08/27/2020, 08/06/2020 SCREENING FOR DIABETES 07/11/2025 07/11/2022 Adult Td,Tdap [...] topic Medical Devices Not on file Insurance [facility] Care Teams Corner Brace Block Machine Operator Relationship Specialty Start Date End Date Arnoldo Gore MD [address] [place] [address] PCP - [facility] Surgery 07/05/15 Additional Source Comments The information contained in this document represents components of the legal health record. It is not the complete legal health record.[facility]
--- OUTSIDE RECORDS SUMMARY | 2025-01-12 11:12 | XMS_ITS | Patient Health Record ---
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 Panel Fa st Reviewed date:12/24/2024 05:38:21 PM Interpretation: Performing Lab:[address] [address] Notes/Report: Sodium 141 135-145 mmol/L Potassium 4.1 [...] Panel Reviewed date:12/22/2024 12:33:41 PM Interpretation: Performing Lab:[facility], [address] [place] [phone] Notes/Report: Triglycerides 210 <150 mg/dL Desirable Triglyceride: [...] (Free>4and<10) Reviewed date:12/22/2024 12:50:11 PM Interpretation: Performing Lab:[address] [address] Notes/Report: PSA,Total (Free>4and<10) 1.21 0.00-4.00 ng/mL A [...] A1c Reviewed date:12/22/2024 12:30:10 PM Interpretation: Performing Lab:[address] [address] Notes/Report: Hemoglobin A1c % 6.2 <6.0 % [...] average glucose, using the formula of the Q2J-Bqyqbfy Average Glucose study (ADAG), Diabetes Care, Vol.31,#8, Nov. 2007 Glucose, finger stick Reviewed date:02/11/2024 10:00:54 AM Interpretation: Performing Lab: Notes/Report: Value 111 Glucose, finger stick Reviewed date:05/15/2024 09:57:52 AM Interpretation: Performing Lab: Notes/Report: Value 109 Microalbumin, Random Reviewed date:12/31/2024 02:43:48 PM Interpretation: Performing Lab:[facility], [address] [place] [address] Notes/Report: Creatinine Urine 131.45 Microalbumin Urine < 5.0 Microalbum/Creatinine Ratio Ur TNP <30 ug/mg cr Unable to calculate albumin/creatinine ratio due to low microalbumin or creatinine result. UA ClnCatch+Micro w/rflx Cul t Reviewed date:12/29/2024 12:54:22 PM Interpretation: Performing Lab:[facility], [address] [place] [phone] Notes/Report: Urine, Clean Catch Color Urine Yellow Appearance Urine Clear PH 6.0 5.0-9.0 Glucose Urine UA Negative Negative mg/dL Urine Blood Negative Negative Specific [place] - Urine 1.025 1.005-1.025 Urine Protein Negative Neg-Trace mg/dL Urine Ketones Negative Negative mg/dL Nitrite Urine Negative Negative Leukocyte Esterase Urine Negative Negative RBC Urine 0-2 0-2 /HPF WBC Urine 0-5 0-5 /HPF Squamous Epithelial Cell Urine 0-2 0-2 /HPF Bacteria Urine None Seen None Seen Hyaline Casts Urine 0-2 0-2 /LPF CT abdomen pelvis w con Reviewed date:03/14/2024 05:08:21 PM Interpretation: Performing Lab: Notes/Report: [address] [address] [address] Scan Report Signed Patient: Dakota Gore MR#: [id number] 71 : 1980 Acct:[id number] Age/Sex: 44 / M ADM Date: 02/28/24 Loc: HO.CT Attending Dr: Ramirez Pena MD Ordering Physician: Sacha Heaton MD Date of Service: 02/28/24 Procedure(s): CT abdomen pelvis w IV con Accession Number(s): [id number] cc: Luis Garcias MD; Sacha Heaton MD [...] 03/14/2024 03:31 PM [facility] Dictated By: Harrison Redmond MD Signed By: <Electronically signed by Harrison Redmond MD in OV> 03/14/24 1531 DD/ 1616 TD/TT: 02/28/24 1628 Payroll Secretary: [address] [address] [address] Scan Report Signed Patient: Dwight Gore MR#: [id number] [birth year] : 1980 Acct:[id number] Age/Sex: 44 / M ADM Date: 02/28/24 Loc: HO.CT Attending Dr: Ramirez Pena MD Ordering Physician: Sacha Heaton MD Date of Service: 02/28/24 Procedure(s): CT abd omen pelvis w IV con Accession Number(s): [id number] cc: Luis Garcias MD; Sacha Heaton MD [...] 03/14/24 1531 DD/ 1616 TD/TT: 02/28/24 1628 Payroll Secretary: RACHEL Complete Blood Count no Diff Reviewed date:04/06/2024 04:50:01 PM Interpretation: Performing Lab:[facility], [address] [place] [phone] Notes/Report: White Blood Count 10.0 4.8-10.8 X10*3/uL [...] Panel Reviewed date:04/06/2024 04:49:27 PM Interpretation: Performing Lab:[facility], [address] [place] [phone] Notes/Report: Sodium 138 135-145 mmol/L Potassium 3.9 [...] A1c Reviewed date:04/06/2024 04:48:55 PM Interpretation: Performing Lab:[facility], [address] [place] [phone] Notes/Report: Hemoglobin A1c % 5.9 <6.0 % [...] average glucose, using the formula of the C8Y-Rnwuead Average Glucose study (ADAG), Diabetes Care, Vol.31,#8, 2007 Type and Screen Reviewed date:04/06/2024 04:49:37 PM Interpretation: Performing Lab:[facility], [address] [place] [phone] Notes/Report: Spec expiration changed by SHIKHA on 04/06/24 Reason: PAT NURSING: Call Blood Bank (ext. [phone]) to band patient on admission. Type and Screen in effect until 2300 on 04/18/2024. Witnessed by MURCA Blood Type OP Antibody Screen NEGATIVE Glucose, Whole Blood Reviewed date:04/18/2024 12:44:11 PM Interpretation: Performing Lab:[facility], [address] [place] [phone] Notes/Report: Glucose, Whole Blood 141 60-115 mg/dL METER # : [id number] Glucose, Whole Blood Reviewed date:04/18/2024 04:23:16 PM Interpretation: Performing Lab:[facility], [address] [place] [phone] Notes/Report: Glucose, Whole Blood 147 60-115 mg/dL METER # : [id number] Glucose, Whole Blood Reviewed date:04/19/2024 03:27:25 PM Interpretation: Performing Lab:[facility], [address] [place] [phone] Notes/Report: Glucose, Whole Blood 137 60-115 mg/dL METER # : [id number] Hold Lav - Possible Hematolo gy Reviewed date:04/19/2024 03:27:11 PM Interpretation: Performing Lab:[facility], [address] [place] [phone] Notes/Report: Hold Lav - Possible Hematology SEE NOTE Specimen will be held untested for 8 hours. Call Hematology if testing is desired. Basic Metabolic Panel Fastin g Reviewed date:04/19/2024 03:27:37 PM Interpretation: Performing Lab:[facility], [address] [place] [phone] Notes/Report: Sodium 142 135-145 mmol/L Potassium 4.1 [...] Blood Reviewed date:04/19/2024 03:28:03 PM Interpretation: Performing Lab:[facility], [address] [place] [phone] Notes/Report: Glucose, Whole Blood 122 60-115 mg/dL METER # : [id number] XR chest 1V Reviewed date:04/20/2024 12:42:31 PM Interpretation: Performing Lab: Notes/Report: [address] [place] [address] XRay Report Signed Patient: Dakota Gore MR#: [id number] [birth year] : 1980 Acct:[id number] Age/Sex: 44 / M ADM Date: 04/18/24 Loc: [facility] 483-[address]: Sacha Heaton MD Ordering Physician: Patricio Encarnacion MD Date of Service: 04/19/24 Procedure(s): XR chest 1V Accession Number(s): [id number] cc: Patricio Encarnacion MD; Luis Garcias MD [...] 04/19/2024 03:34 PM [facility] Dictated By: Teo Agustin MD Signed By: <Electronically signed by Teo El MD in OV> 04/19/24 1534 DD/ 1420 TD/TT: 04/19/24 1430 Payroll Secretary: [address] [address] XRay Report Signed Patient: Dwight Gore MR#: [id number] [birth year] : 1980 Acct:[id number] Age/Sex: 44 / M ADM Date: 04/18/24 Loc: [facility] 483-[address]: Lizzie Heaton MD Ordering Physician: Patricio Encarnacion MD Date of Service: 04/19/24 Procedure(s): XR priya st 1V Accession Number(s): [id number] cc: Melanie Encarnacion MD; Luis Garcias MD [...] 04/19/24 1534 DD/ 1420 TD/TT: 04/19/24 1430 Payroll Secretary: Glucose, Whole Blood Reviewed date:04/19/2024 03:25:17 PM Interpretation: Performing Lab:[facility], [address] [place] [phone] Notes/Report: Glucose, Whole Blood 158 60-115 mg/dL METER # : [id number] Glucose, Whole Blood Reviewed date:04/20/2024 06:07:40 PM Interpretation: Performing Lab:[facility], [address] [place] [phone] Notes/Report: Glucose, Whole Blood 130 60-115 mg/dL METER # : [id number] Glucose, Whole Blood Reviewed date:04/20/2024 12:41:44 PM Interpretation: Performing Lab:[facility], [address] [place] [phone] Notes/Report: Glucose, Whole Blood 122 60-115 mg/dL METER # : [id number] Glucose, Whole Blood Reviewed date:04/20/2024 12:24:18 PM Interpretation: Performing Lab:[facility], [address] [place] [phone] Notes/Report: Glucose, Whole Blood 144 60-115 mg/dL METER # : [id number] Glucose, Whole Blood Reviewed date:04/20/2024 12:21:43 PM Interpretation: Performing Lab:[facility], [address] [place] [phone] Notes/Report: Glucose, Whole Blood 145 60-115 mg/dL METER # : [id number] Glucose, Whole Blood Reviewed date:06/30/2024 09:48:17 AM Interpretation: Performing Lab:[facility], [address] [place] [phone] Notes/Report: Glucose, Whole Blood 105 60-115 mg/dL METER # : [id number] Reason For Referral Reason local infection of t he skin Diagnosis 1 Local infection of t he skin and subcutaneous tissue, unspecified (L08.9) Referral Organization Luis Garcias MD Referring Provider First Name Luis Referring Provider Last Name Katerine Referring Provider [facility] edicine Referred Provider Sacha Heaton Referred Provider Specialty Surgery General Notes Sarah Dee 0 05/15/2024 10:22:31 AM > patient is aware of his appt Referral Priority Routine Referral Appointment Date 05/17/2024 Reason low testosterone Diagnosis 1 Low testosterone (E2 9.1) Referral Organization Luis Garcias MD Referring Provider First Name Luis Referring Provider Last Name Katerine Referring Provider [facility] Referred Provider Ramirez Ansari Referred Provider Specialty [...] Referring Provider Last Name Katerine Referring Provider [facility] edicine Referred Provider Sacha Heaton [...] W/U Status Risk Notes Problem Androgen deficiency (97930142) Testosterone deficiency (E29.1) Active confirmed Problem Low testosterone (765883537) Low testosterone (E29.1) Active confirmed Problem 786707549 Morbid obesity due to excess calories (E66.01) Active confirmed Problem 90566563 Intrinsic eczema (L20.84) Active confirmed Problem 562903204 Leukocytosis, unspecified type (D72.829) Active confirmed Problem 43320026 Essential hypertension with goal blood pressure less than 140\/90 (I10) Active confirmed Problem 495751508 Prediabetes (R73.03) Active confirmed Problem 628891257 Body mass index (BMI) of 45.0-49.9 in adult (Z68.42) Active confirmed Problem 833880960 Mild intermittent asthmatic bronchitis with acute exacerbation (J45.21) Active confirmed Problem 967404759 History of colon polyps (Z86.010) Active confirmed Problem Obstructive sleep apnea syndrome (81197340) FELICITY on CPAP (G47.33) Active confirmed Problem 08297478 Type 2 diabetes mellitus treated without insulin (E11.9) Active confirmed Vital Signs Blood pressure diastolic 90 mm Hg 12/29/2024 arcenio ght is down 10 pounds since 05-15-24 Height 71.5 in 12/29/2024 weight is down 10 pounds since 05-15-24 Blood pressure systolic 154 mm Hg 12/29/2024 weig ht is down 10 pounds since 05-15-24 Weight 360 lbs 12/29/2024 weight is down 10 pounds since 05-15-24 BMI 49.5 kg/m2 12/29/2024 weight is down 10 pounds since 05-15-24 Encounters Encounter Location Date Provider Diagnosis Luis Garcias MD [address] [place] [address] Drive [address] [place] [id number] 12/22/2024 Luis Garcias Blood tests for routine general physical examination Z00.00 ; Encounter for administration of vaccine Z23 ; Essential hypertension with goal blood pressure less than 140\/90 I10 ; Type 2 diabetes mellitus treated without insulin E11.9 and Leukocytosis, unspecified type D72.829 Luis Garcias MD [address] [place] [address] Drive [address] [place] [id number] 01/12/2025 Luis Garcias Testosterone deficiency E29.1 Luis Garcias MD [address] [place] [address] [address] [place] [id number] 02/11/2024 Luis Garcias Prediabetes R73.03 ; Essential hypertension with goal blood pressure less than 140\/90 I10 and Morbid obesity due to excess calories E66.01 Luis Garcias MD [address] [place] [id number] 05/15/2024 Luis Garcias Prediabetes R73.03 ; Other injury of unspecified body region, initial encounter T14.8XXA ; Local infection of the skin and subcutaneous tissue, unspecified L08.9 and Essential hypertension with goal blood pressure less than 140\/90 I10 Luis Garcias MD [address] [place] [id number] 12/29/2024 Luis Garcias Annual physical exam Z00.00 ; Essential hypertension with goal blood pressure less than 140\/90 I10 ; Low testosterone E29.1 ; Morbid obesity due to excess calories E66.01 ; Type 2 diabetes mellitus treated without insulin E11.9 ; FELICITY on CPAP G47.33 ; Colon polyps K63.5 and Skin lesion L98.9 Luis Garcias MD [address] [place] [id number] 01/18/2024 Luis Garcias MD [address] [place] [id number] 03/13/2024 Luis Garcias MD [address] [place] [id number] 08/23/2024 Luis Garcias MD [address] [place] [id number] 11/27/2024 Luis Garcias Essential hypertensi on with goal blood pressure less than 140\/90 I10 Luis Garcias MD [address] [place] [id number] 01/04/2025 Luis Garcias Testosterone deficiency E29.1 Assessments Encounter Date Diagnosis (ICD Code) Assessment Notes Treatment Notes Treatment Clinical Notes Section Notes 12/22/2024 Blood tests for routine general physical examination (ICD-10 - Z00.00) 12/22/2024 Encounter for administration of vaccine (ICD-10 - Z23) 01/12/2025 Testosterone deficiency (ICD-10 - E29.1) 02/11/2024 Prediabetes (ICD-10 - R73.03) sugar is better, will continue to monitor 02/11/2024 Essential hypertension with goal blood pressure less than 140\/90 (ICD-10 - I10) doing well on meds, will coontinue current regiment andsaritall continue to monitor 05/15/2024 Prediabetes (ICD-10 - R73.03) will continue current regiment 05/15/2024 Other injury of unspecified body region, initial encounter (ICD-10 - T14.8XXA) 12/29/2024 Annual physical exam (ICD-10 - Z00.00) labs reviewed and discussed with patient 12/29/2024 Essential hypertension with goal blood pressure less than 140\/90 (ICD-10 - I10) will continue to monitor 11/27/2024 Essential hypertension with goal blood pressure less than 140\/90 (ICD-10 - I10) 01/04/2025 Testosterone deficiency (ICD-10 - E29.1) 12/22/2024 Essential hypertension with goal blood pressure less than 140\/90 (ICD-10 - I10) 02/11/2024 Morbid obesity due to excess calories (ICD-10 - E66.01) is doing intermittant fasting. also taking his brother's ozempic 05/15/2024 Local infection of the skin and subcutaneous tissue, unspecified (ICD-10 - L08.9) referral back to dr heaton today 12/29/2024 Low testosterone (ICD-10 - E29.1) refer to endocrine 12/22/2024 Type 2 diabetes mellitus treated without insulin (ICD-10 - E11.9) 05/15/2024 Essential hypertension with goal blood pressure less than 140\/90 (ICD-10 - I10) stable, will cintinue current regiment 12/29/2024 Morbid obesity due to excess calories (ICD-10 - E66.01) 12/22/2024 Leukocytosis, unspecified type (ICD-10 - D72.829) [...] Name Order Date Urinalysis and Microscopic 12/22/2024 Testosterone, Free/Total 01/12/2025 Testosterone, Free/Total 01/04/2025 Microalbumin, Random 12/22/2024 Next Appt Details Provider Name:Luis Jimenez Kellee ier, 01/30/2025 10:15:00 AM, [address] [place] [address], [address], [phone], Provider Name:Luis Jimenez Jajaxin ier, 12/25/2025 08:15:00 AM, [address] [place] [address], [address], [phone], Provider Name:Luis Goodson ier, 01/01/2026 10:30:00 AM, [address] [place] [address], [address], [phone], Insurance Providers Payer Name Payer Address Payer Phone Subscriber Number Group Number Insured Name Patient Relationship to Insured Coverage Start Date Coverage End Date [address] [place] [address] [id number] Dakota Gore Self - patient is the insured Medical (General) History Medical History History ICD Code father colon cancer age 40; he gets colonoscopy every 2 years. Colonoscopy 02/24/[address] Pena - repeat 3 .07/23/23 colonoscopy pending path-12/31/23 repeat colonoscopy performed Becky, advised surgical resection
[2025-01-18 19:18] LABS: Testosterone, Free 36.0 pg/mL (35.0-155.0)
== END 2025-01-12 10:19 | disposition home or self-care (01) ==
LOC: HO.LNP 10:18
PROVIDERS: Visit Provider Internal Medicine
DX: E29.1 Testicular hypofunction (principal)
CPT/HCPCS: 84402; 84403

== ENCOUNTER → 2025-01-29 09:53 | Outpatient (BNVA) | payer OTHER, SELFPAY | PROVIDERS: PCP Internal Medicine; Visit Provider Physician Assistant Medical | DX: S61.211A Laceration without foreign body of left index finger without damage to nail, initial encounter (principal); W26.9XXA Contact with unspecified sharp object(s), initial encounter; Z23 Encounter for immunization | CPT/HCPCS: 90715; 99202 ==

== ENCOUNTER 2025-01-31 08:56 | Outpatient (AMB) | payer OTHER, SELFPAY ==
--- OUTSIDE RECORDS SUMMARY | 2023-12-31 09:10 | XMS_ITS ---
Author Organization [facility] Address [address] [place] [phone] Care Team Providers Care Battery Container Finishing Hand Name Role Phone Luis Garcias MD Primary Care Provider Ramirez Allen [phone] REASON FOR VISIT screening, hx polyps, fam hx colon ca Encounters Encounter Location Date Provider Diagnosis [facility] [place] Outpatient [address] [place] [phone] 12/31/2023 Ramirez Pena Colon cancer scree daryl Z12.11 ; Colon polyps K63.5 and Family history of colon cancer Z80.0 Assessments Encounter Date Diagnosis (ICD Code) Assessment Notes Treatment Notes Treatment Clinical Notes Section Notes 12/31/2023 Colon cancer screening (ICD-10 - Z12.11) 12/31/2023 Colon polyps (ICD-10 - K63.5) 12/31/2023 Family history of colon cancer (ICD-10 - Z80.0) Plan Of Treatment No Information Progress Notes * MARYSE GOREDOB: 8 (45 yo M)Acc No.[id number]:12/31/2023 COLON WITH MAC Patient: CHELSEA SIMMONSIG Provider: Guru Pena MD :1980 A ge:43 Y S ex:Male Date:12/31/2023 Address:[address] [facility] Pcp:Luis Garcias MD Subjective: * Chief Complaints: * 1 . Screening, hx polyps, fam hx colon ca. * Medical History: Objective: * Vitals: Assessment: * Assessment: 1. C olon cancer screening - Z12.11 (Primary) 2 . C olon polyps - K63.5? 3. F amily history of colon cancer - Z80.0 Plan: * Treatment: * Procedure Codes: 4 5385 LESION REMOVAL COLONOSCOPY, Modifiers: 53 * * The named appointment provid er may or may not be the originator of this progress note, and it is not deemed complete until electronically signed by the appointment provider. Sign off status: Pending * Provider: Guru Pena MD Date: 0 12/31/2023 Generated for Jude carlisle/Migel/Emilyitting on: 09:52 AM EDT
--- OUTSIDE RECORDS SUMMARY | 2024-02-11 06:00 | XMS_ITS ---
Author Organization Luis Garcias MD Address [address] [place], [place] [phone] Care Team Providers Care Marketing Sales Consultant Name Role Phone Luis Garcias Primary Care Provider [phone] Allergies No Known Allergies Results Component Value Reference Range Notes Glucose, finger stick Reviewed date:02/11/2024 10:00:54 AM Interpretation: Performing Lab: Notes/Report: Value 111 REASON FOR VISIT high blood pressure Medications Medication SIG (Take, Route, Frequency, Duration) Notes Start Date End Date Status amLODIPine Besylate 10 MG TAKE 1 TABLET BY MOUTH EVERY DAY Active Lisinopril-hydroCHLOROth iazide 20-25 MG 1 tablet Orally Once a day 10/01/2023 Active Ozempic (0.25 or 0.5 MG/DOSE) 2 MG/3ML as directed Subcutaneous 0.25 mg weekly 12/28/2023 Active Ventolin HFA 108 (90 Base) MCG/ACT 2 puffs as needed Inhalation every 4 hrs for 30 days 09/27/2018 Not-Taking SUMAtriptan Succinate 50 MG 1 tablet as needed Orally as need for migraine Not-Taking Flonase 50 MCG/ACT 1 spray in each nost ril Nasally Once a day for 30 day(s) 04/29/2018 Not-Taking Vital Signs Blood pressure systolic 136 mm Hg 02/11/20 24 Blood pressure diastolic 90 mm Hg 024 Height 71.5 in 02/11/2024 Weight 370 lbs 02/11/2024 BMI 50.88 kg/m2 02/11/2024 weight is down 10 pounds sin ce 9-17-24 Encounters Encounter Location Date Provider Diagnosis Luis Garcias MD [address] [facility] [address] [place], [place] [phone] 02/11/2024 Luis Garcias Prediabetes R73.03 ; Essential hypertension with goal blood pressure less than 140\/90 I10 and Morbid obesity due to excess calories E66.01 Assessments Encounter Date Diagnosis (ICD Code) Assessment Notes Treatment Notes Treatment Clinical Notes Section Notes 02/11/2024 Prediabetes (ICD-10 - R73.03) sugar is better, will continue to monitor 02/11/2024 Essential hypertension with goal blood pressure less than 140\/90 (ICD-10 - I10) doing well on meds, will coontinue current regiment andwill continue to monitor 02/11/2024 Morbid obesity due to excess calories (ICD-10 - E66.01) is doing intermittant fasting. also taking his brother's ozempic Plan Of Treatment Medication Medication Name Sig Start Date Stop Date Notes amLODIPine Besylate 10 MG TAKE 1 TABLET BY MOUTH EVERY DAY Lisinopril-hydroCHLOROthiazi de 20-25 MG 1 tablet Orally Once a day 10/01/2023 Ozempic (0.25 or 0.5 MG/DOSE) 2 MG/3ML as directed Subcutaneous 0.25 mg weekly 12/28/2023 Treatment Notes Assessment Notes Prediabetes sugar is better, britt l continue to monitor Essential hypertension with goal blood pressure less than 140\/90 doing well on meds, will coontinue curre nt regiment andlinda continue to monitor Morbid obesity due to excess calories is doing intermittant fasting. also taking his brother's ozempic Next Appt Details Follow Up: 3 Months, Reason: Provider Name:Luis zaragoza, 03/20/2025 10:00:00 AM, [address] [place] [address], [address] [place] [address], [phone], Provider Name:Luis zaragoza, 12/25/2025 08:15:00 AM, [address] [place] [address], Suite [facility], [place], [place], [phone], Provider Name:Luis zaragoza, 01/01/2026 10:30:00 AM, [address] [place] [address], [address] [place] [address], [phone], Progress Notes * Dakota GORE PDOB: [birth year] (44 yo M)Acc No.[id number]:02/11/2024 Patient: Dakota Fairchild Provider: Winnie Garcias MD :1980 A ge:44 Y S ex:Male Date:02/11/2024 Address:[address] Subjective: * Chief Complaints: * H igh blood pressure * HPI: S ymptom(s): patient is a 44 yo male here for chck of high BP, had colonoscopy/ had a lesion. that needs to be removed surgically. taking ozempic from brother. has lost weight possibly from the ozempic. * ROS: G eneral/Constitutional: Denies C hills. D enies F atigue. D enies F ever. D enies H eadache. E NT: Patient denies d ecreased sense of smell , any loss of taste , sore throat. D enies S ore throat. R espiratory: Denies C ough. D enies S hortness of breath at rest. D enies S hortness of breath with exertion. C ardiovascular: Denies C hest pain at rest. D enies C hest pain with exertion. D enies D izziness. D enies P alpitations. D enies S hortness of breath. G astrointestinal: Denies D iarrhea. D enies N ausea. M usculoskeletal: Patient denies m uscle aches. P eripheral Vascular: Patient denies r ed and blue toes. * Medical History: * Surgical History: * Hospitalization/Major Diagno stic Procedure: * Medications: T akingamLODIPine Besylate 10 MG Tablet TAKE 1 TABLET BY MOUTH EVERY DAY Lisinopril-hydroCHLOROthiazide 20-25 MG Tablet 1 tablet Orally Once a dayOzempic (0.25 or 0.5 MG/DOSE) 2 MG/3ML Solution Pen-injector as directed Subcutaneous 0.25 mg weeklyTaking amLODIPine Besylate 10 MG Tablet TAKE 1 TABLET BY MOUTH EVERY DAY Taking Lisinopril-hydroCHLOROthiazide 20-25 MG Tablet 1 tablet Orally Once a dayTaking Ozempic (0.25 or 0.5 MG/DOSE) 2 MG/3ML Solution Pen-injector as directed Subcutaneous 0.25 mg weeklyNot-Taking/PRNVentolin HFA 108 (90 Base) MCG/ACT Aerosol Solution 2 puffs as needed Inhalation every 4 hrsFlonase 50 MCG/ACT Suspension 1 spray in each nostril Nasally Once a daySUMAtriptan Succinate 50 MG Tablet 1 tablet as needed Orally as need for migraineMedication List reviewed and reconciled with the patientNot-Taking/PRN Ventolin HFA 108 (90 Base) MCG/ACT Aerosol Solution 2 puffs as needed Inhalation every 4 hrsNot-Taking/PRN Flonase 50 MCG/ACT Suspension 1 spray in each nostril Nasally Once a dayNot-Taking/PRN SUMAtriptan Succinate 50 MG Tablet 1 tablet as needed Orally as need for migraineMedication List reviewed and reconciled with the patient * Allergies: N .K.D.A.yes[Allergies Verified] Objective: * Vitals: H t: 71.5, Wt:370, BMI:50.88, BP:136/90, Repeat BP:136/86 weight is down 10 pounds since 12-28-23. * Examination: G eneral Examination: GENERAL APPEARANCE: w ell developed, well nourished obese male. HEAD: n ormocephalic. SKIN: g ood turgor. HEART: n o murmurs, rubs, gallops , regular rate and rhythm. LUNGS: n o wheezes, rales, rhonchi , good air movement , clear to auscultation bilaterally. Assessment: * Assessment: 1. E ssential hypertension with goal blood pressure less than 140\/90 - I10 (Primary) 2 .?Prediabetes - R73.03 3 . M orbid obesity due to excess calories - E66.01 Plan: * Treatment: 2. P rediabetes L AB: Glucose, finger stick Value Reference Range V alue 111 * Ana Pruitt 4 10:00:52 AM EDT > Notes: sugar is better, will continue to monitor??3.?Morbid obesity due to excess calories? Continue Ozempic (0.25 or 0.5 MG/DOSE) Solution Pen-injector, 2 MG/3ML, as directed, Subcutaneous, 0.25 mg weekly.?? Notes: is doing intermittant fasting. also taking his brother's ozempic?? * Procedure Codes: 8 2947 ASSAY, GLUCOSE, BLOOD QUANT, Modifiers: QW * Follow Up: 3 Months * * Sign off status: Completed true * Provider: Winnie Garcias MD Date: 04/12/2023 Generated for Jude carlisle/Migel/Timsmitting on: 09:51 AM EDT History and Physical Notes * HPI (History of Present Illness) Category Sub-Category Detail Notes Category Not es Symptom(s) patient is a 44 yo male here for chck of high BP, had colonoscopy/ had a lesion. that needs to be removed surgically. taking ozempic from brother. has lost weight possibly from the ozempic Examination Category Sub-Category Detail Notes Category Not es General Examination GENERAL APPEARANCE: well dev eloped, well nourished obese male HEAD: normocephalic HEART: no murmurs, rubs, ga llops , regular rate and rhythm LUNGS: no wheezes, rales, r honchi , good air movement , clear to auscultation bilaterally SKIN: good turgor
--- OUTSIDE RECORDS SUMMARY | 2024-03-13 05:43 | XMS_ITS ---
Author Organization Luis Garcias MD Address [address] [place] [phone] Care Team Providers Care Director Of Materials Management Name Role Phone Luis Garcias Primary Care Provider Encounters Encounter Location Date Provider Diagnosis Luis Garcias MD [address] [place] [address] [place] [phone] 03/13/2024 Luis Garcias Plan Of Treatment Next Appt Details Provider Name:Luis zaragoza, 03/20/2025 10:00:00 AM, [address] [place] [address], [address], [phone], Provider Name:Luis zaragoza, 12/25/2025 08:15:00 AM, [address] [place] [address], [address], [phone], Provider Name:Luis zaragoza, 01/01/2026 10:30:00 AM, [address] [place] [address], [address], [phone], Progress Notes * Dakota GORE PDOB: [birth year] (44 yo M)Acc No.[id number]:03/13/2024 Patient: Santiago Dakota armenta :1980 A ge:44 Y S ex:Male Address:[address] [place], [address] * true * Date: Generated for Jude carlisle/Migel/Maria Del Carmen on: 1 09:52 AM EDT
--- OUTSIDE RECORDS SUMMARY | 2024-05-15 06:00 | XMS_ITS ---
Author Organization Luis Garcias MD Address [address] [place], [place] [phone] Care Team Providers Care Fan Balancer Name Role Phone Luis Garcias Primary Care Provider [phone] Allergies No Known Allergies Results Component [...] Date Provider Diagnosis Luis Garcias MD [address] [place], [place] [phone] 05/15/2024 Luis Garcias Prediabetes R73.03 ; Other [...] Provider Name:Luis zaragoza, 03/20/2025 10:00:00 AM, [address], [address], [place], [place], [id number], Provider Name:Luis Goodson ier, 12/25/2025 08:15:00 AM, [address], [address], [place], [phone], Provider Name:Luis Goodson ier, 01/01/2026 10:30:00 AM, [address], [address], [place], [place], [phone], Progress Notes * Dakota GORE PDOB: [birth year] (44 yo M)Acc No.[id number]:05/15/2024 Progress Notes Patient: Dakota SIMMONS Provider: Winnie Garcias MD :1980 A ge:44 Y S ex:Male Date:05/15/2024 Address:[address] [place] [address] [facility] Subjective: * Chief Complaints: * 3 month [...] 05/15/2024 Generated for Jude carlisle/Migel/eTransmitting on: 1 09:53 AM EDT History and Physical Notes * [...]
--- OUTSIDE RECORDS SUMMARY | 2024-08-23 07:20 | XMS_ITS ---
Author Organization Luis Garcias MD Address 10 [facility] [address] [place] [phone] Care Team Providers Care Patient Centered Care Specialist Name Role Phone Luis Garcias Primary Care Provider REASON FOR VISIT HCC Risk Codes Encounters Encounter Location Date Provider Diagnosis Luis Garcias MD [address] [place] [address] [place] [phone] 08/23/2024 Luis Garcias Plan Of Treatment Next Appt Details Provider Name:Luis Goodson ier, 03/20/2025 10:00:00 AM, [address] [place] [address], [address], [phone], Provider Name:Luis Goodson ier, 12/25/2025 08:15:00 AM, [address] [place] [address], [address], [phone], Provider Name:Luis Goodson ier, 01/01/2026 10:30:00 AM, [address] [place] [address], [address], [phone], Progress Notes * Dakota GORE PDOB: [birth year] (44 yo M)Acc No.[id number]:08/23/2024 Patient: Santiago Dakota HARVEY :1980 A ge:44 Y S ex:Male Address:[address] [place], [address] * true * Date: Generated for Printi ng/Migel/Maria Del Carmen on: 1 09:53 AM EDT
--- OUTSIDE RECORDS SUMMARY | 2024-11-27 05:40 | XMS_ITS ---
Author Organization Luis Gacrias MD Address [address] [place] [phone] Care Team Providers Care Finishing Operator Name Role Phone Luis Garcias Primary Care Provider [phone] REASON FOR VISIT refill lisinopril Medications Medication SIG (Take, Route, Frequency, Duration) Notes Start Date End Date Status Lisinopril-hydroCHLOROthia zide 20-25 MG TAKE 1 TABLET BY MOUTH DAILY Orally Once a day for 90 days Active Encounters Encounter Location Date Provider Diagnosis Luis Garcias MD [address] [place] [address] [place] [phone] 11/27/2024 Luis Garcias Essential hypertension with goal [...] days Next Appt Details Provider Name:Luis zaragoza, 03/20/2025 10:00:00 AM, [address] [place] [address], [address], [phone], Provider Name:Luis zaragoza, 12/25/2025 08:15:00 AM, [address] [place] [address], [address], [phone], Provider Name:Luis zaragoza, 01/01/2026 10:30:00 AM, 10 [facility], [address], [place], [place], [phone], Progress Notes * Dakota GORE PDOB: [birth year] (44 yo M)Acc No.[id number]:11/27/2024 Patient: Santiago ALEXANDROLAZARUSDakota BULLOCK :1980 A ge:44 Y S ex:Male Address: [place], [address] * Refills Refill Lisinopril-hydroCHLOROthiazide Tablet, 20-25 MG, Orally, 90, TAKE 1 TABLET BY MOUTH DAILY, Once a day, 90 days, Refills=3 * true * Date: Generated for Jude carlisle/Migel/Emilyitting on: 09:52 AM EDT
--- OUTSIDE RECORDS SUMMARY | 2024-12-22 03:30 | XMS_ITS ---
Author Organization Luis Garcias MD Address [address] [place], [place] [phone] Care Team Providers Care Abattoir Supervisor Name Role Phone Luis Garcias Primary Care Provider Results Component Value Reference Range Notes Complete Blood Count Auto Di ff Reviewed date:12/25/2024 11:39:17 AM Interpretation: Performing Lab:[facility], [address] [place] [phone] Notes/Report: White Blood Count 7.6 4.8-10.8 X10*3/uL Red Blood Count 4.11 4.60-5.80 X10*6/uL Hemoglobin 12.9 14.0-18.0 g/dl Hematocrit 38.2 42.0-52.0 % Mean Corpuscular Volume 92.9 80.0-98.0 fL Mean Corpuscular Hemoglobin 31.4 27.0-33.0 pg Mean Corpuscular HGB Conc 33.8 31.0-36.0 g/dl Red Cell Distribution Width 12.8 11.0-16.0 % Platelet Count 288 160-400 X10*3/uL Mean Platelet Volume 10.0 9.4-12.4 fL Neutrophils Percent Auto 56.0 45-73 % Imm Gran Pct Auto 0.7 0.0-0.4 % Lymphocytes Percent Auto 31.1 20-40 % Monocytes Percent Auto 8.5 2-11 % Eosinophils Percent Auto 3.2 0-4 % Basophils Percent Auto 0.5 0-2 % NRBC Pct Auto 0.0 0.0-0.2 /100WBC Neutrophils Absolute Auto 4.2 2.0-8.3 x10*3/u L Imm Gran Abs Auto 0.05 0.00-0.03 X10*3/uL Lymphocytes Absolute Auto 2.4 1.2-4.9 X10*3/u L Monocytes Absolute Auto 0.6 0.1-1.2 X10*3/uL Eosinophils Absolute Auto 0.2 0.0-0.4 X10*3/u L Basophils Absolute Auto 0.0 0.0-0.2 X10*3/uL NRBC Abs Auto 0.000 0.0-0.012 X10*3/uL Comprehensive [place]. Panel Fa st Reviewed date:12/24/2024 05:38:21 PM Interpretation: Performing Lab:[address] [phone] Notes/Report: Sodium 141 135-145 mmol/L Potassium 4.1 3.3-5.1 mmol/L Chloride 104 96-108 mmol/L Carbon Dioxide 29 22-29 mmol/L Anion Gap 12 12-20 Blood Urea Nitrogen 13 9-16 mg/dL Creatinine 0.87 0.5-1.4 mg/dL Estimated Glomerular Filt Rate > 60 Chronic Kidney Disease: Estimated GFR < 60 mL/min/1.73m2 Severe Kidney Disease: Estimated GFR < 15 mL/min/1.73m2 Glucose Fasting 117 60-99 mg/dL A fasting glucose from 100-125 mg/dl is considered impaired (pre-diabetes). Calcium 8.9 8.4-10.2 mg/dL Bilirubin Total 0.6 0.0-1.0 mg/dL Aspartate Amino Transferase 28 5-37 U/L Alanine Aminotransferase 24 0-40 U/L Total Protein 7.2 6.5-8.0 g/dL Albumin Level 4.0 3.5-5.0 g/dL Alkaline Phosphatase 78 39-117 U/L Lipid Panel Reviewed date:12/22/2024 12:33:41 PM Interpretation: Performing Lab:[address] [phone] Notes/Report: Triglycerides 210 <150 mg/dL Desirable Triglyceride: less than 150 mg/dL Borderline High Triglyceride 150-199 mg/dL High Triglyceride: 200-499 mg/dL Very High Triglyceride: greater than or equal to 5OO mg/dL Cholesterol 171 <200 mg/dL Desirable Cholesterol: less than 200 mg/dL Borderline High Cholesterol: 200-239 mg/dL High Cholesterol: greater than 239 mg/dL LDL Cholesterol Calculated 97 <100 mg/dL Desirable LDL: less than 100 mg/dL Near Optimal/Above Optimal LDL: 110-129 mg/dL Borderline High LDL: 130-159 mg/dL High LDL: 160-189 mg/dL Very High LDL: greater than or equal to 190 mg/dL HDL Cholesterol 32 >40 mg/dL Desirable HDL: greater than 40 mg/dL Note: This HDL assay may give artificially low results in patients with liver disease. PSA,Total (Free>4and<10) Reviewed date:12/22/2024 12:50:11 PM Interpretation: Performing Lab:[address] [phone] Notes/Report: PSA,Total (Free>4and<10) 1.21 0.00-4.00 ng/mL A Free PSA was not [...] Ly Alinity i Chemiluminescent Microparticle Immunoassay (CMIA) Hemoglobin A1c Reviewed date:12/22/2024 12:30:10 PM Interpretation: Performing Lab:[address] [phone] Notes/Report: Hemoglobin A1c % 6.2 <6.0 % Hemoglobin A1C Reference Range Adults: 4.8 - 6.0 % Non diabetic: < 6.0 % Goal: < 7.0 % Additional Action Suggested: > 8.0 % Note: Hemoglobin A1c results are invalid for patients with abnormal amounts of HbF. Blood transfusions may impact the HbA1c concentration in the patient sample. Estimated Average Glucose 131 eAG = Estimated average glucose which is %A1C expressed as average glucose, using the formula of the D0X-Lscanbu Average Glucose study (ADAG), Diabetes Care, Vol.31,#8, Nov. 2007 REASON FOR VISIT yearly fasting labs Immunizations Vaccine Route Administration Date Status Comme nts Fluarix Quadrivalent - 150 IM Intramuscular 12/22/2024 Adm inistered Encounters Encounter Location Date Provider Diagnosis Luis Garcias MD [address] [place] [phone] 12/22/2024 Luis Garcias Blood tests for routine general physical examination Z00.00 ; Encounter for administration of vaccine Z23 ; Essential hypertension with goal blood pressure less than 140\/90 I10 ; Type 2 diabetes mellitus treated without insulin E11.9 and Leukocytosis, unspecified type D72.829 Assessments Encounter Date Diagnosis (ICD Code) Assessment Notes Treatment Notes Treatment Clinical Notes Section Notes 12/22/2024 Blood tests for routine general physical examination (ICD-10 - Z00.00) 12/22/2024 Encounter for administration of vaccine (ICD-10 - Z23) 12/22/2024 Essential hypertension with goal blood pressure less than 140\/90 (ICD-10 - I10) 12/22/2024 Type 2 diabetes mellitus treated without insulin (ICD-10 - E11.9) 12/22/2024 Leukocytosis, unspecified type (ICD-10 - D72.829) Plan Of Treatment Pending Test Test Name Order Date Urinalysis and Microscopic 12/22/2024 Microalbumin, Random 12/22/2024 Next Appt Details Provider Name:Luis zaragoza, 03/20/2025 10:00:00 AM, [address] [place] [address], [address], [phone], Provider Name:Luis zaragoza, 12/25/2025 08:15:00 AM, [address] [place] [address], [address], [phone], Provider Name:Luis zaragoza, 01/01/2026 10:30:00 AM, [address] [place] [address], [address], [phone], Progress Notes * Dakota GORE PDOB: [birth year] (45 yo M)Acc No.[id number]:12/22/2024 Progress Note Patient: Dakota SIMMONS Provider: Winnie Garcias MD :1980 A ge:44 Y S ex:Male Date:12/22/2024 Address:[address] [facility] Subjective: * Chief Complaints: * 1 . Yearly fasting labs. * Medical History: Objective: * Vitals: Assessment: * Assessment: 1. E ncounter for administration of vaccine - Z23 (Primary) 2 . B lood tests for routine general physical examination - Z00.00 3 . E ssential hypertension with goal blood pressure less than 140\/90 - I10 4 . T ype 2 diabetes mellitus treated without insulin - E11.9 5 . L eukocytosis, unspecified type - D72.829? Plan: * Treatment: 2. E ssential hypertension with goal blood pressure less than 140\/90 L AB: Urinalysis and Microscopic L AB: Microalbumin, Random L AB: Complete Blood Count Auto Diff (Collection Date & Time - 12/22/2024 07:15 AM) L AB: Comprehensive [place]. Panel Fast (Collection Date & Time - 12/22/2024 07:15 AM) L AB: Lipid Panel (Collection Date & Time - 12/22/2024 07:15 AM) L AB: PSA,Total (Free>4and<10) (Collection Date & Time - 12/22/2024 07:15 AM) L AB: Hemoglobin A1c (Collection Date & Time - 12/22/2024 07:15 AM) 3. T ype 2 diabetes mellitus treated without insulin L AB: Urinalysis and Microscopic L AB: Microalbumin, Random L AB: Complete Blood Count Auto Diff (Collection Date & Time - 12/22/2024 07:15 AM) L AB: Comprehensive [place]. Panel Fast (Collection Date & Time - 12/22/2024 07:15 AM) L AB: Lipid Panel (Collection Date & Time - 12/22/2024 07:15 AM) L AB: PSA,Total (Free>4and<10) (Collection Date & Time - 12/22/2024 07:15 AM) L AB: Hemoglobin A1c (Collection Date & Time - 12/22/2024 07:15 AM) 4. L eukocytosis, unspecified type L AB: Urinalysis and Microscopic L AB: Microalbumin, Random L AB: Complete Blood Count Auto Diff (Collection Date & Time - 12/22/2024 07:15 AM) L AB: Comprehensive [place]. Panel Fast (Collection Date & Time - 12/22/2024 07:15 AM) L AB: Lipid Panel (Collection Date & Time - 12/22/2024 07:15 AM) L AB: PSA,Total (Free>4and<10) (Collection Date & Time - 12/22/2024 07:15 AM) L AB: Hemoglobin A1c (Collection Date & Time - 12/22/2024 07:15 AM) * Immunizations: Fluarix Quadrivalent - 150 : 0.5 mL (Dose No:1) (Route: Intramuscular) given by Ana Pruitt , Office Staff on Left Deltoid * Procedure Codes: 3 6415 VENIPUNCT, ROUTINE*, 30074 FLU VACCINE NO PRESERV 3 & >, 62013 IMMUNIZATION ADMIN * * The named appointment provid er may or may not be the originator of this progress note, and it is not deemed complete until electronically signed by the appointment provider. Sign off status: Pending * Provider: Winnie Garcias MD Date: 0 12/22/2024 Generated for Jude carlisle/Migel/Emilyitting on: 1 09:51 AM EDT
--- OUTSIDE RECORDS SUMMARY | 2024-12-29 05:30 | XMS_ITS ---
Author Organization Luis Garcias MD Address [address] [place], [place] [id number] Care Team Providers Care Crocheter Hand Name Role Phone Luis Garcias Primary Care Provider Allergies No Known Allergies Results Component Value Reference Range Notes Microalbumin, Random Reviewed date:12/31/2024 02:43:48 PM Interpretation: Performing Lab:[facility], [address] [place] [phone] Notes/Report: Creatinine Urine 131.45 Microalbumin Urine < 5.0 Microalbum/Creatinine Ratio Ur TNP <30 ug/mg cr Unable to calculate albumin/creatinine ratio due to low microalbumin or creatinine result. UA ClnCatch+Micro w/rflx Cul t Reviewed date:12/29/2024 12:54:22 PM Interpretation: Performing Lab:[facility], [address] [place] [phone] Notes/Report: Urine, Clean Catch Color Urine Yellow Appearance Urine Clear PH 6.0 5.0-9.0 Glucose Urine UA Negative Negative mg/dL Urine Blood Negative Negative Specific [place] - Urine 1.025 1.005-1.025 Urine Protein Negative [...] Referring Provider Last Name Katerine Referring Provider [facility] Referred Provider Sacha Almaguer Referred [...] W/U Status Risk Notes Problem Low testosterone (818119895) Low testosterone (E29.1) Active confirmed Problem Obstructive sleep apnea syndrome (36709715) FELICITY on CPAP (G47.33) Active confirmed Vital Signs Blood pressure systolic 154 mm Hg 12/30/19 25 Blood pressure diastolic 90 mm Hg 025 Height 71.5 in 12/29/2024 Weight 360 lbs 12/29/2024 BMI 49.5 kg/m2 12/29/2024 weight is down 10 pounds sin ce 2-3-25 Encounters Encounter Location Date Provider Diagnosis Luis Garcias MD [address] [place], [place] [phone] 12/29/2024 Luis Garcias Annual physical exam Z00.00 [...] Reason: Provider Name:Luis zaragoza, 03/20/2025 10:00:00 AM, [address] [place] [address], Suite [facility], [place], [place], [phone], Provider Name:Luis zaragoza, 12/25/2025 08:15:00 AM, [address], [address], [place], [place], [phone], Provider Name:Luis Goodson ier, 01/01/2026 10:30:00 AM, [address], [address], [place], [place], [phone], Progress Notes * MEGANDakota MILLER PDOB: [birth year] (44 yo M)Acc No.[id number]:12/29/2024 Progress Notes Patient: Dakota SIMMONS Provider: Winnie Garcias MD :1980 A ge:44 Y S ex:Male Date:12/29/2024 [place] [id number] Subjective: * Chief Complaints: * [facility] Risk Codesneeded: E11.9 DM without complications * [...] Average Glucose 131 - mg/dL L ab:Comprehensive [place]. Panel Fast (Order Date - 12/22/2024) (Collection [...] 12/29/2024 Generated for Jude carlisle/Migel/eTdennissmitting on: 1 09:50 AM EDT History and Physical Notes * [...] Francis Colon polyps 12/29/2024 Luis Garcias [facility] [place]
--- OUTSIDE RECORDS SUMMARY | 2025-01-04 08:37 | XMS_ITS ---
Author Organization Luis Garcias MD Address [address] [place] [phone] Care Team Providers Care Patient Transition Specialist Name Role Phone Luis Garcias Primary Care Provider REASON FOR VISIT referral Problems Problem Type SNOMED Code ICD Code Onset Dates Problem Status W/U Status Risk Notes Problem Androgen deficiency (09116626) Testosterone deficiency (E29.1) Active confirmed Encounters Encounter Location Date Provider Diagnosis Luis Garcias MD [address] [place] [id number] 01/04/2025 Luis Garcias Testosterone deficiency E29.1 Assessments Encounter Date Diagnosis (ICD Code) Assessment Notes Treatment Notes Treatment Clinical Notes Section Notes 01/04/2025 Testosterone deficiency (ICD-10 - E29.1) Plan Of Treatment Pending Test Test Name Order Date Testosterone, Free/Total 01/04/2025 Next Appt Details Provider Name:Luis zaragoza, 03/20/2025 10:00:00 AM, [address] [place] [address], [address], [phone], Provider Name:Luis zaragoza, 12/25/2025 08:15:00 AM, [address] [place] [address], [phone], Provider Name:Luis zaragoza, 01/01/2026 10:30:00 AM, [address] [place] [address], [phone], Progress Notes * Dakota GORE PDOB: [birth year] (44 yo M)Acc No.[id number]:01/04/2025 Patient: Dakota SIMMONS :1980 A ge:44 Y S ex:Male Address:[address] [place] [address] [place], [place], [place] [address] Subjective: * Chief Complaints: * R eferral * Medical History: * Surgical History: * Hospitalization/Major Diagno stic Procedure: * Medications: Objective: * Vitals: * Physical Examination: Assessment: * Assessment: 1. T estosterone deficiency - E29.1 (Primary) Plan: * Treatment: * Procedure Codes: * true * Date: Generated for Jude carlisle/Migel/Maria Del Carmen on: 09:50 AM EDT
--- OUTSIDE RECORDS SUMMARY | 2025-01-12 04:15 | XMS_ITS ---
Author Organization Luis Garcias MD Address [address] [place], [place] [phone] Care Team Providers Care Retail Merchandising Coordinator Name Role Phone Luis Garcias Primary Care Provider [phone] Results Component Value Reference Range Notes Testosterone, Free/Total Reviewed date:01/19/2025 02:24:55 PM Interpretation: Performing Lab:[facility], [address] [place] [phone] Notes/Report: Testosterone, Total 599 080-1451 ng/dL For additional information, please refer to http://education.In*Situ Architecture.GoRest Software/faq/ PlwfpUtkxjgdjjfnpYNXBUPNYK935 (This link is being provided for informational/ educational purposes only.) This test was developed and its analytical performance characteristics have been determined by [employer] [place]. It has not been cleared or approved by the U.S. Food and Drug Administration. This assay has been validated pursuant to the CLIA regulations and is used for clinical purposes. Testosterone, Free 36.0 35.0-155.0 pg/mL This test was developed and its analytical performance characteristics have been determined by [employer] [place] [place]. It has not been cleared or approved by the U.S. Food and Drug Administration. This assay has been validated pursuant to the CLIA regulations and is used for clinical purposes. THIS TEST WAS PERFORMED AT: [employer] [address] RINA MCCAULEY MD,PHD REASON FOR VISIT testosterone free/ total Encounters Encounter Location Date Provider Diagnosis Luis Garcias MD 10 [facility] [address] [place] [phone] 01/12/2025 Luis Wilkinsonusman Testosterone deficiency E29.1 Assessments Encounter Date Diagnosis (ICD Code) Assessment Notes Treatment Notes Treatment Clinical Notes Section Notes 01/12/2025 Testosterone deficiency (ICD-10 - E29.1) Plan Of Treatment Next Appt Details Provider Name:Luis Goodson ier, 03/20/2025 10:00:00 AM, [address] [place] [address], Suite [facility], [place], [place], [phone], Provider Name:Luis Goodson ier, 12/25/2025 08:15:00 AM, [address] [place] [address], [address], [phone], Provider Name:Luis Goodson iemary, 01/01/2026 10:30:00 AM, [address] [place] [address], [address], [phone], Progress Notes * Dakota GORE PDOB: [birth year] (45 yo M)Acc No.[id number]:01/12/2025 Progress Note Patient: Santiago ALEXANDROLAZARUSMary BethEDIN Dakota Barbara Provider: Winnie Garcias MD :1980 A ge:44 Y S ex:Male Date:01/12/2025 Address:[address] [place] [address] [facility] Subjective: * Chief Complaints: * 1 . [...] Date: 1 Generated for Printi ng/Faxing/eTransmitting on: 09:51 AM EDT
--- OUTSIDE RECORDS SUMMARY | 2025-01-30 06:15 | XMS_ITS ---
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 Name Role Phone Luis Garcias Primary Care Provider [phone] Allergies No Known Allergies Results Component [...] Location Date Provider Diagnosis Luis Garcias MD [address] [place] [id number] 01/30/2025 Luis Garcias Prediabetes R73.03 ; Essential [...] Reason: Provider Name:Luis zaragoza, 03/20/2025 10:00:00 AM, [address] [place] [address], [address], [phone], Provider Name:Luis zaragoza, 12/25/2025 08:15:00 AM, [address] [place] [address], [address], [phone], Provider Name:Luis zaragoza, 01/01/2026 10:30:00 AM, [address] [place] [address], [address], [phone], Progress Notes * Dakota GORE PDOB: [birth year] (45 yo M)Acc No.[id number]:01/30/2025 Progress Notes Patient: Dakota SIMMONS Provider: Winnie Garcias MD :1980 A ge:45 Y S ex:Male Date:01/30/2025 Address:[address] [place], [id number] Subjective: * Chief Complaints: * 1 . 4 week. * HPI: S ymptom(s): patient is a 45 yo male here for 4 week follow up visit/ had laceration of finger and is followed by work connection..is going to see dr almaguer. [facility]. * [...] D enies N ausea. * Medical History: norman swain colon cancer age 38; he gets colonoscopy every 2 years. Colonoscopy 02/24/[address] Pena - repeat 3 .07/23/23 colonoscopy pending path-12/31/23 repeat colonoscopy performed Becky, advised surgical resection. * Medications: T aking Ozempic (0.25 or 0.5 MG/DOSE) 2 MG/3ML Solution Pen-injector as directed Subcutaneous 0.5 mg weekly , Taking Ozempic (1 MG/DOSE) 4 MG/3ML Solution Pen-injector 1 mg Subcutaneous weekly , Taking amLODIPine Besylate 10 MG Tablet TAKE 1 TABLET BY MOUTH EVERY DAY , Taking Lisinopril-hydroCHLOROthiazide 20-25 MG Tablet TAKE [...] * Follow Up: 2 Months * * The named appointment provid er may or may not be the originator of this progress note, and it is not deemed complete until electronically signed by the appointment provider. Sign off status: Pending * Provider: Winnie Garcias MD Date: Generated for Jdue carlisle/Migel/Emilyitting on: 09:52 AM EDT History and Physical Notes * HPI (History of Present Illness) Category Sub-Category Detail Notes Category Not es Symptom(s) patient is a 45 yo male here for 4 week follow up visit/ had laceration of finger and is followed by work connection..is going to see dr almaguer. [facility]. Examination Category Sub-Category Detail Notes Category Not es General Examination GENERAL APPEARANCE: alert, w ell hydrated, in no distress HEART: regular rate and rhy thm, no murmurs, rubs, gallops LUNGS: no wheezes, rales, r honchi, good air movement, clear to auscultation bilaterally SKIN: abnormal with lesion on shoulder unchanged
--- NOTE | 2025-01-31 09:03 | MHC.OFFVIS ---
Vital Signs 01/31/25 09:06 Height 6 ft Weight 370 lb 8 oz BMI 50.2 Intake Visit Reasons: skin lesion~ RT shoulder Intake Note: Patient presents for an assessment for skin lesion on the right shoulder. Pt c/o; right shoulder skin lesion, no pain. Bartacker Required: No Accompanied by: Self / Same As Patient Allergies No Known Allergies (No Known Allergies*) Allergy (Verified 01/31/25 09:07) Medication List - Last Reconciled 01/31/25 by Sacha Heaton MD amlodipine 10 mg PO QAM lisinopril-hydrochlorothiazide 20-12.5 mg 1 tab PO QAM multivitamin 1 tab PO QAM omega 6-mjp-fil-fish oil 300-1,000 mg (Fish Oil) 1 cap PO QAM semaglutide (Ozempic) 0.25 mg subcut QWEEK sodium,potassium,mag sulfates 17.5-3.13-1.6 gram (Suprep Bowel Prep Kit) DILUTE; drink full amount early evening before AND next morning at least 2 hr before procedure; follow w 960 mL water PO vitamin D3-vitamin K2 125 mcg (5,000 unit)-100 mcg 1 cap PO DAILY HPI HPI skin lesion~ RT shoulder: Details: He is here because of the skin lesion in the right shoulder. He said he has had this since April 2024. He says this has been increasing in size and has been bothering him and says he wants this excised. He describes some skin breakdown as well in the past. PFSH Medical History (Updated 01/31/25 @ 09:22 by Sacha Heaton MD) Skin lesion Staph infection Muscle spasm of back Hinson syndrome Family history of colon cancer Tubulovillous adenoma Perianal abscess Diabetes mellitus Morbid obesity HTN (hypertension) Surgical History History of colon resection (~04/18/24) Hx of excision of mass Hx of wisdom tooth extraction H/O colonoscopy Family History Father Colon cancer, Onset Age: 46 Brother Colon polyps Social History Household Members: Family and Friend(s) Household Members Other:: mother & roomate live w/patient Housing: House Are you a primary physician locums urgent care to a significant other at home: No Do you presently have visiting nurse or other home services: No Patient Tobacco Use Status: Never used Tobacco Review of Systems Const Denies chills and Denies fever(s) Card Denies chest pain at rest and Reports dyspnea on exertion Resp Reports dyspnea on exertion GI Denies abdominal pain Physical Exam Vital Signs: BMI result Body Mass Index 50.2 Const Other: Morbidly obese General: comfortable and no acute distress Chest Other: Right shoulder with note of a 2.5 cm elevated skin lesion, reddish, soft, well-defined borders, non fluctuant Resp Effort & Inspection: normal respiratory effort Cardio Rate: regular rate GI Palpation (GI): Soft to palpation and nontender Assessment & Plan Assessment & Plan (1) Skin lesion: Code(s): L98.9 - Disorder of the skin and subcutaneous tissue, unspecified Category: Medical Plan: I explained the technique of excision of the skin lesion under local anesthesia. I reviewed the risks including but not limited to bleeding and infections, as well as the benefits and alternatives. He understands and wants to proceed This will be done in the office on his next visit. (2) Tubulovillous adenoma: Code(s): D36.9 - Benign neoplasm, unspecified site Category: Medical Plan: He has this tubulovillous adenoma of the transverse colon. We had referred him to [facility] earlier this year. According to him, he has not heard from [facility] although [facility] colorectal had stated that they have attempted to call him multiple times to get him in He will help him again with this appointment. I told him that he should let us know if he does not hear from them as we can help him with a referral again. I instructed him to make sure that he picks up his phone he gets a call from [facility]. Coding Level of Care Code Est Pt Level 3 (05708) Diagnoses Skin lesion L98.9 Tubulovillous adenoma D36.9
[2025-01-31 09:06] VITALS: BMI 50.2
--- OUTSIDE RECORDS SUMMARY | 2025-01-31 09:50 | XMS_ITS | Patient Health Record ---
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 Name Role Phone Luis Garcias MD Primary Care Provider Ramirez Allen [phone] Allergies No Known Allergies Reason For Referral No Information Medications Medication SIG (Take, Route, Frequency, Duration) Notes Start Date End Date Status amLODIPine Besylate 10 MG TAKE 1 TABLET BY MOUTH EVERY DAY Oral; Duration: 90 Active Lisinopril-hydroCHLOROthia zide 20-12.5 MG 1 tablet Orally Once a day Active Immunizations Vaccine Route Administration Date Status Comme nts Influenza Unknown 04/21/2023 Refused Problems Problem Type SNOMED Code ICD Code Onset Dates Problem Status W/U Status Risk Notes Problem Screening for malignant neoplasm of colon (026084832) Encounter for screening for malignant neoplasm of colon (Z12.11) Active confirmed Problem History of adenomatous polyp of colon (506572004) History of adenomatous polyp of colon (Z86.010) Active confirmed Problem Screening for malignant neoplasm of rectum (144424186) Encounter for screening for malignant neoplasm of rectum (Z12.12) Active confirmed Problem Preprocedural examination (150018206051417) Preprocedural examination (Z01.818) Active confirmed Problem Family History of Cancer of Colon (Situation) (905439982) Family history of colon cancer (Z80.0) Active confirmed Problem Mass of hepatic flexure of colon (899193966417866) 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 [address] [facility] [place] [address] [id number] MARYSE GORE Self - patient is the insured Medical (General) History Medical History History ICD Code Denies [place],DM,CVA,Lung disease,renal dise ase HTN Colonoscopy 04/2006 - [...] some nonspecific inflammation. Surgical History Surgery Date(Month/Year) [place] teeth extraction Fatty tumor removed from scalp 2016
--- OUTSIDE RECORDS SUMMARY | 2025-01-31 09:51 | XMS_ITS | Clinical Summary ---
Author Organization [facility] Address [address] [place] [id number] Phone Care Team Providers Care Form Designer Name Role Phone Arnoldo Gore MD Primary Care Provider [phone] Allergies No known active allergies Medications No [...] topic Medical Devices Not on file Insurance [facility] Care Teams Form Designer Relationship Specialty Start Date End Date Arnoldo Gore MD [address] [place] [address] PCP - [facility] 07/05/15 Additional Source Comments The information contained in this document represents components of the legal health record. It is not the complete legal health record.[facility]
--- OUTSIDE RECORDS SUMMARY | 2025-01-31 09:52 | XMS_ITS | Patient Health Record ---
Author Organization Luis Garcias MD Address [address] [place], [place] [id number] Care Team Providers Care Associate Director Of Development Name Role Phone Luis Garcias Primary Care Provider Allergies No Known Allergies Results Component Value Reference Range Notes Complete Blood Count Auto Di ff Reviewed date:12/25/2024 11:39:17 AM Interpretation: Performing Lab:[facility], [address] [place] [phone] Notes/Report: White Blood Count 7.6 4.8-10.8 X10*3/uL [...] NRBC Abs Auto 0.000 0.0-0.012 X10*3/uL Comprehensive [place]. Panel Fa st Reviewed date:12/24/2024 05:38:21 PM Interpretation: Performing Lab:[address] [phone] Notes/Report: Sodium 141 135-145 mmol/L Potassium 4.1 [...] Panel Reviewed date:12/22/2024 12:33:41 PM Interpretation: Performing Lab:[facility], [address] [place] [phone] Notes/Report: Triglycerides 210 <150 mg/dL Desirable Triglyceride: [...] Reviewed date:12/22/2024 12:50:11 PM Interpretation: Performing Lab:[address] [phone] Notes/Report: PSA,Total (Free>4and<10) 1.21 0.00-4.00 ng/mL A [...] A1c Reviewed date:12/22/2024 12:30:10 PM Interpretation: Performing Lab:[address] [phone] Notes/Report: Hemoglobin A1c % 6.2 <6.0 % [...] average glucose, using the formula of the G7D-Nexxloz Average Glucose study (ADAG), Diabetes Care, Vol.31,#8, Nov. 2007 Testosterone, Free/Total Reviewed date:01/19/2025 02:24:55 PM Interpretation: Performing Lab:[facility], [address] [place] [phone] Notes/Report: Testosterone, Total 000 923-1722 ng/dL For additional information, please refer to http://education.EventBug.Netmining/fa q/ [facility] [email or web address] (This link is being provided for informational/ educational purposes only.) This test was developed and its analytical performance characteristics have been determined by [employer] [place], [place]. It has not been cleared or approved by the U.S. Food and Drug Administration. This assay has been validated pursuant to the CLIA regulations and is used for clinical purposes. Testosterone, Free 36.0 35.0-155.0 pg/mL This test was developed and its analytical performance characteristics have been determined by [employer] [place]. It has not been cleared or approved by the U.S. Food and Drug Administration. This assay has been validated pursuant to the CLIA regulations and is used for clinical purposes. THIS TEST WAS PERFORMED AT: [email or web address] [id number] [place] [phone] RINA MCCAULEY MD,PHD Glucose, finger stick Reviewed date:01/30/2025 10:15:11 AM Interpretation: Performing Lab: Notes/Report: Value 122 Glucose, finger stick Reviewed date:02/11/2024 10:00:54 AM Interpretation: Performing Lab: Notes/Report: Value 111 Glucose, finger stick Reviewed date:05/15/2024 09:57:52 AM Interpretation: Performing Lab: Notes/Report: Value 109 Microalbumin, Random Reviewed date:12/31/2024 02:43:48 PM Interpretation: Performing Lab:[facility], [address] [place] [phone] Notes/Report: Creatinine Urine 131.45 Microalbumin Urine < 5.0 Microalbum/Creatinine Ratio Ur TNP <30 ug/mg cr Unable to calculate albumin/creatinine ratio due to low microalbumin or creatinine result. UA ClnCatch+Micro w/rflx Cul t Reviewed date:12/29/2024 12:54:22 PM Interpretation: Performing Lab:[facility], [address] [place] [phone] Notes/Report: Urine, Clean Catch Color Urine Yellow Appearance Urine Clear PH 6.0 5.0-9.0 Glucose Urine UA Negative Negative mg/dL Urine Blood Negative Negative Specific [place] - Urine 1.025 1.005-1.025 Urine Protein Negative [...] date:03/14/2024 05:08:21 PM Interpretation: Performing Lab: Notes/Report: [address] [address] [address] Scan Report Signed Patient: Dakota Gore MR#: [id number] 71 : 1980 Acct:[id number] Age/Sex: 44 / M ADM Date: 02/28/24 Loc: HO.CT Attending Dr: Ramirez Pena MD Ordering Physician: Sacha Heaton MD Date of Service: 02/28/24 Procedure(s): CT abdomen pelvis w IV con Accession Number(s): [id number] cc: Luis Garcias MD; Sacha Heaton MD [...] by: Harrison Redmond MD 03/14/2024 03:31 PM [facility] Dictated By: Harrison Redmond MD Signed By: <Electronically signed by Harrison Redmond MD in OV> 03/14/24 1531 DD/ 1616 TD/TT: 02/28/24 1628 Deicer Finisher: [place] [address] [address] Scan Report Signed Patient: Dwight Gore MR#: [id number] 69 : 1980 Acct:[id number] Age/Sex: 44 / M ADM Date: 02/28/24 Loc: HO.CT Attending Dr: Ramirez Pena MD Ordering Physician: Sacha Heaton MD Date of Service: 02/28/24 Procedure(s): CT abd omen pelvis w IV con Accession Number(s): [id number] cc: Luis Garcias MD; Sacha Heaton MD [...] by: Harrison Redmond MD 03/14/2024 03:31 PM [facility] Dictated By: Jovani Redmond MD Signed By: <Electronically signed by Harrison Redmond MD in OV> 03/14/24 1531 DD/ 1616 TD/TT: 02/28/24 1628 Deicer Finisher: RACHEL Complete Blood Count no Diff Reviewed date:04/06/2024 04:50:01 PM Interpretation: Performing Lab:[facility], [address] [place] [phone] Notes/Report: White Blood Count 10.0 4.8-10.8 X10*3/uL [...] Panel Reviewed date:04/06/2024 04:49:27 PM Interpretation: Performing Lab:[address] [phone] Notes/Report: Sodium 138 135-145 mmol/L Potassium 3.9 [...] A1c Reviewed date:04/06/2024 04:48:55 PM Interpretation: Performing Lab:[facility], [address] [place] [phone] Notes/Report: Hemoglobin A1c % 5.9 <6.0 % [...] average glucose, using the formula of the G4H-Emcrycv Average Glucose study (ADAG), Diabetes Care, Vol.31,#8, 2007 Type and Screen Reviewed date:04/06/2024 04:49:37 PM Interpretation: Performing Lab:[facility], [address] [place] [phone] Notes/Report: Spec expiration changed by SHIKHA on 04/06/24 Reason: PAT NURSING: Call Blood Bank (ext. [phone]) to band patient on admission. Type and Screen in effect until 2300 on 04/18/2024. Witnessed by MURCA Blood Type OP Antibody Screen NEGATIVE Glucose, Whole Blood Reviewed date:04/18/2024 12:44:11 PM Interpretation: Performing Lab:[facility], [address] [place] [phone] Notes/Report: Glucose, Whole Blood 141 60-115 mg/dL METER # : [id number] Glucose, Whole Blood Reviewed date:04/18/2024 04:23:16 PM Interpretation: Performing Lab:[facility], [address] [place] [phone] Notes/Report: Glucose, Whole Blood 147 60-115 mg/dL METER # : [id number] Glucose, Whole Blood Reviewed date:04/19/2024 03:27:25 PM Interpretation: Performing Lab:[facility], [address] [place] [phone] Notes/Report: Glucose, Whole Blood 137 60-115 mg/dL METER # : [id number] Hold Lav - Possible Hematolo gy Reviewed date:04/19/2024 03:27:11 PM Interpretation: Performing Lab:[facility], [address] [place] [phone] Notes/Report: Hold Lav - Possible Hematology SEE NOTE Specimen will be held untested for 8 hours. Call Hematology if testing is desired. Basic Metabolic Panel Fastin g Reviewed date:04/19/2024 03:27:37 PM Interpretation: Performing Lab:[facility], [address] [place] [phone] Notes/Report: Sodium 142 135-145 mmol/L Potassium 4.1 [...] Blood Reviewed date:04/19/2024 03:28:03 PM Interpretation: Performing Lab:[facility], [address] [place] [phone] Notes/Report: Glucose, Whole Blood 122 60-115 mg/dL METER # : [id number] XR chest 1V Reviewed date:04/20/2024 12:42:31 PM Interpretation: Performing Lab: Notes/Report: [address] [address] XRay Report Signed Patient: Dakota Gore MR#: [id number] 71 : 1980 Acct:[id number] Age/Sex: 44 / M ADM Date: 04/18/24 Loc: [facility] 483-[address]: Sacha Heaton MD Ordering Physician: Patricio Encarnacion MD Date of Service: 04/19/24 Procedure(s): XR chest 1V Accession Number(s): [id number] cc: Patricio Encarnacion MD; Luis Garcias MD [...] Teo Mckeon MD 04/19/2024 03:34 PM EST RP Dictated By: Teo Agustin MD Signed By: <Electronically signed by Teo lE MD in OV> 04/19/24 1534 DD/ 1420 TD/TT: 04/19/24 1430 Deicer Finisher: [address] [address] XRay Report Signed Patient: Dwight Gore MR#: [id number] [birth year] : 1980 Acct:[id number] Age/Sex: 44 / M ADM Date: 04/18/24 Loc: [facility] 483-[address]: Lizzie Heaton MD Ordering Physician: Patricio Encarnacion MD Date of Service: 04/19/24 Procedure(s): XR priya st 1V Accession Number(s): [id number] cc: Melanie Encarnacion MD; Luis Garcias MD [...] Teo Mckeon MD 04/19/2024 03:34 PM EST RP Dictated By: Teo Hutchins MD Signed By: <Electronically signed by Teo El MD in OV> 04/19/24 1534 DD/ 1420 TD/TT: 04/19/24 1430 Deicer Finisher: Glucose, Whole Blood Reviewed date:04/19/2024 03:25:17 PM Interpretation: Performing Lab:[facility], [address] [place] [phone] Notes/Report: Glucose, Whole Blood 158 60-115 mg/dL METER # : [id number] Glucose, Whole Blood Reviewed date:04/20/2024 06:07:40 PM Interpretation: Performing Lab:[facility], [address] [place] [phone] Notes/Report: Glucose, Whole Blood 130 60-115 mg/dL METER # : [id number] Glucose, Whole Blood Reviewed date:04/20/2024 12:41:44 PM Interpretation: Performing Lab:[facility], [address] [place] [phone] Notes/Report: Glucose, Whole Blood 122 60-115 mg/dL METER # : [id number] Glucose, Whole Blood Reviewed date:04/20/2024 12:24:18 PM Interpretation: Performing Lab:[facility], [address] [place] [phone] Notes/Report: Glucose, Whole Blood 144 60-115 mg/dL METER # : [id number] Glucose, Whole Blood Reviewed date:04/20/2024 12:21:43 PM Interpretation: Performing Lab:[facility], [address] [place] [phone] Notes/Report: Glucose, Whole Blood 145 60-115 mg/dL METER # : [id number] Glucose, Whole Blood Reviewed date:06/30/2024 09:48:17 AM Interpretation: Performing Lab:[facility], [address] [place] [phone] Notes/Report: Glucose, Whole Blood 105 60-115 mg/dL METER # : [id number] Reason For Referral Reason local infection of [...] Dee 0 12/29/2024 10:27:22 AM >referral info faxLeila saba Annette 01/15/2025 11:29:28 AM >patient was called [...] Referral Priority Routine Referral Appointment Date 01/31/2025 Medications Medication SIG (Take, Route, Frequency, Duration) [...] mg weekly for 30 days 12/28/2023 Active Immunizations Vaccine Route Administration Date Status Comme nts Fluarix Quadrivalent - 150 IM Intramuscular 12/21/2023 Administered Fluarix Quadrivalent - 150 IM Intramuscular 12/22/2024 Administered TDaP Unknown 01/29/2025 Administered Work Connect ion Flu Vaccine Unknown 06/25/2015 Refused Fluarix Quadrivalent [...] W/U Status Risk Notes Problem Androgen deficiency (99290147) Testosterone deficiency (E29.1) Active confirmed Problem Low testosterone (597170504) Low testosterone (E29.1) Active confirmed Problem 869830876 Morbid obesity due to excess calories (E66.01) Active confirmed Problem 93647243 Intrinsic eczema (L20.84) Active confirmed Problem 383189940 Leukocytosis, unspecified type (D72.829) Active confirmed Problem 87866727 Essential hypertension with goal blood pressure less than 140\/90 (I10) Active confirmed Problem 818245298 Prediabetes (R73.03) Active confirmed Problem 632938579 Body mass index (BMI) of 45.0-49.9 in adult (Z68.42) Active confirmed Problem 212512801 Mild intermittent asthmatic bronchitis with acute exacerbation (J45.21) Active confirmed Problem 755417200 History of colon polyps (Z86.010) Active confirmed Problem Obstructive sleep apnea syndrome (96010030) FELICITY on CPAP (G47.33) Active confirmed Problem 87310512 Type 2 diabetes mellitus treated without insulin (E11.9) Active confirmed Vital Signs Blood pressure diastolic 90 mm Hg 01/30/2025 arcenio ght is up 9 pounds since 12-29-24 Height 71.5 in 01/30/2025 weight is up 9 pounds since 12-29-24 Blood pressure systolic 142 mm Hg 01/30/2025 weig ht is up 9 pounds since 12-29-24 Weight 369 lbs 01/30/2025 weight is up 9 pounds since 12-29-24 BMI 50.74 kg/m2 01/30/2025 weight is up 9 pounds since 12-29-24 Encounters Encounter Location Date Provider Diagnosis Luis Garcias MD [address] [place] [id number] 12/22/2024 Luis Garcias Blood tests for routine general physical examination Z00.00 ; Encounter for administration of vaccine Z23 ; Essential hypertension with goal blood pressure less than 140\/90 I10 ; Type 2 diabetes mellitus treated without insulin E11.9 and Leukocytosis, unspecified type D72.829 Luis Garcias MD [address] [place] [id number] 01/12/2025 Luis Garcias Testosterone deficiency E29.1 Luis Garcias MD [address] [place] [id number] 01/30/2025 Luis Garcias Prediabetes R73.03 ; Essential hypertension with goal blood pressure less than 140\/90 I10 ; Morbid obesity due to excess calories E66.01 and Testosterone deficiency E29.1 Luis Garcias MD [address] [place] [id number] 02/11/2024 Luis Garcias Prediabetes R73.03 ; Essential hypertension with goal blood pressure less than 140\/90 I10 and Morbid obesity due to excess calories E66.01 Luis Garcias MD [address] [place] [id number] 05/15/2024 Luis Garcias Prediabetes R73.03 ; Other injury of unspecified body region, initial encounter T14.8XXA ; Local infection of the skin and subcutaneous tissue, unspecified L08.9 and Essential hypertension with goal blood pressure less than 140\/90 I10 Luis Garcias MD [address] [place] [id number] 12/29/2024 Luis Garcias Annual physical exam Z00.00 ; Essential hypertension with goal blood pressure less than 140\/90 I10 ; Low testosterone E29.1 ; Morbid obesity due to excess calories E66.01 ; Type 2 diabetes mellitus treated without insulin E11.9 ; FELICITY on CPAP G47.33 ; Colon polyps K63.5 and Skin lesion L98.9 Luis Garcias MD [address] [place] [id number] 03/13/2024 Luis Garcias MD [address] [place] [id number] 08/23/2024 Luis Garcias MD [address] [place] [id number] 11/27/2024 Luis Garcias Essential hypertensi on with goal blood pressure less than 140\/90 I10 Luis Garcias MD [address] [place] [id number] 01/04/2025 Luis Garcias Testosterone deficiency E29.1 Assessments Encounter Date Diagnosis (ICD Code) Assessment Notes Treatment Notes Treatment Clinical Notes Section Notes 12/22/2024 Blood tests for routine general physical examination (ICD-10 - Z00.00) 12/22/2024 Encounter for administration of vaccine (ICD-10 - Z23) 01/12/2025 Testosterone deficiency (ICD-10 - E29.1) 01/30/2025 Prediabetes (ICD-10 - R73.03) 01/30/2025 Essential hypertension with goal blood pressure less than 140\/90 (ICD-10 - I10) elevated, will continue to monitor, will continue current regiment 02/11/2024 Prediabetes (ICD-10 - R73.03) sugar is [...] pressure less than 140\/90 (ICD-10 - I10) 01/30/2025 Morbid obesity due to excess calories (ICD-10 - E66.01) 02/11/2024 Morbid obesity due to excess calories (ICD-10 - E66.01) is doing intermittant fasting. also taking his brother's ozempic 05/15/2024 Local infection of the skin and subcutaneous tissue, unspecified (ICD-10 - L08.9) referral back to dr heaton today 12/29/2024 Low testosterone (ICD-10 - E29.1) refer to endocrine 12/22/2024 Type 2 diabetes mellitus treated without insulin (ICD-10 - E11.9) 01/30/2025 Testosterone deficiency (ICD-10 - E29.1) 05/15/2024 Essential hypertension with goal blood pressure [...] Date Urinalysis and Microscopic 12/22/2024 Testosterone, Free/Total 01/04/2025 Microalbumin, Random 12/22/2024 Next Appt Details Provider Name:Luis Goodson ier, 03/20/2025 10:00:00 AM, [address] [place] [address], [address], [phone], Provider Name:Luis Goodson ier, 12/25/2025 08:15:00 AM, [address] [place] [address], [address], [phone], Provider Name:Luis Goodson ier, 01/01/2026 10:30:00 AM, [address] [place] [address], [address], [phone], Insurance Providers Payer Name Payer Address Payer Phone Subscriber Number Group Number Insured Name Patient Relationship to Insured Coverage Start Date Coverage End Date [address] [place] [phone] [id number] Dakota Gore Self - patient is the insured Medical (General) History Medical History History ICD Code father colon cancer age 40; he gets colonoscopy every 2 years. Colonoscopy 02/24/[address] Pena - repeat 3 .07/23/23 colonoscopy pending path-12/31/23 repeat colonoscopy performed Becky, advised surgical resection
== END 2025-01-31 09:23 | disposition home or self-care (01) ==
LOC: HO.HGS 08:57
PROVIDERS: PCP Internal Medicine; Referring Provider Internal Medicine; Visit Provider Surgery
DX: L98.9 Disorder of the skin and subcutaneous tissue, unspecified (principal); D36.9 Benign neoplasm, unspecified site
CPT/HCPCS: 99213

== ENCOUNTER → 2025-01-31 09:26 | Outpatient (BNVA) | payer OTHER, SELFPAY | PROVIDERS: PCP Internal Medicine; Visit Provider Emergency Medicine | DX: S61.211A Laceration without foreign body of left index finger without damage to nail, initial encounter (principal); W26.9XXA Contact with unspecified sharp object(s), initial encounter; Z02.79 Encounter for issue of other medical certificate | CPT/HCPCS: 99213 ==

== ENCOUNTER → 2025-02-06 14:24 | Outpatient (AMB) | payer OTHER, SELFPAY ==
--- OUTSIDE RECORDS SUMMARY | 2023-12-31 09:10 | XMS_ITS ---
Author Organization [facility] Address [address] [place] [phone] Care Team Providers Care Television News Anchor Name Role Phone Luis Garcias MD Primary Care Provider Ramirez Allen [phone] REASON FOR VISIT screening, hx polyps, fam hx colon ca Encounters Encounter Location Date Provider Diagnosis [facility] [place] [address] [place] [phone] 12/31/2023 Ramirez Pena Colon cancer scree daryl [...] * MARYSE GOREDOB: 8 (45 yo M)Acc No.[id number]:12/31/2023 COLON WITH MAC Patient: CHELSEA SIMMONSIG Provider: Guru Pena MD :1980 A ge:43 Y S ex:Male Date:12/31/2023 Address:[address] [facility] Pcp:Luis Garcias MD Subjective: * Chief Complaints: [...] 0 12/31/2023 Generated for Jude carlisle/Migel/Emilyitting on: 06:44 PM EDT
--- OUTSIDE RECORDS SUMMARY | 2024-02-11 06:00 | XMS_ITS ---
Author Organization Luis Garcias MD Address [address] [place], [place] [id number] Care Team Providers Care Yard Spotter Name Role Phone Luis Garcias Primary Care Provider Allergies No Known Allergies Results Component Value [...] Date Provider Diagnosis Luis Garcias MD 10 [facility] [address] [place], [place] [phone] 02/11/2024 Luis Garcias Prediabetes R73.03 ; Essential [...] Follow Up: 3 Months, Reason: Provider Name:Luis zargaoza, 03/20/2025 10:00:00 AM, [address] [place] [address], [address] [place] [address], [phone], Provider Name:Luis zaragoza, 12/25/2025 08:15:00 AM, [address] [place] [address], Suite [facility], [place], [place], [phone], Provider Name:Luis zaragoza, 01/01/2026 10:30:00 AM, [address] [place] [address], [address] [place] [address], [phone], Progress Notes * Dakota GORE PDOB: [birth year] (44 yo M)Acc No.[id number]:02/11/2024 Patient: Dakota Fairchild Provider: Winnie Garicas MD :1980 A ge:44 Y S ex:Male Date:02/11/2024 Address:[address], [facility] Subjective: * Chief Complaints: * H igh [...] Date: 04/12/2023 Generated for Jude carlisle/Migel/Timsmitting on: 06:43 PM EDT History and Physical Notes * HPI [...]
--- OUTSIDE RECORDS SUMMARY | 2024-03-13 05:43 | XMS_ITS ---
Author Organization Luis Garcias MD Address [address] [place] [phone] Care Team Providers Care Maintenance Electrician Name Role Phone Luis Garcias Primary Care Provider [phone] Encounters Encounter Location Date Provider Diagnosis Luis Garcias MD [address] [place] [address] [place] [phone] 03/13/2024 Luis Garcias Plan Of Treatment Next Appt Details Provider Name:Luis zaragoza, 03/20/2025 10:00:00 AM, [address] [place] [address], [address], [phone], Provider Name:Luis zaragoza, 12/25/2025 08:15:00 AM, [address] [place] [address], [address], [phone], Provider Name:Luis zaragoza, 01/01/2026 10:30:00 AM, [address] [place] [address], [address], [phone], Progress Notes * Dakota GORE PDOB: [birth year] (44 yo M)Acc No.[id number]:03/13/2024 Patient: Santiago Dakota armenta :1980 A ge:44 Y S ex:Male Address:[address] [place], [address] * true * Date: Generated for Jude carlisle/Migel/Maria Del Carmen on: 1 06:43 PM EDT
--- OUTSIDE RECORDS SUMMARY | 2024-05-15 06:00 | XMS_ITS ---
Author Organization Luis Garcias MD Address [address] [place], [place] [id number] Care Team Providers Care Research Laboratory Specialist Name Role Phone Luis Garcias Primary Care [...] Date Provider Diagnosis Luis Garcias MD [address] [place], [place] [phone] 05/15/2024 Luis Garcias Prediabetes R73.03 ; Other [...] Provider Name:Luis zaragoza, 03/20/2025 10:00:00 AM, [address], [address], [place], [place], [phone], Provider Name:Luis Goodson ier, 12/25/2025 08:15:00 AM, [address], [address], [place], [phone], Provider Name:Luis Goodson ier, 01/01/2026 10:30:00 AM, [address], [address], [place], [place], [id number], Progress Notes * Dakota GORE PDOB: [birth year] (44 yo M)Acc No.[id number]:05/15/2024 Progress Notes Patient: Dakota SIMMONS Provider: Winnie Garcias MD :1980 A ge:44 Y S ex:Male Date:05/15/2024 Address:[address] [place] [address] [facility] Subjective: * Chief Complaints: * 3 month [...] 05/15/2024 Generated for Jude carlisle/Migel/eTransmitting on: 1 06:44 PM EDT History and Physical Notes * [...]
--- OUTSIDE RECORDS SUMMARY | 2024-08-23 07:20 | XMS_ITS ---
Author Organization Luis Garcias MD Address 10 [facility] [address] [place] [phone] Care Team Providers Care Sumo Wrestler Name Role Phone Luis Garcias Primary Care Provider REASON FOR VISIT HCC Risk Codes Encounters Encounter Location Date Provider Diagnosis Luis Garcias MD [address] [place] [address] [place] [phone] 08/23/2024 Luis Garcias Plan Of Treatment Next Appt Details Provider Name:Luis Goodson ier, 03/20/2025 10:00:00 AM, [address] [place] [address], [address], [phone], Provider Name:Luis Goodson ier, 12/25/2025 08:15:00 AM, [address] [place] [address], [address], [phone], Provider Name:Luis Goodson ier, 01/01/2026 10:30:00 AM, [address] [place] [address], [address], [phone], Progress Notes * Dakota GORE PDOB: [birth year] (44 yo M)Acc No.[id number]:08/23/2024 Patient: Santiago Dakota HARVEY :1980 A ge:44 Y S ex:Male Address:[address] [place], [address] * true * Date: Generated for Printi ng/Migel/Maria Del Carmen on: 1 06:44 PM EDT
--- OUTSIDE RECORDS SUMMARY | 2024-11-27 05:40 | XMS_ITS ---
Author Organization Luis Garicas MD Address [address] [place] [phone] Care Team Providers Care Ldr Rn Name Role Phone Luis Garcias Primary Care Provider [phone] REASON FOR VISIT refill lisinopril Medications Medication SIG (Take, Route, Frequency, Duration) Notes Start Date End Date Status Lisinopril-hydroCHLOROthia zide 20-25 MG TAKE 1 TABLET BY MOUTH DAILY Orally Once a day for 90 days Active Encounters Encounter Location Date Provider Diagnosis Luis Garcias MD [address] [place] [address] [place] [phone] 11/27/2024 Luis Garcias Essential hypertension with goal [...] Details Provider Name:Luis zaragoza, 03/20/2025 10:00:00 AM, [address] [place] [address], [address], [phone], Provider Name:Luis zaragoza, 12/25/2025 08:15:00 AM, [address] [place] [address], [address], [phone], Provider Name:Luis zaragoza, 01/01/2026 10:30:00 AM, 10 [facility], [address], [place], [place], [phone], Progress Notes * Dakota GORE PDOB: [birth year] (44 yo M)Acc No.[id number]:11/27/2024 Patient: Santiago ALEXANDROSHELBIEDakota JESUS :1980 A ge:44 Y S ex:Male Address: [place], [address] * Refills Refill Lisinopril-hydroCHLOROthiazide Tablet, 20-25 MG, Orally, 90, TAKE 1 TABLET BY MOUTH DAILY, Once a day, 90 days, Refills=3 * true * Date: Generated for Jude carlisle/Migel/Emilyitting on: 06:43 PM EDT
--- OUTSIDE RECORDS SUMMARY | 2024-12-22 03:30 | XMS_ITS ---
Author Organization Luis Garcias MD Address [address] [place], [place] [phone] Care Team Providers Care Agriculture Sales Account Manager Name Role Phone Luis Garcias Primary Care Provider Results Component Value Reference Range Notes Complete Blood Count Auto Di ff Reviewed date:12/25/2024 11:39:17 AM Interpretation: Performing Lab:[facility], [address] [place] [phone] Notes/Report: White Blood Count 7.6 4.8-10.8 X10*3/uL [...] NRBC Abs Auto 0.000 0.0-0.012 X10*3/uL Comprehensive [place]. Panel Fa st Reviewed date:12/24/2024 05:38:21 PM Interpretation: Performing Lab:[address] [address] Notes/Report: Sodium 141 135-145 mmol/L Potassium 4.1 [...] Panel Reviewed date:12/22/2024 12:33:41 PM Interpretation: Performing Lab:[address] [phone] Notes/Report: Triglycerides 210 <150 mg/dL Desirable Triglyceride: [...] (Free>4and<10) Reviewed date:12/22/2024 12:50:11 PM Interpretation: Performing Lab:[address] [address] Notes/Report: PSA,Total (Free>4and<10) 1.21 0.00-4.00 ng/mL A [...] A1c Reviewed date:12/22/2024 12:30:10 PM Interpretation: Performing Lab:[address] [phone] Notes/Report: Hemoglobin A1c % 6.2 <6.0 % [...] average glucose, using the formula of the V8L-Nyctkuz Average Glucose study (ADAG), Diabetes Care, Vol.31,#8, Nov. 2007 REASON FOR VISIT yearly fasting labs Immunizations Vaccine Route Administration Date Status Comme nts Fluarix Quadrivalent - 150 IM Intramuscular 12/22/2024 Adm inistered Encounters Encounter Location Date Provider Diagnosis Luis Garcias MD [address] [place] [phone] 12/22/2024 Luis Garcias Blood tests for routine [...] Details Provider Name:Luis zaragoza, 03/20/2025 10:00:00 AM, [address] [place] [address], [address], [phone], Provider Name:Luis zaragoza, 12/25/2025 08:15:00 AM, [address] [place] [address], [address], [phone], Provider Name:Luis zaragoza, 01/01/2026 10:30:00 AM, [address] [place] [address], [address], [phone], Progress Notes * Dakota GORE PDOB: [birth year] (45 yo M)Acc No.[id number]:12/22/2024 Progress Note Patient: Dakota SIMMONS Provider: Winnie Garcias MD :1980 A ge:44 Y S ex:Male Date:12/22/2024 Address:[address] [facility] Subjective: * Chief Complaints: * 1 . [...] - 12/22/2024 07:15 AM) L AB: Comprehensive [place]. Panel Fast (Collection Date & Time - [...] - 12/22/2024 07:15 AM) L AB: Comprehensive [place]. Panel Fast (Collection Date & Time - [...] - 12/22/2024 07:15 AM) L AB: Comprehensive [place]. Panel Fast (Collection Date & Time - [...] * Procedure Codes: 3 6415 VENIPUNCT, ROUTINE*, 06551 FLU VACCINE NO PRESERV 3 & >, 06680 IMMUNIZATION ADMIN * * The named appointment provid er may or may not be the originator of this progress note, and it is not deemed complete until electronically signed by the appointment provider. Sign off status: Pending * Provider: Winnie Garcias MD Date: 0 12/22/2024 Generated for Jude carlisle/Migel/Emilyitting on: 1 06:43 PM EDT
--- OUTSIDE RECORDS SUMMARY | 2024-12-29 05:30 | XMS_ITS ---
Author Organization Luis Garcias MD Address [address] [place], [place] [phone] Care Team Providers Care Drywall Finishing Foreman Name Role Phone Luis Garcias Primary Care Provider Allergies No Known Allergies Results Component Value Reference Range Notes Microalbumin, Random Reviewed date:12/31/2024 02:43:48 PM Interpretation: Performing Lab:[facility], [address] [place] [phone] Notes/Report: Creatinine Urine 131.45 Microalbumin Urine < 5.0 Microalbum/Creatinine Ratio Ur TNP <30 ug/mg cr Unable to calculate albumin/creatinine ratio due to low microalbumin or creatinine result. UA ClnCatch+Micro w/rflx Cul t Reviewed date:12/29/2024 12:54:22 PM Interpretation: Performing Lab:[facility], [address] [place] [phone] Notes/Report: Urine, Clean Catch Color Urine Yellow Appearance Urine Clear PH 6.0 5.0-9.0 Glucose Urine UA Negative Negative mg/dL Urine Blood Negative Negative Specific [place] - Urine 1.025 1.005-1.025 Urine Protein Negative [...] Referring Provider Last Name Katerine [facility] Referred Provider Sacha Almaguer [...] W/U Status Risk Notes Problem Low testosterone (595195395) Low testosterone (E29.1) Active confirmed Problem Obstructive sleep apnea syndrome (26282589) FELICITY on CPAP (G47.33) Active confirmed Vital Signs Blood pressure systolic 154 mm Hg 12/30/19 25 Blood pressure diastolic 90 mm Hg 025 Height 71.5 in 12/29/2024 Weight 360 lbs 12/29/2024 BMI 49.5 kg/m2 12/29/2024 weight is down 10 pounds sin ce 2-3-25 Encounters Encounter Location Date Provider Diagnosis Luis Garcias MD [address] [place], [place] [phone] 12/29/2024 Luis Garcias Annual physical exam Z00.00 [...] Reason: Provider Name:Luis zaragoza, 03/20/2025 10:00:00 AM, [address] [place] [address], Suite [facility], [place], [place], [phone], Provider Name:Luis zaragoza, 12/25/2025 08:15:00 AM, [address], [address], [place], [place], [phone], Provider Name:Luis Goodson ier, 01/01/2026 10:30:00 AM, [address], [address], [place], [place], [phone], Progress Notes * MEGANDakota MILLER PDOB: [birth year] (44 yo M)Acc No.[id number]:12/29/2024 Progress Notes Patient: Dakota SIMMONS Provider: Winnie Garcias MD :1980 A ge:44 Y S ex:Male Date:12/29/2024 [id number] Subjective: * Chief Complaints: * [facility] Risk Codes[facility]: E11.9 DM without complications * [...] Average Glucose 131 - mg/dL L ab:Comprehensive [place]. Panel Fast (Order Date - 12/22/2024) (Collection [...] 12/29/2024 Generated for Jude carlisle/Migel/eTdennissmitting on: 1 06:42 PM EDT History and Physical Notes * [...] Francis Colon polyps 12/29/2024 Luis Garcias [facility] [place]
--- OUTSIDE RECORDS SUMMARY | 2025-01-04 08:37 | XMS_ITS ---
Author Organization Luis Garcias MD Address [address] [place] [phone] Care Team Providers Care Noise Abatement Engineer Name Role Phone Luis Garcias Primary Care Provider REASON FOR VISIT referral Problems Problem Type SNOMED Code ICD Code Onset Dates Problem Status W/U Status Risk Notes Problem Androgen deficiency (60322135) Testosterone deficiency (E29.1) Active confirmed Encounters Encounter Location Date Provider Diagnosis Luis Garcias MD [address] [facility] [place] [id number] 01/04/2025 Luis Garcias Testosterone deficiency E29.1 Assessments Encounter Date Diagnosis (ICD Code) Assessment Notes Treatment Notes Treatment Clinical Notes Section Notes 01/04/2025 Testosterone deficiency (ICD-10 - E29.1) Plan Of Treatment Pending Test Test Name Order Date Testosterone, Free/Total 01/04/2025 Next Appt Details Provider Name:Luis zaragoza, 03/20/2025 10:00:00 AM, [address] [place] [address], [address], [phone], Provider Name:Luis zaragoza, 12/25/2025 08:15:00 AM, [address] [place] [address], [phone], Provider Name:Luis zaragoza, 01/01/2026 10:30:00 AM, [address] [place] [address], [phone], Progress Notes * Dakota GORE PDOB: [birth year] (44 yo M)Acc No.[id number]:01/04/2025 Patient: Dakota SIMMONS :1980 A ge:44 Y S ex:Male Address:[address] [place] [address] [place], [place], [place] [address] Subjective: * Chief Complaints: * R eferral * Medical History: * Surgical History: * Hospitalization/Major Diagno stic Procedure: * Medications: Objective: * Vitals: * Physical Examination: Assessment: * Assessment: 1. T estosterone deficiency - E29.1 (Primary) Plan: * Treatment: * Procedure Codes: * true * Date: Generated for Jude carlisle/Migel/Maria Del Carmen on: 06:42 PM EDT
--- OUTSIDE RECORDS SUMMARY | 2025-01-12 04:15 | XMS_ITS ---
Author Organization Luis Garcias MD Address [address] [place], [place] [phone] Care Team Providers Care Senior Financial Analyst Name Role Phone Luis Garcias Primary Care Provider [phone] Results Component Value Reference Range Notes Testosterone, Free/Total Reviewed date:01/19/2025 02:24:55 PM Interpretation: Performing Lab:[facility], [address] [place] [phone] Notes/Report: Testosterone, Total 410 157-6628 ng/dL For additional information, please refer to http://education.Bitave Lab.Appsembler/faq/ ClbdzWtnsfjmkcvtlAIMYPZOJF777 (This link is being provided for informational/ educational purposes only.) This test was developed and its analytical performance characteristics have been determined by [employer] [place], [place]. It has not been cleared or approved by the U.S. Food and Drug Administration. This assay has been validated pursuant to the CLIA regulations and is used for clinical purposes. Testosterone, Free 36.0 35.0-155.0 pg/mL This test was developed and its analytical performance characteristics have been determined by [employer] [place]. It has not been cleared or approved by the U.S. Food and Drug Administration. This assay has been validated pursuant to the CLIA regulations and is used for clinical purposes. THIS TEST WAS PERFORMED AT: [employer] [address] RINA MCCAULEY MD,PHD REASON FOR VISIT testosterone free/ total Encounters Encounter Location Date Provider Diagnosis Luis Garcias MD 10 [facility] [address] [place] [phone] 01/12/2025 Luis Wilkinsonusman Testosterone deficiency E29.1 Assessments Encounter Date Diagnosis (ICD Code) Assessment Notes Treatment Notes Treatment Clinical Notes Section Notes 01/12/2025 Testosterone deficiency (ICD-10 - E29.1) Plan Of Treatment Next Appt Details Provider Name:Luis Goodson ier, 03/20/2025 10:00:00 AM, [address] [place] [address], Suite [facility], [place], [place], [phone], Provider Name:Luis Goodson ier, 12/25/2025 08:15:00 AM, [address] [place] [address], [address], [phone], Provider Name:Luis Goodson ier, 01/01/2026 10:30:00 AM, [address] [place] [address], [address], [phone], Progress Notes * Dakota GORE PDOB: [birth year] (45 yo M)Acc No.[id number]:01/12/2025 Progress Note Patient: Santiago ALEXANDROLAZARUSMary BethEDIN Dakota Barbara Provider: Winnie Garcias MD :1980 A ge:44 Y S ex:Male Date:01/12/2025 Address:[address] [place] [address] [facility] Subjective: * Chief Complaints: * 1 . Testosterone free/ total. * Medical History: Objective: * Vitals: Assessment: * Assessment: 1. T estosterone deficiency - E29.1 (Primary) Plan: * Treatment: * Procedure Codes: 3 6415 VENIPUNCT, ROUTINE* * * The named appointment provid er may or may not be the originator of this progress note, and it is not deemed complete until electronically signed by the appointment provider. Sign off status: Pending * Provider: Winnie Garcias MD Date: 1 Generated for Printi ng/Faxing/eTransmitting on: 06:43 PM EDT
--- OUTSIDE RECORDS SUMMARY | 2025-01-30 06:15 | XMS_ITS ---
Author Organization Luis Garcias MD Address [address] [place], [place] [id number] Care Team Providers Care Shipping Hand Name Role Phone Luis Garcias Primary Care Provider [phone] Allergies No Known Allergies Results Component Value Reference Range Notes Glucose, finger stick Reviewed date:01/30/2025 10:15:11 AM Interpretation: Performing Lab: Notes/Report: Value 122 REASON FOR VISIT 4 week Medications Medication SIG (Take, Route, Frequency, Duration) Notes Start Date End Date Status Ozempic (1 MG/DOSE) 4 MG/3ML 1 mg Subcutaneous weekly for 30 days 01/30/2025 Active Lisinopril-hydroCHLOROth iazide 20-25 MG TAKE 1 TABLET BY MOUTH DAILY Orally Once a day Active SUMAtriptan Succinate 50 MG 1 tablet as needed Orally as need for migraine Not-Taking amLODIPine Besylate 10 MG TAKE 1 TABLET BY MOUTH EVERY DAY Active Flonase 50 MCG/ACT 1 spray in each nost ril Nasally Once a day for 30 day(s) 04/29/2018 Not-Taking Ventolin HFA 108 (90 Base) MCG/ACT 2 puffs as needed Inhalation every 4 hrs for 30 days 09/27/2018 Not-Taking Ozempic (1 MG/DOSE) 4 MG/3ML 1 mg Subcutaneous weekly for 90 days 12/29/2024 Active Ozempic (0.25 or 0.5 MG/DOSE) 2 MG/3ML as directed Subcutaneous 0.5 mg weekly for 30 days 12/28/2023 Active Vital Signs Blood pressure systolic 142 mm Hg 01/31/20 25 Blood pressure diastolic 90 mm Hg 025 Height 71.5 in 01/30/2025 Weight 369 lbs 01/30/2025 BMI 50.74 kg/m2 01/30/2025 weight is up 9 pounds since 12-29-24 Encounters Encounter Location Date Provider Diagnosis Luis Garcias MD [address] [place] [id number] 01/30/2025 Luis Garcias Prediabetes R73.03 ; Essential hypertension with goal blood pressure less than 140\/90 I10 ; Morbid obesity due to excess calories E66.01 and Testosterone deficiency E29.1 Assessments Encounter Date Diagnosis (ICD Code) Assessment Notes Treatment Notes Treatment Clinical Notes Section Notes 01/30/2025 Prediabetes (ICD-10 - R73.03) 01/30/2025 Essential hypertension with goal blood pressure less than 140\/90 (ICD-10 - I10) elevated, will continue to monitor, will continue current regiment 01/30/2025 Morbid obesity due to excess calories (ICD-10 - E66.01) 01/30/2025 Testosterone deficiency (ICD-10 - E29.1) Plan Of Treatment Medication Medication Name Sig Start Date Stop Date Notes Ozempic (1 MG/DOSE) 4 MG/3ML 1 mg Subcut aneous weekly for 30 days 01/30/2025 Lisinopril-hydroCHLOROthiazi de 20-25 MG TAKE 1 TABLET BY MOUTH DAILY Orally Once a day amLODIPine Besylate 10 MG TAKE 1 TABLET BY MOUTH EVERY DAY Treatment Notes Assessment Notes Essential hypertension with goal blood pressure less than 140\/90 elevated, will continue to monitor, will continue current regiment Next Appt Details Follow Up: 2 Months, Reason: Provider Name:Luis zaragoza, 03/20/2025 10:00:00 AM, [address] [place] [address], [address], [phone], Provider Name:Luis zaragoza, 12/25/2025 08:15:00 AM, [address] [place] [address], [address], [phone], Provider Name:Luis zaragoza, 01/01/2026 10:30:00 AM, [address] [place] [address], [address], [phone], Progress Notes * Dakota GORE PDOB: [birth year] (45 yo M)Acc No.[id number]:01/30/2025 Progress Notes Patient: Dakota SIMMONS Provider: Winnie Garcias MD :1980 A ge:45 Y S ex:Male Date:01/30/2025 Address:[address] [place], [id number] Subjective: * Chief Complaints: * 4 week * HPI: S ymptom(s): patient is a 45 yo male here for 4 week follow up visit/ had laceration of finger and is followed by work connection..is going to see dr almaguer. [facility] * ROS: G eneral/Constitutional: Denies C hills. D enies F atigue. D enies F ever. D enies H eadache. E NT: Denies S ore throat. R espiratory: Denies C ough. D enies S hortness of breath at rest. D enies S hortness of breath with exertion. G astrointestinal: Denies D iarrhea. D enies N ausea. * Medical History: * Surgical History: * Hospitalization/Major Diagno stic Procedure: * Medications: T akingOzempic (0.25 or 0.5 MG/DOSE) 2 MG/3ML Solution Pen-injector as directed Subcutaneous 0.5 mg weekly Ozempic (1 MG/DOSE) 4 MG/3ML Solution Pen-injector 1 mg Subcutaneous weekly amLODIPine Besylate 10 MG Tablet TAKE 1 TABLET BY MOUTH EVERY DAY Lisinopril-hydroCHLOROthiazide 20-25 MG Tablet TAKE 1 TABLET BY MOUTH DAILY Orally Once a day Taking Ozempic (0.25 or 0.5 MG/DOSE) 2 MG/3ML Solution Pen-injector as directed Subcutaneous 0.5 mg weekly Taking Ozempic (1 MG/DOSE) 4 MG/3ML Solution Pen-injector 1 mg Subcutaneous weekly Taking amLODIPine Besylate 10 MG Tablet TAKE 1 TABLET BY MOUTH EVERY DAY Taking Lisinopril-hydroCHLOROthiazide 20-25 MG Tablet TAKE 1 [...] Objective: * Vitals: H t: 71.5, Wt: 369, BMI:50.74, BP:142/90, Wt-k.38. weight is up 9 pounds since 12-29-24. * Examination: G eneral Examination: GENERAL APPEARANCE: a lert, well hydrated, in no distress.? SKIN: a bnormal with lesion on shoulder unchanged. HEART: r egular rate and rhythm, no murmurs, rubs, gallops.? LUNGS: n o wheezes, rales, rhonchi, good air movement, clear to auscultation bilaterally. Assessment: * Assessment: 1. E ssential hypertension with goal blood pressure less than 140\/90 - I10 (Primary) ? 2 . P rediabetes - R73.03 3 . M orbid obesity due to excess calories - E66.01 4 . T estosterone deficiency - E29.1 Plan: * Treatment: 2. P rediabetes L AB: Glucose, finger stick (Collection Date & Time - 01/30/2025) Value Reference Range V alue 122 3.?Morbid obesity due to excess calories? Start Ozempic (1 MG/DOSE) Solution Pen-injector, 4 MG/3ML, 1 mg, Subcutaneous, weekly, 30 days, 4, Refills 3.?? * Procedure Codes: 8 2947 ASSAY, GLUCOSE, BLOOD QUANT, Modifiers: QW * Follow Up: 2 Months * * Sign off status: Completed true * Provider: Winnie Garcias MD Date: Generated for Jude carlisle/Migel/Emilyitting on: 06:43 PM EDT History and Physical Notes * HPI (History of Present Illness) Category Sub-Category Detail Notes Category Not es Symptom(s) patient is a 45 yo male here for 4 week follow up visit/ had laceration of finger and is followed by work connection..is going to see dr almaguer. [facility]. Examination Category Sub-Category Detail Notes Category Not es General Examination GENERAL APPEARANCE: alert, w ell hydrated, in no distress HEART: regular rate and rhy thm, no murmurs, rubs, gallops LUNGS: no wheezes, rales, r honchi, good air movement, clear to auscultation bilaterally SKIN: abnormal with lesion on shoulder unchanged
--- NOTE | 2025-02-06 14:26 | A.OFFVIS_ITS ---
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 The patient presents with a several-week history of low energy and difficulty with weight loss despite increased physical activity and recent up-titration of semaglutide (Ozempic) to 1 mg weekly. The patient has a longstanding history of obesity (peak weight 360 lbs), type 2 diabetes, and a strong family history of metabolic disease. Despite adherence to semaglutide, regular exercise (mountain biking, weight training, daily walks), and intermittent fasting, the patient reports no significant weight loss. Diet is reportedly controlled, with most calories consumed between noon and 7 pm, but caloric intake is not currently tracked. The patient also reports symptoms suggestive of hypogonadism, including decreased frequency of morning erections (1?2 per week), low energy, and low measured free and total testosterone. There is significant psychosocial stress related to caregiving for a mother with cognitive decline. The patient has a history of persistent acne since adolescence, with multiple courses of isotretinoin in the past, and a family history of adult acne. No history of testicular trauma or surgery. No current relationship, so sexual function is not otherwise assessed. The patient has obstructive sleep apnea, uses CPAP nightly, and is adherent. Lipid panel shows elevated triglycerides, suggesting possible dietary excess of carbohydrates or overall calories. Physical exam General: Well appearing. NAD. Morbidly obese, Not Cushingoid or Acromegalic Neck/Thyroid: Thyroid not palpable, no nodules. CV: RRR, no murmur. No edema. Resp:Lungs clear to auscultation bilaterally Abdomen: Soft, nontender. nondistended Extremities/Neuro: No weakness or tremor of outstretched hands Labs Name Value Reference Range Testosterone, Total 126 250?1100 (ng/dL) Testosterone, Free 36.0 35.0?155.0 (pg/mL) White Blood Count 7.6 4.8?10.8 (X10^3/uL) Red Blood Count 4.11 L 4.60?5.80 (X10^6/uL) Hemoglobin 12.9 L 14.0?18.0 (g/dl) Hematocrit 38.2 L 42.0?52.0 (%) Sodium 141 Potassium 4.1 Chloride 104 Carbon Dioxide 29 Anion Gap 12 Blood Urea Nitrogen 13 Creatinine 0.87 Estimated Glomerular Filt Rate >60 Glucose Fasting 117 H Calcium 8.9 Bilirubin Total 0.6 Aspartate Amino Transferase 28 Alanine Aminotransferase 26 Total Protein 6.7 Albumin Level 4.0 Alkaline Phosphatase 78 NAME VALUE REFERENCE RANGE Triglycerides 210 H <150 (mg/dL) Cholesterol 171 <200 (mg/dL) LDL Cholesterol Calculated 97 <100 (mg/dL) HDL Cholesterol 32 L >40 (mg/dL) PFSH Medical History Skin lesion Staph infection Muscle spasm of back Hinson syndrome Family history of colon cancer Tubulovillous adenoma Perianal abscess Diabetes mellitus Morbid obesity HTN (hypertension) Surgical History History of colon resection (~04/18/24) Hx of excision of mass Hx of wisdom tooth extraction H/O colonoscopy Family History Father Colon cancer, Onset Age: 46 Brother Colon polyps Social History Household Members: Family and Friend(s) Household Members Other:: mother & roomate live w/patient Housing: House Are you a primary career services manager to a significant other at home: No Do you presently have visiting nurse or other home services: No Patient Tobacco Use Status: Never used Tobacco Physical Exam Vital Signs: Last Vital Signs Pulse 94 02/06/25 14:28 BP 118/84 02/06/25 14:28 Pulse Ox 96 02/06/25 14:28 Oxygen Delivery Method Room Air 02/06/25 14:28 BMI result Body Mass Index 49.9 Assessment & Plan Assessment & Plan (1) Hypogonadism in male: Code(s): E29.1 - Testicular hypofunction Category: Medical Plan: Symptoms and labs suggest hypogonadism; etiology likely meets in the setting of obesity. Obesity is associated with low testosterone levels due to both central and peripheral mechanisms. Central suppression of the oqylumppmtxo-axosuzydk-konmnai (HPG) axis occurs via leptin resistance, impaired kisspeptin signaling, and the effects of pro-inflammatory cytokines, resulting in inappropriately low or normal gonadotropin (LH, FSH) levels and reduced testosterone production (functional hypogonadotropic hypogonadism). Peripherally, increased aromatase activity in adipose tissue enhances conversion of testosterone to estradiol, which can further suppress the HPG axis. Insulin resistance and hyperinsulinemia lower sex hormone-binding globulin (SHBG) and may directly impair Leydig cell function, while elevated leptin can also inhibit testicular testosterone synthesis. Chronic inflammation and metabolic dysfunction contribute to testicular dysfunction and reduced testosterone synthesis. This creates a bidirectional relationship, as low testosterone can further promote adiposity, perpetuating the cycle. Plan Order hypogonadism workup: repeat total and free testosterone (morning, fasting), LH, FSH, SHBG, prolactin, estradiol. If secondary hypogonadism confirmed (low/normal LH/FSH), consider pituitary MRI to rule out central pathology. Discuss risks/benefits of testosterone replacement therapy if persistent symptomatic hypogonadism and no reversible cause. Patient education provided regarding the complex interplay between obesity, hypogonadism, and metabolic disease, and the importance of objective dietary tracking and ongoing monitoring. Discussed the benefits of weight loss and improvement of hypogonadism (2) Morbid obesity: Code(s): E66.01 - Morbid (severe) obesity due to excess calories Category: Medical Plan: Patient has morbid obesity with associated comorbidities including FELICITY, type 2 diabetes. He reports difficulty losing weight, which raises suspicion for possible secondary causes including Isela's, although he does not have any obvious stigmata of Isela's including violaceous striae, thinning skin, easy bleeding. Plan Discussed the importance of dietary compliance, calorie restriction in exercise in weight loss Advised the patient to continue Ozempic 1 mg, to be titrated by PCP. Counseled the patient that sometimes patient needs higher doses of GLP-1 to see weight loss. Order overnight dexamethasone suppression test to screen for Isela?s syndrome. Discussed with the patient that if targets are not achieve with Ozempic once it reaches maximum dose, other GLP-1 or bariatric surgery could be considered Plan 60 minutes spent reviewing previous records, labs, imaging, education and documenting in the chart Orders: Orders Testosterone, Free/Total Today E29.1 - Testicular hypofunction, E66.01 - Morbid (severe) obesity due to excess calories TSH reflex Free T4 Today E29.1 - Testicular hypofunction, E66.01 - Morbid (severe) obesity due to excess calories Sex Hormone Binding Globulin Today E29.1 - Testicular hypofunction, E66.01 - Morbid (severe) obesity due to excess calories Follicle Stimulating Hormone Today E29.1 - Testicular hypofunction, E66.01 - Morbid (severe) obesity due to excess calories Lutenizing Hormone Today E29.1 - Testicular hypofunction, E66.01 - Morbid (severe) obesity due to excess calories Cortisol Random Today E29.1 - Testicular hypofunction, E66.01 - Morbid (severe) obesity due to excess calories Prolactin Today E29.1 - Testicular hypofunction, E66.01 - Morbid (severe) obesity due to excess calories Estradiol Ultra Sensitive Today E29.1 - Testicular hypofunction, E66.01 - Morbid (severe) obesity due to excess calories Medications: New dexamethasone 1 mg PO ONCE 1 tab 0RF Coding Level of Care Code New Pt Level 5 (41923) Diagnoses Hypogonadism in male E29.1 Morbid obesity E66.01
[2025-02-06 14:28] VITALS: BP 118/84; PULSE 94; O2SAT 96; BMI 49.9
--- OUTSIDE RECORDS SUMMARY | 2025-02-06 18:43 | XMS_ITS | Clinical Summary ---
Author Organization [facility] Address [address] [place] [id number] Phone Care Team Providers Care Independent Driver Name Role Phone Arnoldo Gore MD Primary Care Provider [phone] Allergies No known active allergies Medications No [...] topic Medical Devices Not on file Insurance [facility] Care Teams Independent Driver Relationship Specialty Start Date End Date Arnoldo Gore MD [address] [place] [address] PCP - [facility] 07/05/15 Additional Source Comments The information contained in this document represents components of the legal health record. It is not the complete legal health record.[facility]
--- OUTSIDE RECORDS SUMMARY | 2025-02-06 18:43 | XMS_ITS | Patient Health Record ---
Author Organization [facility] Address [address] [place] [address] Care Team Providers Care Traffic Supervisor Name Role Phone Luis Garcias MD Primary Care Provider Ramirez Allen [phone] Allergies No Known Allergies Reason For Referral [...] Problem Screening for malignant neoplasm of colon (938719360) Encounter for screening for malignant neoplasm of colon (Z12.11) Active confirmed Problem History of adenomatous polyp of colon (353381407) History of adenomatous polyp of colon (Z86.010) Active confirmed Problem Screening for malignant neoplasm of rectum (233735119) Encounter for screening for malignant neoplasm of rectum (Z12.12) Active confirmed Problem Preprocedural examination (929518385734158) Preprocedural examination (Z01.818) Active confirmed Problem Family History of Cancer of Colon (Situation) (194152758) Family history of colon cancer (Z80.0) Active confirmed Problem Mass of hepatic flexure of colon (004128271571129) 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 Encounters Encounter Location Date Provider Diagnosis [facility] [address] [place] [address] 10/31/2024 Ramirez Becky [facility] [address] [place] [address] 03/10/2024 Ramirez Pena Plan Of Treatment Pending [...] Insured Coverage Start Date Coverage End Date [address] [facility] [place] [address] [id number] MARYSE GORE Self - patient is the insured Medical (General) History Medical History History ICD Code Denies PA,DM,CVA,Lung disease,renal dise ase HTN Colonoscopy 04/2006 - [...] some nonspecific inflammation. Surgical History Surgery Date(Month/Year) [employer] teeth extraction Fatty tumor removed from scalp 2016
--- OUTSIDE RECORDS SUMMARY | 2025-02-06 18:44 | XMS_ITS | Patient Health Record ---
Author Organization Luis Garcias MD Address [address] [place], [place] [id number] Care Team Providers Care Flare Breaker Name Role Phone Luis Garcias Primary Care Provider Allergies No Known Allergies Results Component Value Reference Range Notes Complete Blood Count Auto Di ff Reviewed date:12/25/2024 11:39:17 AM Interpretation: Performing Lab:[facility], [address] [place] [phone] Notes/Report: White Blood Count 7.6 4.8-10.8 X10*3/uL [...] NRBC Abs Auto 0.000 0.0-0.012 X10*3/uL Comprehensive Ullin. Panel Fa st Reviewed date:12/24/2024 05:38:21 PM Interpretation: Performing Lab:[address] [address] Notes/Report: Sodium 141 135-145 mmol/L Potassium 4.1 [...] Panel Reviewed date:12/22/2024 12:33:41 PM Interpretation: Performing Lab:[facility], [address] [place] [phone] Notes/Report: Triglycerides 210 <150 mg/dL Desirable Triglyceride: [...] (Free>4and<10) Reviewed date:12/22/2024 12:50:11 PM Interpretation: Performing Lab:[address] [address] Notes/Report: PSA,Total (Free>4and<10) 1.21 0.00-4.00 ng/mL A [...] A1c Reviewed date:12/22/2024 12:30:10 PM Interpretation: Performing Lab:[address] [address] Notes/Report: Hemoglobin A1c % 6.2 <6.0 % [...] average glucose, using the formula of the W9M-Thewres Average Glucose study (ADAG), Diabetes Care, Vol.31,#8, Nov. 2007 Testosterone, Free/Total Reviewed date:01/19/2025 02:24:55 PM Interpretation: Performing Lab:[facility], [address] [place] [phone] Notes/Report: Testosterone, Total 391 959-1166 ng/dL For additional information, please refer to http://education.Mendor/fa q/ TotalTestosteroneM [email or web address] (This link is being provided for informational/ educational purposes only.) This test was developed and its analytical performance characteristics have been determined by [facility] [place], [place]. It has not been cleared or approved by the U.S. Food and Drug Administration. This assay has been validated pursuant to the CLIA regulations and is used for clinical purposes. Testosterone, Free 36.0 35.0-155.0 pg/mL This test was developed and its analytical performance characteristics have been determined by [facility] [place], [place]. It has not been cleared or approved by the U.S. Food and Drug Administration. This assay has been validated pursuant to the CLIA regulations and is used for clinical purposes. THIS TEST WAS PERFORMED AT: [employer] [id number] [place] [phone] RINA MCCAULEY MD,PHD Glucose, finger stick Reviewed date:02/11/2024 10:00:54 AM Interpretation: Performing Lab: Notes/Report: Value 111 Glucose, finger stick Reviewed date:05/15/2024 09:57:52 AM Interpretation: Performing Lab: Notes/Report: Value 109 Microalbumin, Random Reviewed date:12/31/2024 02:43:48 PM Interpretation: Performing Lab:[facility], [address] [place] [phone] Notes/Report: Creatinine Urine 131.45 Microalbumin Urine < 5.0 Microalbum/Creatinine Ratio Ur TNP <30 ug/mg cr Unable to calculate albumin/creatinine ratio due to low microalbumin or creatinine result. UA ClnCatch+Micro w/rflx Cul t Reviewed date:12/29/2024 12:54:22 PM Interpretation: Performing Lab:[facility], [address] [place] [phone] Notes/Report: Urine, Clean Catch Color Urine Yellow Appearance Urine Clear PH 6.0 5.0-9.0 Glucose Urine UA Negative Negative mg/dL Urine Blood Negative Negative Specific [place] - Urine 1.025 1.005-1.025 Urine Protein Negative Neg-Trace mg/dL Urine Ketones Negative Negative mg/dL Nitrite Urine Negative Negative Leukocyte Esterase Urine Negative Negative RBC Urine 0-2 0-2 /HPF WBC Urine 0-5 0-5 /HPF Squamous Epithelial Cell Urine 0-2 0-2 /HPF Bacteria Urine None Seen None Seen Hyaline Casts Urine 0-2 0-2 /LPF Glucose, finger stick Reviewed date:01/30/2025 10:15:11 AM Interpretation: Performing Lab: Notes/Report: Value 122 CT abdomen pelvis w con Reviewed date:03/14/2024 05:08:21 PM Interpretation: Performing Lab: Notes/Report: [address] [address] [address] Scan Report Signed Patient: Dakota Gore MR#: [id number] 71 : 1980 Acct:[id number] Age/Sex: 44 / M ADM Date: 02/28/24 Loc: HO.CT Attending Dr: Ramriez Pena MD Ordering Physician: Sacha Heaton MD Date of Service: 02/28/24 Procedure(s): CT abdomen pelvis w IV con Accession Number(s): [id number] cc: Luis Garcias MD; Sacha Heaton MD [...] by: Harrison Redmond MD 03/14/2024 03:31 PM [facility] Dictated By: Harrison Redmond MD Signed By: <Electronically signed by Harrison Redmond MD in OV> 03/14/24 1531 DD/ 1616 TD/TT: 02/28/24 1628 Bricklayer Helper: [place] [address] [address] Scan Report Signed Patient: Dwight Gore MR#: [id number] 69 : 1980 Acct:[id number] Age/Sex: 44 / M ADM Date: 02/28/24 Loc: HO.CT Attending Dr: Ramirez Pena MD Ordering Physician: Sacha Heaton MD Date of Service: 02/28/24 Procedure(s): CT abd omen pelvis w IV con Accession Number(s): [id number] cc: Luis Garcias MD; Sacha Heaton MD [...] by: Harrison Redmond MD 03/14/2024 03:31 PM [facility] Dictated By: Jovani Redmond MD Signed By: <Electronically signed by Harrison Redmond MD in OV> 03/14/24 1531 DD/ 1616 TD/TT: 02/28/24 1628 Bricklayer Helper: RACHEL Complete Blood Count no Diff Reviewed date:04/06/2024 04:50:01 PM Interpretation: Performing Lab:[facility], [address] [place] [phone] Notes/Report: White Blood Count 10.0 4.8-10.8 X10*3/uL [...] Panel Reviewed date:04/06/2024 04:49:27 PM Interpretation: Performing Lab:[address] [address] Notes/Report: Sodium 138 135-145 mmol/L Potassium 3.9 [...] A1c Reviewed date:04/06/2024 04:48:55 PM Interpretation: Performing Lab:[facility], [address] [place] [phone] Notes/Report: Hemoglobin A1c % 5.9 <6.0 % [...] average glucose, using the formula of the R5W-Olvrfyy Average Glucose study (ADAG), Diabetes Care, Vol.31,#8, 2007 Type and Screen Reviewed date:04/06/2024 04:49:37 PM Interpretation: Performing Lab:[facility], [address] [place] [address] Notes/Report: Spec expiration changed by SHIKHA on 04/06/24 Reason: PAT NURSING: Call Blood Bank (ext. [phone]) to band patient on admission. Type and Screen in effect until 2300 on 04/18/2024. Witnessed by MURCA Blood Type OP Antibody Screen NEGATIVE Glucose, Whole Blood Reviewed date:04/18/2024 12:44:11 PM Interpretation: Performing Lab:[facility], [address] [place] [phone] Notes/Report: Glucose, Whole Blood 141 60-115 mg/dL METER # : [id number] Glucose, Whole Blood Reviewed date:04/18/2024 04:23:16 PM Interpretation: Performing Lab:[facility], [address] [place] [phone] Notes/Report: Glucose, Whole Blood 147 60-115 mg/dL METER # : [id number] Glucose, Whole Blood Reviewed date:04/19/2024 03:27:25 PM Interpretation: Performing Lab:[facility], [address] [place] [phone] Notes/Report: Glucose, Whole Blood 137 60-115 mg/dL METER # : [id number] Hold Lav - Possible Hematolo gy Reviewed date:04/19/2024 03:27:11 PM Interpretation: Performing Lab:[facility], [address] [place] [phone] Notes/Report: Hold Lav - Possible Hematology SEE NOTE Specimen will be held untested for 8 hours. Call Hematology if testing is desired. Basic Metabolic Panel Fastin g Reviewed date:04/19/2024 03:27:37 PM Interpretation: Performing Lab:[facility], [address] [place] [address] Notes/Report: Sodium 142 135-145 mmol/L Potassium 4.1 [...] Blood Reviewed date:04/19/2024 03:28:03 PM Interpretation: Performing Lab:[facility], [address] [place] [phone] Notes/Report: Glucose, Whole Blood 122 60-115 mg/dL METER # : [id number] XR chest 1V Reviewed date:04/20/2024 12:42:31 PM Interpretation: Performing Lab: Notes/Report: [address] [address] XRay Report Signed Patient: Dakota Gore MR#: [id number] [birth year] : 1980 Acct:[id number] Age/Sex: 44 / M ADM Date: 04/18/24 Loc: [facility] 483-[address]: Sacha Heaton MD Ordering Physician: Patricio Encarnacion MD Date of Service: 04/19/24 Procedure(s): XR chest 1V Accession Number(s): [id number] cc: Patricio Encarnacion MD; Luis Garcias MD [...] 04/19/24 1534 DD/ 1420 TD/TT: 04/19/24 1430 Bricklayer Helper: [address] [address] XRay Report Signed Patient: Dwight Gore MR#: [id number] 69 : 1980 Acct:[id number] Age/Sex: 44 / M ADM Date: 04/18/24 Loc: [facility] 483-[address]: Lizzie Heaton MD Ordering Physician: Patricio Encarnacion MD Date of Service: 04/19/24 Procedure(s): XR priya st 1V Accession Number(s): [id number] cc: Melanie Encarnacion MD; Luis Garcias MD [...] 04/19/24 1534 DD/ 1420 TD/TT: 04/19/24 1430 Bricklayer Helper: Glucose, Whole Blood Reviewed date:04/19/2024 03:25:17 PM Interpretation: Performing Lab:[facility], [address] [place] [phone] Notes/Report: Glucose, Whole Blood 158 60-115 mg/dL METER # : [id number] Glucose, Whole Blood Reviewed date:04/20/2024 06:07:40 PM Interpretation: Performing Lab:[facility], [address] [place] [phone] Notes/Report: Glucose, Whole Blood 130 60-115 mg/dL METER # : [id number] Glucose, Whole Blood Reviewed date:04/20/2024 12:41:44 PM Interpretation: Performing Lab:[facility], [address] [place] [phone] Notes/Report: Glucose, Whole Blood 122 60-115 mg/dL METER # : [id number] Glucose, Whole Blood Reviewed date:04/20/2024 12:24:18 PM Interpretation: Performing Lab:[facility], [address] [place] [phone] Notes/Report: Glucose, Whole Blood 144 60-115 mg/dL METER # : [id number] Glucose, Whole Blood Reviewed date:04/20/2024 12:21:43 PM Interpretation: Performing Lab:[facility], [address] [place] [phone] Notes/Report: Glucose, Whole Blood 145 60-115 mg/dL METER # : [id number] Glucose, Whole Blood Reviewed date:06/30/2024 09:48:17 AM Interpretation: Performing Lab:[facility], [address] [place] [phone] Notes/Report: Glucose, Whole Blood 105 60-115 mg/dL METER # : [id number] Reason For Referral Reason local infection of [...] Provider Speciality Internal edicine Referred Provider Ramirez Ansair Referred Provider Specialty Endocrinolog y General Notes [...] W/U Status Risk Notes Problem Androgen deficiency (73275387) Testosterone deficiency (E29.1) Active confirmed Problem Low testosterone (393644208) Low testosterone (E29.1) Active confirmed Problem 261910847 Morbid obesity due to excess calories (E66.01) Active confirmed Problem 68751353 Intrinsic eczema (L20.84) Active confirmed Problem 544527934 Leukocytosis, unspecified type (D72.829) Active confirmed Problem 47119430 Essential hypertension with goal blood pressure less than 140\/90 (I10) Active confirmed Problem 961686114 Prediabetes (R73.03) Active confirmed Problem 814038203 Body mass index (BMI) of 45.0-49.9 in adult (Z68.42) Active confirmed Problem 324372731 Mild intermittent asthmatic bronchitis with acute exacerbation (J45.21) Active confirmed Problem 489080204 History of colon polyps (Z86.010) Active confirmed Problem Obstructive sleep apnea syndrome (46918353) FELICITY on CPAP (G47.33) Active confirmed Problem 09179806 Type 2 diabetes mellitus treated without insulin [...] Luis Garcias MD [address] [place] [id number] 12/22/2024 Luis Garcias Blood tests for routine general physical examination Z00.00 ; Encounter for administration of vaccine Z23 ; Essential hypertension with goal blood pressure less than 140\/90 I10 ; Type 2 diabetes mellitus treated without insulin E11.9 and Leukocytosis, unspecified type D72.829 Luis Garcias MD [address] [place] [id number] 01/12/2025 Luis Garcias Testosterone deficiency E29.1 Luis Garcias MD [address] [place] [id number] 02/11/2024 Luis Garcias Prediabetes R73.03 ; Essential hypertension with goal blood pressure less than 140\/90 I10 and Morbid obesity due to excess calories E66.01 Luis Garcias MD [address] [place] [id number] 05/15/2024 Luis Garcias Prediabetes R73.03 ; Other injury of unspecified body region, initial encounter T14.8XXA ; Local infection of the skin and subcutaneous tissue, unspecified L08.9 and Essential hypertension with goal blood pressure less than 140\/90 I10 Luis Garcias MD [address] [place] [id number] 12/29/2024 Luis Garcias Annual physical exam Z00.00 ; Essential hypertension with goal blood pressure less than 140\/90 I10 ; Low testosterone E29.1 ; Morbid obesity due to excess calories E66.01 ; Type 2 diabetes mellitus treated without insulin E11.9 ; FELICITY on CPAP G47.33 ; Colon polyps K63.5 and Skin lesion L98.9 Luis Garcias MD [address] [place] [id number] 01/30/2025 Luis Garcias Prediabetes R73.03 ; Essential hypertension with goal blood pressure less than 140\/90 I10 ; Morbid obesity due to excess calories E66.01 and Testosterone deficiency E29.1 Luis Garcias MD [address] [place] [id number] 03/13/2024 Luis Garcias MD [address] [place] [id number] 08/23/2024 Luis Garcias MD [address] [place] [id number] 11/27/2024 Luis Garcias Essential hypertensi on with goal blood pressure less than 140\/90 I10 Luis Garcias MD [address] [place] [id number] 01/04/2025 Luis Garcias Testosterone deficiency E29.1 Assessments [...] (ICD-10 - I10) will continue to monitor 01/30/2025 Prediabetes (ICD-10 - R73.03) 01/30/2025 Essential hypertension with goal blood pressure less than 140\/90 (ICD-10 - I10) elevated, will continue to monitor, will continue current regiment 11/27/2024 Essential hypertension with goal blood pressure [...] testosterone (ICD-10 - E29.1) refer to endocrine 01/30/2025 Morbid obesity due to excess calories (ICD-10 - E66.01) 12/22/2024 Type 2 diabetes mellitus treated without insulin (ICD-10 - E11.9) 05/15/2024 Essential hypertension with goal blood pressure less than 140\/90 (ICD-10 - I10) stable, will cintinue current regiment 12/29/2024 Morbid obesity due to excess calories (ICD-10 - E66.01) 01/30/2025 Testosterone deficiency (ICD-10 - E29.1) 12/22/2024 Leukocytosis, unspecified type (ICD-10 - D72.829) [...] Provider Name:Luis Goodson ier, 03/20/2025 10:00:00 AM, [address] [place] [address], [address], [phone], Provider Name:Luis Goodson ier, 12/25/2025 08:15:00 AM, [address] [place] [address], [address], [phone], Provider Name:Luis Goodson ier, 01/01/2026 10:30:00 AM, [address] [place] [address], [address], [phone], Insurance Providers Payer Name Payer Address Payer Phone Subscriber Number Group Number Insured Name Patient Relationship to Insured Coverage Start Date Coverage End Date [address] [place] [phone] [id number] Dakota Gore Self - patient is the insured Medical (General) History Medical History History ICD Code father colon cancer age 40; he gets colonoscopy every 2 years. Colonoscopy 02/24/[address] Pena - repeat 3 .07/23/23 colonoscopy pending path-12/31/23 repeat colonoscopy performed Becky, advised surgical resection
== END ==
LOC: HO.ENCR 14:25
PROVIDERS: PCP Internal Medicine; Visit Provider Student in an Organized Health Care Education/Training Program
DX: E29.1 Testicular hypofunction (principal); E66.01 Morbid (severe) obesity due to excess calories; Z68.41 Body mass index [BMI] 40.0-44.9, adult
CPT/HCPCS: 99205

== ENCOUNTER 2025-02-08 07:03 | Outpatient (REF) | payer OTHER, SELFPAY ==
--- OUTSIDE RECORDS SUMMARY | 2023-12-31 09:10 | XMS_ITS ---
Author Organization [facility] Address [address] [place] [phone] Care Team Providers Care Business Lawyer Name Role Phone Luis Garcias MD Primary Care Provider Ramirez Allen [phone] REASON FOR VISIT screening, hx polyps, fam hx colon ca Encounters Encounter Location Date Provider [place] [facility] [place] [address] [place] [phone] 12/31/2023 Ramirez Pena Colon cancer scree daryl [...] * MARYSE GOREDOB: 8 (45 yo M)Acc No.[id number]:12/31/2023 COLON WITH MAC Patient: CHELSEA SIMMONSIG Provider: Guru Pena MD :1980 A ge:43 Y S ex:Male Date:12/31/2023 Address:[address] [facility] Pcp:Luis Garcias MD Subjective: * Chief Complaints: [...] 0 12/31/2023 Generated for Jude carlisle/Migel/Emilyitting on: 07:08 AM EDT
--- OUTSIDE RECORDS SUMMARY | 2024-02-11 06:00 | XMS_ITS ---
Author Organization Luis Garcias MD Address [address] [place], [place] [id number] Care Team Providers Care Ent Surgeon Name Role Phone Luis Garcias Primary Care Provider [phone] Allergies No Known Allergies Results Component Value [...] Date Provider Diagnosis Luis Garcias MD [address] [facility] [address] [place], [place] [phone] 02/11/2024 Luis Garcias Prediabetes R73.03 ; Essential [...] Reason: Provider Name:Luis zaragoza, 03/20/2025 10:00:00 AM, [address] [place] [address], [address] [place] [address], [phone], Provider Name:Luis zaragoza, 12/25/2025 08:15:00 AM, [address] [place] [address], Suite [facility], [place], [place], [phone], Provider Name:Luis zaragoza, 01/01/2026 10:30:00 AM, [address] [place] [address], [address] [place] [address], [phone], Progress Notes * Dakota GORE PDOB: [birth year] (44 yo M)Acc No.[id number]:02/11/2024 Patient: Dakota Fairchild Provider: Winnie Garcias MD :1980 A ge:44 Y S ex:Male Date:02/11/2024 Address:[address], [id number] Subjective: * Chief Complaints: * H igh [...] Sign off status: Completed true * Provider: Winine Garcias MD Date: 04/12/2023 Generated for Jude carlisle/Migel/Timsmitting on: 07:07 AM EDT History and Physical Notes * [...]
--- OUTSIDE RECORDS SUMMARY | 2024-03-13 05:43 | XMS_ITS ---
Author Organization Luis Garcias MD Address [address] [place] [phone] Care Team Providers Care Clipper Counters Name Role Phone Luis Garcias Primary Care Provider Encounters Encounter Location Date Provider Diagnosis Luis Garcias MD [address] [place] [address] [address] [place] [phone] 03/13/2024 Luis Garcias Plan Of Treatment Next Appt Details Provider Name:Luis prestonr, 03/20/2025 10:00:00 AM, [address] [place] [address], [address], [phone], Provider Name:Luis zaragoza, 12/25/2025 08:15:00 AM, [address] [place] [address], [address], [phone], Provider Name:Luis zaragoza, 01/01/2026 10:30:00 AM, [address] [place] [address], [address], [phone], Progress Notes * Dakota GORE PDOB: [birth year] (44 yo M)Acc No.[id number]:03/13/2024 Patient: Santiago Dakota armenta :1980 A ge:44 Y S ex:Male Address:[address] [place], [address] * true * Date: Generated for Jude carlisle/Migel/Maria Del Carmen on: 1 07:08 AM EDT
--- OUTSIDE RECORDS SUMMARY | 2024-05-15 06:00 | XMS_ITS ---
Author Organization Luis Garcias MD Address [address] [place], [place] [id number] Care Team Providers Care Teacher Instrumental Name Role Phone Luis Garcias Primary Care Provider [phone] Allergies No Known Allergies Results Component [...] Date Provider Diagnosis Luis Garcias MD [address] [place], [place] [phone] 05/15/2024 Luis Garcias Prediabetes R73.03 ; Other [...] Almaguer Next Appt Details Provider Name:Luis zaragoza, 03/20/2025 10:00:00 AM, [address], [address], [place], [place], [id number], Provider Name:Luis Goodson ier, 12/25/2025 08:15:00 AM, [address], [address], [place], [id number], Provider Name:Luis Goodson ier, 01/01/2026 10:30:00 AM, [address], [address], [place], [place], [phone], Progress Notes * Dakota GORE PDOB: [birth year] (44 yo M)Acc No.[id number]:05/15/2024 Progress Notes Patient: Dakota SIMMONS Provider: Winnie Garcias MD :1980 A ge:44 Y S ex:Male Date:05/15/2024 Address:[address] [place] [address] [facility] Subjective: * Chief Complaints: * 3 month [...] 0 05/15/2024 Generated for Jude carlisle/Migel/eTransmitting on: 1 07:08 AM EDT History and Physical Notes * [...]
--- OUTSIDE RECORDS SUMMARY | 2024-08-23 07:20 | XMS_ITS ---
Author Organization Luis Garcias MD Address 10 [facility] [address] [place] [phone] Care Team Providers Care Sales Coach Name Role Phone Luis Garcias Primary Care Provider [phone] REASON FOR VISIT HCC Risk Codes Encounters Encounter Location Date Provider Diagnosis Luis Garcias MD [address] [place] [address] [address] [place] [id number] 08/23/2024 Luis Garcias Plan Of Treatment Next Appt Details Provider Name:Luis Goodson ier, 03/20/2025 10:00:00 AM, [address] [place] [address], [address], [phone], Provider Name:Luis Goodson ier, 12/25/2025 08:15:00 AM, [address] [place] [address], [address], [phone], Provider Name:Luis Goodson ier, 01/01/2026 10:30:00 AM, [address] [place] [address], [address], [phone], Progress Notes * Dakota GORE PDOB: [birth year] (44 yo M)Acc No.[id number]:08/23/2024 Patient: Santiago Dakota HARVEY :1980 A ge:44 Y S ex:Male Address:[address] [place], [address] * true * Date: Generated for Printi ng/Migel/Maria Del Carmen on: 1 07:08 AM EDT
--- OUTSIDE RECORDS SUMMARY | 2024-11-27 05:40 | XMS_ITS ---
Author Organization Luis Garcias MD Address [address] [place] [phone] Care Team Providers Care Refrigerator Repair Technician Name Role Phone Luis Garcias Primary Care Provider REASON FOR VISIT refill lisinopril Medications Medication SIG (Take, Route, Frequency, Duration) Notes Start Date End Date Status Lisinopril-hydroCHLOROthia zide 20-25 MG TAKE 1 TABLET BY MOUTH DAILY Orally Once a day for 90 days Active Encounters Encounter Location Date Provider Diagnosis Luis Garcias MD [address] [place] [address] [place] [phone] 11/27/2024 Luis Garcias Essential hypertension with goal [...] Details Provider Name:Luis zaragoza, 03/20/2025 10:00:00 AM, [address] [place] [address], [address], [phone], Provider Name:Luis zaragoza, 12/25/2025 08:15:00 AM, [address] [place] [address], [address], [phone], Provider Name:Luis zaragoza, 01/01/2026 10:30:00 AM, 10 [facility], [address], [place], [place], [phone], Progress Notes * Dakota GORE PDOB: [birth year] (44 yo M)Acc No.[id number]:11/27/2024 Patient: Santiago ALEXANDROLAZARUSDakota BULLOCK :1980 A ge:44 Y S ex:Male Address: [place], [address] * Refills Refill Lisinopril-hydroCHLOROthiazide Tablet, 20-25 MG, Orally, 90, TAKE 1 TABLET BY MOUTH DAILY, Once a day, 90 days, Refills=3 * true * Date: Generated for Jude carlisle/Migel/Emilyitting on: 07:07 AM EDT
--- OUTSIDE RECORDS SUMMARY | 2024-12-22 03:30 | XMS_ITS ---
Author Organization Luis Garcias MD Address [address] [place], [place] [phone] Care Team Providers Care Pc Network Technician Name Role Phone Luis Garcias Primary Care Provider Results Component Value Reference Range Notes Complete Blood Count Auto Di ff Reviewed date:12/25/2024 11:39:17 AM Interpretation: Performing Lab:[facility], [address] [place] [phone] Notes/Report: White Blood Count 7.6 4.8-10.8 X10*3/uL [...] NRBC Abs Auto 0.000 0.0-0.012 X10*3/uL Comprehensive [place]. Panel Fa st Reviewed date:12/24/2024 05:38:21 PM Interpretation: Performing Lab:[address] [phone] Notes/Report: Sodium 141 135-145 mmol/L Potassium 4.1 [...] Panel Reviewed date:12/22/2024 12:33:41 PM Interpretation: Performing Lab:[address] [phone] Notes/Report: Triglycerides 210 <150 mg/dL Desirable Triglyceride: [...] (Free>4and<10) Reviewed date:12/22/2024 12:50:11 PM Interpretation: Performing Lab:[address] [phone] Notes/Report: PSA,Total (Free>4and<10) 1.21 0.00-4.00 ng/mL A [...] A1c Reviewed date:12/22/2024 12:30:10 PM Interpretation: Performing Lab:[address] [phone] Notes/Report: Hemoglobin A1c % 6.2 <6.0 % [...] average glucose, using the formula of the I6B-Uhfxoyu Average Glucose study (ADAG), Diabetes Care, Vol.31,#8, Nov. 2007 REASON FOR VISIT yearly fasting labs Immunizations Vaccine Route Administration Date Status Comme nts Fluarix Quadrivalent - 150 IM Intramuscular 12/22/2024 Adm inistered Encounters Encounter Location Date Provider Diagnosis Luis Garcias MD [address] [place] [phone] 12/22/2024 Luis Garcias Blood tests for routine [...] Details Provider Name:Luis zaragoza, 03/20/2025 10:00:00 AM, [address] [place] [address], [address], [phone], Provider Name:Luis zaragoza, 12/25/2025 08:15:00 AM, [address] [place] [address], [address], [phone], Provider Name:Luis zaragoza, 01/01/2026 10:30:00 AM, [address] [place] [address], [address], [phone], Progress Notes * Dakota OGRE PDOB: [birth year] (45 yo M)Acc No.[id number]:12/22/2024 Progress Note Patient: Dakota SIMMONS Provider: Winnie Garcias MD :1980 A ge:44 Y S ex:Male Date:12/22/2024 Address:[address] [facility] Subjective: * Chief Complaints: * 1 . [...] - 12/22/2024 07:15 AM) L AB: Comprehensive [place]. Panel Fast (Collection Date & Time - [...] - 12/22/2024 07:15 AM) L AB: Comprehensive [place]. Panel Fast (Collection Date & Time - [...] - 12/22/2024 07:15 AM) L AB: Comprehensive [place]. Panel Fast (Collection Date & Time - [...] * Procedure Codes: 3 6415 VENIPUNCT, ROUTINE*, 16472 FLU VACCINE NO PRESERV 3 & >, 95016 IMMUNIZATION ADMIN * * The named appointment provid er may or may not be the originator of this progress note, and it is not deemed complete until electronically signed by the appointment provider. Sign off status: Pending * Provider: Winnie Garcias MD Date: 0 12/22/2024 Generated for Jude carlisle/Migel/Emilyitting on: 1 07:07 AM EDT
--- OUTSIDE RECORDS SUMMARY | 2024-12-29 05:30 | XMS_ITS ---
Author Organization Luis Garcias MD Address [address] [place], [place] [id number] Care Team Providers Care Clay Carman Name Role Phone Luis Garcias Primary Care Provider [phone] Allergies No Known Allergies Results Component Value Reference Range Notes Microalbumin, Random Reviewed date:12/31/2024 02:43:48 PM Interpretation: Performing Lab:[facility], [address] [place] [id number] Notes/Report: Creatinine Urine 131.45 Microalbumin Urine < 5.0 Microalbum/Creatinine Ratio Ur TNP <30 ug/mg cr Unable to calculate albumin/creatinine ratio due to low microalbumin or creatinine result. UA ClnCatch+Micro w/rflx Cul t Reviewed date:12/29/2024 12:54:22 PM Interpretation: Performing Lab:[facility], [address] [place] [id number] Notes/Report: Urine, Clean Catch Color Urine Yellow Appearance Urine Clear PH 6.0 5.0-9.0 Glucose Urine UA Negative Negative mg/dL Urine Blood Negative Negative Specific [place] - Urine 1.025 1.005-1.025 Urine Protein Negative Neg-Trace mg/dL Urine Ketones Negative Negative mg/dL Nitrite Urine Negative Negative Leukocyte Esterase Urine Negative Negative RBC Urine 0-2 0-2 /HPF WBC Urine 0-5 0-5 /HPF Squamous Epithelial Cell Urine 0-2 0-2 /HPF Bacteria Urine None Seen None Seen Hyaline Casts Urine 0-2 0-2 /LPF Reason For Referral Reason low testosterone Diagnosis 1 Low testosterone (E2 9.1) Referral Organization Luis Garcias MD Referring Provider First Name Luis Referring Provider Last Name Katerine Referring Provider Speciality Internal edicine Referred Provider Ramirez Ansari Referred Provider Specialty Endocrinolog y General Notes Sarah Dee 0 12/29/2024 10:26:33 AM >referral info faxedLeila Annette 01/04/2025 02:19:51 PM >was told patient needs to have some lab work done. message sent to PCP, Sarah Dee 01/19/2025 08:33:43 AM >referral info faxed with lab results Referral Priority Routine Referral Appointment Date 02/06/2025 Reason Colon polyps Diagnosis 1 Colon polyps (K63.5) Referral Organization Luis Garcias MD Referring Provider First Name Luis Referring Provider Last Name Katerine Referring Provider Speciality Internal edicine Referred Provider Sacha Almaguer Referred Provider Specialty Surgery General Notes Sarah Dee 0 12/29/2024 10:27:22 AM >referral info faxedLeila Annette 01/15/2025 11:29:28 AM >patient was called with referral info Referral Priority Routine Referral Appointment Date 01/31/2025 Reason skin lesion Diagnosis 1 Skin lesion (L98.9) Referral Organization Luis Garcias MD Referring Provider First Name Luis Referring Provider Last Name Katerine [facility] Referred Provider Sacha Almaguer Referred Provider Specialty Surgery General Notes Sarah Dee 0 12/29/2024 10:27:37 AM >referral info faxedLeila Annette 01/15/2025 11:28:58 AM >patient was called with referral info Referral Priority Routine Referral Appointment Date 01/31/2025 REASON FOR VISIT annual visit, HCC Risk Codesneeded: E11.9 DM without complications Medications Medication SIG (Take, Route, Frequency, Duration) Notes Start Date End Date Status amLODIPine Besylate 10 MG TAKE 1 TABLET BY MOUTH EVERY DAY Active Lisinopril-hydroCHLOROth iazide 20-25 MG TAKE 1 TABLET BY MOUTH DAILY Orally Once a day Active SUMAtriptan Succinate 50 MG 1 tablet as needed Orally as need for migraine Not-Taking Ozempic (1 MG/DOSE) 4 MG/3ML 1 mg Subcutaneous weekly for 90 days 12/29/2024 Active Flonase 50 MCG/ACT 1 spray in each nost ril Nasally Once a day for 30 day(s) 04/29/2018 Not-Taking Ozempic (0.25 or 0.5 MG/DOSE) 2 MG/3ML as directed Subcutaneous 0.5 mg weekly for 30 days 12/28/2023 Active Ventolin HFA 108 (90 Base) MCG/ACT 2 puffs as needed Inhalation every 4 hrs for 30 days 09/27/2018 Not-Taking Social History Tobacco Use: Social History Observation [...] Problem Status W/U Status Risk Notes Problem Low testosterone (954047716) Low testosterone (E29.1) Active confirmed Problem Obstructive sleep apnea syndrome (96618918) FELICITY on CPAP (G47.33) Active confirmed Vital Signs Blood pressure systolic 154 mm Hg 12/30/19 25 Blood pressure diastolic 90 mm Hg 025 Height 71.5 in 12/29/2024 Weight 360 lbs 12/29/2024 BMI 49.5 kg/m2 12/29/2024 weight is down 10 pounds sin ce 2-3-25 Encounters Encounter Location Date Provider Diagnosis Luis Garcias MD [address] [place], [place] [id number] 12/29/2024 Luis Garcias Annual physical exam Z00.00 ; Essential hypertension with goal blood pressure less than 140\/90 I10 ; Low testosterone E29.1 ; Morbid obesity due to excess calories E66.01 ; Type 2 diabetes mellitus treated without insulin E11.9 ; FELICITY on CPAP G47.33 ; Colon polyps K63.5 and Skin lesion L98.9 Assessments Encounter Date Diagnosis (ICD Code) Assessment Notes Treatment Notes Treatment Clinical Notes Section Notes 12/29/2024 Annual physical exam (ICD-10 - Z00.00) labs reviewed and discussed with patient 12/29/2024 Essential hypertension with goal blood pressure less than 140\/90 (ICD-10 - I10) will continue to monitor 12/29/2024 Low testosterone (ICD-10 - E29.1) refer to endocrine 12/29/2024 Morbid obesity due to excess calories (ICD-10 - E66.01) 12/29/2024 Type 2 diabetes mellitus treated without insulin (ICD-10 - E11.9) patient verbalized undestanding of medication and directions for use 12/29/2024 FELICITY on CPAP (ICD-10 - G47.33) 12/29/2024 Colon polyps (ICD-10 - K63.5) referral back to dr agarwal 12/29/2024 Skin lesion (ICD-10 - L98.9) referral to dr almaguer 12/29/2024 Other Plan Of Treatment Medication Medication Name Sig Start Date Stop Date Notes amLODIPine Besylate 10 MG TAKE 1 TABLET BY MOUTH EVERY DAY Lisinopril-hydroCHLOROthiazi de 20-25 MG TAKE 1 TABLET BY MOUTH DAILY Orally Once a day Ozempic (1 MG/DOSE) 4 MG/3ML 1 mg Subcut aneous weekly for 90 days 12/29/2024 Treatment Notes Assessment Notes Annual physical exam labs reviewed and d iscussed with patient Essential hypertension with goal blood pressure less than 140\/90 will continue to monitor Low testosterone refer to endocrine Type 2 diabetes mellitus gilberto ated without insulin patient verbalized undestanding of medication and directions for use Colon polyps referral back to dr agarwal Skin lesion referral to dr jared paul Referrals Referral Date Details 12/29/2024 12/29/2024, low test Ramirez guerrero 12/29/2024 12/29/2024, Colon po Sacha mcginnis 12/29/2024 12/29/2024, skin les ionSacha Next Appt Details Follow Up: 4 Weeks, Reason: Provider Name:Luis zaragoza, 03/20/2025 10:00:00 AM, [address] [place] [address], [address] [facility], [place], [place], [phone], Provider Name:Luis zaragoza, 12/25/2025 08:15:00 AM, [address], [address], [place], [place], [phone], Provider Name:Luis Goodson ier, 01/01/2026 10:30:00 AM, [address], [address], [place], [place], [id number], Progress Notes * MEGANDakota MILLER PDOB: [birth year] (44 yo M)Acc No.[id number]:12/29/2024 Progress Notes Patient: Dakota SIMMONS Provider: Winnie Garcias MD :1980 A ge:44 Y S ex:Male Date:12/29/2024 [id number] Subjective: * Chief Complaints: * [facility] Risk Codes[facility]: E11.9 DM without complications * HPI: D epression Screening: PHQ-9 L ittle interest or pleasure in doing things N ot at all, F eeling down, depressed, or hopeless N ot at all, T rouble falling or staying asleep, or sleeping too much N ot at all, F eeling tired or having little energy N ot at all, P oor appetite or overeating N ot at all, F eeling bad about yourself or that you are a failure, or have let yourself or your family down N ot at all, T rouble concentrating on things, such as reading the newspaper or watching television N ot at all, M oving or speaking so slowly that other people could have noticed; or the opposite, being so fidgety or restless that you have been moving around a lot more than usual N ot at all, T houghts that you would be better off or of hurting yourself in some way N ot at all, T otal Score 0 . I nterpretation and Intervention D epression Screening Findings N egative, F ollow-Up for Depression : review of PHQ-9 found negative result, no follow-up needed. C ommunication Needs: Communication Needs D oes the patient have a hearing impairment N o, D oes the patient have a vision impairment? Y es, I f yes, what is the vision impairment? G lasses, D oes the patient have a cognition impairment? N o. S NOREEN Questions: SDOH Questions I n the past year have you been worried about losing housing? N o, I n the past year have you or any family members you live with been unable to get any of the following when it was really needed? Check all that apply: N one. S ymptom(s): patient is a 44 yo male here for annual visit with review of recent labs and follow up of chronic issues h as low testosterone was tested at [facility]. * ROS: G eneral/Constitutional: Change in appetite d enies. C hills d enies. F ever d enies. O phthalmologic: Blurred vision d enies. D ischarge d enies. P ain d enies. E NT: Decreased hearing d enies. S ore throat d enies.?Swollen glands d enies. E ndocrine: Cold intolerance d enies. E xcessive thirst d enies. H eat intolerance d enies. W eight loss d enies. R espiratory: Cough d enies. S hortness of breath at rest d enies. S hortness of breath with exertion d enies. W heezing d enies. C ardiovascular: Chest pain at rest d enies. C hest pain with exertion?denies. I rregular heartbeat d enies. S hortness of breath d enies. ? G astrointestinal: Abdominal pain d enies. C hange in bowel habits d enies. D iarrhea d enies. N ausea d enies. R ectal bleeding d enies. V omiting d enies . G enitourinary: Blood in urine d enies. D ifficulty urinating d enies. F requent urination d enies. M usculoskeletal: Painful joints d enies. W eakness d enies. ? S kin: Dry skin d enies. I tching d enies. D enies?Mole(s), changes in moles, new moles or any lesions of concern. D enies P hotosensitivity. R norris d enies. N eurologic: Dizziness d enies. F ainting d enies. H eadache?denies. * Medical History: * Surgical History: * Hospitalization/Major Diagno stic Procedure: * Family History: F ather: 40 yrs, diagnosed with Cancer. M other: alive 74 yrs, diagnosed with Hypertension. 1 brother(s) . . Father-colon CA, Denies mental health/substance abuse family history, No pertinent family medical history. * Social History: T obacco Use: T obacco Use/Smoking P atient is a n onsmoker, A dditional Findings: Tobacco Non-User C urrent non-smoker, currently using no form of tobacco. D rugs/Alcohol: A lcohol Screen D id you have a drink containing alcohol in the past year? Y es, H ow often did you have a drink containing alcohol in the past year? M onthly or less (1 point), H ow many drinks did you have on a typical day when you were drinking in the past year? 1 or 2 drinks (0 point), H ow often did you have 6 or more drinks on one occasion in the past year? N ever (0 point), P oints 1 , I nterpretation N egative. M iscellaneous: C affeine: frequency:, 1-2 cups per day. Children: yes. Community involvements: no. Exercise: yes, biking walks the dog. Home smoke detector use: yes. Housing: renting. Living with: family. Marital status: . Occupation: weeks/months/years, works full-time. Pets: none, 1 dog. * Medications: T akingamLODIPine Besylate 10 MG Tablet TAKE 1 TABLET BY MOUTH EVERY DAY Ozempic (0.25 or 0.5 MG/DOSE) 2 MG/3ML Solution Pen-injector as directed Subcutaneous 0.5 mg weekly Lisinopril-hydroCHLOROthiazide 20-25 MG Tablet TAKE 1 TABLET BY MOUTH DAILY Orally Once a day Taking amLODIPine Besylate 10 MG Tablet TAKE 1 TABLET BY MOUTH EVERY DAY Taking Ozempic (0.25 or 0.5 MG/DOSE) 2 MG/3ML Solution Pen-injector as directed Subcutaneous 0.5 mg weekly Taking Lisinopril-hydroCHLOROthiazide 20-25 MG Tablet TAKE 1 TABLET BY MOUTH DAILY Orally Once a day Not-Taking/PRNVentolin HFA 108 (90 Base) MCG/ACT Aerosol [...] Objective: * Vitals: H t: 71.5, Wt: 360, BMI:49.5, BP:154/90, Wt-k.29. weight is down 10 pounds since 05-15-24. * P ast Orders: L ab:Lipid Panel (Order Date - 12/22/2024) (Collection Date & Time - 12/22/2024 07:15 AM) Value Reference Range Triglycerides 210 H <150 - mg/dL Cholesterol 171 <200 - mg/dL LDL Cholesterol Calculated 97 <100 - mg/dL HDL Cholesterol 32 L >40 - mg/dL L ab:PSA,Total (Free>4and<10) (Order Date - 12/22/2024) (Collection Date & Time - 12/22/2024 07:15 AM) Value Reference Range PSA,Total (Free>4and<10) 1.21 0.00-4.00 - ng/ mL L ab:Hemoglobin A1c (Order Date - 12/22/2024) (Collection Date & Time - 12/22/2024 07:15 AM) Value Reference Range Hemoglobin A1c % 6.2 H <6.0 - % Estimated Average Glucose 131 - mg/dL L ab:Comprehensive [place]. Panel Fast (Order Date - 12/22/2024) (Collection Date & Time - 12/22/2024 07:15 AM) Value Reference Range Sodium 141 135-145 - mmol/L Bilirubin Total 0.6 0.0-1.0 - mg/dL Aspartate Amino Transferase 28 5-37 - U/L Alanine Aminotransferase 24 0-40 - U/L Total Protein 7.2 6.5-8.0 - g/dL Albumin Level 4.0 3.5-5.0 - g/dL Alkaline Phosphatase 78 39-117 - U/L Potassium 4.1 3.3-5.1 - mmol/L Chloride 104 96-108 - mmol/L Carbon Dioxide 29 22-29 - mmol/L Anion Gap 12 12-20 - Blood Urea Nitrogen 13 9-16 - mg/dL Creatinine 0.87 0.5-1.4 - mg/dL Estimated Glomerular Filt Rate > 60 - Glucose Fasting 117 H 60-99 - mg/dL Calcium 8.9 8.4-10.2 - mg/dL L ab:Complete Blood Count Auto Diff (Order Date - 12/22/2024) (Collection Date & Time - 12/22/2024 07:15 AM) Value Reference Range White Blood Count 7.6 4.8-10.8 - X10*3/uL Red Blood Count 4.11 L 4.60-5.80 - X10*6/uL Hemoglobin 12.9 L 14.0-18.0 - g/dl Hematocrit 38.2 L 42.0-52.0 - % Mean Corpuscular Volume 92.9 80.0-98.0 - fL Mean Corpuscular Hemoglobin 31.4 27.0-33.0 - pg Mean Corpuscular HGB Conc 33.8 31.0-36.0 - g/ dl Red Cell Distribution Width 12.8 11.0-16.0 - % Platelet Count 288 160-400 - X10*3/uL Mean Platelet Volume 10.0 9.4-12.4 - fL Neutrophils Percent Auto 56.0 45-73 - % Imm Gran Pct Auto 0.7 H 0.0-0.4 - % Lymphocytes Percent Auto 31.1 20-40 - % Monocytes Percent Auto 8.5 2-11 - % Eosinophils Percent Auto 3.2 0-4 - % Basophils Percent Auto 0.5 0-2 - % NRBC Pct Auto 0.0 0.0-0.2 - /100WBC Neutrophils Absolute Auto 4.2 2.0-8.3 - x10* 3/uL Imm Gran Abs Auto 0.05 H 0.00-0.03 - X10*3/uL Lymphocytes Absolute Auto 2.4 1.2-4.9 - X10* 3/uL Monocytes Absolute Auto 0.6 0.1-1.2 - X10*3/ uL Eosinophils Absolute Auto 0.2 0.0-0.4 - X10* 3/uL Basophils Absolute Auto 0.0 0.0-0.2 - X10*3/ uL NRBC Abs Auto 0.000 0.0-0.012 - X10*3/uL * Examination: G eneral Examination: GENERAL APPEARANCE: w ell developed, well nourished, in no acute distress. HEAD: n ormocephalic, atraumatic. EYES: p upils equal, round, reactive to light and accommodation, sclera non-icteric. EARS: n ormal. ORAL CAVITY: m ucosa moist. THROAT: c lear. NECK/THYROID: n zeny supple, full range of motion, no cervical lymphadenopathy, no bruits. SKIN: w arm and dry, no suspicious lesions, abnormal with a lesion on rt shoulder aboiut 2 inches long and erythematous. HEART: r egular rate and rhythm, S1, S2 normal, no murmurs.? LUNGS: c lear to auscultation bilaterally. ABDOMEN: s oft, nontender, nondistended, bowel sounds present, normal, no organomegaly , no masses palpable. RECTAL EXAM: n ot done as he has a recent colonoscopy. MALE GENITOURINARY: u ncircumcised, testes descended bilaterally. EXTREMITIES: n o clubbing, cyanosis, or edema. NEUROLOGIC: n onfocal, motor strength normal upper and lower extremities, sensory exam intact. Assessment: * Assessment: 1. A nnual physical exam - Z00.00 (Primary) 2 . E ssential hypertension with goal blood pressure less than 140\/90 - I10 3 . L ow testosterone - E29.1 4 . M orbid obesity due to excess calories - E66.01 5 . T ype 2 diabetes mellitus treated without insulin - E11.9 6 . O SA on CPAP - G47.33 7 . C olon polyps - K63.5 8 . S kin lesion - L98.9 ? Plan: * Treatment: 2. E ssential hypertension with goal blood pressure less than 140\/90 Continue amLODIPine Besylate Tablet, 10 MG, TAKE 1 TABLET BY MOUTH EVERY DAY; C ontinue Lisinopril-hydroCHLOROthiazide Tablet, 20-25 MG, TAKE 1 TABLET BY MOUTH DAILY, Orally, Once a day. ? L AB: Microalbumin, Random (Collection Date & Time - 12/29/2024 09:30 AM) L AB: UA ClnCatch+Micro w/rflx Cult (Collection Date & Time - 12/29/2024 09:30 AM) Notes: will continue to monitor 3. L ow testosterone Notes: refer to endocrine Referral To:[facility] Reason:low testosterone 4. M orbid obesity due to excess calories Start Ozempic (1 MG/DOSE) Solution Pen-injector, 4 MG/3ML, 1 mg, Subcutaneous, weekly, 90 days, 4, Refills 3. 5. T ype 2 diabetes mellitus treated without insulin Notes: patient verbalized undestanding of medication and directions for use 6. C olon polyps Notes: referral back to dr agarwal Referral To:[facility] Reason:Colon polyps 7. S kin lesion Notes: referral to dr almaguer Referral To:[facility] Almag[facility] Surgery Reason:skin lesion * Procedure Codes: * Preventive Medicine: Diabetes Care Plan: P atient Lifestyle Goals N eeds to maintain diet control.?Treatment Goals A 1C< 7. B arriers N o specific barriers, doing well. E xpected Outcome m aintaining stable blood sugar levels within a target range. * Follow Up: 4 Weeks * * Sign off status: Completed true * Provider: Winnie Garcias MD Date: 0 12/29/2024 Generated for Jude carlisle/Migel/eTdennissmitting on: 1 07:06 AM EDT History and Physical Notes * HPI (History of Present Illness) Category Sub-Category Detail Notes Category Not es Symptom(s) patient is a 44 yo male here for annual visit with review of recent labs and follow up of chronic issues has low testosterone was tested at walk [facility] clinic. Depression Screening PHQ-9 Little interest or pleasure in doing things: Not at all Feeling down, depressed, or hopeless: No t at all Trouble falling or staying asleep, or sl eeping too much: Not at all Feeling tired or having little energy: N ot at all Poor appetite or overeating: Not at all Feeling bad about yourself o r that you are a failure, or have let yourself or your family down: Not at all Trouble concentrating on thi ngs, such as reading the newspaper or watching television: Not at all Moving or speaking so slowly that other people could have noticed; or the opposite, being so fidgety or restless that you have been moving around a lot more than usual: Not at all Thoughts that you would be b lata off or of hurting yourself in some way: Not at all Total Score: 0 Interpretation and Intervention Depression Christianneyang daryl Findings: Negative Follow-Up for Depression: : review of PH Q-9 found negative result, no follow-up needed SDOH Questions SDOH Questions In the past year have you been worried about losing housing?: No In the past year have you or any family members you live with been unable to get any of the following when it was really needed? Check all that apply:: None Communication Needs Communication Needs Does the patient have a hearing impairment: No Does the patient have a vision impairmen t?: Yes If yes, what is the vision impairment?: Glasses Does the patient have a cognition impair ment?: No Examination Category Sub-Category Detail Notes Category Not es General Examination GENERAL APPEARANCE: well dev eloped, well nourished, in no acute distress HEAD: normocephalic, atrau matic EYES: pupils equal, round, reactive to light and accommodation, sclera non-icteric EARS: normal THROAT: clear NECK/THYROID: neck supple, full ra nge of motion, no cervical lymphadenopathy, no bruits HEART: regular rate and rhy thm, S1, S2 normal, no murmurs LUNGS: clear to auscultatio n bilaterally ABDOMEN: soft, nontender, non distended, bowel sounds present, normal, no organomegaly , no masses palpable NEUROLOGIC: nonfocal, motor stre ngth normal upper and lower extremities, sensory exam intact SKIN: warm and dry, no felicitas picious lesions, abnormal with a lesion on rt shoulder aboiut 2 inches long and erythematous EXTREMITIES: no clubbing, cyanosi s, or edema MALE GENITOURINARY: uncircumcised, teste s descended bilaterally RECTAL EXAM: not done as he has a recent colonoscopy ORAL CAVITY: mucosa moist Consultation Request Notes Referral Date Referring Provider Referred Provider Not es 12/29/2024 Luis Garcias Robert low testo sterone 12/29/2024 Luis Garcias Francis Colon polyps 12/29/2024 Luis Garcias [facility]
--- OUTSIDE RECORDS SUMMARY | 2025-01-04 08:37 | XMS_ITS ---
Author Organization Luis Garcias MD Address [address] [place] [phone] Care Team Providers Care Felt Strip Finisher Name Role Phone Luis Garcias Primary Care Provider [phone] REASON FOR VISIT referral Problems Problem Type SNOMED Code ICD Code Onset Dates Problem Status W/U Status Risk Notes Problem Androgen deficiency (17722281) Testosterone deficiency (E29.1) Active confirmed Encounters Encounter Location Date Provider Diagnosis Luis Garcias MD [address] [place] [phone] 01/04/2025 Luis Garcias Testosterone deficiency E29.1 Assessments Encounter Date Diagnosis (ICD Code) Assessment Notes Treatment Notes Treatment Clinical Notes Section Notes 01/04/2025 Testosterone deficiency (ICD-10 - E29.1) Plan Of Treatment Pending Test Test Name Order Date Testosterone, Free/Total 01/04/2025 Next Appt Details Provider Name:Luis zaragoza, 03/20/2025 10:00:00 AM, [address] [place] [address], [address], [phone], Provider Name:Luis zaragoza, 12/25/2025 08:15:00 AM, [address] [place] [address], [phone], Provider Name:Luis zaragoza, 01/01/2026 10:30:00 AM, [address] [place] [address], [phone], Progress Notes * Dakota GORE PDOB: [birth year] (44 yo M)Acc No.[id number]:01/04/2025 Patient: Dakota SIMMONS :1980 A ge:44 Y S ex:Male Address:[address] [place] [address] [place], [place], [place] [address] Subjective: * Chief Complaints: * R eferral * Medical History: * Surgical History: * Hospitalization/Major Diagno stic Procedure: * Medications: Objective: * Vitals: * Physical Examination: Assessment: * Assessment: 1. T estosterone deficiency - E29.1 (Primary) Plan: * Treatment: * Procedure Codes: * true * Date: Generated for Jude carlisle/Migel/Maria Del Carmen on: 07:06 AM EDT
--- OUTSIDE RECORDS SUMMARY | 2025-01-12 04:15 | XMS_ITS ---
Author Organization Luis Garcias MD Address [address] [place], [place] [phone] Care Team Providers Care Hemodialysis Charge Nurse Name Role Phone Luis Garcias Primary Care Provider [phone] Results Component Value Reference Range Notes Testosterone, Free/Total Reviewed date:01/19/2025 02:24:55 PM Interpretation: Performing Lab:[facility], [address] [place] [phone] Notes/Report: Testosterone, Total 766 682-6199 ng/dL For additional information, please refer to http://education.Grafighters.Casero/faq/ WqhqsMifptavqmnqzOCIRBTIYV246 (This link is being provided for informational/ educational purposes only.) This test was developed and its analytical performance characteristics have been determined by [employer] [place], [place]. It has not been cleared or approved by the U.S. Food and Drug Administration. This assay has been validated pursuant to the CLIA regulations and is used for clinical purposes. Testosterone, Free 36.0 35.0-155.0 pg/mL This test was developed and its analytical performance characteristics have been determined by [employer] [place]. It has not been cleared or approved by the U.S. Food and Drug Administration. This assay has been validated pursuant to the CLIA regulations and is used for clinical purposes. THIS TEST WAS PERFORMED AT: [employer] [address] RINA MCCAULEY MD,PHD REASON FOR VISIT testosterone free/ total Encounters Encounter Location Date Provider Diagnosis Luis Garcias MD 10 [facility] [address] [place] [phone] 01/12/2025 Luis Wilkinsonusman Testosterone deficiency E29.1 Assessments Encounter Date Diagnosis (ICD Code) Assessment Notes Treatment Notes Treatment Clinical Notes Section Notes 01/12/2025 Testosterone deficiency (ICD-10 - E29.1) Plan Of Treatment Next Appt Details Provider Name:Luis Goodson ier, 03/20/2025 10:00:00 AM, [address] [place] [address], Suite [facility], [place], [place], [phone], Provider Name:Luis Goodson ier, 12/25/2025 08:15:00 AM, [address] [place] [address], [address], [phone], Provider Name:Luis Goodson iemary, 01/01/2026 10:30:00 AM, [address] [place] [address], [address], [phone], Progress Notes * Dakota GORE PDOB: [birth year] (45 yo M)Acc No.[id number]:01/12/2025 Progress Note Patient: Santiago ALEXANDROLAZARUSMary BethEDIN Dakota Barbara Provider: Winnie Garcias MD :1980 A ge:44 Y S ex:Male Date:01/12/2025 Address:[address] [place] [address] [facility] Subjective: * Chief Complaints: * 1 . [...] Date: 1 Generated for Printi ng/Faxing/eTransmitting on: 07:07 AM EDT
--- OUTSIDE RECORDS SUMMARY | 2025-01-30 06:15 | XMS_ITS ---
Author Organization Luis Garcias MD Address [address] [place], [place] [id number] Care Team Providers Care Watch Repairer Name Role Phone Luis Garcias Primary Care [...] Location Date Provider Diagnosis Luis Garcias MD [address] [place] [id number] 01/30/2025 Luis Garcias Prediabetes R73.03 ; Essential [...] Reason: Provider Name:Luis zaragoza, 03/20/2025 10:00:00 AM, [address] [place] [address], [address], [id number], Provider Name:Luis zaragoza, 12/25/2025 08:15:00 AM, [address] [place] [address], [address], [phone], Provider Name:Luis zaragoza, 01/01/2026 10:30:00 AM, [address] [place] [address], [address], [phone], Progress Notes * Dakota GORE PDOB: [birth year] (45 yo M)Acc No.[id number]:01/30/2025 Progress Notes Patient: Dakota SIMMONS Provider: Winnie Garcias MD :1980 A ge:45 Y S ex:Male Date:01/30/2025 Address:[place], [id number] Subjective: * Chief Complaints: * 4 week * HPI: S ymptom(s): patient is a 45 yo male here for 4 week follow up visit/ had laceration of finger and is followed by work connection..is going to see dr almaguer. [facility] * [...] MD Date: Generated for Jude carlisle/Migel/Emilyitting on: 07:08 AM EDT History and Physical Notes * HPI (History of Present Illness) Category Sub-Category Detail Notes Category Not es Symptom(s) patient is a 45 yo male here for 4 week follow up visit/ had laceration of finger and is followed by work connection..is going to see dr almaguer. [facility]. Examination Category Sub-Category Detail Notes Category Not es General Examination GENERAL APPEARANCE: alert, w ell hydrated, in no distress HEART: regular rate and rhy thm, no murmurs, rubs, gallops LUNGS: no wheezes, rales, r honchi, good air movement, clear to auscultation bilaterally SKIN: abnormal with lesion on shoulder unchanged
--- OUTSIDE RECORDS SUMMARY | 2025-02-08 07:07 | XMS_ITS | Patient Health Record ---
Author Organization [facility] Address [address] [place] [address] Care Team Providers Care Clutch Mechanic Name Role Phone Luis Garcias MD Primary Care Provider Ramirez Allen [phone] Allergies No Known Allergies Reason For Referral [...] Problem Screening for malignant neoplasm of colon (775850821) Encounter for screening for malignant neoplasm of colon (Z12.11) Active confirmed Problem History of adenomatous polyp of colon (727453178) History of adenomatous polyp of colon (Z86.010) Active confirmed Problem Screening for malignant neoplasm of rectum (214331738) Encounter for screening for malignant neoplasm of rectum (Z12.12) Active confirmed Problem Preprocedural examination (751504120635181) Preprocedural examination (Z01.818) Active confirmed Problem Family History of Cancer of Colon (Situation) (629890523) Family history of colon cancer (Z80.0) Active confirmed Problem Mass of hepatic flexure of colon (651891624954389) 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 Encounters Encounter Location Date Provider Diagnosis [facility] [address] [place] [address] 10/31/2024 Ramirez Becky [facility] [address] [place] [address] 03/10/2024 Ramirez Pena Plan Of Treatment Pending [...] Insured Coverage Start Date Coverage End Date [facility] [address] [place] [place] [phone] [id number] MARYSE GORE Self - patient is the insured Medical (General) History Medical History History ICD Code Denies AL,DM,CVA,Lung disease,renal dise ase HTN Colonoscopy 04/2006 - [...] some nonspecific inflammation. Surgical History Surgery Date(Month/Year) Winn teeth extraction Fatty tumor removed from scalp 2016
--- OUTSIDE RECORDS SUMMARY | 2025-02-08 07:07 | XMS_ITS | Clinical Summary ---
Author Organization [facility] Address [address] [place] [address] Phone Care Team Providers Care Pulp Mill Supervisor Name Role Phone Arnoldo Gore MD Primary Care Provider [phone] Allergies No known active allergies Medications No [...] topic Medical Devices Not on file [facility] Care Teams Pulp Mill Supervisor Relationship Specialty Start Date End Date Arnoldo Gore MD [address] [place] [address] PCP - [facility] Surgery 07/05/15 Additional Source Comments The information contained in this document represents components of the legal health record. It is not the complete legal health record.[facility]
--- OUTSIDE RECORDS SUMMARY | 2025-02-08 07:08 | XMS_ITS | Patient Health Record ---
Author Organization Luis Garcias MD Address [address] [place], [place] [id number] Care Team Providers Care Flux Tube Attendant Name Role Phone Luis Garcias Primary Care Provider [phone] Allergies No Known Allergies Results Component Value Reference Range Notes Complete Blood Count Auto Di ff Reviewed date:12/25/2024 11:39:17 AM Interpretation: Performing Lab:[facility], [address] [place] [phone] Notes/Report: White Blood Count 7.6 4.8-10.8 X10*3/uL [...] NRBC Abs Auto 0.000 0.0-0.012 X10*3/uL Comprehensive [place]. Panel Fa st Reviewed date:12/24/2024 05:38:21 PM Interpretation: Performing Lab:[address] [address] Notes/Report: Sodium 141 135-145 mmol/L Potassium 4.1 [...] Panel Reviewed date:12/22/2024 12:33:41 PM Interpretation: Performing Lab:[facility], [address] [place] [phone] Notes/Report: Triglycerides 210 <150 mg/dL Desirable Triglyceride: [...] (Free>4and<10) Reviewed date:12/22/2024 12:50:11 PM Interpretation: Performing Lab:[address] [address] Notes/Report: PSA,Total (Free>4and<10) 1.21 0.00-4.00 ng/mL A [...] A1c Reviewed date:12/22/2024 12:30:10 PM Interpretation: Performing Lab:[address] [address] Notes/Report: Hemoglobin A1c % 6.2 <6.0 % [...] average glucose, using the formula of the P8S-Wmzgmzr Average Glucose study (ADAG), Diabetes Care, Vol.31,#8, Nov. 2007 Testosterone, Free/Total Reviewed date:01/19/2025 02:24:55 PM Interpretation: Performing Lab:[facility], [address] [place] [phone] Notes/Report: Testosterone, Total 439 919-7365 ng/dL For additional information, please refer to http://education.[employer]/fa q/ TotalTestosteroneM [email or web address] (This link is being provided for informational/ educational purposes only.) This test was developed and its analytical performance characteristics have been determined by [employer] [place], [place]. It has not been cleared or approved by the U.S. Food and Drug Administration. This assay has been validated pursuant to the CLIA regulations and is used for clinical purposes. Testosterone, Free 36.0 35.0-155.0 pg/mL This test was developed and its analytical performance characteristics have been determined by [employer] [place]. It has not been cleared or approved by the U.S. Food and Drug Administration. This assay has been validated pursuant to the CLIA regulations and is used for clinical purposes. THIS TEST WAS PERFORMED AT: [employer] [place] [id number] [place] [phone] RINA MCCAULEY MD,PHD Glucose, finger stick Reviewed date:02/11/2024 10:00:54 AM Interpretation: Performing Lab: Notes/Report: Value 111 Glucose, finger stick Reviewed date:05/15/2024 09:57:52 AM Interpretation: Performing Lab: Notes/Report: Value 109 Microalbumin, Random Reviewed date:12/31/2024 02:43:48 PM Interpretation: Performing Lab:[facility], [address] [place] [phone] Notes/Report: Creatinine Urine 131.45 Microalbumin Urine < 5.0 Microalbum/Creatinine Ratio Ur TNP <30 ug/mg cr Unable to calculate albumin/creatinine ratio due to low microalbumin or creatinine result. UA ClnCatch+Micro w/rflx Cul t Reviewed date:12/29/2024 12:54:22 PM Interpretation: Performing Lab:[facility], [address] [place] [phone] Notes/Report: Urine, Clean Catch Color Urine Yellow Appearance Urine Clear PH 6.0 5.0-9.0 Glucose Urine UA Negative Negative mg/dL Urine Blood Negative Negative Specific [place] - Urine 1.025 1.005-1.025 Urine Protein Negative [...] 05:08:21 PM Interpretation: Performing Lab: Notes/Report: [address] [address] [address] Scan Report Signed Patient: Dakota Gore MR#: [id number] [birth year] : 1980 Acct:[id number] Age/Sex: 44 / M ADM Date: 02/28/24 Loc: HO.CT Attending Dr: Ramirez Pena MD Ordering Physician: Sacha Heaton MD Date of Service: 02/28/24 Procedure(s): CT abdomen pelvis w IV con Accession Number(s): [id number] cc: Luis Garcias MD; Sacha Heaton MD [...] by: Harrison Redmond MD 03/14/2024 03:31 PM [facility] Dictated By: Harrison Redmond MD Signed By: <Electronically signed by Harrison Redmond MD in OV> 03/14/24 1531 DD/ 1616 TD/TT: 02/28/24 1628 Wire Bound Box Machine Helper: [place] [address] CT Scan Report Signed Patient: Dwight Gore MR#: [id number] [birth year] : 1980 Acct:[id number] Age/Sex: 44 / M ADM Date: 02/28/24 Loc: HO.CT Attending Dr: Ramirez Pena MD Ordering Physician: Sacha Heaton MD Date of Service: 02/28/24 Procedure(s): CT abd omen pelvis w IV con Accession Number(s): [id number] cc: Luis Garcias MD; Sacha Heaton MD [...] by: Harrison Redmond MD 03/14/2024 03:31 PM [facility] Dictated By: Jovani Redmond MD Signed By: <Electronically signed by Harrison Redmond MD in OV> 03/14/24 1531 DD/ 1616 TD/TT: 02/28/24 1628 Wire Bound Box Machine Helper: RACHEL Complete Blood Count no Diff Reviewed date:04/06/2024 04:50:01 PM Interpretation: Performing Lab:[facility], [address] [place] [phone] Notes/Report: White Blood Count 10.0 4.8-10.8 X10*3/uL [...] Panel Reviewed date:04/06/2024 04:49:27 PM Interpretation: Performing Lab:[address] [phone] Notes/Report: Sodium 138 135-145 mmol/L Potassium 3.9 [...] A1c Reviewed date:04/06/2024 04:48:55 PM Interpretation: Performing Lab:[facility], [address] [place] [phone] Notes/Report: Hemoglobin A1c % 5.9 <6.0 % [...] average glucose, using the formula of the G7M-Enxmpeb Average Glucose study (ADAG), Diabetes Care, Vol.31,#8, 2007 Type and Screen Reviewed date:04/06/2024 04:49:37 PM Interpretation: Performing Lab:[facility], [address] [place] [phone] Notes/Report: Spec expiration changed by SHIKHA on 04/06/24 Reason: PAT NURSING: Call Blood Bank (ext. [phone]) to band patient on admission. Type and Screen in effect until 2300 on 04/18/2024. Witnessed by MURCA Blood Type OP Antibody Screen NEGATIVE Glucose, Whole Blood Reviewed date:04/18/2024 12:44:11 PM Interpretation: Performing Lab:[facility], [address] [place] [phone] Notes/Report: Glucose, Whole Blood 141 60-115 mg/dL METER # : [id number] Glucose, Whole Blood Reviewed date:04/18/2024 04:23:16 PM Interpretation: Performing Lab:[facility], [address] [place] [phone] Notes/Report: Glucose, Whole Blood 147 60-115 mg/dL METER # : [id number] Glucose, Whole Blood Reviewed date:04/19/2024 03:27:25 PM Interpretation: Performing Lab:[facility], [address] [place] [phone] Notes/Report: Glucose, Whole Blood 137 60-115 mg/dL METER # : [id number] Hold Lav - Possible Hematolo gy Reviewed date:04/19/2024 03:27:11 PM Interpretation: Performing Lab:[facility], [address] [place] [phone] Notes/Report: Hold Lav - Possible Hematology SEE NOTE Specimen will be held untested for 8 hours. Call Hematology if testing is desired. Basic Metabolic Panel Fastin g Reviewed date:04/19/2024 03:27:37 PM Interpretation: Performing Lab:[facility], [address] [place] [phone] Notes/Report: Sodium 142 135-145 mmol/L Potassium 4.1 [...] Blood Reviewed date:04/19/2024 03:28:03 PM Interpretation: Performing Lab:[facility], [address] [place] [phone] Notes/Report: Glucose, Whole Blood 122 60-115 mg/dL METER # : [id number] XR chest 1V Reviewed date:04/20/2024 12:42:31 PM Interpretation: Performing Lab: Notes/Report: [address] [address] XRay Report Signed Patient: Dakota Gore MR#: [id number] [birth year] : 1980 Acct:[id number] Age/Sex: 44 / M ADM Date: 04/18/24 Loc: [facility] 483-[address]: Sacha Heaton MD Ordering Physician: Patricio Encarnacion MD Date of Service: 04/19/24 Procedure(s): XR chest 1V Accession Number(s): [id number] cc: Patricio Encarnacion MD; Luis Garcias MD [...] 04/19/24 1534 DD/ 1420 TD/TT: 04/19/24 1430 Wire Bound Box Machine Helper: [address] [address] XRay Report Signed Patient: Dwight Gore MR#: [id number] [birth year] : 1980 Acct:[id number] Age/Sex: 44 / M ADM Date: 04/18/24 Loc: [facility] 483-[address]: Lizzie Heaton MD Ordering Physician: Patricio Encarnacion MD Date of Service: 04/19/24 Procedure(s): XR priya st 1V Accession Number(s): [id number] cc: Melanie Encarnacion MD; Luis Garcias MD [...] 04/19/24 1534 DD/ 1420 TD/TT: 04/19/24 1430 Wire Bound Box Machine Helper: Glucose, Whole Blood Reviewed date:04/19/2024 03:25:17 PM Interpretation: Performing Lab:[facility], [address] [place] [phone] Notes/Report: Glucose, Whole Blood 158 60-115 mg/dL METER # : [id number] Glucose, Whole Blood Reviewed date:04/20/2024 06:07:40 PM Interpretation: Performing Lab:[facility], [address] [place] [phone] Notes/Report: Glucose, Whole Blood 130 60-115 mg/dL METER # : [id number] Glucose, Whole Blood Reviewed date:04/20/2024 12:41:44 PM Interpretation: Performing Lab:[facility], [address] [place] [phone] Notes/Report: Glucose, Whole Blood 122 60-115 mg/dL METER # : [id number] Glucose, Whole Blood Reviewed date:04/20/2024 12:24:18 PM Interpretation: Performing Lab:[facility], [address] [place] [phone] Notes/Report: Glucose, Whole Blood 144 60-115 mg/dL METER # : [id number] Glucose, Whole Blood Reviewed date:04/20/2024 12:21:43 PM Interpretation: Performing Lab:[facility], [address] [place] [phone] Notes/Report: Glucose, Whole Blood 145 60-115 mg/dL METER # : [id number] Glucose, Whole Blood Reviewed date:06/30/2024 09:48:17 AM Interpretation: Performing Lab:[facility], [address] [place] [phone] Notes/Report: Glucose, Whole Blood 105 60-115 mg/dL METER # : [id number] Reason For Referral Reason local infection of [...] W/U Status Risk Notes Problem Androgen deficiency (48924244) Testosterone deficiency (E29.1) Active confirmed Problem Low testosterone (716561875) Low testosterone (E29.1) Active confirmed Problem 975832893 Morbid obesity due to excess calories (E66.01) Active confirmed Problem 05649496 Intrinsic eczema (L20.84) Active confirmed Problem 336204906 Leukocytosis, unspecified type (D72.829) Active confirmed Problem 28876010 Essential hypertension with goal blood pressure less than 140\/90 (I10) Active confirmed Problem 146972390 Prediabetes (R73.03) Active confirmed Problem 709351250 Body mass index (BMI) of 45.0-49.9 in adult (Z68.42) Active confirmed Problem 340080525 Mild intermittent asthmatic bronchitis with acute exacerbation (J45.21) Active confirmed Problem 083173860 History of colon polyps (Z86.010) Active confirmed Problem Obstructive sleep apnea syndrome (29036593) FELICITY on CPAP (G47.33) Active confirmed Problem 42652894 Type 2 diabetes mellitus treated without insulin [...] Luis Garcias MD [address] [place] [id number] 12/22/2024 Luis Garcias Blood tests for routine general physical examination Z00.00 ; Encounter for administration of vaccine Z23 ; Essential hypertension with goal blood pressure less than 140\/90 I10 ; Type 2 diabetes mellitus treated without insulin E11.9 and Leukocytosis, unspecified type D72.829 Luis Garicas MD [address] [place] [id number] 01/12/2025 Luis Garcias Testosterone deficiency E29.1 Luis Garcias MD [address] [place] [id number] 02/11/2024 Luis Garcias Prediabetes R73.03 ; Essential hypertension with goal blood pressure less than 140\/90 I10 and Morbid obesity due to excess calories E66.01 Luis Garcias MD [address] [place] [id number] 05/15/2024 Luis Garcias Prediabetes R73.03 ; Other injury of unspecified body region, initial encounter T14.8XXA ; Local infection of the skin and subcutaneous tissue, unspecified L08.9 and Essential hypertension with goal blood pressure less than 140\/90 I10 Luis Garcias MD [address] [place] [id number] 12/29/2024 Luis Garcias Annual physical exam Z00.00 ; Essential hypertension with goal blood pressure less than 140\/90 I10 ; Low testosterone E29.1 ; Morbid obesity due to excess calories E66.01 ; Type 2 diabetes mellitus treated without insulin E11.9 ; FELICITY on CPAP G47.33 ; Colon polyps K63.5 and Skin lesion L98.9 Luis Garcias MD [address] [place] [id number] 01/30/2025 Luis Garcias Prediabetes R73.03 ; Essential hypertension with goal blood pressure less than 140\/90 I10 ; Morbid obesity due to excess calories E66.01 and Testosterone deficiency E29.1 Luis Garcias MD [address] [place] [id number] 03/13/2024 Luis Garcias MD [address] [place] [address] [id number] 08/23/2024 Luis Garcias MD [address] [place] [id number] 11/27/2024 Luis Garcias Essential hypertensi on with goal blood pressure less than 140\/90 I10 Luis Garcias MD [address] [place] [id number] 01/04/2025 Luis Garcias Testosterone deficiency E29.1 Assessments [...] Provider Name:Luis Goodson ier, 03/20/2025 10:00:00 AM, [address] [place] [address], [address], [phone], Provider Name:Luis Goodson ier, 12/25/2025 08:15:00 AM, [address] [place] [address], [address], [phone], Provider Name:Luis Goodson ier, 01/01/2026 10:30:00 AM, [address] [place] [address], [address], [phone], Insurance Providers Payer Name Payer Address Payer Phone Subscriber Number Group Number Insured Name Patient Relationship to Insured Coverage Start Date Coverage End Date [address] [place] [phone] [id number] Dakota Gore Self - patient is the insured Medical (General) History Medical History History ICD Code father colon cancer age 40; he gets colonoscopy every 2 years. Colonoscopy 02/24/[address] Pena - repeat 3 .07/23/23 colonoscopy pending path-12/31/23 repeat colonoscopy performed Becky, advised surgical resection
[2025-02-09 04:39] LABS: Follicle Stimulating Hormone 5.4 mIU/mL (1.4-12.8)
[2025-02-13 17:03] LABS: Testosterone, Free 26.1 pg/mL (35.0-155.0)
[2025-02-14 06:24] LABS: Estradiol Ultra Sensitive 13 pg/mL (< OR = 29)
== END 2025-02-08 07:04 | disposition home or self-care (01) ==
LOC: HO.LAB 07:03
PROVIDERS: PCP Internal Medicine; Visit Provider Student in an Organized Health Care Education/Training Program
DX: E66.01 Morbid (severe) obesity due to excess calories (principal); E29.1 Testicular hypofunction
CPT/HCPCS: 36415; 82533; 82670; 83001; 83002; 84146; 84270; 84402; 84403; 84443

== ENCOUNTER 2025-03-14 08:49 | Outpatient (AMB) | payer OTHER, SELFPAY ==
--- NOTE | 2025-03-14 08:56 | MHC.OFFVIS ---
Vital Signs 03/14/25 08:58 Height 6 ft Weight 368 lb 2.751 oz BMI 49.9 Intake Visit Reasons: excision skin lesion~ RT shoulder Intake Note: Office procedure: excision skin lesion~ RT shoulder Ag Equipment Field Service Technician Required: No Accompanied by: Self / Same As Patient Allergies No Known Allergies (No Known Allergies*) Allergy (Verified 03/14/25 08:57) HPI HPI excision skin lesion~ RT shoulder: Details: He is here for excision of a skin lesion from the right shoulder. PFSH Medical History Skin lesion Staph infection Muscle spasm of back Hinson syndrome Family history of colon cancer Tubulovillous adenoma Perianal abscess Diabetes mellitus Morbid obesity HTN (hypertension) Surgical History History of colon resection (~04/18/24) Hx of excision of mass Hx of wisdom tooth extraction H/O colonoscopy Family History Father Colon cancer, Onset Age: 46 Brother Colon polyps Social History Household Members: Family and Friend(s) Household Members Other:: mother & roomate live w/patient Housing: House Are you a primary healthcare or medical to a significant other at home: No Do you presently have visiting nurse or other home services: No Patient Tobacco Use Status: Never used Tobacco Physical Exam Vital Signs: BMI result Body Mass Index 49.9 Office Procedures Excision Details: He was in reclining position. The area of the lesion on the right shoulder towards the chest was prepped and draped. Lidocaine 1% was used for local anesthesia. I made an elliptical incision around this lesion with a blade 15. This was carried down through the full-thickness of the skin and subcutaneous fat to excise this entire area. This appeared to be a cystic induration consistent with an epidermal cyst. This measured 2.2 cm in widest dimension I closed the incision with full-thickness nylon 3-0 simple interrupted sutures. Dressings were applied. The procedure was completed. He tolerated procedure well. There was minimal blood loss. 52282-ohsgx/arms/legs 2.1-3cm Procedure code (CPT) selection complete Assessment & Plan Assessment & Plan (1) Skin lesion: Code(s): L98.9 - Disorder of the skin and subcutaneous tissue, unspecified Category: Medical Plan: This is likely to be a ruptured epidermal cyst. Excision was done in the office. He will be seen for removal sutures and for discussion of the path report. Coding Level of Care Code Procedure Only Diagnoses Skin lesion L98.9 CPT Codes Trunk/Arms/Legs - CPT: 43526-dcopv/arms/legs 2.1-3cm ([id number])
[2025-03-14 08:58] VITALS: BMI 49.9
--- OUTSIDE RECORDS SUMMARY | 2025-03-14 09:11 | XMS_ITS | Clinical Summary ---
Author Organization [facility] Address [address] [place] [address] Phone Care Team Providers Care Silo Painter Name Role Phone Arnoldo Gore MD Primary Care Provider [phone] Allergies No known active allergies Medications No [...] Medical Devices Not on file Insurance [facility] Care Teams Silo Painter Relationship Specialty Start Date End Date Arnoldo Gore MD [address] [place] [address] PCP - [facility] 07/05/15 Additional Source Comments The information contained in this document represents components of the legal health record. It is not the complete legal health record.[facility]
== END 2025-03-14 09:39 | disposition home or self-care (01) ==
LOC: HO.HGS 08:50
PROVIDERS: PCP Internal Medicine; Visit Provider Surgery
DX: L98.9 Disorder of the skin and subcutaneous tissue, unspecified (principal)
CPT/HCPCS: 11403

== ENCOUNTER 2025-03-14 08:49 | Outpatient (REF) | payer OTHER, SELFPAY | END 2025-03-14 08:50 | disposition home or self-care (01) | LOC: HO.LNP 08:49 | PROVIDERS: PCP Internal Medicine; Visit Provider Surgery | DX: L98.9 Disorder of the skin and subcutaneous tissue, unspecified (principal) | CPT/HCPCS: 11403; 88305 ==

== ENCOUNTER 2025-03-21 09:45 | Outpatient (AMB) | payer OTHER, SELFPAY ==
--- NOTE | 2025-03-21 09:52 | MHC.OFFVIS ---
Vital Signs 03/21/25 09:56 Height 6 ft Weight 368 lb 2.751 oz BMI 49.9 Intake Visit Reasons: s/p excision lesion shoulder Intake Note: Patient presents for suture removal status post excision skin lesion of shoulder. Pt c/o; ? infection, reports redness. Die Turner Required: No Accompanied by: Self / Same As Patient Allergies No Known Allergies (No Known Allergies*) Allergy (Verified 03/21/25 09:57) HPI HPI s/p excision lesion shoulder: Details: He had undergone excision of a lesion from the shoulder under local anesthesia last 03/14/2025. He tolerated procedure well. He currently denies significant complaints currently. PFSH Medical History Skin lesion Staph infection Muscle spasm of back Hinson syndrome Family history of colon cancer Tubulovillous adenoma Perianal abscess Diabetes mellitus Morbid obesity HTN (hypertension) Surgical History History of colon resection (~04/18/24) Hx of excision of mass Hx of wisdom tooth extraction H/O colonoscopy Family History Father Colon cancer, Onset Age: 46 Brother Colon polyps Social History Household Members: Family and Friend(s) Household Members Other:: mother & roomate live w/patient Housing: House Are you a primary rn managed care to a significant other at home: No Do you presently have visiting nurse or other home services: No Patient Tobacco Use Status: Never used Tobacco Review of Systems Const Denies chills and Denies fever(s) Physical Exam Const Other: Morbidly obese General: comfortable and no acute distress Skin Other: Excision site is well healed, sutures in place, some redness of the skin Assessment & Plan Assessment & Plan (1) Skin lesion: Code(s): L98.9 - Disorder of the skin and subcutaneous tissue, unspecified Category: Medical Plan: Status post excision. I removed his sutures. I applied Steri-Strips. Incision is well healed. His path report social sebaceous adenoma. I explained to him that this has benign lesion but is often associated with Hinson syndrome as well which he has been diagnosed with. He has a known polyp in the transverse colon. He had a colonoscopy in [facility] today and says the biopsies of this were done. He is waiting for a CAT scan as well. I emphasized to him the importance of following up with the colorectal service in [facility] in view of this polyp with his genetic mutation consistent with Hinson syndrome. Coding Level of Care Code Global (05821) Diagnoses Skin lesion L98.9
[2025-03-21 09:56] VITALS: BMI 49.9
== END 2025-03-21 10:08 | disposition home or self-care (01) ==
LOC: HO.HGS 09:46
PROVIDERS: PCP Internal Medicine; Visit Provider Surgery
DX: L98.9 Disorder of the skin and subcutaneous tissue, unspecified (principal)
CPT/HCPCS: 99024